=== PATIENT | female | born 1940 | race Caucasian/White ===

== ENCOUNTER 2018-09-09 12:22 | Inpatient (IN) | payer MEDICARE ==
[2018-09-09] MEDS: SODIUM CHLORIDE 0.9% 1,000 ML IV SCH (15:17)
[2018-09-09 15:39] LABS: INR 1.5 (<1.2); Partial Thromboplastin Time 30.7 sec (22.0-30.0); Prothrombin Time 14.8 sec (9.0-12.0)
[2018-09-09 15:41] LABS: Anisocytosis Moderate; Basophils % (A) 0 %; Eosinophils # (A) 0.1 k/uL (0-0.7); Eosinophils % (A) 1 %; HCT 31.7 % (34.0-46.0); HGB 9.5 gm/dL (11.4-16.0); Hypochromasia Moderate; Lymphocytes # (A) 0.4 k/uL (1.0-4.8); Lymphocytes % (A) 4 %; MCH 28.6 pg (25.0-35.0); MCHC 30.1 g/dL (31.0-37.0); MCV 94.9 fL (80.0-100.0); Macrocytosis Slight; Mean Platelet Volume 9.3; Monocytes # (A) 0.7 k/uL (0-1.0); Monocytes % (A) 6 %; Neutrophils # (A) 10.3 k/uL (1.3-7.7); Neutrophils % (A) 89 %; Platelet Count 218 k/uL (150-450); RBC 3.34 m/uL (3.80-5.40); RDW 20.3 % (11.5-15.5); WBC 11.6 k/uL (3.8-10.6)
[2018-09-09 15:43] LABS: Creatine Kinase <20 U/L (30-135)
--- NOTE | 2018-09-09 15:44 | XR ---
EXAMINATION TYPE: XR chest 2V DATE OF EXAM: 09/09/2018 COMPARISON: NONE HISTORY: Weakness. TECHNIQUE: Frontal and lateral views of the chest are obtained. FINDINGS: The cardiac silhouette size is upper limits of normal. There are small to tiny bilateral p leural effusions with blunting of posterior lateral costophrenic angles. There is associated bibasila r compressive atelectasis. The osseous structures are demineralized. IMPRESSION: Correlate for CHF exacerbation as there are small to tiny bilateral pleural effusions an d associated bibasilar atelectasis.
[2018-09-09] MEDS ORDERED: SODIUM CHLORIDE 0.9% 1,000 ML IV ONE (15:45)
--- NOTE | 2018-09-09 15:45 | XR ---
EXAMINATION TYPE: XR Hip RT and AP Pelvis DATE OF EXAM: 09/09/2018 COMPARISON: NONE HISTORY: Right hip pain. TECHNIQUE: A single AP view of the pelvis is obtained. Two views of the right hip are obtained. FINDINGS: Osseous structures are demineralized. There is no acute fracture/dislocation evident in th e pelvis. The sacroiliac joints appear symmetric and unremarkable. Mild to moderate axial joint spac e loss in both hips is present. The overlying soft tissue appears unremarkable. Two views of right hip show no acute fracture or dislocation. No focal lytic or sclerotic lesion see n in the proximal right femur. The overlying soft tissue is unremarkable. IMPRESSION: There is no acute fracture or dislocation in the pelvis or right hip.
--- NOTE | 2018-09-09 15:45 | ED ---
Weakness HPI - General Chief complaint: Weakness Stated complaint: Weakness Time Seen by Provider: 09/09/18 14:30 Source: patient, family, RN notes reviewed, old records reviewed Mode of arrival: wheelchair Limitations: no limitations - History of Present Illness Initial comments: Patient is a 78-year-old female, Patient of Dr. Harris who presents emergency department today with progressive weakness. Patient reports that she was hospitalized in [place] during [place] time due to increasing weakness and difficulty ambulating. She [place]. She followed up with her primary care physician. Patient presents emergency department today with her and 2 sons. They're trying to transfer the Patient she was very difficult for transfer. She reports that she twisted her back and complains of pain within her back. Patient states that when she was hospitalized they never found an exact reason why she had increased weakness. They report that she did have some changes on her electrolyte levels. There is no definitive diagnoses 1 she was discharged. She was just told to come back here to start to establish care for this progressive weakness. Patient presents today without a fever. She reports she's had some increased shortness of breath and swelling in her legs. She's had no previous cardiac history. - Related Data Home Medications Medication Instructions Recorded Confirmed Enalapril [Vasotec] 10 mg PO DAILY 09/09/18 09/09/18 Insulin Aspart Protam & Aspart 8 unit SQ BID 09/09/18 09/09/18 [Novolog Mix 70-30 Flexpen Syrn] Insulin Aspart [NovoLOG Flexpen] 4 units SQ AC-BRKFST 09/09/18 09/09/18 Insulin Aspart [NovoLOG Flexpen] 8 units SQ AC-BID 09/09/18 09/09/18 Metoprolol Succinate (ER) [Toprol 50 mg PO DAILY 09/09/18 09/09/18 Xl] Allergies Allergy/AdvReac Type Severity Reaction Status Date / Time aspirin Allergy Rash/Hives Verified 09/09/18 15:20 Review of Systems ROS Statement: Those systems with pertinent positive or pertinent negative responses have been documented in the HPI. ROS Other: All systems not noted in ROS Statement are negative. Past Medical History Past Medical History: Diabetes Mellitus, Hypertension History of Any Multi-Drug Resistant Organisms: None Reported Past Surgical History: Cholecystectomy, Joint Replacement Additional Past Surgical History / Comment(s): biopsy of lymph node 08/29/18, bilateral knee replacement Past Psychological History: No Psychological Hx Reported Smoking Status: Former smoker Past Alcohol Use History: None Reported Past Drug Use History: None Reported General Exam - General Exam Comments Initial Comments: 78-year-old female. Alert and oriented 3. Limitations: no limitations General appearance: alert, in no apparent distress Head exam: Present: atraumatic, normocephalic, normal inspection Eye exam: Present: normal appearance, PERRL, EOMI. Absent: scleral icterus, conjunctival injection, periorbital swelling ENT exam: Present: normal exam, mucous membranes moist. Absent: normal oropharynx (dry) Neck exam: Present: normal inspection. Absent: tenderness, meningismus, lymphadenopathy Respiratory exam: Present: normal lung sounds bilaterally. Absent: respiratory distress, wheezes, rales, rhonchi, stridor Cardiovascular Exam: Present: regular rate, normal rhythm, normal heart sounds. Absent: systolic murmur, diastolic murmur, rubs, gallop, clicks GI/Abdominal exam: Present: soft, normal bowel sounds. Absent: distended, tenderness, guarding, rebound, rigid Extremities exam: Present: normal inspection, pedal edema, other (Bilateral pedal edema) Back exam: Present: normal inspection Neurological exam: Present: alert, oriented X3, CN II-XII intact Psychiatric exam: Present: normal affect, normal mood Skin exam: Present: warm, dry, intact, normal color. Absent: rash Course Vital Signs 09/09/18 09/09/18 13:14 16:30 Temperature 97.7 F Pulse Rate 85 86 Respiratory 18 19 Rate Blood Pressure 93/59 109/63 O2 Sat by Pulse 100 100 Oximetry EKG Findings - EKG Comments: EKG Findings:: EKG performed at 1415 shows normal sinus rhythm and normal EKG. Ventricular rate of 86 bpm. Intervals 142 ms. QRS duration 70 ms. QT QTc is 376/449 ms. Medical Decision Making - Medical Decision Making 78-year-old female presents emergency department today with chief complaint of progressive weakness. She was recently admitted to hospital in [place] and discharged with no definitive diagnosis. Patient has had a rapid decline since [place] according to family. Patient reports bilateral leg swelling and shortness of breath. White blood cell count was 11.6. RBCs is 3.34. Hemoglobin is 9.5. Sodium of 131, potassium 4.4. 94. Blood sugar 132. Her lactic acidosis elevated 4.8. Troponin was normal. Albumin was low at 2.3. Patient had to be catheterized for urine sample. There is some white blood cells and red blood cells. Urine culture will be obtained. We'll start the Patient 1 g of Rocephin at this time to cover for urosepsis with the elevated lactic acid. She was given 1 L bolus, started 100 and hour. She does have some evidence of fluid overload with bilateral pitting edema. Patient will be admitted at this time under Dr. Piper. - Lab Data Result diagrams: 09/09/18 15:10 09/09/18 15:10 Lab Results 09/09/18 09/09/18 09/09/18 Range/Units 15:10 15:10 15:10 WBC 11.6 H (3.8-10.6) k/uL RBC 3.34 L (3.80-5.40) m/uL Hgb 9.5 L (11.4-16.0) gm/dL Hct 31.7 L (34.0-46.0) % MCV 94.9 (80.0-100.0) fL MCH 28.6 (25.0-35.0) pg MCHC 30.1 L (31.0-37.0) g/dL RDW 20.3 H (11.5-15.5) % Plt Count 218 (150-450) k/uL Neutrophils % 89 % Lymphocytes % 4 % Monocytes % 6 % Eosinophils % 1 % Basophils % 0 % Neutrophils # 10.3 H (1.3-7.7) k/uL Lymphocytes # 0.4 L (1.0-4.8) k/uL Monocytes # 0.7 (0-1.0) k/uL Eosinophils # 0.1 (0-0.7) k/uL Basophils # 0.0 (0-0.2) k/uL Hypochromasia Moderate Anisocytosis Moderate Macrocytosis Slight PT (9.0-12.0) sec INR (<1.2) APTT (22.0-30.0) sec Sodium 131 L (137-145) mmol/L Potassium 4.4 (3.5-5.1) mmol/L Chloride 94 L (98-107) mmol/L Carbon Dioxide 24 (22-30) mmol/L Anion Gap 13 mmol/L BUN 18 H (7-17) mg/dL Creatinine 0.84 (0.52-1.04) mg/dL Est GFR (CKD-EPI)AfAm 76 (>60 ml/min/1.73 sqM) Est GFR (CKD-EPI)NonAf 66 (>60 ml/min/1.73 sqM) Glucose 132 H (74-99) mg/dL Plasma Lactic Acid Wilbert (0.7-2.0) mmol/L Calcium 7.7 L (8.4-10.2) mg/dL Total Bilirubin 1.4 H (0.2-1.3) mg/dL AST 35 (14-36) U/L ALT 21 (9-52) U/L Alkaline Phosphatase 297 H (38-126) U/L Total Creatine Kinase <20 L (30-135) U/L CK-MB (CK-2) 0.5 (0.0-2.4) ng/mL CK-MB (CK-2) Rel Index Troponin I <0.012 (0.000-0.034) ng/mL NT-Pro-B Natriuret Pep pg/mL Total Protein 6.5 (6.3-8.2) g/dL Albumin 2.3 L (3.5-5.0) g/dL Urine Color Urine Appearance (Clear) Urine pH (5.0-8.0) Ur Specific [place] (1.001-1.035) Urine Protein (Negative) Urine Glucose (UA) (Negative) Urine Ketones (Negative) Urine Blood (Negative) Urine Nitrite (Negative) Urine Bilirubin (Negative) Urine Urobilinogen (<2.0) mg/dL Ur Leukocyte Esterase (Negative) Urine RBC (0-5) /hpf Urine WBC (0-5) /hpf Ur Squamous Epith Cells (0-4) /hpf Amorphous Sediment (None) /hpf Hyaline Casts (0-2) /lpf Urine Mucus (None) /hpf 09/09/18 09/09/18 09/09/18 Range/Units 15:10 15:10 15:10 WBC (3.8-10.6) k/uL RBC (3.80-5.40) m/uL Hgb (11.4-16.0) gm/dL Hct (34.0-46.0) % MCV (80.0-100.0) fL MCH (25.0-35.0) pg MCHC (31.0-37.0) g/dL RDW (11.5-15.5) % Plt Count (150-450) k/uL Neutrophils % % Lymphocytes % % Monocytes % % Eosinophils % % Basophils % % Neutrophils # (1.3-7.7) k/uL Lymphocytes # (1.0-4.8) k/uL Monocytes # (0-1.0) k/uL Eosinophils # (0-0.7) k/uL Basophils # (0-0.2) k/uL Hypochromasia Anisocytosis Macrocytosis PT 14.8 H (9.0-12.0) sec INR 1.5 H (<1.2) APTT 30.7 H (22.0-30.0) sec Sodium (137-145) mmol/L Potassium (3.5-5.1) mmol/L Chloride (98-107) mmol/L Carbon Dioxide (22-30) mmol/L Anion Gap mmol/L BUN (7-17) mg/dL Creatinine (0.52-1.04) mg/dL Est GFR (CKD-EPI)AfAm (>60 ml/min/1.73 sqM) Est GFR (CKD-EPI)NonAf (>60 ml/min/1.73 sqM) Glucose (74-99) mg/dL Plasma Lactic Acid Wilbert 4.8 H* (0.7-2.0) mmol/L Calcium (8.4-10.2) mg/dL Total Bilirubin (0.2-1.3) mg/dL AST (14-36) U/L ALT (9-52) U/L Alkaline Phosphatase (38-126) U/L Total Creatine Kinase (30-135) U/L CK-MB (CK-2) (0.0-2.4) ng/mL CK-MB (CK-2) Rel Index Troponin I (0.000-0.034) ng/mL NT-Pro-B Natriuret Pep 1690 pg/mL Total Protein (6.3-8.2) g/dL Albumin (3.5-5.0) g/dL Urine Color Urine Appearance (Clear) Urine pH (5.0-8.0) Ur Specific [place] (1.001-1.035) Urine Protein (Negative) Urine Glucose (UA) (Negative) Urine Ketones (Negative) Urine Blood (Negative) Urine Nitrite (Negative) Urine Bilirubin (Negative) Urine Urobilinogen (<2.0) mg/dL Ur Leukocyte Esterase (Negative) Urine RBC (0-5) /hpf Urine WBC (0-5) /hpf Ur Squamous Epith Cells (0-4) /hpf Amorphous Sediment (None) /hpf Hyaline Casts (0-2) /lpf Urine Mucus (None) /hpf 09/09/18 Range/Units 16:20 WBC (3.8-10.6) k/uL RBC (3.80-5.40) m/uL Hgb (11.4-16.0) gm/dL Hct (34.0-46.0) % MCV (80.0-100.0) fL MCH (25.0-35.0) pg MCHC (31.0-37.0) g/dL RDW (11.5-15.5) % Plt Count (150-450) k/uL Neutrophils % % Lymphocytes % % Monocytes % % Eosinophils % % Basophils % % Neutrophils # (1.3-7.7) k/uL Lymphocytes # (1.0-4.8) k/uL Monocytes # (0-1.0) k/uL Eosinophils # (0-0.7) k/uL Basophils # (0-0.2) k/uL Hypochromasia Anisocytosis Macrocytosis PT (9.0-12.0) sec INR (<1.2) APTT (22.0-30.0) sec Sodium (137-145) mmol/L Potassium (3.5-5.1) mmol/L Chloride (98-107) mmol/L Carbon Dioxide (22-30) mmol/L Anion Gap mmol/L BUN (7-17) mg/dL Creatinine (0.52-1.04) mg/dL Est GFR (CKD-EPI)AfAm (>60 ml/min/1.73 sqM) Est GFR (CKD-EPI)NonAf (>60 ml/min/1.73 sqM) Glucose (74-99) mg/dL Plasma Lactic Acid Wilbert (0.7-2.0) mmol/L Calcium (8.4-10.2) mg/dL Total Bilirubin (0.2-1.3) mg/dL AST (14-36) U/L ALT (9-52) U/L Alkaline Phosphatase (38-126) U/L Total Creatine Kinase (30-135) U/L CK-MB (CK-2) (0.0-2.4) ng/mL CK-MB (CK-2) Rel Index Troponin I (0.000-0.034) ng/mL NT-Pro-B Natriuret Pep pg/mL Total Protein (6.3-8.2) g/dL Albumin (3.5-5.0) g/dL Urine Color Dark Brown Urine Appearance Cloudy H (Clear) Urine pH 5.5 (5.0-8.0) Ur Specific [place] 1.026 (1.001-1.035) Urine Protein 1+ H (Negative) Urine Glucose (UA) Negative (Negative) Urine Ketones Trace H (Negative) Urine Blood Moderate H (Negative) Urine Nitrite Negative (Negative) Urine Bilirubin 1+ H (Negative) Urine Urobilinogen 12.0 (<2.0) mg/dL Ur Leukocyte Esterase Negative (Negative) Urine RBC 29 H (0-5) /hpf Urine WBC 10 H (0-5) /hpf Ur Squamous Epith Cells 5 H (0-4) /hpf Amorphous Sediment Occasional H (None) /hpf Hyaline Casts 275 H (0-2) /lpf Urine Mucus Occasional H (None) /hpf - Radiology Data Radiology results: report reviewed Chest x-ray shows no acute fracture dislocation of the pelvis or right hip. Chest x-ray shows correlate for CHF exacerbation as her tiny bilateral pleural effusions associated bibasilar atelectasis. Disposition Clinical Impression: Fluid overload, Sepsis secondary to UTI, Weakness Disposition: ADMITTED IP TO THIS HOSP Condition: Stable Is patient prescribed a controlled substance at d/c from ED?: No Referrals: Kye Piper MD [Primary Care Provider] - 1-2 days Time of Disposition: 17:05
[2018-09-09 15:54] LABS: Albumin 2.3 g/dL (3.5-5.0); Calcium 7.7 mg/dL (8.4-10.2); Potassium 4.4 mmol/L (3.5-5.1); Total Bilirubin 1.4 mg/dL (0.2-1.3); Total Protein 6.5 g/dL (6.3-8.2)
[2018-09-09 15:56] LABS: Creatine Kinase MB 0.5 ng/mL (0.0-2.4); Troponin I <0.012 ng/mL (0.000-0.034)
[2018-09-09 16:37] LABS: Amorphous Sediment,Urine Occasional /hpf; Appearance,Urine Cloudy (Clear); Bilirubin,Urine 1+ (Negative); Blood,Urine Moderate (Negative); Color,Urine Dark Brown; Glucose,Urine (UA) Negative (Negative); Hyaline Casts,Urine 275 /lpf (0-2); Ketones,Urine Trace (Negative); Leukocyte Esterase,Urine Negative (Negative); Mucus,Urine Occasional /hpf; Nitrite,Urine Negative (Negative); PH, Urine 5.5 (5.0-8.0); Protein,Urine 1+ (Negative); RBC,Urine 29 /hpf (0-5); Specific Gravity,Urine 1.026 (1.001-1.035); Squamous Epithelial Cell,Urine 5 /hpf (0-4); WBC,Urine 10 /hpf (0-5)
[2018-09-09] MEDS ORDERED: ONDANSETRON 4 MG/2 ML VIAL IVP PRN (17:05)
[2018-09-09] MEDS ORDERED: NALOXONE 0.4 MG/ML 1 ML VIAL IV PRN (17:05)
[2018-09-09 17:57] LABS: Glucose,Whole Blood 107 mg/dL (75-99)
[2018-09-09] MEDS: INSULIN ASPART 100 UNIT/ML 1 ML 10 ML VIAL SQ SCH (18:57)
--- NOTE | 2018-09-09 22:17 | HP ---
HISTORY AND PHYSICAL PRIMARY COMPLAINT: Weakness. HISTORY OF PRESENT ILLNESS: This 78-year-old female returned from [place] shortly after [place]. Apparently she had been doing fairly well after but developed extreme weakness down in [place] and was hospitalized at [facility] in [place], [place]. Phone number . Because of her abnormalities they did an initial chest x -ray and she was found to have some pectoral lymph nodes that were enlarged. Subsequently she had a biopsy, the report of which I just received today, that did show some inflammation on the lymph nodes but not specifically diagnostic for a lymphoma. 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 The patient returned home and has continued to do poorly, unable to ambulate about her house, needing and at requiring the assistance of two people to get up out of bed. The patient was actually seen earlier this year, this summer, and was complaining of abdominal pain, and had had some weight loss. At that time laboratory values were essentially unremarkable, though she did have mild anemia. She had a chest x- ray back in February of last year at [facility] which showed some mild hyperinflation and borderline heart size, but no acute pulmonary process at that time. Due to her abdominal symptoms, she had a CT scan of the abdomen and pelvis which at that time showed no acute process in the abdomen, no evidence of any unusual lymph nodes greater than 1 cm. Lung bases were clear. Pancreas, spleen, adrenals, kidney showed no unusual abnormalities. She was actually referred to Dr. Rodriguez from Gastroenterology and underwent an EGD which showed some mild gastritis. Otherwise, she also had a distal esophageal ring that was dilated, but no other major abnormalities were found. Then subsequently the patient remained fairly stable and went to winter in [place] as usual until the above-mentioned problems arose and she returned from [place]. Other past medical history is positive for: 1. Hypertension. 2. Type 2 diabetes with neuropathy. 3. She does have a history of hyperlipidemia. 4. Obesity. No history of myocardial infarction or stroke. HOME MEDICATIONS: Home medications include: 1. Metoprolol succinate 50 mg daily. 2. NovoLog 70/30, 8 units twice a day. 3. Vasotec 10 mg daily. 4. NovoLog FlexPen 4 units before breakfast and 8 units before the other two meals. ALLERGIES: She has a HISTORY OF ALLERGY WITH RASH AND HIVES TO ASPIRIN. REVIEW OF SYSTEMS: She denied any unusual headache. No nausea or vomiting. No unusual urinary or bowel symptoms. She has had some increasing edema, shortness of breath with exertion , but no further abdominal pain or headaches. SOCIAL HISTORY: Negative for smoking or alcohol usage. She has lived with her locally here and [place] in [place]. FAMILY HISTORY: Positive for diabetes and coronary artery disease. PHYSICAL EXAMINATION: She is alert, overall pleasant. Her initial blood pressure, though, was 93/59, temperature 97.7. Blood pressure had increased with fluids in the emergency room up to 109/56, pulse of 88, respirations 15, oxygen saturation 100%. She does generally look pale but not icteric. Neck is not stiff. There are some small but enlarged lymph nodes in the right lower neck and on the chest wall in the upper chest area. Heart tones were regular without murmurs. Lungs were clear although diminished at bases. The breasts did not reveal any definitive lesions. Axillae: She is a very large lady, but I did not detect any marked axillary nodes present at this time. ABDOMEN: Obese but generally soft and nontender without organomegaly. Extremities reveal 1 to 2+ edema bilaterally. Neurologically, she is alert and oriented. No cranial nerve deficits. There is some generalized diffuse weakness but no focal weakness noted. LABORATORY VALUES: White count 11.6, hemoglobin 9.5, platelet count of 218. There was a left shift with 10.3 neutrophils. Her INR is 1.5, which is elevated. PTT is also elevated at 10.7. Her sodium was low at 131, potassium 4.4, BUN of 18 with a creatinine 0.84. Her GFR was 66 and blood sugar 132. She did have an elevated lactic acid level of 4.8, but this decreased down to 3. Calcium was low at 7.7, albumin a little bit high at 1.4, but AST and ALT were normal. Alkaline phosphatase is elevated at 297. CK of 20. Albumin was low at 2.3. Troponin less than 0.012. ProBNP was 1690. TSH mildly elevated at 5.7. Urinalysis did show it to be cloudy, moderate amount of blood , 29 RBCs and 10 white cells along with casts were seen. The patient did have a chest x-ray, which revealed what looked like some small effusions at the bases consistent with some CHF or atelectasis. Otherwise lung li were fairly clear. Cardiac size was upper limits of normal. She did have hip and pelvic x-rays which did not show any evidence of fracture. Her EKG showed regular sinus rhythm, essentially unremarkable. As mentioned, her biopsy down in [place] was nondiagnostic. This was a pectoral lymph node on the upper anterior chest, apparently. IMPRESSION: Overall impression at this point is this 78-year-old female with worsening weakness, possibility of underlying lymphoma, presenting with likely a urinary tract infection associated with elevated lactic acid level consistent with sepsis and with the weakness along with an underlying possible malignancy and past medical history of obesity , hypertension, diabetes, hyperlipidemia. She also does have anemia with a hemoglobin of 9.5. PLAN: At this point we will admit. Some IV fluids judiciously along with antibiotics and cultures being obtained. We will ask Oncology for evaluation and further recommendations. We have sent the records from [place] over to Oncology and will hopefully get a copy for the patient's inpatient chart. Further recommendations pending clinical response and results of above, as discussed with the patient and her son at bedside. MMODL / IJN: [id number] / MTDD
[2018-09-09 23:30] LABS: Glucose,Whole Blood 135 mg/dL (75-99)
[2018-09-10] MEDS: INSULN ASP PRT/INSULIN ASPART 100 UNIT/ML 10 ML VIAL SQ SCH ×3 (00:30→20:47)
[2018-09-10] MEDS: SODIUM CHLORIDE 0.9% 1,000 ML IV SCH ×2 (01:22→22:46)
--- NOTE | 2018-09-10 08:15 | P.PN ---
Progress Note - Text The patient is a 78-year-old female who presented to the emergency room yesterday with severe weakness. The patient was initially wintering in [place] when she became very weak around [place] time. There she was admitted to [facility] and found to have some chest wall lymphadenopathy and an abnormal chest x-ray at that time. A biopsy was taken from a right pectoral lymph node which showed nonspecific inflammation. Patient has continued to be very weak. Urinalysis is possibly shows a infection and she is presently on treatment. Patient did have a CAT scan and biopsy of the chest and lymph nodes in [place]. She did have a abdominal and pelvic CAT scan earlier this year at [facility] because of abdominal pain but these were essentially negative along with a upper gastroscopy. Chest x-rays has shown some small bilateral effusions. BNP is elevated. She is feeling a little better this morning. She denies any shortness of breath or nausea and vomiting. Vital signs show temperature 97.4 with a pulse of 101 and respirations 20. Blood pressure is 114/70 and she is 97% saturated on room air. Lungs are generally clear although diminished at bases. Heart tones were regular. Abdomen is obese but nontender. Extremities do show grade 2-3 edema bilaterally. Lower extremities. She is alert and oriented. No focal neurological deficits. The patient's lactic acid level did decrease down to 3.0. Still is elevated. Blood sugar 135 this morning. Urine culture pending. Impressions and plans Likely sepsis from urinary source with acute weakness. Concerned with possible underlying lymphoma or metastatic disease with history of weakness and weight loss and findings from chest CAT scan done down in [place]. Patient also has mild anemia and congestive heart failure. At this point we will add small dose of Lasix. Repeat labs for tomorrow morning. Consult has been placed with oncology to evaluate. Records from [place] have been sent to their office. Echocardiogram has been ordered. We'll continue beta blockers and lisinopril for now. Continue antibiotics in the form of Rocephin for now pending cultures.
[2018-09-10] MEDS: INSULIN ASPART 100 UNIT/ML 1 ML 10 ML VIAL SQ SCH ×3 (08:42→18:06)
[2018-09-10 08:59] LABS: Glucose,Whole Blood 107 mg/dL (75-99)
[2018-09-10] MEDS ORDERED: PANTOPRAZOLE 40 MG/10 ML VIAL IV SCH (09:00)
[2018-09-10] MEDS ORDERED: cefTRIAXone 1,000 MG VIAL (IM USE) IM SCH (09:00)
[2018-09-10] MEDS: METOPROLOL SUCCINATE (ER) 50 MG TAB.ER.24H PO SCH (13:17)
[2018-09-10] MEDS: LISINOPRIL 10 MG TAB PO SCH (13:17)
[2018-09-10] MEDS: FUROSEMIDE 10 MG/ML 2 ML VIAL IV SCH ×2 (13:18→22:46)
[2018-09-10 13:23] LABS: Glucose,Whole Blood 84 mg/dL (75-99)
[2018-09-10] MEDS: HYDROmorphone 1 MG/ML 1 ML SYRINGE IVP PRN (14:13)
[2018-09-10 16:01] LABS: Glucose,Whole Blood 147 mg/dL (75-99)
[2018-09-10] MEDS: IOPAMIDOL-300 CONTRAST 30 ML VIAL (ORAL USE) PO PRN ×2 (18:43→20:11)
[2018-09-10 21:00] LABS: Glucose,Whole Blood 79 mg/dL (75-99)
--- NOTE | 2018-09-11 03:13 | CT ---
EXAMINATION TYPE: CT ChestAbdPelvis w con DATE OF EXAM: 09/10/2018 COMPARISON: None HISTORY: r/o lymphoma CT DLP: 1687.5 mGycm Automated exposure control for dose reduction was used. CONTRAST: CT scan of the chest, abdomen and pelvis is performed with Oral Contrast and with IV Contra st, patient injected with 100 mL of Isovue 300. FINDINGS: AIRWAYS / LUNGS: The tracheobronchial tree is patent. The lungs are grossly clear, there is no concer oly parenchymal mass or nodule identified. PLEURAL SPACES: There are relatively small bilateral pleural effusions. MEDIASTINUM: There is mild/moderate bilateral hilar adenopathy. There is mild/moderate adenopathy thr oughout the superior, anterior, and middle mediastinum. This is also seen in the subcarinal and right paraesophageal positions. There is mild cardiomegaly and prominent coronary calcifications, but no pericardial effusion. SUPRACLAVICULAR/AXILLARY: On the right there are 3 smoothly-marginated soft tissue adenopathy masses, measuring 5.4 x 2.8 cm, 2.4 x 2.0 cm, and 2.8 x 1.7 cm. On the left there are 3 lymph nodes measurin g 1 cm mean diameter. LIVER/GB: No significant abnormality is appreciated. The liver appears somewhat shrunken with caudate lobe hypertrophy and scalloped hepatic margins. PANCREAS, SPLEEN, ADRENALS, AND KIDNEYS: No significant abnormality. BOWEL: No significant abnormality is seen. REPRODUCTIVE ORGANS: No gross abnormality seen. LYMPH NODES: There are 1 to 3 cm lymph nodes throughout the abdomen and pelvis, extending from the pe ripancreatic/shira hepatus/portacaval and periaortic positions contiguously and caudally to include t he bilateral common iliac positions and left external iliac and inguinal positions. At this time ther e is no significant mass effect from these enlarged lymph nodes. OSSEOUS STRUCTURES: No significant abnormality is seen. OTHER: No acute vascular findings. IMPRESSION: CHEST: Adenopathy in the right supraclavicular/axillary and mediastinal/hilar positions. Bilateral sm all pleural effusions. ABDOMEN AND PELVIS: Adenopathy, more prominent in the abdomen.
[2018-09-11] MEDS: LEVOTHYROXINE 25 MCG TAB PO SCH (06:23)
[2018-09-11 06:28] LABS: Glucose,Whole Blood 80 mg/dL (75-99)
[2018-09-11 06:45] LABS: Albumin 1.8 g/dL (3.5-5.0); Calcium 6.8 mg/dL (8.4-10.2); Potassium 3.3 mmol/L (3.5-5.1); Total Bilirubin 1.2 mg/dL (0.2-1.3); Total Protein 5.3 g/dL (6.3-8.2)
[2018-09-11 07:02] LABS: T4, Free (Free Thyroxine) 1.36 ng/dL (0.78-2.19)
--- NOTE | 2018-09-11 07:22 | P.PN ---
Progress Note - Text The patient is a 78-year-old female who presented to 2 days previous to the emergency room here. Patient was wintering in [place] when she became very weak around [place] time. She was hospitalized at [facility] and found to have some lymphadenopathy of the right upper chest wall. Biopsy though was nonspecific for inflammation but apparently nondiagnostic. Patient presented here with congestive heart failure and urinary tract infection along with continued anemia and weakness. She states she feels some better. She has been on Lasix and diuresing. Vital signs show a temperature 90.8 with a pulse of 90 and respirations 16. Blood pressure 119/57 and she is 97% saturated. Lungs are generally clear although diminished at bases. Heart tones were regular. Abdomen is obese but nontender. Extremities were edematous and presently are wrapped in Jarrell wrap. No new neurological deficits noted. Laboratory Sodium is low at 128 along with potassium at 3.3. BUN is 16 with a creatinine of 0.85 given her GFR 69. Blood sugar was 80. Calcium is low at 6.8 with a low albumin of 1.8. Alk phos also was elevated at 272. Computed tomography scan of chest/abdomen/pelvis showed adenopathy in the right supraclavicular and axillary and mediastinal hilar positions. Small bilateral pleural effusions. There was more prominent adenopathy also noted in the abdomen. Impressions and plans Patient is receiving Lasix although with her sodium low we will decrease and add Aldactone and potassium replacement and follow electrolytes. Continue antibiotics for possible urinary tract infection. Oncology workup in progress. CT noted. Labs pending. We'll await further recommendations from oncology when tests are resulted.
[2018-09-11 07:38] LABS: Anisocytosis Moderate; Basophils % (A) 0 %; Eosinophils % (A) 0 %; HCT 25.7 % (34.0-46.0); Hypochromasia Moderate; Lymphocytes # (A) 0.5 k/uL (1.0-4.8); Lymphocytes % (A) 5 %; MCH 29.3 pg (25.0-35.0); MCHC 30.3 g/dL (31.0-37.0); MCV 96.6 fL (80.0-100.0); Macrocytosis Moderate; Mean Platelet Volume 8.9; Monocytes # (A) 1.3 k/uL (0-1.0); Monocytes % (A) 11 %; Neutrophils # (A) 9.6 k/uL (1.3-7.7); Neutrophils % (A) 83 %; Platelet Count 145 k/uL (150-450); RBC 2.67 m/uL (3.80-5.40); RDW 20.8 % (11.5-15.5); WBC 11.6 k/uL (3.8-10.6)
[2018-09-11 07:46] LABS: HGB 7.8 gm/dL (11.4-16.0)
[2018-09-11] MEDS: INSULIN ASPART 100 UNIT/ML 1 ML 10 ML VIAL SQ SCH ×3 (08:54→17:08)
[2018-09-11] MEDS: POTASSIUM CHLORIDE ER 10 MEQ TAB.ER.PRT PO SCH ×2 (09:01→20:32)
[2018-09-11] MEDS: METOPROLOL SUCCINATE (ER) 50 MG TAB.ER.24H PO SCH (09:01)
[2018-09-11] MEDS: FUROSEMIDE 10 MG/ML 2 ML VIAL IV SCH ×2 (09:01→22:33)
--- NOTE | 2018-09-11 09:02 | ECHOF ---
Referral Reason:CHF MEASUREMENTS -------- HEIGHT: 165.1 cm WEIGHT: 99.3 kg BP: 116/50 IVSd: 1.2 cm (0.6 - 1.1) LVIDd: 4.2 cm (3.9 - 5.3) LVPWd: 1.1 cm (0.6 - 1.1) IVSs: 1.7 cm LVIDs: 3.2 cm LVPWs: 1.3 cm Ao Diam: 3.1 cm (2.0 - 3.7) LA Diam: 3.7 cm (2.7 - 3.8) MV EXCURSION: 13.883 mm (> 18.000) MV EF SLOPE: 58 mm/s (70 - 150) EPSS: 0.4 cm MV E Siva: 0.58 m/s MV DecT: 287 ms MV A Siva: 1.20 m/s MV E/A Ratio: 0.49 AV maxP.27 mmHg AV meanP.93 mmHg RAP: 5.00 mmHg RVSP: 28.98 mmHg FINDINGS -------- Undetermined rhythm. This was a technically adequate study. The left ventricular size is normal. There is mild concentric left ventricular hypertrophy. Overa ll left ventricular systolic function is normal with, an EF between 55 - 60 %. The right ventricle is normal in size. The left atrial size is normal. The right atrial size is normal. The aortic valve was not well visualized. There is mild aortic valve sclerosis. There is mild aor tic stenosis present. Mild mitral annular calcification present. Mild mitral regurgitation is present. Mild tricuspid regurgitation present. There is no evidence of pulmonary hypertension. The right v entricular systolic pressure, as measured by Doppler, is 28.98mmHg. There is no pulmonic regurgitation present. The aortic root size is normal. There is no pericardial effusion. CONCLUSIONS -------- 1. The left ventricular size is normal. 2. There is mild concentric left ventricular hypertrophy. 3. Overall left ventricular systolic function is normal with, an EF between 55 - 60 %. 4. The right ventricle is normal in size. 5. The left atrial size is normal. 6. The right atrial size is normal. 7. The aortic valve was not well visualized. 8. There is mild aortic valve sclerosis. 9. There is mild aortic stenosis present. 10. Mild mitral annular calcification present. 11. Mild mitral regurgitation is present. 12. Mild tricuspid regurgitation present. 13. There is no evidence of pulmonary hypertension. 14. The right ventricular systolic pressure, as measured by Doppler, is 28.98mmHg. 15. There is no pulmonic regurgitation present. 16. The aortic root size is normal. 17. There is no pericardial effusion. TILER'S ASSISTANT: Lucía Ryan RDCS
[2018-09-11] MEDS: HYDROmorphone 1 MG/ML 1 ML SYRINGE IVP PRN (10:55)
[2018-09-11 11:56] LABS: Glucose,Whole Blood 189 mg/dL (75-99)
--- NOTE | 2018-09-11 12:17 | P.GSCN ---
History of Present Illness Consult date: 09/11/18 Reason for Consult: Lymphadenopathy History of present illness: Patient hospitalized because of weakness and pain. She just returned from [place]. CAT scan shows adenopathy involving the abdomen, chest and right axilla and supraclavicular regions. We were consulted for open biopsy of the lymphadenopathy. She apparently had a recent attempt at needle biopsy while she was in [place] but the results were inconclusive. Per the family her primary symptom recently has been poor appetite and fatigue. Patient denies night sweats. Some weight loss they believe. Review of Systems The patient denies any acute changes in vision or hearing, no dysphagia or odynophagia, no chest pain or shortness of breath, no dysuria or hematuria, no headache, no runny nose, no rectal bleeding or melena Past Medical History Past Medical History: Diabetes Mellitus, Hypertension History of Any Multi-Drug Resistant Organisms: None Reported Past Surgical History: Cholecystectomy, Joint Replacement Additional Past Surgical History / Comment(s): biopsy of lymph node 08/29/18, bilateral knee replacement Past Anesthesia/Blood Transfusion Reactions: No Reported Reaction Past Psychological History: No Psychological Hx Reported Smoking Status: Former smoker Past Alcohol Use History: None Reported Past Drug Use History: None Reported - Past Family History Mother Family Medical History: Coronary Artery Disease (CAD) Father Family Medical History: Cancer Additional Family Medical History / Comment(s): sisters x3 of cancer Medications and Allergies Home Medications Medication Instructions Recorded Confirmed Type Enalapril [Vasotec] 10 mg PO DAILY 09/09/18 09/09/18 History Insulin Aspart Protam & Aspart 8 unit SQ BID 09/09/18 09/09/18 History [Novolog Mix 70-30 Flexpen Syrn] Insulin Aspart [NovoLOG Flexpen] 4 units SQ AC-BRKFST 09/09/18 09/09/18 History Insulin Aspart [NovoLOG Flexpen] 8 units SQ AC-BID 09/09/18 09/09/18 History Metoprolol Succinate (ER) [Toprol 50 mg PO DAILY 09/09/18 09/09/18 History Xl] Allergies Allergy/AdvReac Type Severity Reaction Status Date / Time aspirin Allergy Rash/Hives Verified 09/09/18 15:20 Surgical - Exam Vital Signs Temp Pulse Resp BP Pulse Ox 97.7 F 85 18 93/59 100 09/09/18 13:14 09/09/18 13:14 09/09/18 13:14 09/09/18 13:14 09/09/18 13:14 Physical exam: General: Well-developed, well-nourished HEENT: Normocephalic, sclerae nonicteric, adenopathy involving the right supraclavicular region, some shoddy bilateral neck adenopathy Abdomen: Nontender, nondistended Extremities: Extensive edema involving both upper extremities and lower extremities, no definite superficial axillary adenopathy, suggestion of deep or adenopathy right axilla Neuro: Alert and oriented Results - Labs 09/11/18 05:44 09/11/18 05:44 Abnormal Lab Results - Last 24 Hours (Table) 09/10/18 09/11/18 09/11/18 Range/Units 15:57 05:44 05:44 WBC 11.6 H (3.8-10.6) k/uL RBC 2.67 L (3.80-5.40) m/uL Hgb 7.8 L D (11.4-16.0) gm/dL Hct 25.7 L (34.0-46.0) % MCHC 30.3 L (31.0-37.0) g/dL RDW 20.8 H (11.5-15.5) % Plt Count 145 L (150-450) k/uL Neutrophils # 9.6 H (1.3-7.7) k/uL Lymphocytes # 0.5 L (1.0-4.8) k/uL Monocytes # 1.3 H (0-1.0) k/uL Retic Count 5.0 H (0.5-2.0) % Sodium 128 L (137-145) mmol/L Potassium 3.3 L (3.5-5.1) mmol/L Chloride 96 L (98-107) mmol/L Glucose 69 L (74-99) mg/dL POC Glucose (mg/dL) 147 H (75-99) mg/dL Calcium 6.8 L (8.4-10.2) mg/dL Alkaline Phosphatase 272 H (38-126) U/L Total Protein 5.3 L (6.3-8.2) g/dL Albumin 1.8 L (3.5-5.0) g/dL Free T3 pg/mL 1.4 L (2.8-5.3) pg/ml 09/11/18 Range/Units 11:36 WBC (3.8-10.6) k/uL RBC (3.80-5.40) m/uL Hgb (11.4-16.0) gm/dL Hct (34.0-46.0) % MCHC (31.0-37.0) g/dL RDW (11.5-15.5) % Plt Count (150-450) k/uL Neutrophils # (1.3-7.7) k/uL Lymphocytes # (1.0-4.8) k/uL Monocytes # (0-1.0) k/uL Retic Count (0.5-2.0) % Sodium (137-145) mmol/L Potassium (3.5-5.1) mmol/L Chloride (98-107) mmol/L Glucose (74-99) mg/dL POC Glucose (mg/dL) 189 H (75-99) mg/dL Calcium (8.4-10.2) mg/dL Alkaline Phosphatase (38-126) U/L Total Protein (6.3-8.2) g/dL Albumin (3.5-5.0) g/dL Free T3 pg/mL (2.8-5.3) pg/ml Microbiology - Last 24 Hours (Table) 09/09/18 15:10 Blood Culture - Preliminary Blood No Growth after 24 hours Diabetes panel 09/11/18 Range/Units 05:44 Sodium 128 L (137-145) mmol/L Potassium 3.3 L (3.5-5.1) mmol/L Chloride 96 L (98-107) mmol/L Carbon Dioxide 24 (22-30) mmol/L BUN 16 (7-17) mg/dL Creatinine 0.85 (0.52-1.04) mg/dL Glucose 69 L (74-99) mg/dL Calcium 6.8 L (8.4-10.2) mg/dL AST 20 (14-36) U/L ALT 24 (9-52) U/L Alkaline Phosphatase 272 H (38-126) U/L Total Protein 5.3 L (6.3-8.2) g/dL Albumin 1.8 L (3.5-5.0) g/dL Calcium panel 09/11/18 Range/Units 05:44 Calcium 6.8 L (8.4-10.2) mg/dL Albumin 1.8 L (3.5-5.0) g/dL Pituitary panel 09/11/18 Range/Units 05:44 Sodium 128 L (137-145) mmol/L Potassium 3.3 L (3.5-5.1) mmol/L Chloride 96 L (98-107) mmol/L Carbon Dioxide 24 (22-30) mmol/L BUN 16 (7-17) mg/dL Creatinine 0.85 (0.52-1.04) mg/dL Glucose 69 L (74-99) mg/dL Calcium 6.8 L (8.4-10.2) mg/dL Adrenal panel 09/11/18 Range/Units 05:44 Sodium 128 L (137-145) mmol/L Potassium 3.3 L (3.5-5.1) mmol/L Chloride 96 L (98-107) mmol/L Carbon Dioxide 24 (22-30) mmol/L BUN 16 (7-17) mg/dL Creatinine 0.85 (0.52-1.04) mg/dL Glucose 69 L (74-99) mg/dL Calcium 6.8 L (8.4-10.2) mg/dL Total Bilirubin 1.2 (0.2-1.3) mg/dL AST 20 (14-36) U/L ALT 24 (9-52) U/L Alkaline Phosphatase 272 H (38-126) U/L Total Protein 5.3 L (6.3-8.2) g/dL Albumin 1.8 L (3.5-5.0) g/dL Assessment and Plan (1) Lymphadenopathy Narrative/Plan: Clinical scenario discussed with the patient and her family. Oncology requesting open excisional biopsy of one of the lymph nodes. The most accessible lymph node currently is in the right supraclavicular location it is actually just superficial to the head of the clavicle. We'll tentatively schedule for excisional biopsy tomorrow. Recheck coags. Risks of bleeding, infection, nerve injury, inconclusive diagnosis were reviewed. They understand and wish to proceed. Current Visit: Yes Status: Acute Code(s): R59.1 - GENERALIZED ENLARGED LYMPH NODES SNOMED Code(s): 50918218
[2018-09-11] MEDS: INSULN ASP PRT/INSULIN ASPART 100 UNIT/ML 10 ML VIAL SQ SCH ×2 (12:22→21:20)
[2018-09-11] MEDS: PANTOPRAZOLE 40 MG TABLET PO SCH (12:46)
[2018-09-11] MEDS: LISINOPRIL 10 MG TAB PO SCH (15:52)
[2018-09-11] MEDS: SPIRONOLACTONE 25 MG TAB PO SCH (15:53)
--- NOTE | 2018-09-11 16:51 | CDI ---
Documentation Clarification Form Date: 09/11/2018 4:41:36 PM From: Jeannette Fitch RN, CCDS Admit Date: 09/10/2018 2:32:00 PM Patient Name: Catherine Zamarripa Visit Number: [id number] ATTENTION: The Clinical Documentation Specialists (CDI) and [facility] Coding Staff appreciate your assistance in clarifying documentation. Please respond to the clarification below the line at the bottom and electronically sign. The CDI & [facility] Coding staff will review the response and follow-up if needed. Please note: Queries are made part of the Legal Health Record. If you have any questions, please contact the author of this message via ITS. Dr. Kye Piper CHF is documented in the H&P and progress notes and requires further specificity. History/Risk Factors: CHF, HTN, DM2, obesity Clinical Indicators: Attending Progress Notes: "Patient presented here with congestive heart failure and urinary tract infection along with continued anemia and weakness. Extremities do show grade 2-3 edema bilaterally." VS/Pulse OX: Temp 97.7, HR 85, RR 18, B/P 93/59, spo2 100% ra BNP: 1690 Echocardiogram Results: EF 55-60%, mild concentric LVH Chest x ray: "Correlate for CHF exacerbation as there are small to tiny bilateral pleural effusions and associated bibasilar atelectasis." Treatment: 1L IVF Bolus followed by 50 cc/hr Lasix 20 mg IVP Q 12 hrs Aldactone 25 mg PO QD In your professional opinion, can you please clarify the acuity and type of CHF if known? Diastolic Heart Failure: Acute Chronic Acute on Chronic Systolic & Diastolic Heart Failure: Acute Chronic Acute on Chronic Heart Failure Unable to Determine Other, please specify MTDD
--- NOTE | 2018-09-11 16:58 | CDI ---
Documentation Clarification Form Date: 09/11/2018 4:52:00 PM From: Jeannette Fitch RN, CCDS Admit Date: 09/10/2018 2:32:00 PM Patient Name: Catherine Zamarripa Visit Number: [id number] ATTENTION: The Clinical Documentation Specialists (CDI) and [facility] Coding Staff appreciate your assistance in clarifying documentation. Please respond to the clarification below the line at the bottom and electronically sign. The CDI & [facility] Coding staff will review the response and follow-up if needed. Please note: Queries are made part of the Legal Health Record. If you have any questions, please contact the author of this message via ITS. Dr. Kye Piper A diagnosis of anemia lacks specificity to accurately reflect your patients severity of condition and clarification is needed. History/Risk Factors: increasing weakness, SOB, weight loss, , inflammation of lymph nodes s/p biopsy , HTN, DM2 Clinical indicators: 09/09 H&P: "At that time laboratory values were essentially unremarkable, though she did have mild anemia." 09/11 Attending Progress Note: "Patient presented here with congestive heart failure and urinary tract infection along with continued anemia and weakness" Hemoglobin: 9.5/7.8 Hematocrit: 31.7/25.7 Treatment: Labs AM daily 1L IVF Bolus In order to capture the severity of condition, please clarify the type of anemia and etiology if known: Acute on chronic blood loss anemia Chronic blood loss anemia Iron deficiency anemia Anemia due to malignancy Nutritional anemia Anemia of chronic disease Unable to determine Other, please specify _ anemia (Last Revision: June 2017) anemia secondary to malignancy MTDD
[2018-09-11 17:11] LABS: Glucose,Whole Blood 188 mg/dL (75-99)
[2018-09-11 19:52] LABS: Iron Saturation 16.79 (12.00-45.00)
[2018-09-11] MEDS: SODIUM CHLORIDE 0.9% 1,000 ML IV SCH (20:29)
[2018-09-11 21:09] LABS: Glucose,Whole Blood 125 mg/dL (75-99)
--- NOTE | 2018-09-11 23:18 | P.CONS ---
History of Present Illness - Reason for Consult Consult date: 09/11/18 adenopathy, progressive weakness - History of Present Illness the patient is a 78-year-old white female, with overall well-controlled medical problems at baseline. In 02/18, the patient had been complaining of some abdominal pain and weight loss. CT of the abdomen and pelvis at that time as well as EGD was essentially negative other than finding of an esophageal ring that was successfully dilated. The patient subsequently went to winter in [place]. After , she started to complain of progressive generalized weakness, with night sweats and some decrease in appetite. She was hospitalized in [place], [place] with a chest x-ray apparently showing some enlarged subpectoral lymph nodes. She had a needle biopsy, and was then discharged. The biopsy report, according to Dr. Piper's note, showed atypical lymphoid proliferation, but was not conclusive otherwise. The patient was admitted with progression of her symptoms of weakness and decreased appetite. In addition she had been having increasing swelling of her lower extremities, as well as some extent of upper extremities. Labs showed normochromic normocytic anemia with hemoglobin in the 9-[address] scan of the chest abdomen and pelvis were ordered, showing extensive adenopathy involving the axillary, supraclavicular, mediastinal, and abdominal lymph nodes. Review of Systems Constitutional: Reports fatigue, Reports poor appetite, Reports sweats, Reports weakness, Reports weight loss Eyes: denies blurred vision, denies pain Ears: deny: decreased hearing, ear discharge, earache, tinnitus Ears, nose, mouth and throat: Denies headache, Denies sore throat Cardiovascular: Reports dyspnea on exertion Respiratory: Denies cough Gastrointestinal: Reports abdominal pain Genitourinary: Denies dysuria, Denies hematuria Menstruation: Reports postmenopausal Musculoskeletal: Reports gait dysfunction, Reports muscle weakness Integumentary: Denies pruritus, Denies rash Neurological: Reports gait dysfunction, Reports weakness Psychiatric: Denies anxiety, Denies depression Hematologic/Lymphatic: Reports as per HPI, Reports lymphedema Past Medical History Past Medical History: Diabetes Mellitus, Hypertension History of Any Multi-Drug Resistant Organisms: None Reported Past Surgical History: Cholecystectomy, Joint Replacement Additional Past Surgical History / Comment(s): biopsy of lymph node 08/29/18, bilateral knee replacement Past Anesthesia/Blood Transfusion Reactions: No Reported Reaction Past Psychological History: No Psychological Hx Reported Smoking Status: Former smoker Past Alcohol Use History: None Reported Past Drug Use History: None Reported - Past Family History Mother Family Medical History: Coronary Artery Disease (CAD) Father Family Medical History: Cancer Additional Family Medical History / Comment(s): sisters x3 of cancer Medications and Allergies Home Medications Medication Instructions Recorded Confirmed Type Enalapril [Vasotec] 10 mg PO DAILY 09/09/18 09/09/18 History Insulin Aspart Protam & Aspart 8 unit SQ BID 09/09/18 09/09/18 History [Novolog Mix 70-30 Flexpen Syrn] Insulin Aspart [NovoLOG Flexpen] 4 units SQ AC-BRKFST 09/09/18 09/09/18 History Insulin Aspart [NovoLOG Flexpen] 8 units SQ AC-BID 09/09/18 09/09/18 History Metoprolol Succinate (ER) [Toprol 50 mg PO DAILY 09/09/18 09/09/18 History Xl] Allergies Allergy/AdvReac Type Severity Reaction Status Date / Time aspirin Allergy Rash/Hives Verified 09/09/18 15:20 Physical Exam Vitals: Vital Signs Temp Pulse Resp BP Pulse Ox 09/11/18 20:32 97.3 F L 87 18 90/55 98 09/11/18 15:43 98.1 F 90 20 101/63 100 09/11/18 11:52 97.3 F L 98 20 82/51 97 09/11/18 08:00 97.3 F L 96 20 99/53 99 09/11/18 05:23 98.0 F 90 16 119/57 97 Intake and Output 09/11/18 09/11/18 09/12/18 14:59 22:59 06:59 Intake Total 480 Output Total 250 Balance 230 Intake: Oral 480 Output: Urine 250 Other: # Voids 1 # Bowel Movements 1 - Constitutional General appearance: no acute distress - EENT Eyes: EOMI, PERRLA ENT: hearing grossly normal, normal oropharynx - Neck Neck: no lymphadenopathy Thyroid: bilateral: normal size - Respiratory Respiratory: bilateral: diminished - Cardiovascular Rhythm: regular Heart sounds: normal: S1, S2 - Gastrointestinal General gastrointestinal: normal bowel sounds, soft - Integumentary Integumentary: normal - Neurologic Neurologic: CNII-XII intact - Musculoskeletal Musculoskeletal: generalized weakness, strength equal bilaterally - Psychiatric Psychiatric: A&O x's 3, appropriate affect Enlarged lymph nodes noted, medial rt supraclavicular area, bilateral axillae (right greater than left) due to patient's obese body habitus, size and extent are somewhat difficult to define exactly Results CBC & Chem 7: 09/11/18 05:44 09/11/18 05:44 Labs: Abnormal Lab Results - Last 24 Hours (Table) 09/11/18 09/11/18 09/11/18 Range/Units 05:44 05:44 05:44 WBC 11.6 H (3.8-10.6) k/uL RBC 2.67 L (3.80-5.40) m/uL Hgb 7.8 L D (11.4-16.0) gm/dL Hct 25.7 L (34.0-46.0) % MCHC 30.3 L (31.0-37.0) g/dL RDW 20.8 H (11.5-15.5) % Plt Count 145 L (150-450) k/uL Neutrophils # 9.6 H (1.3-7.7) k/uL Lymphocytes # 0.5 L (1.0-4.8) k/uL Monocytes # 1.3 H (0-1.0) k/uL Retic Count 5.0 H (0.5-2.0) % Sodium 128 L (137-145) mmol/L Potassium 3.3 L (3.5-5.1) mmol/L Chloride 96 L (98-107) mmol/L Glucose 69 L (74-99) mg/dL POC Glucose (mg/dL) (75-99) mg/dL Calcium 6.8 L (8.4-10.2) mg/dL Iron 23 L (50-170) ug/dL TIBC 137 L (228-460) ug/dL Ferritin 1829.4 H (10.0-291.0) ng/mL Alkaline Phosphatase 272 H (38-126) U/L Total Protein 5.3 L (6.3-8.2) g/dL Total Protein (PEP) 5.0 L (6.2-8.2) g/dL Albumin 1.8 L (3.5-5.0) g/dL Vitamin B12 1730.0 H (200.0-944.0) pg/mL Free T3 pg/mL 1.4 L (2.8-5.3) pg/ml 09/11/18 09/11/18 09/11/18 Range/Units 11:36 16:50 21:07 WBC (3.8-10.6) k/uL RBC (3.80-5.40) m/uL Hgb (11.4-16.0) gm/dL Hct (34.0-46.0) % MCHC (31.0-37.0) g/dL RDW (11.5-15.5) % Plt Count (150-450) k/uL Neutrophils # (1.3-7.7) k/uL Lymphocytes # (1.0-4.8) k/uL Monocytes # (0-1.0) k/uL Retic Count (0.5-2.0) % Sodium (137-145) mmol/L Potassium (3.5-5.1) mmol/L Chloride (98-107) mmol/L Glucose (74-99) mg/dL POC Glucose (mg/dL) 189 H 188 H 125 H (75-99) mg/dL Calcium (8.4-10.2) mg/dL Iron (50-170) ug/dL TIBC (228-460) ug/dL Ferritin (10.0-291.0) ng/mL Alkaline Phosphatase (38-126) U/L Total Protein (6.3-8.2) g/dL Total Protein (PEP) (6.2-8.2) g/dL Albumin (3.5-5.0) g/dL Vitamin B12 (200.0-944.0) pg/mL Free T3 pg/mL (2.8-5.3) pg/ml Microbiology - Last 24 Hours (Table) 09/09/18 15:10 Blood Culture - Preliminary Blood No Growth after 48 hours Comments: report of hip x-ray, and echocardiogram reviewed Chest x-ray: report reviewed CT scan - abdomen: report reviewed CT scan - chest: report reviewed CT scan - pelvis: report reviewed Assessment and Plan (1) Lymphadenopathy Narrative/Plan: The patient is presenting with a clinical picture of fairly extensive adenopathy, as well as other systemic symptoms as noted. The CT findings and indications were discussed with her in detail. She was advised that malignancy would be the primary differential, especially of lymphoid origin. A prior needle biopsy was inconclusive. Therefore the patient needs an excisional lymph node biopsy. Supraclavicular or axillary nodes would be reasonable target for the same. Surgery will be consulted. Current Visit: Yes Status: Acute Code(s): R59.1 - GENERALIZED ENLARGED LYMPH NODES SNOMED Code(s): 20930226 (2) Anemia Narrative/Plan: This is normochromic normocytic, with rapidly some progression since last summer. There is no history suggestive of bleeding. Therefore at this time anemia due to malignancy is the primary differential. Hemoglobin is in a safe range at this point. Anemia workup has been ordered. Continue to monitor hemoglobin and transfuse if less than 7 Current Visit: Yes Status: Acute Code(s): D64.9 - ANEMIA, UNSPECIFIED SNOMED Code(s): 346826997 (3) Sepsis secondary to UTI Narrative/Plan: Refer to the admitting service for continued management Current Visit: Yes Status: Acute Code(s): A41.9 - SEPSIS, UNSPECIFIED ORGANISM; N39.0 - URINARY TRACT INFECTION, SITE NOT SPECIFIED SNOMED Code(s): 201763131 (4) Fluid overload Narrative/Plan: Patient's echocardiogram was normal. Therefore at this time differential include fluid leak due to lymphedema and/or increased blood vessel permeability from malignancy. Continue current care Current Visit: Yes Status: Acute Code(s): E87.70 - FLUID OVERLOAD, UNSPECIFIED SNOMED Code(s): 52183123
[2018-09-12] MEDS: LEVOTHYROXINE 25 MCG TAB PO SCH (06:17)
[2018-09-12] MEDS: INSULIN ASPART 100 UNIT/ML 1 ML 10 ML VIAL SQ SCH ×3 (06:18→18:34)
[2018-09-12] MEDS: PANTOPRAZOLE 40 MG TABLET PO SCH (06:18)
[2018-09-12 06:20] LABS: Glucose,Whole Blood 166 mg/dL (75-99)
[2018-09-12 07:23] LABS: Anisocytosis Moderate; Basophils % (A) 0 %; Eosinophils % (A) 0 %; HCT 25.5 % (34.0-46.0); HGB 8.1 gm/dL (11.4-16.0); Hypochromasia Moderate; Lymphocytes # (A) 0.3 k/uL (1.0-4.8); Lymphocytes % (A) 3 %; MCH 31.1 pg (25.0-35.0); MCV 97.3 fL (80.0-100.0); Macrocytosis Moderate; Mean Platelet Volume 8.4; Monocytes # (A) 1.4 k/uL (0-1.0); Monocytes % (A) 11 %; Neutrophils % (A) 85 %; Platelet Count 164 k/uL (150-450); RBC 2.62 m/uL (3.80-5.40); RDW 20.7 % (11.5-15.5)
[2018-09-12 07:41] LABS: INR 1.6 (<1.2); Potassium 3.4 mmol/L (3.5-5.1); Prothrombin Time 15.9 sec (9.0-12.0)
[2018-09-12] MEDS ORDERED: PHYTONADIONE ORAL 5 MG/5 ML ORAL.SYRG PO STA (08:03)
--- NOTE | 2018-09-12 08:16 | P.PN ---
Progress Note - Text The patient is a 78-year-old female who presented 3 days previous to the emergency room. Please refer to history of present illness the patient was residing in [place] when she became very weak around [place]. she had a needle biopsy of an abnormal lymph node which was nondiagnostic. Patient presented back to [place] and became more fatigued. She is admitted with sepsis likely from a urinary tract infection. Acute on chronic diastolic congestive heart failure. And anemia likely related to underlying malignancy. Plans are for removal lymph node for diagnostic purposes. She is continued presently on antibiotics. She states she feels a little better but still is generally very weak. No chest pain. No nausea or vomiting. Vital signs reveal temperature of 97.7 with a pulse of 69 and respirations 20. Blood pressure is 103/64 and she is 97% saturated on room air. Lungs are generally diminished. Heart tones were regular. Abdomen nontender. Lower extremities reveal 2-3+ edema bilaterally. No focal neurological changes. Laboratory White count is 13 with a hemoglobin of 8.1. Somewhat of a left shift with neutrophils 11.0. INR this morning is 1.6. She is not on any anticoagulants. Sodium is 128 with potassium 3.4. Blood sugars 137. GFR is 62. A blood culture was negative. Urine culture pending. Other hematology workup is still in progress. Impressions and plans Patient to have with no biopsy today per surgery. Her INR is mildly elevated and we will give vitamin K orally today. Hemoglobin also was low likely related to her underlying malignancy. She does have acute on chronic diastolic heart failure. She is hyponatremic and hypokalemic and this is being addressed. Surgical and oncology notes were regarded. Prognosis guarded. Discussed and updated son regarding planned workup and reasons for further testing.
[2018-09-12] MEDS: POTASSIUM CHLORIDE ER 20 MEQ TAB.ER PO SCH ×2 (08:33→20:23)
[2018-09-12] MEDS: METOPROLOL SUCCINATE (ER) 50 MG TAB.ER.24H PO SCH (08:33)
[2018-09-12] MEDS: FUROSEMIDE 20 MG TAB PO SCH (08:33)
[2018-09-12] MEDS: INSULN ASP PRT/INSULIN ASPART 100 UNIT/ML 10 ML VIAL SQ SCH ×2 (08:38→23:01)
[2018-09-12] MEDS: SPIRONOLACTONE 25 MG TAB PO SCH (11:57)
[2018-09-12] MEDS: LISINOPRIL 10 MG TAB PO SCH (11:57)
[2018-09-12 12:00] LABS: Glucose,Whole Blood 145 mg/dL (75-99)
[2018-09-12 12:29] LABS: Rheumatoid Factor 5 IU/mL (0-15)
[2018-09-12] MEDS ORDERED: HYDROmorphone 0.5 MG/0.5 ML SYRINGE IVP PRN (15:10)
[2018-09-12] MEDS ORDERED: IV FLUID CONTINUATION 1,000 ML IV ONE (15:20)
[2018-09-12] MEDS ORDERED: PROPOFOL 10 MG/ML 20 ML VIAL IV ONE (16:28)
[2018-09-12] MEDS ORDERED: PHENYLEPHRINE-0.9% NACL SYG 1 MG/10 ML SYRINGE ONE (16:28)
[2018-09-12] MEDS ORDERED: fentaNYL (PF) 50 MCG/ML 2 ML AMP ONE (16:28)
[2018-09-12] MEDS ORDERED: BUPIVACAIN-EPI 0.25%-1:200,000 30 ML VIAL SQ ONE (16:48)
--- NOTE | 2018-09-12 17:04 | P.OP ---
Date of Procedure: 09/12/18 Procedure(s) Performed: PREOPERATIVE DIAGNOSIS: Right supraclavicular lymphadenopathy POSTOPERATIVE DIAGNOSIS: Same PROCEDURE: Excisional lymph node biopsy SURGEON: Maximino EBL: Minimal ANESTHESIA: Sedation COMPLICATIONS: None OPERATIVE PROCEDURE: Patient placed in the supine position. Patient's chest and neck were prepped and draped in the usual sterile fashion. The patient's palpable supraclavicular lymph node was present just over the clavicle medially. The skin was localized. A horizontal incision was made. Dissection through subcutaneous fat and superficial platysmal layer took place using electrocautery. The node was easily identified at that point. This measured 1.5-2 cm in size. This was excised using electrocautery. No bleeding was seen. Subcutaneous tissues closed using 3-0 Vicryl sutures. Skin closed using 4-0 Monocryl sutures and skin glue. DISPOSITION: Stable to recovery room
[2018-09-12 17:37] LABS: Glucose,Whole Blood 178 mg/dL (75-99)
[2018-09-12 18:33] LABS: Glucose,Whole Blood 160 mg/dL (75-99)
[2018-09-12] MEDS: SODIUM CHLORIDE 0.9% 1,000 ML IV SCH (18:36)
[2018-09-12] MEDS: LACTATED RINGERS 1,000 ML IV SCH (19:55)
[2018-09-12] MEDS: HYDROmorphone 1 MG/ML 1 ML SYRINGE IVP PRN (20:23)
[2018-09-12 21:23] LABS: Glucose,Whole Blood 186 mg/dL (75-99)
[2018-09-13 06:15] LABS: Glucose,Whole Blood 198 mg/dL (75-99)
[2018-09-13] MEDS: LEVOTHYROXINE 25 MCG TAB PO SCH (06:52)
[2018-09-13] MEDS: PANTOPRAZOLE 40 MG TABLET PO SCH (06:52)
--- NOTE | 2018-09-13 07:52 | P.PN ---
Progress Note - Text The patient is a 78-year-old female who was wintering in [place] when she became weak and ill before [place] time. There at [facility] in [facility] patient had a needle biopsy of a lymph node which was nondiagnostic. Patient has been admitted here for urinary tract symptoms with sepsis and had a repeat CAT scan and lymph node biopsy yesterday. Patient states she feels somewhat better but is still generally weak. No complaints of chest pain for shortness of breath at rest. She is short of breath with exertion. She generally looks pale. Last vital signs show a temperature 97.7 with a pulse of 86 and respirations 15. Blood pressure 115/66 and she is 100% saturated on room air. Lung and heart exam was clear and regular. Abdomen nontender. Compression stockings in place. No focal neurological deficits. Gen. weakness noted. Blood sugar was 198. No other new labs. Labs have been ordered for tomorrow. Blood cultures negative. No urine culture back. Impressions and plans Patient with diffuse lymphadenopathy. Underlying anemia likely secondary to underlying malignancy. Urinary tract infection and acute on chronic diastolic congestive heart failure under treatment. Underlying electrolyte disturbance with hyponatremia and hypokalemia. Discussed with patient at bedside. Awaiting results of biopsy for determination on further treatment. We'll await further recommendations from oncology. Patient also will likely need extended care facility post discharge. She is presently participating in physical therapy.
[2018-09-13] MEDS: FUROSEMIDE 20 MG TAB PO SCH (08:56)
[2018-09-13] MEDS: METOPROLOL SUCCINATE (ER) 50 MG TAB.ER.24H PO SCH (08:56)
[2018-09-13] MEDS: POTASSIUM CHLORIDE ER 20 MEQ TAB.ER PO SCH ×2 (08:57→21:39)
[2018-09-13] MEDS: INSULN ASP PRT/INSULIN ASPART 100 UNIT/ML 10 ML VIAL SQ SCH ×2 (08:58→21:38)
[2018-09-13] MEDS: INSULIN ASPART 100 UNIT/ML 1 ML 10 ML VIAL SQ SCH ×3 (09:00→17:44)
[2018-09-13] MEDS: LISINOPRIL 10 MG TAB PO SCH (09:00)
[2018-09-13] MEDS: SODIUM CHLORIDE 0.9% 1,000 ML IV SCH (09:00)
[2018-09-13] MEDS: SPIRONOLACTONE 25 MG TAB PO SCH (09:00)
[2018-09-13] MEDS: HYDROcodone/APAP 5-325MG 1 EACH TAB PO PRN ×2 (09:11→21:48)
[2018-09-13 10:50] LABS: Albumin 1.39 g/dL (3.80-4.90); Gamma Globulin 1.74 g/dL (0.70-1.50)
[2018-09-13 11:06] LABS: Glucose,Whole Blood 159 mg/dL (75-99)
[2018-09-13 17:00] LABS: Glucose,Whole Blood 164 mg/dL (75-99)
--- NOTE | 2018-09-13 18:28 | P.PN ---
Subjective Progress Note Date: 09/13/18 Principal diagnosis: Lymphadenopathy Patient doing well today. Denies pain. Pathology pending from the lymph node biopsy. Objective - Vital Signs Vital signs: Vital Signs Temp 97.7 F 09/13/18 12:00 Pulse 86 09/13/18 16:00 Resp 15 09/13/18 16:00 BP 106/71 09/13/18 12:00 Pulse Ox 100 09/13/18 12:00 Intake & Output 09/12/18 09/13/18 09/13/18 18:59 06:59 18:59 Intake Total 860 540 Output Total 251 Balance 609 540 Weight 114.5 kg Intake: IV 360 Intake, IV Titration 500 Amount Sodium Chloride 0.9% 1, 400 000 ml @ 50 mls/hr IV . Q20H MADELIN Rx#:[id number] cefTRIAXone 1,000 mg In 100 Sodium Chloride 0.9% 50 ml @ 100 mls/hr IVPB Q24HR MADELIN Rx#:[id number] Oral 540 Output: Urine 250 Estimated Blood Loss 1 Other: Voiding Method Bedside Commode # Voids 1 2 - Exam Neck incision clean and dry with minimal tenderness - Labs CBC & Chem 7: 09/12/18 06:39 09/12/18 06:39 Labs: Abnormal Lab Results - Last 24 Hours (Table) 09/11/18 09/11/18 09/12/18 Range/Units 05:44 05:44 18:19 POC Glucose (mg/dL) 160 H (75-99) mg/dL Albumin (PEP) 1.39 L (3.80-4.90) g/dL Uxeaw-6-Hgcandine 0.52 H (0.10-0.40) g/dL Lmpqa-7-Syidtlyjb 0.55 L (0.60-1.00) g/dL Gamma Globulins 1.74 H (0.70-1.50) g/dL RBC Folate 980 H (280 - 791) ng/mL 09/12/18 09/13/18 09/13/18 Range/Units 21:21 06:13 11:05 POC Glucose (mg/dL) 186 H 198 H 159 H (75-99) mg/dL Albumin (PEP) (3.80-4.90) g/dL Foyzm-6-Gxdjpnxfw (0.10-0.40) g/dL Tilbv-5-Ziaintwjs (0.60-1.00) g/dL Gamma Globulins (0.70-1.50) g/dL RBC Folate (280 - 791) ng/mL 09/13/18 Range/Units 16:48 POC Glucose (mg/dL) 164 H (75-99) mg/dL Albumin (PEP) (3.80-4.90) g/dL Kmzjy-8-Gtyoonyyp (0.10-0.40) g/dL Lapll-2-Ushtzuitc (0.60-1.00) g/dL Gamma Globulins (0.70-1.50) g/dL RBC Folate (280 - 791) ng/mL Microbiology - Last 24 Hours (Table) 09/09/18 15:10 Blood Culture - Preliminary Blood No Growth after 96 hours Assessment and Plan (1) Lymphadenopathy Narrative/Plan: Resume activities. Await biopsy results. Dr. Sevilla will be covering for this weekend. I will have her see this patient as needed for the next 48 hours. Please call with any surgical issues. Current Visit: Yes Status: Acute Code(s): R59.1 - GENERALIZED ENLARGED LYMPH NODES SNOMED Code(s): 97022929
[2018-09-13 20:58] LABS: Glucose,Whole Blood 194 mg/dL (75-99)
[2018-09-13] MEDS: LACTATED RINGERS 1,000 ML IV SCH (22:57)
[2018-09-14] MEDS: LEVOTHYROXINE 25 MCG TAB PO SCH (06:16)
[2018-09-14] MEDS: SODIUM CHLORIDE 0.9% 1,000 ML IV SCH (06:16)
[2018-09-14] MEDS: PANTOPRAZOLE 40 MG TABLET PO SCH (06:16)
[2018-09-14] MEDS: HYDROcodone/APAP 5-325MG 1 EACH TAB PO PRN ×3 (06:21→17:32)
[2018-09-14 06:22] LABS: Glucose,Whole Blood 78 mg/dL (75-99)
[2018-09-14] MEDS: INSULIN ASPART 100 UNIT/ML 1 ML 10 ML VIAL SQ SCH ×4 (07:18→19:46)
[2018-09-14 07:37] LABS: Anisocytosis Moderate; Basophils % (A) 0 %; Eosinophils % (A) 0 %; HCT 26.4 % (34.0-46.0); Hypochromasia Moderate; Lymphocytes # (A) 0.4 k/uL (1.0-4.8); Lymphocytes % (A) 4 %; MCH 30.2 pg (25.0-35.0); MCHC 30.4 g/dL (31.0-37.0); MCV 99.4 fL (80.0-100.0); Macrocytosis Moderate; Mean Platelet Volume 8.7; Monocytes # (A) 1.2 k/uL (0-1.0); Monocytes % (A) 10 %; Neutrophils # (A) 9.6 k/uL (1.3-7.7); Neutrophils % (A) 85 %; Platelet Count 133 k/uL (150-450); RBC 2.66 m/uL (3.80-5.40); RDW 20.9 % (11.5-15.5); WBC 11.4 k/uL (3.8-10.6)
[2018-09-14 07:57] LABS: Potassium 3.9 mmol/L (3.5-5.1)
[2018-09-14 08:06] LABS: INR 1.4 (<1.2); Prothrombin Time 14.2 sec (9.0-12.0)
[2018-09-14] MEDS: SPIRONOLACTONE 25 MG TAB PO SCH (09:58)
[2018-09-14] MEDS: FUROSEMIDE 20 MG TAB PO SCH (09:58)
[2018-09-14] MEDS: POTASSIUM CHLORIDE ER 20 MEQ TAB.ER PO SCH ×2 (09:58→20:06)
[2018-09-14] MEDS: LISINOPRIL 10 MG TAB PO SCH (09:59)
[2018-09-14] MEDS: METOPROLOL SUCCINATE (ER) 50 MG TAB.ER.24H PO SCH (09:59)
[2018-09-14] MEDS: INSULN ASP PRT/INSULIN ASPART 100 UNIT/ML 10 ML VIAL SQ SCH ×2 (09:59→21:47)
[2018-09-14 12:19] LABS: Glucose,Whole Blood 153 mg/dL (75-99)
--- NOTE | 2018-09-14 12:26 | P.PN ---
Progress Note - Text The patient is a 78-year-old female who was wintering in [place] when she became ill before [place]. Down in [place] she had a nondiagnostic needle biopsy of a pectoral lymph node. Patient returned from [place] and developed increasing weakness with chills and has been admitted with a urinary tract infection along with anemia likely related to an underlying malignancy. Patient is post lymph node biopsy earlier this week. Results are pending. Patient has been seen by oncology but we are awaiting results of the biopsy. Patient is generally weak and has been seen by physical therapy. Likely candidate for subacute rehab, fdc placement. This morning she is aroused. No complaints of chest pain or shortness of breath. No nausea or vomiting. Vital signs show temperature 97.5 with a pulse of 90 and respirations 18. Blood pressure is 100/60 and her O2 saturation is 97. Lung and heart examination is clear but diminished. Abdomen is nontender. Grade 2 edema bilaterally. She is alert and oriented without focal neurological deficits. Laboratory White count is 11.4 with a hemoglobin 8 and a platelet count of 133. INR is 1.4 after receiving vitamin K. Sodium is still low at 128 with a potassium of 3.9 and a CO2 content of 24. Blood sugar was 68. This has risen to 153 after breakfast. Calcium 7.0. Impressions and plans We will decrease her lisinopril from 10 mg down to 5 mg. Pending biopsy we are awaiting further recommendations from oncology regarding further treatment. Discussed with patient and nursing staff this morning. Likely candidate for fdc placement early next week. Prognosis guarded but still unclear pending results of above. IV also will be stopped. Heparin well.
[2018-09-14 17:27] LABS: Glucose,Whole Blood 129 mg/dL (75-99)
[2018-09-14] MEDS: CEFDINIR 300 MG CAP PO SCH (20:06)
[2018-09-14 20:34] LABS: Glucose,Whole Blood 125 mg/dL (75-99)
[2018-09-14] MEDS: LACTATED RINGERS 1,000 ML IV SCH (21:12)
[2018-09-15] MEDS: HYDROcodone/APAP 5-325MG 1 EACH TAB PO PRN ×4 (00:43→23:34)
[2018-09-15] MEDS: INSULIN ASPART 100 UNIT/ML 1 ML 10 ML VIAL SQ SCH ×3 (06:05→17:52)
[2018-09-15 06:06] LABS: Glucose,Whole Blood 53 mg/dL (75-99)
[2018-09-15] MEDS: PANTOPRAZOLE 40 MG TABLET PO SCH (06:16)
[2018-09-15] MEDS: LEVOTHYROXINE 25 MCG TAB PO SCH (06:16)
[2018-09-15 06:21] LABS: Glucose,Whole Blood 58 mg/dL (75-99)
[2018-09-15 06:43] LABS: Glucose,Whole Blood 66 mg/dL (75-99)
[2018-09-15 07:05] LABS: Glucose,Whole Blood 79 mg/dL (75-99)
--- NOTE | 2018-09-15 09:29 | P.PN ---
Progress Note - Text The patient is a 78-year-old female who presented with weakness and a urine consistent with a urinary tract infection. But also she has been weak and anemic with what appears to be an underlying malignancy. Possible lymphoma. She has undergone a lymph node biopsy and reports are pending. Patient has been on antibiotics. She feels somewhat better but still generally weak. Last recorded vital signs reveal a blood pressure 106/54. She is 99% saturated on room air. Respirations are 15 with a pulse of 81. Temperature 97.4. Lung and heart exam was clear. She does have 2+ edema bilaterally. No focal neurological deficits. She is alert and oriented. Blood sugars have drifted down into the 50s at times. Impressions and plans Continue now with physical therapy. Awaiting results of biopsy and further recommendations from oncology pending those results. Likely may need custodial placement post discharge. Patient also has some hyponatremia and we'll repeat electrolytes in the morning. Also will stop her long-acting insulin for now as her blood sugars have been dropping at certain times of the day. Continue with coverage before meals. Prognosis guarded.
[2018-09-15] MEDS: CEFDINIR 300 MG CAP PO SCH ×2 (09:34→20:23)
[2018-09-15] MEDS: FUROSEMIDE 20 MG TAB PO SCH (09:34)
[2018-09-15] MEDS: LISINOPRIL 5 MG TAB PO SCH (09:35)
[2018-09-15] MEDS: POTASSIUM CHLORIDE ER 20 MEQ TAB.ER PO SCH ×2 (09:35→20:23)
[2018-09-15] MEDS: METOPROLOL SUCCINATE (ER) 50 MG TAB.ER.24H PO SCH (09:35)
[2018-09-15] MEDS: SPIRONOLACTONE 25 MG TAB PO SCH (09:35)
[2018-09-15] MEDS: INSULN ASP PRT/INSULIN ASPART 100 UNIT/ML 10 ML VIAL SQ SCH (09:42)
--- NOTE | 2018-09-15 10:52 | P.PN ---
Subjective Progress Note Date: 09/14/18 CHIEF COMPLAINT: Lymphadenopathy HISTORY OF PRESENT ILLNESS: The patient is an 78-year-old female who presented with lymphadenopathy. She status post lymph node biopsy of the right neck, 06/2019. No reports of pain. No fevers or chills. PHYSICAL EXAM: VITAL SIGNS: Reviewed GENERAL: Well-developed in no acute distress. HEENT: No sclera icterus. Extraocular movements grossly intact. Moist buccal mucosa. Head is atraumatic, normocephalic. She is hard of hearing NECK: Incision along the right neck clean dry and intact without erythema or cellulitis. CHEST: Non-labored respirations and equal bilateral excursions. CARDIOVASCULAR: Palpable 2+ radial pulses. Irregular rate and irregular rhythm ABDOMEN: Soft. Nondistended. No peritonitis. MUSCULOSKELETAL: No clubbing, cyanosis. 2+ upper extremity edema NEUROLOGIC: No focal or lateralizing signs. Cranial nerves II through XII grossly intact. PSYCH: Appropriate affect. Alert and oriented to person SKIN: Cool extremities. Moderate edema along skin. LABS: Reviewed ASSESSMENT: 1. Diffuse lymphadenopathy of unclear etiology PLAN: 1. Clinically she stable from a surgical standpoint 2. Await biopsies 3. Your medical management regarding volume overload Objective - Vital Signs Vital signs: Vital Signs Temp 97.4 F L 09/14/18 20:00 Pulse 81 09/15/18 06:19 Resp 15 09/15/18 06:19 BP 106/54 09/15/18 06:19 Pulse Ox 99 09/15/18 06:19 Intake & Output 09/14/18 09/15/18 09/15/18 18:59 06:59 18:59 Intake Total 480 45 Output Total 1200 Balance -720 45 Weight 115.6 kg Intake: Oral 480 45 Output: Urine 1200 Other: Voiding Method Bedpan Bedpan # Voids 1 1 - Labs CBC & Chem 7: 09/14/18 06:03 09/14/18 06:03 Labs: Abnormal Lab Results - Last 24 Hours (Table) 09/14/18 09/14/18 09/14/18 Range/Units 11:42 16:55 20:32 POC Glucose (mg/dL) 153 H 129 H 125 H (75-99) mg/dL 09/15/18 09/15/18 09/15/18 Range/Units 06:04 06:20 06:41 POC Glucose (mg/dL) 53 L 58 L 66 L (75-99) mg/dL Microbiology - Last 24 Hours (Table) 09/09/18 15:10 Blood Culture - Preliminary Blood No Growth after 120 hours Assessment and Plan (1) Morbid obesity with BMI of 40.0-44.9, adult Current Visit: Yes Status: Acute Code(s): E66.01 - MORBID (SEVERE) OBESITY DUE TO EXCESS CALORIES; Z68.41 - BODY MASS INDEX (BMI) 40.0-44.9, ADULT SNOMED Code(s): 913181530 (2) Fluid overload Current Visit: Yes Status: Acute Code(s): E87.70 - FLUID OVERLOAD, UNSPECIFIED SNOMED Code(s): 09800802 (3) Lymphadenopathy Current Visit: Yes Status: Acute Code(s): R59.1 - GENERALIZED ENLARGED LYMPH NODES SNOMED Code(s): 93698304 (4) Sepsis secondary to UTI Current Visit: Yes Status: Acute Code(s): A41.9 - SEPSIS, UNSPECIFIED ORGANISM; N39.0 - URINARY TRACT INFECTION, SITE NOT SPECIFIED SNOMED Code(s): 648276063 (5) Hypertensive cardiomyopathy Current Visit: Yes Status: Acute Code(s): I11.9 - HYPERTENSIVE HEART DISEASE WITHOUT HEART FAILURE; I43 - CARDIOMYOPATHY IN DISEASES CLASSIFIED ELSEWHERE SNOMED Code(s): 891587134270369 (6) Diabetes mellitus type 2, insulin dependent Current Visit: Yes Status: Acute Code(s): E11.9 - TYPE 2 DIABETES MELLITUS WITHOUT COMPLICATIONS; Z79.4 - HOME HEALTH BILLING SPECIALIST (CURRENT) USE OF INSULIN SNOMED Code( s): 544211416
[2018-09-15 11:45] LABS: Glucose,Whole Blood 217 mg/dL (75-99)
--- NOTE | 2018-09-15 14:14 | P.PN ---
Subjective Progress Note Date: 09/15/18 CHIEF COMPLAINT: Lymphadenopathy HISTORY OF PRESENT ILLNESS: The patient is an 78-year-old female who presented with lymphadenopathy. She status post lymph node biopsy of the right neck, 06/2019. Postop day 3. Her family is at bedside. She is concerned of no dressing along the right neck. No fevers or chills. Pathology results pending. PHYSICAL EXAM: VITAL SIGNS: Reviewed GENERAL: Well-developed in no acute distress. HEENT: No sclera icterus. Extraocular movements grossly intact. Moist buccal mucosa. Head is atraumatic, normocephalic. She is hard of hearing NECK: Incision along the right neck clean dry and intact without erythema or cellulitis. CHEST: Non-labored respirations and equal bilateral excursions. CARDIOVASCULAR: Palpable 2+ radial pulses. ABDOMEN: Soft. Nondistended. No peritonitis. MUSCULOSKELETAL: No clubbing, cyanosis. Decreased edema along the left hand. 1+ edema along the right hand. NEUROLOGIC: No focal or lateralizing signs. Cranial nerves II through XII grossly intact. PSYCH: Appropriate affect. Alert and oriented to person SKIN: Well perfused. LABS: Reviewed ASSESSMENT: 1. Diffuse lymphadenopathy of unclear etiology PLAN: 1. I reassured her that dressings are necessary along the right neck as skin glue was used. 2. They were also made aware pathology takes at minimum 1 week for results. Objective - Vital Signs Vital signs: Vital Signs Temp 97.4 F L 09/15/18 08:00 Pulse 90 09/15/18 08:00 Resp 18 09/15/18 08:00 BP 102/69 09/15/18 08:00 Pulse Ox 99 09/15/18 08:00 Intake & Output 09/14/18 09/15/18 09/15/18 18:59 06:59 18:59 Intake Total 480 45 Output Total 1200 Balance -720 45 Weight 115.6 kg Intake: Oral 480 45 Output: Urine 1200 Other: Voiding Method Bedpan Bedpan Bedpan # Voids 1 1 - Labs CBC & Chem 7: 09/14/18 06:03 09/14/18 06:03 Labs: Abnormal Lab Results - Last 24 Hours (Table) 09/14/18 09/14/18 09/15/18 Range/Units 16:55 20:32 06:04 POC Glucose (mg/dL) 129 H 125 H 53 L (75-99) mg/dL 09/15/18 09/15/18 09/15/18 Range/Units 06:20 06:41 11:35 POC Glucose (mg/dL) 58 L 66 L 217 H (75-99) mg/dL Microbiology - Last 24 Hours (Table) 09/09/18 15:10 Blood Culture - Preliminary Blood No Growth after 120 hours Assessment and Plan (1) Morbid obesity with BMI of 40.0-44.9, adult Current Visit: Yes Status: Acute Code(s): E66.01 - MORBID (SEVERE) OBESITY DUE TO EXCESS CALORIES; Z68.41 - BODY MASS INDEX (BMI) 40.0-44.9, ADULT SNOMED Code(s): 806907925 (2) Fluid overload Current Visit: Yes Status: Acute Code(s): E87.70 - FLUID OVERLOAD, UNSPECIFIED SNOMED Code(s): 54739057 (3) Lymphadenopathy Current Visit: Yes Status: Acute Code(s): R59.1 - GENERALIZED ENLARGED LYMPH NODES SNOMED Code(s): 23069502 (4) Sepsis secondary to UTI Current Visit: Yes Status: Acute Code(s): A41.9 - SEPSIS, UNSPECIFIED ORGANISM; N39.0 - URINARY TRACT INFECTION, SITE NOT SPECIFIED SNOMED Code(s): 800447028 (5) Hypertensive cardiomyopathy Current Visit: Yes Status: Acute Code(s): I11.9 - HYPERTENSIVE HEART DISEASE WITHOUT HEART FAILURE; I43 - CARDIOMYOPATHY IN DISEASES CLASSIFIED ELSEWHERE SNOMED Code(s): 005892902358743 (6) Diabetes mellitus type 2, insulin dependent Current Visit: Yes Status: Acute Code(s): E11.9 - TYPE 2 DIABETES MELLITUS WITHOUT COMPLICATIONS; Z79.4 - PULMONOLOGIST INTENSIVIST (CURRENT) USE OF INSULIN SNOMED Code( s): 002096470
[2018-09-15 17:19] LABS: Glucose,Whole Blood 210 mg/dL (75-99)
[2018-09-15 21:23] LABS: Glucose,Whole Blood 138 mg/dL (75-99)
[2018-09-16 05:57] LABS: Glucose,Whole Blood 115 mg/dL (75-99)
[2018-09-16 06:07] LABS: Anisocytosis Moderate; Basophils # (A) 0.1 k/uL (0-0.2); Basophils % (A) 0 %; Eosinophils # (A) 0.1 k/uL (0-0.7); Eosinophils % (A) 1 %; HGB 8.7 gm/dL (11.4-16.0); Hypochromasia Slight; Lymphocytes # (A) 0.7 k/uL (1.0-4.8); Lymphocytes % (A) 4 %; MCHC 31.2 g/dL (31.0-37.0); MCV 99.5 fL (80.0-100.0); Macrocytosis Moderate; Mean Platelet Volume 9.4; Monocytes # (A) 1.5 k/uL (0-1.0); Monocytes % (A) 10 %; Neutrophils # (A) 12.9 k/uL (1.3-7.7); Neutrophils % (A) 84 %; Platelet Count 122 k/uL (150-450); RBC 2.82 m/uL (3.80-5.40); RDW 21.4 % (11.5-15.5); WBC 15.3 k/uL (3.8-10.6)
[2018-09-16 06:42] LABS: Calcium 7.4 mg/dL (8.4-10.2); Potassium 5.1 mmol/L (3.5-5.1)
[2018-09-16] MEDS: PANTOPRAZOLE 40 MG TABLET PO SCH (07:16)
[2018-09-16] MEDS: LEVOTHYROXINE 25 MCG TAB PO SCH (07:16)
[2018-09-16] MEDS: INSULIN ASPART 100 UNIT/ML 1 ML 10 ML VIAL SQ SCH ×3 (07:17→17:44)
[2018-09-16 08:00] LABS: Poikilocytosis (M) Present
[2018-09-16] MEDS: CEFDINIR 300 MG CAP PO SCH ×2 (08:13→21:30)
[2018-09-16] MEDS: FUROSEMIDE 20 MG TAB PO SCH (08:13)
[2018-09-16] MEDS: SPIRONOLACTONE 25 MG TAB PO SCH (08:13)
[2018-09-16] MEDS: METOPROLOL SUCCINATE (ER) 50 MG TAB.ER.24H PO SCH (08:13)
[2018-09-16] MEDS: POTASSIUM CHLORIDE ER 20 MEQ TAB.ER PO SCH (08:14)
[2018-09-16] MEDS: LISINOPRIL 5 MG TAB PO SCH (08:14)
--- NOTE | 2018-09-16 08:25 | P.PN ---
Progress Note - Text The patient is a 78-year-old female who initially presented with what appeared to be a urinary tract infection with the sepsis and weakness. She also has a diffuse change in her lymph nodes. Underlying possible lymphoma. Patient has undergone a biopsy which is pending. She continues on antibiotics. She is easily aroused this morning. Denies any chest pain or shortness of breath. Vital signs show temperature 97.8 with a pulse of 79 and respirations 16. Blood pressure is 109/68 and she is 98% saturated on room air. Lung and heart exam is clear and regular. Abdomen is nontender. Patient does have diffuse edema 2+ in arms and legs. Patient has gained 2-1/2 kg. She generally seems alert and oriented. No cranial nerves are focal deficits noted. Laboratory White count is up to 15.3 with a hemoglobin of 8.7 and a platelet count of 122. There is somewhat of a left shift. Sodium is 128 with potassium increasing to 5.1. BUN is 17 with creatinine of 0.74 giving her a GFR of 78. Morning blood sugar was 74. Impressions and plans At this time continue with physical therapy. Awaiting biopsy report and further oncology recommendations. Likely will need fdc placement post discharge. Potassium supplementation stopped at this time. Prognosis overall still guarded. Repeat urinalysis ordered.
[2018-09-16 11:41] LABS: Glucose,Whole Blood 61 mg/dL (75-99)
[2018-09-16] MEDS ORDERED: DEXTROSE 50%-WATER 50 ML SYRINGE IVP STA (12:06)
[2018-09-16 12:25] LABS: Glucose,Whole Blood 87 mg/dL (75-99)
[2018-09-16 12:25] LABS: Glucose,Whole Blood 58 mg/dL (75-99)
--- NOTE | 2018-09-16 13:43 | P.PN ---
Subjective Progress Note Date: 09/16/18 Principal diagnosis: Lymphadenopathy Patient doing well today. Denies pain at lymph node biopsy site. Final pathology remains pending. Objective - Vital Signs Vital signs: Vital Signs Temp 97.6 F 09/16/18 08:05 Pulse 90 09/16/18 12:00 Resp 18 09/16/18 12:00 BP 88/52 09/16/18 12:00 Pulse Ox 93 L 09/16/18 12:00 Intake & Output 09/15/18 09/16/18 09/16/18 18:59 06:59 18:59 Intake Total 145 120 360 Output Total 600 1 Balance 145 -480 359 Weight 118 kg Intake: Oral 145 120 360 Output: Urine 600 Stool 1 Other: Voiding Method Bedpan Bedpan # Voids 3 # Bowel Movements 2 - Exam Neck incision clean and dry - Labs CBC & Chem 7: 09/16/18 05:36 09/16/18 05:36 Labs: Abnormal Lab Results - Last 24 Hours (Table) 09/15/18 09/15/18 09/16/18 Range/Units 17:06 21:22 05:36 WBC 15.3 H (3.8-10.6) k/uL RBC 2.82 L (3.80-5.40) m/uL Hgb 8.7 L (11.4-16.0) gm/dL Hct 28.0 L (34.0-46.0) % RDW 21.4 H (11.5-15.5) % Plt Count 122 L (150-450) k/uL Neutrophils # 12.9 H (1.3-7.7) k/uL Lymphocytes # 0.7 L (1.0-4.8) k/uL Monocytes # 1.5 H (0-1.0) k/uL Sodium (137-145) mmol/L POC Glucose (mg/dL) 210 H 138 H (75-99) mg/dL Calcium (8.4-10.2) mg/dL 09/16/18 09/16/18 09/16/18 Range/Units 05:36 05:52 11:38 WBC (3.8-10.6) k/uL RBC (3.80-5.40) m/uL Hgb (11.4-16.0) gm/dL Hct (34.0-46.0) % RDW (11.5-15.5) % Plt Count (150-450) k/uL Neutrophils # (1.3-7.7) k/uL Lymphocytes # (1.0-4.8) k/uL Monocytes # (0-1.0) k/uL Sodium 128 L (137-145) mmol/L POC Glucose (mg/dL) 115 H 61 L (75-99) mg/dL Calcium 7.4 L (8.4-10.2) mg/dL 09/16/18 Range/Units 11:57 WBC (3.8-10.6) k/uL RBC (3.80-5.40) m/uL Hgb (11.4-16.0) gm/dL Hct (34.0-46.0) % RDW (11.5-15.5) % Plt Count (150-450) k/uL Neutrophils # (1.3-7.7) k/uL Lymphocytes # (1.0-4.8) k/uL Monocytes # (0-1.0) k/uL Sodium (137-145) mmol/L POC Glucose (mg/dL) 58 L (75-99) mg/dL Calcium (8.4-10.2) mg/dL Microbiology - Last 24 Hours (Table) 09/09/18 15:10 Blood Culture - Final Blood No Growth after 144 hours Assessment and Plan (1) Lymphadenopathy Narrative/Plan: Await final pathology. Current Visit: Yes Status: Acute Code(s): R59.1 - GENERALIZED ENLARGED LYMPH NODES SNOMED Code(s): 88273305
[2018-09-16 17:16] LABS: Glucose,Whole Blood 208 mg/dL (75-99)
[2018-09-16] MEDS: HYDROcodone/APAP 5-325MG 1 EACH TAB PO PRN (17:27)
--- NOTE | 2018-09-16 18:34 | P.PN ---
Subjective Progress Note Date: 09/16/18 Principal diagnosis: Lymphadenopathy Son and at bedside. Flow Cytometry on Lymph returned negative. Objective - Vital Signs Vital signs: Vital Signs Temp 97.7 F 09/16/18 16:00 Pulse 85 09/16/18 16:00 Resp 18 09/16/18 16:00 BP 86/46 09/16/18 16:00 Pulse Ox 94 L 09/16/18 16:00 Intake & Output 09/15/18 09/16/18 09/16/18 18:59 06:59 18:59 Intake Total 145 120 360 Output Total 600 1 Balance 145 -480 359 Weight 118 kg 118 kg Intake: Oral 145 120 360 Output: Urine 600 Stool 1 Other: Voiding Method Bedpan Bedpan Bedpan # Voids 3 # Bowel Movements 2 - Exam Constitutional General appearance: no acute distress - EENT Eyes: EOMI, PERRLA ENT: hearing grossly normal, normal oropharynx - Neck Neck: no lymphadenopathy Thyroid: bilateral: normal size - Respiratory Respiratory: bilateral: diminished - Cardiovascular Rhythm: regular Heart sounds: normal: S1, S2 - Gastrointestinal General gastrointestinal: normal bowel sounds, soft - Integumentary Integumentary: normal - Neurologic Neurologic: CNII-XII intact - Musculoskeletal Musculoskeletal: generalized weakness, strength equal bilaterally - Psychiatric Psychiatric: A&O x's 3, appropriate affect Enlarged lymph nodes noted, medial rt supraclavicular area, bilateral axillae (right greater than left) due to patient's obese body habitus, size and extent are somewhat difficult to define exactly - Labs CBC & Chem 7: 09/16/18 05:36 09/16/18 05:36 Labs: Abnormal Lab Results - Last 24 Hours (Table) 09/15/18 09/16/18 09/16/18 Range/Units 21:22 05:36 05:36 WBC 15.3 H (3.8-10.6) k/uL RBC 2.82 L (3.80-5.40) m/uL Hgb 8.7 L (11.4-16.0) gm/dL Hct 28.0 L (34.0-46.0) % RDW 21.4 H (11.5-15.5) % Plt Count 122 L (150-450) k/uL Neutrophils # 12.9 H (1.3-7.7) k/uL Lymphocytes # 0.7 L (1.0-4.8) k/uL Monocytes # 1.5 H (0-1.0) k/uL Sodium 128 L (137-145) mmol/L POC Glucose (mg/dL) 138 H (75-99) mg/dL Calcium 7.4 L (8.4-10.2) mg/dL 09/16/18 09/16/18 09/16/18 Range/Units 05:52 11:38 11:57 WBC (3.8-10.6) k/uL RBC (3.80-5.40) m/uL Hgb (11.4-16.0) gm/dL Hct (34.0-46.0) % RDW (11.5-15.5) % Plt Count (150-450) k/uL Neutrophils # (1.3-7.7) k/uL Lymphocytes # (1.0-4.8) k/uL Monocytes # (0-1.0) k/uL Sodium (137-145) mmol/L POC Glucose (mg/dL) 115 H 61 L 58 L (75-99) mg/dL Calcium (8.4-10.2) mg/dL 09/16/18 Range/Units 17:03 WBC (3.8-10.6) k/uL RBC (3.80-5.40) m/uL Hgb (11.4-16.0) gm/dL Hct (34.0-46.0) % RDW (11.5-15.5) % Plt Count (150-450) k/uL Neutrophils # (1.3-7.7) k/uL Lymphocytes # (1.0-4.8) k/uL Monocytes # (0-1.0) k/uL Sodium (137-145) mmol/L POC Glucose (mg/dL) 208 H (75-99) mg/dL Calcium (8.4-10.2) mg/dL Microbiology - Last 24 Hours (Table) 09/09/18 15:10 Blood Culture - Final Blood No Growth after 144 hours Assessment and Plan Plan: (1) Lymphadenopathy Narrative/Plan: - extensive adenopathy, as well as other systemic symptoms as noted. - The CT findings are concerning for a lymphoid process or malignancy, she did have a prior needle biopsy at outside [facility] which was inconclusive. - Therefore the patient required an excisional lymph node biopsy. Status post and awaiting results. - Surgery Following Current Visit: Yes Status: Acute Code(s): R59.1 - GENERALIZED ENLARGED LYMPH NODES SNOMED Code(s): 28255593 (2) Anemia Narrative/Plan: - This is normochromic normocytic, with rapidly some progression since last summer. - There is no history suggestive of bleeding. - Therefore at this time anemia due to malignancy is the primary differential. - No Intervention needed today, Continue to monitor hemoglobin and transfuse if less than 7 Current Visit: Yes Status: Acute Code(s): D64.9 - ANEMIA, UNSPECIFIED SNOMED Code(s): 885616850 (3) Sepsis secondary to UTI Narrative/Plan: - Refer to the admitting service for continued management Current Visit: Yes Status: Acute Code(s): A41.9 - SEPSIS, UNSPECIFIED ORGANISM; N39.0 - URINARY TRACT INFECTION, SITE NOT SPECIFIED SNOMED Code(s): 735032581 (4) Fluid overload Narrative/Plan: - Patient's echocardiogram was normal. - Therefore at this time differential include fluid leak due to lymphedema and/ or increased blood vessel permeability from malignancy. - Continue current care (5) Hyponatremia
[2018-09-16 20:34] LABS: Glucose,Whole Blood 186 mg/dL (75-99)
[2018-09-16 22:02] LABS: Anisocytosis Moderate; Basophils % (A) 0 %; Eosinophils # (A) 0.1 k/uL (0-0.7); Eosinophils % (A) 0 %; HCT 22.8 % (34.0-46.0); Hypochromasia Marked; Lymphocytes # (A) 0.4 k/uL (1.0-4.8); Lymphocytes % (A) 3 %; MCH 30.9 pg (25.0-35.0); MCHC 30.6 g/dL (31.0-37.0); MCV 101.2 fL (80.0-100.0); Macrocytosis Marked; Mean Platelet Volume 8.9; Monocytes # (A) 1.5 k/uL (0-1.0); Monocytes % (A) 11 %; Neutrophils # (A) 11.3 k/uL (1.3-7.7); Neutrophils % (A) 84 %; Platelet Count 101 k/uL (150-450); RBC 2.25 m/uL (3.80-5.40); RDW 21.1 % (11.5-15.5); WBC 13.3 k/uL (3.8-10.6)
[2018-09-16 22:12] LABS: Calcium 7.1 mg/dL (8.4-10.2); Potassium 4.6 mmol/L (3.5-5.1)
[2018-09-16] MEDS ORDERED: SODIUM CHLORIDE 0.9% 1,000 ML IV SCH (22:15)
[2018-09-16] MEDS ORDERED: VANCOMYCIN IV PER PHARMACY 1 EACH MISC MISCELLANE PRN (22:36)
[2018-09-16] MEDS ORDERED: VANCOMYCIN 1,750 MG in SODIUM CHLORIDE 0.9% 500 ML 500 ML IVPB SCH (23:00)
[2018-09-16] MEDS: SODIUM CHLORIDE 0.9% 1,000 ML IV SCH (23:36)
[2018-09-16 23:37] LABS: Glucose,Whole Blood 188 mg/dL (75-99)
[2018-09-17 00:17] LABS: Albumin 1.4 g/dL (3.5-5.0); Calcium 7.1 mg/dL (8.4-10.2); Potassium 4.6 mmol/L (3.5-5.1); Total Protein 4.7 g/dL (6.3-8.2)
--- NOTE | 2018-09-17 00:25 | XR ---
EXAMINATION TYPE: XR chest 1V DATE OF EXAM: 09/17/2018 COMPARISON: 09/09/2018 HISTORY: Fluid overload TECHNIQUE: Single frontal view of the chest is obtained. FINDINGS: There is some blunting of the costophrenic angles. There is mild pulmonary congestion. Tho racic aorta is atheromatous. Heart size is fairly normal. IMPRESSION: Small pleural effusions and mild pulmonary congestion. This could be fluid overload. Pul monary congestion is increased compared to last exam.
[2018-09-17 01:52] LABS: Amorphous Sediment,Urine Occasional /hpf; Appearance,Urine Clear (Clear); Bilirubin,Urine Negative (Negative); Blood,Urine Moderate (Negative); Color,Urine Yellow; Glucose,Urine (UA) Negative (Negative); Hyaline Casts,Urine 22 /lpf (0-2); Ketones,Urine Negative (Negative); Leukocyte Esterase,Urine Negative (Negative); Mucus,Urine Rare /hpf; Nitrite,Urine Negative (Negative); PH, Urine 5.5 (5.0-8.0); Protein,Urine Trace (Negative); RBC,Urine 10 /hpf (0-5); Specific Gravity,Urine 1.011 (1.001-1.035); Squamous Epithelial Cell,Urine 2 /hpf (0-4); Urobilinogen,Urine <2.0 mg/dL (<2.0)
[2018-09-17] MEDS: HEPARIN SODIUM,PORCINE 5,000 UNIT/ML 1 ML VIAL SQ SCH ×4 (01:53→23:40)
[2018-09-17] MEDS: ALBUMIN HUMAN 25% 50 ML in EMPTY BAG 1 BAG IVPB SCH ×2 (03:26→04:02)
[2018-09-17 05:47] LABS: Anisocytosis Moderate; Basophils % (A) 0 %; Eosinophils # (A) 0.1 k/uL (0-0.7); Eosinophils % (A) 1 %; HCT 24.2 % (34.0-46.0); HGB 7.3 gm/dL (11.4-16.0); Hypochromasia Marked; Lymphocytes # (A) 0.3 k/uL (1.0-4.8); Lymphocytes % (A) 2 %; MCH 31.1 pg (25.0-35.0); MCHC 30.4 g/dL (31.0-37.0); MCV 102.6 fL (80.0-100.0); Macrocytosis Marked; Mean Platelet Volume 8.4; Monocytes # (A) 1.1 k/uL (0-1.0); Monocytes % (A) 8 %; Neutrophils # (A) 11.3 k/uL (1.3-7.7); Neutrophils % (A) 87 %; RBC 2.36 m/uL (3.80-5.40); RDW 21.3 % (11.5-15.5)
[2018-09-17 05:53] LABS: Albumin 1.8 g/dL (3.5-5.0); Calcium 7.2 mg/dL (8.4-10.2); Magnesium 1.3 mg/dL (1.6-2.3); Phosphorus 3.6 mg/dL (2.5-4.5); Potassium 4.7 mmol/L (3.5-5.1); Total Bilirubin 1.4 mg/dL (0.2-1.3); Total Protein 5.2 g/dL (6.3-8.2)
[2018-09-17] MEDS ORDERED: NOREPINEPHRINE 4 MG in SODIUM CHLORIDE 0.9% 250 ML IV SCH (06:00)
[2018-09-17] MEDS ORDERED: Magnesium Replacement Protocol 1 EACH MISC MISCELLANE PRN ×3 (06:01→18:16)
--- NOTE | 2018-09-17 06:18 | XR ---
EXAMINATION TYPE: XR chest 1V DATE OF EXAM: 09/17/2018 CLINICAL HISTORY: Difficulty breathing and fluid overload progress study. TECHNIQUE: Single AP portable upright view of the chest is obtained. COMPARISON: Chest x-ray from earlier today. CT chest one week ago. FINDINGS: Cardiac silhouette size is stable and within normal limits. There is persistent bibasilar opacity consistent with small bilateral pleural effusions and associated bibasilar atelectasis and/or infiltrate. Upper lungs remain clear without pneumothorax. Background chronic emphysematous change i s present. Osseous structures are intact. IMPRESSION: Chronic parenchymal changes with mild central vascular congestion and small bilateral ple ural effusions with associated bibasilar atelectasis and/or infiltrate all are redemonstrated. No sig nificant change from x-ray earlier today.
[2018-09-17] MEDS: MAGNESIUM SULFATE-D5W PMX 1 GM in DEXTROSE/WATER 1 100ML.BAG IVPB SCH ×5 (06:31→21:02)
[2018-09-17] MEDS: LEVOTHYROXINE 25 MCG TAB PO SCH (06:32)
[2018-09-17 06:52] LABS: Glucose,Whole Blood 154 mg/dL (75-99)
[2018-09-17] MEDS: INSULIN ASPART 100 UNIT/ML 1 ML 10 ML VIAL SQ SCH ×6 (07:05→21:03)
[2018-09-17 07:09] LABS: Target Cells Present
[2018-09-17 07:10] LABS: Polychromasia Present
[2018-09-17 07:11] LABS: Platelet Count 97 k/uL (150-450)
[2018-09-17] MEDS: PANTOPRAZOLE 40 MG/10 ML VIAL IV SCH (08:19)
[2018-09-17] MEDS: FUROSEMIDE 20 MG TAB PO SCH (08:22)
[2018-09-17] MEDS: SPIRONOLACTONE 25 MG TAB PO SCH (08:22)
[2018-09-17] MEDS: LISINOPRIL 5 MG TAB PO SCH (08:22)
[2018-09-17] MEDS: METOPROLOL SUCCINATE (ER) 50 MG TAB.ER.24H PO SCH (08:23)
--- NOTE | 2018-09-17 08:32 | P.PN ---
Progress Note - Text The patient is a 78-year-old female who was admitted with weakness and appeared to be developing sepsis from a urinary tract source. Patient had recently returned from [place] where she was hospitalized there with weakness and found to have some diffuse lymphadenopathy. Needle biopsy there that was nondiagnostic. Patient here. To be responding to IV antibiotics initially. She has had a repeat lymph node biopsy with results pending. She has been seen by oncology and please refer to their notes. Basically though they were awaiting biopsy reports. Patient had been switched to oral antibiotics in the form of Omnicef. Yesterday evening I was called by her nurse that her blood pressure was dropping and despite giving this some more fluids should be came more obtunded apparently. The patient was covered with antibiotics in the form of Rocephin and vancomycin. Her lactic acid level was elevated up to 5. And the patient was subsequently moved to the intensive care unit care. This morning she is sitting up in bed. She seems to be overall alert and oriented. She denies any pain or unusual shortness of breath. No nausea or vomiting. Vital signs show a blood pressure check on up to 111/79 but is down to 88/40 and apparently she is on Levophed. Temperature is 98.6 with a pulse of 90 and respirations 18. She is 97% saturated. Lungs are generally clear but diminished. Heart tones are regular. No definite murmur auscultated. Abdomen is obese but nontender. Patient does have grade 2 edema in both upper and lower extremities. There is some erythema at the IV site. Right arm. Once again she is alert and oriented. Generally weak but no focal cranial nerve or peripheral nerve deficits noted. Of this morning's laboratory values revealed a white count of 13 with a hemoglobin of 7.3 and a platelet count of 97. Patient is on subcu heparin. Sodium is 126, yesterday evening was down to 124. Potassium 4.7. CO2 content is 19. BUN of 18 with a creatinine of 0.86 given her GFR 65. Blood sugar was 152. Lactic acid level is still elevated but did decrease down to 3.7 this morning. Magnesium is slightly low at 1.3. Alk phos and bilirubin are mildly elevated at 1.4 and 220. Albumin is low at 1.8. Urinalysis only showed 2 white cells. Leukocyte esterase was negative. Chest x-ray shows some chronic parenchymal changes and mild central vascular congestion and small bilateral effusions. There are some bibasilar changes of atelectasis and/or infiltrate. No significant change from yesterday evening's. Of note patient did have echocardiogram on September 10 which showed good ejection fraction 55-60%. Impressions and plans 1. 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 Biopsy pending. Oncology on the case. 2. Symptoms and lab consistent with sepsis. Unknown source at this time. Covered with antibiotics. On levofed for blood pressure. Continue ICU and coding clerk care. Blood cultures have been ordered. 3. Anemia likely related to underlying malignancy. 4. Patient does have underlying history of obesity, hypertension and diabetes.
[2018-09-17] MEDS: ACETAMINOPHEN TAB 325 MG TAB PO PRN ×2 (08:36→16:48)
--- NOTE | 2018-09-17 09:15 | P.CNPUL ---
History of Present Illness Consult date: 09/17/18 Chief complaint: Hypotension History of present illness: 78-year-old obese female patient with known history of hypertension diabetes mellitus who presented to the hospital because of ongoing progressive weakness, vague abdominal discomfort and pain, weight loss and constitutions symptoms. The patient was found to be anemic. The patient was found to have some lymphadenopathy and the patient undergone a lymph node biopsy in [place] that was sampled from the neck area and the results were nondiagnostic and the patient was discharged home. The patient came back to [place] and a CAT scan of the chest and abdomen and pelvis was done during this current admission and the CAT scan showed a mild to moderate bilateral hilar lymphadenopathy, adenopathy in the superior anterior and middle mediastinum and he was also subcarinal and right paraesophageal lymphadenopathy. The largest lymph node was a 5 x 2.8 cm lymph node in the right supraclavicular area. There was also lymphadenopathy in the left clavicular area, there was also several lymph nodes in the abdomen and pelvis extending in the peripancreatic and shira hepatis and portacaval and periaortic positions. All the things raises the suspicion for lymphoma and the patient had a right subclavicular lymph node biopsy that was done by general surgery and the results are still pending for now. The patient however was progressively getting weak and hypoproteinemic and hypovolemic and she has developed increased edema in the upper and lower extremity and anasarca. Yesterday she became hypotensive and she got transferred to the intensive care unit. Overnight she required IV fluids which was in the form of normal state rate of 100 mL an hour. She received 2 doses of 25 g of albumin. She was briefly placed on pressors and norepinephrine infusion was was discontinued this morning. No significant cough or sputum production. No fever or chills. She has had a klebsiella urine checked infection back in April 2018 and the repeat UA was negative. Currently she is on oral Lasix. She is also on Aldactone pH was given empiric antibiotic coverage with a combination of Rocephin and vancomycin. Metoprolol was placed on hold. Lisinopril was laced also on hold. She has loose liquidy bowel movements. No significant diarrhea. No altered mentation. No cough or sputum production. No open wounds or sores or skin rash. She is quite weak in all 4 extremities mainly in lower extremity is bilaterally. Review of Systems Constitutional: Reports fatigue, Reports lethargy, Reports poor appetite, Reports weakness, Reports weight gain Ears: deny: decreased hearing, ear discharge, earache, tinnitus Ears, nose, mouth and throat: Denies headache, Denies sore throat Breasts: absent: as per HPI, change in shape, gynecomastia, masses, nipple discharge, pain, skin changes, swelling Cardiovascular: Reports decreased exercise tolerance, Reports leg edema Respiratory: Denies cough Gastrointestinal: Reports abdominal pain Genitourinary: Denies dysuria, Denies hematuria Menstruation: Reports as per HPI Musculoskeletal: Reports as per HPI Musculoskeletal: bilateral: ankle swelling, elbow swelling, hand swelling, knee swelling, wrist swelling, absent: ankle pain, ankle stiffness Integumentary: Denies pruritus, Denies rash Neurological: Reports as per HPI, Reports weakness Psychiatric: Reports change in appetite, Reports confusion Endocrine: Reports fatigue Hematologic/Lymphatic: Reports as per HPI Allergic/Immunologic: Reports as per HPI Past Medical History Past Medical History: Diabetes Mellitus, Hypertension History of Any Multi-Drug Resistant Organisms: None Reported Past Surgical History: Cholecystectomy, Joint Replacement Additional Past Surgical History / Comment(s): biopsy of lymph node 08/29/18, bilateral knee replacement Past Anesthesia/Blood Transfusion Reactions: No Reported Reaction Past Psychological History: No Psychological Hx Reported Smoking Status: Former smoker Past Alcohol Use History: None Reported Past Drug Use History: None Reported - Past Family History Mother Family Medical History: Coronary Artery Disease (CAD) Father Family Medical History: Cancer Additional Family Medical History / Comment(s): sisters x3 of cancer Medications and Allergies Home Medications Medication Instructions Recorded Confirmed Type Enalapril [Vasotec] 10 mg PO DAILY 09/09/18 09/09/18 History Insulin Aspart Protam & Aspart 8 unit SQ BID 09/09/18 09/09/18 History [Novolog Mix 70-30 Flexpen Syrn] Insulin Aspart [NovoLOG Flexpen] 4 units SQ AC-BRKFST 09/09/18 09/09/18 History Insulin Aspart [NovoLOG Flexpen] 8 units SQ AC-BID 09/09/18 09/09/18 History Metoprolol Succinate (ER) [Toprol 50 mg PO DAILY 09/09/18 09/09/18 History Xl] Allergies Allergy/AdvReac Type Severity Reaction Status Date / Time aspirin Allergy Rash/Hives Verified 09/09/18 15:20 Physical Exam Vitals: Vital Signs Temp Pulse Pulse Resp BP BP Pulse Ox 09/17/18 08:00 97.9 F 92 27 H 104/47 97 09/17/18 07:00 90 18 88/40 97 09/17/18 06:00 91 19 111/79 97 09/17/18 05:00 87 18 101/48 97 09/17/18 04:00 98.6 F 86 18 89/46 97 09/17/18 03:00 87 19 89/41 98 09/17/18 02:00 91 18 101/47 98 09/17/18 01:00 93 19 102/47 97 09/17/18 00:00 93 18 114/55 97 09/16/18 23:38 98.4 F 90 16 94/68 96 09/16/18 20:00 97.8 F 85 18 98 09/16/18 16:00 97.7 F 85 18 86/46 94 L 09/16/18 12:00 90 18 88/52 93 L Intake and Output 09/16/18 09/17/18 09/17/18 22:59 06:59 14:59 Intake Total 320 1400 211.875 Output Total 51 480 105 Balance 269 920 106.875 Intake: IV 1350 200 Albumin Human 25% 50 ml 100 In Empty Bag 1 bag @ 100 mls/hr IVPB Q1H MADELIN Rx#: [id number] Sodium Chloride 0.9% 1, 700 200 000 ml @ 100 mls/hr IV . Q10H MADELIN Rx#:[id number] Vancomycin 1,750 mg In 500 Sodium Chloride 0.9% 500 ml 500 ml @ 167 mls/hr IVPB Q24H MADELIN Rx#: [id number] cefTRIAXone 1,000 mg In 50 Sodium Chloride 0.9% 50 ml @ 100 mls/hr IVPB Q24H MADELIN Rx#:[id number] Intake, IV Titration 11.875 Amount Norepinephrine 4 mg In 11.875 Sodium Chloride 0.9% 250 ml @ Titrate IV .Q0M MADELIN Rx#:[id number] Oral 320 50 Output: Urine 50 480 105 Stool 1 Other: Voiding Method Bedpan Indwelling Catheter # Voids 1 # Bowel Movements 1 Weight 118 kg 113.9 kg - Constitutional General appearance: no acute distress - EENT Eyes: EOMI, PERRLA ENT: hearing grossly normal, normal oropharynx - Neck Neck: no lymphadenopathy Thyroid: bilateral: normal size - Respiratory Respiratory: bilateral: diminishedLungs were clear to auscultation and percussion, and with normal diaphragmatic excursion. No wheezes or rales were noted. - Cardiovascular Rhythm: regular Heart sounds: normal: S1, S2, the patient has developed increased edema in all 4 extremities mainly lower extremities bilaterally. No cyanosis or clubbing.Cardiac exam revealed the PMI to be normally situated and sized. The rhythm was regular and no extrasystoles were noted during several minutes of auscultation. The first and second heart sounds were normal and physiologic splitting of the second heart sound was noted. There were no murmurs, rubs, clicks, or gallops. - Gastrointestinal General gastrointestinal: normal bowel sounds, softAbdominal exam revealed normal bowel sounds. The abdomen was soft, non-tender, and without masses, organomegaly, or appreciable enlargement of the abdominal aorta. - Integumentary Integumentary: normal - Neurologic Neurologic: CNII-XII intact - Musculoskeletal Musculoskeletal: generalized weakness, strength equal bilaterally - Psychiatric Psychiatric: A&O x's 3, appropriate affect Enlarged lymph nodes noted, medial rt supraclavicular area, bilateral axillae (right greater than left) due to patient's obese body habitus, size and extent are somewhat difficult to define exactly the surgical site over the right supraclavicular area dry clean and intact. Results - Laboratory Findings CBC and BMP: 09/17/18 05:15 09/17/18 05:15 PT/INR, D-dimer PT 14.2 sec (9.0-12.0) H 09/14/18 06:03 INR 1.4 (<1.2) H 09/14/18 06:03 Abnormal lab findings: Abnormal Labs 09/09/18 09/09/18 09/09/18 15:10 15:10 15:10 WBC 11.6 H RBC 3.34 L Hgb 9.5 L Hct 31.7 L MCV MCHC 30.1 L RDW 20.3 H Plt Count Neutrophils # 10.3 H Lymphocytes # 0.4 L Monocytes # Retic Count PT INR APTT Sodium 131 L Potassium Chloride 94 L Carbon Dioxide BUN 18 H Glucose 132 H POC Glucose (mg/dL) Plasma Lactic Acid Wilbert Calcium 7.7 L Magnesium Iron TIBC Ferritin Total Bilirubin 1.4 H Alkaline Phosphatase 297 H Total Creatine Kinase <20 L Total Protein Total Protein (PEP) Albumin 2.3 L Albumin (PEP) Qviyr-0-Assgvcvec Tnins-3-Mafdyxoft Gamma Globulins Vitamin B12 RBC Folate TSH Free T3 pg/mL Urine Appearance Urine Protein Urine Ketones Urine Blood Urine Bilirubin Urine RBC Urine WBC Ur Squamous Epith Cells Amorphous Sediment Hyaline Casts Urine Mucus Free [place] LC, Quant Free Lambda LC, Quant 09/09/18 09/09/18 09/09/18 15:10 15:10 15:10 WBC RBC Hgb Hct MCV MCHC RDW Plt Count Neutrophils # Lymphocytes # Monocytes # Retic Count PT 14.8 H INR 1.5 H APTT 30.7 H Sodium Potassium Chloride Carbon Dioxide BUN Glucose POC Glucose (mg/dL) Plasma Lactic Acid Wilbert 4.8 H* Calcium Magnesium Iron TIBC Ferritin Total Bilirubin Alkaline Phosphatase Total Creatine Kinase Total Protein Total Protein (PEP) Albumin Albumin (PEP) Cfvgt-9-Pmerwibjz Nlslp-7-Lkmezipfy Gamma Globulins Vitamin B12 RBC Folate TSH 5.770 H Free T3 pg/mL Urine Appearance Urine Protein Urine Ketones Urine Blood Urine Bilirubin Urine RBC Urine WBC Ur Squamous Epith Cells Amorphous Sediment Hyaline Casts Urine Mucus Free [place] LC, Quant Free Lambda LC, Quant 09/09/18 09/09/18 09/09/18 16:20 17:54 18:52 WBC RBC Hgb Hct MCV MCHC RDW Plt Count Neutrophils # Lymphocytes # Monocytes # Retic Count PT INR APTT Sodium Potassium Chloride Carbon Dioxide BUN Glucose POC Glucose (mg/dL) 107 H Plasma Lactic Acid Wilbert 3.0 H* Calcium Magnesium Iron TIBC Ferritin Total Bilirubin Alkaline Phosphatase Total Creatine Kinase Total Protein Total Protein (PEP) Albumin Albumin (PEP) Osvry-9-Sykmymiim Ieyqs-0-Nudlhlqxh Gamma Globulins Vitamin B12 RBC Folate TSH Free T3 pg/mL Urine Appearance Cloudy H Urine Protein 1+ H Urine Ketones Trace H Urine Blood Moderate H Urine Bilirubin 1+ H Urine RBC 29 H Urine WBC 10 H Ur Squamous Epith Cells 5 H Amorphous Sediment Occasional H Hyaline Casts 275 H Urine Mucus Occasional H Free [place] LC, Quant Free Lambda LC, Quant 09/09/18 09/10/18 09/10/18 23:20 08:39 15:57 WBC RBC Hgb Hct MCV MCHC RDW Plt Count Neutrophils # Lymphocytes # Monocytes # Retic Count PT INR APTT Sodium Potassium Chloride Carbon Dioxide BUN Glucose POC Glucose (mg/dL) 135 H 107 H 147 H Plasma Lactic Acid Wilbert Calcium Magnesium Iron TIBC Ferritin Total Bilirubin Alkaline Phosphatase Total Creatine Kinase Total Protein Total Protein (PEP) Albumin Albumin (PEP) Cwtxn-8-Kztezpgqp Yhfzm-9-Fyjqbrdzz Gamma Globulins Vitamin B12 RBC Folate TSH Free T3 pg/mL Urine Appearance Urine Protein Urine Ketones Urine Blood Urine Bilirubin Urine RBC Urine WBC Ur Squamous Epith Cells Amorphous Sediment Hyaline Casts Urine Mucus Free [place] LC, Quant Free Lambda LC, Quant 09/11/18 09/11/18 09/11/18 05:44 05:44 05:44 WBC 11.6 H RBC 2.67 L Hgb 7.8 L D Hct 25.7 L MCV MCHC 30.3 L RDW 20.8 H Plt Count 145 L Neutrophils # 9.6 H Lymphocytes # 0.5 L Monocytes # 1.3 H Retic Count 5.0 H PT INR APTT Sodium 128 L Potassium 3.3 L Chloride 96 L Carbon Dioxide BUN Glucose 69 L POC Glucose (mg/dL) Plasma Lactic Acid Wilbert Calcium 6.8 L Magnesium Iron 23 L TIBC 137 L Ferritin 1829.4 H Total Bilirubin Alkaline Phosphatase 272 H Total Creatine Kinase Total Protein 5.3 L Total Protein (PEP) 5.0 L Albumin 1.8 L Albumin (PEP) 1.39 L Rwtci-8-Hzvgdsmqz 0.52 H Zrxap-0-Jpvlhrdyc 0.55 L Gamma Globulins 1.74 H Vitamin B12 1730.0 H RBC Folate TSH Free T3 pg/mL 1.4 L Urine Appearance Urine Protein Urine Ketones Urine Blood Urine Bilirubin Urine RBC Urine WBC Ur Squamous Epith Cells Amorphous Sediment Hyaline Casts Urine Mucus Free [place] LC, Quant 21.40 H Free Lambda LC, Quant 15.40 H 09/11/18 09/11/18 09/11/18 05:44 11:36 16:50 WBC RBC Hgb Hct MCV MCHC RDW Plt Count Neutrophils # Lymphocytes # Monocytes # Retic Count PT INR APTT Sodium Potassium Chloride Carbon Dioxide BUN Glucose POC Glucose (mg/dL) 189 H 188 H Plasma Lactic Acid Wilbert Calcium Magnesium Iron TIBC Ferritin Total Bilirubin Alkaline Phosphatase Total Creatine Kinase Total Protein Total Protein (PEP) Albumin Albumin (PEP) Xzqhc-7-Fboitfvsg Qjmir-3-Hwoxwdimb Gamma Globulins Vitamin B12 RBC Folate 980 H TSH Free T3 pg/mL Urine Appearance Urine Protein Urine Ketones Urine Blood Urine Bilirubin Urine RBC Urine WBC Ur Squamous Epith Cells Amorphous Sediment Hyaline Casts Urine Mucus Free [place] LC, Quant Free Lambda LC, Quant 09/11/18 09/12/18 09/12/18 21:07 06:10 06:39 WBC RBC Hgb Hct MCV MCHC RDW Plt Count Neutrophils # Lymphocytes # Monocytes # Retic Count PT INR APTT Sodium 128 L Potassium 3.4 L Chloride 95 L Carbon Dioxide BUN Glucose 137 H POC Glucose (mg/dL) 125 H 166 H Plasma Lactic Acid Wilbert Calcium 7.0 L Magnesium Iron TIBC Ferritin Total Bilirubin Alkaline Phosphatase Total Creatine Kinase Total Protein Total Protein (PEP) Albumin Albumin (PEP) Zhuhc-7-Sjakhmzvl Hnhmd-5-Mampkdtpy Gamma Globulins Vitamin B12 RBC Folate TSH Free T3 pg/mL Urine Appearance Urine Protein Urine Ketones Urine Blood Urine Bilirubin Urine RBC Urine WBC Ur Squamous Epith Cells Amorphous Sediment Hyaline Casts Urine Mucus Free [place] LC, Quant Free Lambda LC, Quant 09/12/18 09/12/18 09/12/18 06:39 06:39 11:52 WBC 13.0 H RBC 2.62 L Hgb 8.1 L Hct 25.5 L MCV MCHC RDW 20.7 H Plt Count Neutrophils # 11.0 H Lymphocytes # 0.3 L Monocytes # 1.4 H Retic Count PT 15.9 H INR 1.6 H APTT 37.0 H Sodium Potassium Chloride Carbon Dioxide BUN Glucose POC Glucose (mg/dL) 145 H Plasma Lactic Acid Wilbert Calcium Magnesium Iron TIBC Ferritin Total Bilirubin Alkaline Phosphatase Total Creatine Kinase Total Protein Total Protein (PEP) Albumin Albumin (PEP) Csrek-6-Wlldsfnoi Lhzcp-5-Bsqyaysyd Gamma Globulins Vitamin B12 RBC Folate TSH Free T3 pg/mL Urine Appearance Urine Protein Urine Ketones Urine Blood Urine Bilirubin Urine RBC Urine WBC Ur Squamous Epith Cells Amorphous Sediment Hyaline Casts Urine Mucus Free [place] LC, Quant Free Lambda LC, Quant 09/12/18 09/12/18 09/12/18 17:34 18:19 21:21 WBC RBC Hgb Hct MCV MCHC RDW Plt Count Neutrophils # Lymphocytes # Monocytes # Retic Count PT INR APTT Sodium Potassium Chloride Carbon Dioxide BUN Glucose POC Glucose (mg/dL) 178 H 160 H 186 H Plasma Lactic Acid Wilbert Calcium Magnesium Iron TIBC Ferritin Total Bilirubin Alkaline Phosphatase Total Creatine Kinase Total Protein Total Protein (PEP) Albumin Albumin (PEP) Kfktj-9-Lqqhhakvw Rhtxb-3-Vxxuxrxty Gamma Globulins Vitamin B12 RBC Folate TSH Free T3 pg/mL Urine Appearance Urine Protein Urine Ketones Urine Blood Urine Bilirubin Urine RBC Urine WBC Ur Squamous Epith Cells Amorphous Sediment Hyaline Casts Urine Mucus Free [place] LC, Quant Free Lambda LC, Quant 09/13/18 09/13/18 09/13/18 06:13 11:05 16:48 WBC RBC Hgb Hct MCV MCHC RDW Plt Count Neutrophils # Lymphocytes # Monocytes # Retic Count PT INR APTT Sodium Potassium Chloride Carbon Dioxide BUN Glucose POC Glucose (mg/dL) 198 H 159 H 164 H Plasma Lactic Acid Wilbert Calcium Magnesium Iron TIBC Ferritin Total Bilirubin Alkaline Phosphatase Total Creatine Kinase Total Protein Total Protein (PEP) Albumin Albumin (PEP) Felah-7-Wawagobrt Ixwsm-9-Zyqtfqkao Gamma Globulins Vitamin B12 RBC Folate TSH Free T3 pg/mL Urine Appearance Urine Protein Urine Ketones Urine Blood Urine Bilirubin Urine RBC Urine WBC Ur Squamous Epith Cells Amorphous Sediment Hyaline Casts Urine Mucus Free [place] LC, Quant Free Lambda LC, Quant 09/13/18 09/14/18 09/14/18 20:56 06:03 06:03 WBC 11.4 H RBC 2.66 L Hgb 8.0 L Hct 26.4 L MCV MCHC 30.4 L RDW 20.9 H Plt Count 133 L Neutrophils # 9.6 H Lymphocytes # 0.4 L Monocytes # 1.2 H Retic Count PT 14.2 H INR 1.4 H APTT Sodium Potassium Chloride Carbon Dioxide BUN Glucose POC Glucose (mg/dL) 194 H Plasma Lactic Acid Wilbert Calcium Magnesium Iron TIBC Ferritin Total Bilirubin Alkaline Phosphatase Total Creatine Kinase Total Protein Total Protein (PEP) Albumin Albumin (PEP) Ssmib-2-Woymvxaou Mqnuq-4-Rpldmevsc Gamma Globulins Vitamin B12 RBC Folate TSH Free T3 pg/mL Urine Appearance Urine Protein Urine Ketones Urine Blood Urine Bilirubin Urine RBC Urine WBC Ur Squamous Epith Cells Amorphous Sediment Hyaline Casts Urine Mucus Free [place] LC, Quant Free Lambda LC, Quant 09/14/18 09/14/18 09/14/18 06:03 11:42 16:55 WBC RBC Hgb Hct MCV MCHC RDW Plt Count Neutrophils # Lymphocytes # Monocytes # Retic Count PT INR APTT Sodium 128 L Potassium Chloride 96 L Carbon Dioxide BUN 19 H Glucose 68 L POC Glucose (mg/dL) 153 H 129 H Plasma Lactic Acid Wilbert Calcium 7.0 L Magnesium Iron TIBC Ferritin Total Bilirubin Alkaline Phosphatase Total Creatine Kinase Total Protein Total Protein (PEP) Albumin Albumin (PEP) Audbd-4-Mrlrdlllu Mlotw-2-Vgxxqbbjv Gamma Globulins Vitamin B12 RBC Folate TSH Free T3 pg/mL Urine Appearance Urine Protein Urine Ketones Urine Blood Urine Bilirubin Urine RBC Urine WBC Ur Squamous Epith Cells Amorphous Sediment Hyaline Casts Urine Mucus Free [place] LC, Quant Free Lambda LC, Quant 09/14/18 09/15/18 09/15/18 20:32 06:04 06:20 WBC RBC Hgb Hct MCV MCHC RDW Plt Count Neutrophils # Lymphocytes # Monocytes # Retic Count PT INR APTT Sodium Potassium Chloride Carbon Dioxide BUN Glucose POC Glucose (mg/dL) 125 H 53 L 58 L Plasma Lactic Acid Wilbert Calcium Magnesium Iron TIBC Ferritin Total Bilirubin Alkaline Phosphatase Total Creatine Kinase Total Protein Total Protein (PEP) Albumin Albumin (PEP) Hohxd-6-Ruesyhktb Awgch-1-Htuysnejb Gamma Globulins Vitamin B12 RBC Folate TSH Free T3 pg/mL Urine Appearance Urine Protein Urine Ketones Urine Blood Urine Bilirubin Urine RBC Urine WBC Ur Squamous Epith Cells Amorphous Sediment Hyaline Casts Urine Mucus Free [place] LC, Quant Free Lambda LC, Quant 09/15/18 09/15/18 09/15/18 06:41 11:35 17:06 WBC RBC Hgb Hct MCV MCHC RDW Plt Count Neutrophils # Lymphocytes # Monocytes # Retic Count PT INR APTT Sodium Potassium Chloride Carbon Dioxide BUN Glucose POC Glucose (mg/dL) 66 L 217 H 210 H Plasma Lactic Acid Wilbert Calcium Magnesium Iron TIBC Ferritin Total Bilirubin Alkaline Phosphatase Total Creatine Kinase Total Protein Total Protein (PEP) Albumin Albumin (PEP) Ciqkc-3-Pmdrtndan Hsjbw-7-Kvmylwaec Gamma Globulins Vitamin B12 RBC Folate TSH Free T3 pg/mL Urine Appearance Urine Protein Urine Ketones Urine Blood Urine Bilirubin Urine RBC Urine WBC Ur Squamous Epith Cells Amorphous Sediment Hyaline Casts Urine Mucus Free [place] LC, Quant Free Lambda LC, Quant 09/15/18 09/16/18 09/16/18 21:22 05:36 05:36 WBC 15.3 H RBC 2.82 L Hgb 8.7 L Hct 28.0 L MCV MCHC RDW 21.4 H Plt Count 122 L Neutrophils # 12.9 H Lymphocytes # 0.7 L Monocytes # 1.5 H Retic Count PT INR APTT Sodium 128 L Potassium Chloride Carbon Dioxide BUN Glucose POC Glucose (mg/dL) 138 H Plasma Lactic Acid Wilbert Calcium 7.4 L Magnesium Iron TIBC Ferritin Total Bilirubin Alkaline Phosphatase Total Creatine Kinase Total Protein Total Protein (PEP) Albumin Albumin (PEP) Snrbr-1-Zinljcvjt Cdklk-8-Clpapougl Gamma Globulins Vitamin B12 RBC Folate TSH Free T3 pg/mL Urine Appearance Urine Protein Urine Ketones Urine Blood Urine Bilirubin Urine RBC Urine WBC Ur Squamous Epith Cells Amorphous Sediment Hyaline Casts Urine Mucus Free [place] LC, Quant Free Lambda LC, Quant 09/16/18 09/16/18 09/16/18 05:52 11:38 11:57 WBC RBC Hgb Hct MCV MCHC RDW Plt Count Neutrophils # Lymphocytes # Monocytes # Retic Count PT INR APTT Sodium Potassium Chloride Carbon Dioxide BUN Glucose POC Glucose (mg/dL) 115 H 61 L 58 L Plasma Lactic Acid Wilbert Calcium Magnesium Iron TIBC Ferritin Total Bilirubin Alkaline Phosphatase Total Creatine Kinase Total Protein Total Protein (PEP) Albumin Albumin (PEP) Dgppd-5-Xtyfmfedj Wnovx-2-Tnzhxwybi Gamma Globulins Vitamin B12 RBC Folate TSH Free T3 pg/mL Urine Appearance Urine Protein Urine Ketones Urine Blood Urine Bilirubin Urine RBC Urine WBC Ur Squamous Epith Cells Amorphous Sediment Hyaline Casts Urine Mucus Free [place] LC, Quant Free Lambda LC, Quant 09/16/18 09/16/18 09/16/18 17:03 20:33 21:43 WBC 13.3 H RBC 2.25 L Hgb 7.0 L D Hct 22.8 L MCV 101.2 H MCHC 30.6 L RDW 21.1 H Plt Count 101 L Neutrophils # 11.3 H Lymphocytes # 0.4 L Monocytes # 1.5 H Retic Count PT INR APTT Sodium Potassium Chloride Carbon Dioxide BUN Glucose POC Glucose (mg/dL) 208 H 186 H Plasma Lactic Acid Wilbert Calcium Magnesium Iron TIBC Ferritin Total Bilirubin Alkaline Phosphatase Total Creatine Kinase Total Protein Total Protein (PEP) Albumin Albumin (PEP) Ewldr-6-Lznweswei Erbtt-5-Gmglapifv Gamma Globulins Vitamin B12 RBC Folate TSH Free T3 pg/mL Urine Appearance Urine Protein Urine Ketones Urine Blood Urine Bilirubin Urine RBC Urine WBC Ur Squamous Epith Cells Amorphous Sediment Hyaline Casts Urine Mucus Free [place] LC, Quant Free Lambda LC, Quant 09/16/18 09/16/18 09/16/18 21:43 21:43 21:43 WBC RBC Hgb Hct MCV MCHC RDW Plt Count Neutrophils # Lymphocytes # Monocytes # Retic Count PT INR APTT Sodium 124 L 124 L Potassium Chloride 96 L 95 L Carbon Dioxide 20 L 20 L BUN 18 H 19 H Glucose 158 H 161 H POC Glucose (mg/dL) Plasma Lactic Acid Wilbert 5.0 H* Calcium 7.1 L 7.1 L Magnesium Iron TIBC Ferritin Total Bilirubin Alkaline Phosphatase 226 H Total Creatine Kinase Total Protein 4.7 L Total Protein (PEP) Albumin 1.4 L Albumin (PEP) Awydd-6-Dnzywfaih Qpbyt-2-Dqjnzjzqp Gamma Globulins Vitamin B12 RBC Folate TSH Free T3 pg/mL Urine Appearance Urine Protein Urine Ketones Urine Blood Urine Bilirubin Urine RBC Urine WBC Ur Squamous Epith Cells Amorphous Sediment Hyaline Casts Urine Mucus Free [place] LC, Quant Free Lambda LC, Quant 09/16/18 09/17/18 09/17/18 23:35 01:02 05:15 WBC RBC Hgb Hct MCV MCHC RDW Plt Count Neutrophils # Lymphocytes # Monocytes # Retic Count PT INR APTT Sodium 126 L Potassium Chloride 97 L Carbon Dioxide 19 L BUN 18 H Glucose 152 H POC Glucose (mg/dL) 188 H Plasma Lactic Acid Wilbert Calcium 7.2 L Magnesium 1.3 L Iron TIBC Ferritin Total Bilirubin 1.4 H Alkaline Phosphatase 220 H Total Creatine Kinase Total Protein 5.2 L Total Protein (PEP) Albumin 1.8 L Albumin (PEP) Wmakw-2-Yztmjckve Pbciu-7-Yhkphzosv Gamma Globulins Vitamin B12 RBC Folate TSH Free T3 pg/mL Urine Appearance Urine Protein Trace H Urine Ketones Urine Blood Moderate H Urine Bilirubin Urine RBC 10 H Urine WBC Ur Squamous Epith Cells Amorphous Sediment Occasional H Hyaline Casts 22 H Urine Mucus Rare H Free [place] LC, Quant Free Lambda LC, Quant 09/17/18 09/17/18 09/17/18 05:15 05:15 06:51 WBC 13.0 H RBC 2.36 L Hgb 7.3 L Hct 24.2 L MCV 102.6 H MCHC 30.4 L RDW 21.3 H Plt Count 97 L Neutrophils # 11.3 H Lymphocytes # 0.3 L Monocytes # 1.1 H Retic Count PT INR APTT Sodium Potassium Chloride Carbon Dioxide BUN Glucose POC Glucose (mg/dL) 154 H Plasma Lactic Acid Wilbert 3.7 H* Calcium Magnesium Iron TIBC Ferritin Total Bilirubin Alkaline Phosphatase Total Creatine Kinase Total Protein Total Protein (PEP) Albumin Albumin (PEP) Xdzoi-9-Nvjlaljux Xhilt-9-Efcckozzc Gamma Globulins Vitamin B12 RBC Folate TSH Free T3 pg/mL Urine Appearance Urine Protein Urine Ketones Urine Blood Urine Bilirubin Urine RBC Urine WBC Ur Squamous Epith Cells Amorphous Sediment Hyaline Casts Urine Mucus Free [place] LC, Quant Free Lambda LC, Quant - Diagnostic Findings Chest x-ray: image reviewed CT scan - chest: image reviewed Assessment and Plan Plan: Assessment 1 diffuse lymphadenopathy involving the supraclavicular area bilaterally more so on the right, thorax/mediastinum and abdomen. The patient underwent an excisional lymph node biopsy and pathology finding are still in progress. High suspicion for an underlying malignancy/lymphoma. Hematology oncology is on the case 2 profound hypoproteinemia and third spacing/anasarca. Rule out nutritional hypoproteinemia. Doubt any liver disease. No 70 cardiomyopathy and the patient 's left a ejection fraction is well-preserved and is within normal limits 3 transient hypotension, recovered and the patient is currently off pressors. Exact cause for his underlying hypotension is not clear. The patient may have developed underlying septic/infectious process contributing to her hypotension. She is currently covered with broad-spectrum antibiotics with accommodation Rocephin and vancomycin pending further cultures 4 chronic anemia 5 hyponatremia 6 previous history of urine checked infection 7 obesity with a BMI of 41 8 diabetes mellitus 9 hypertension 10 profound weakness and debility seconds above-mentioned comorbidities Plan Diagnostic Fluids to KVO. Restart Lasix and Aldactone. Nutritional Advice. Advance Diet As Tolerated. Protein Nutritional Shakes. Stop Pressors for Now. Continue Empiric Antibiotic Coverage Still to Make Sure That There Is No Underlying Infections. Consider a Bone Marrow Biopsy and this will depend on the findings in the right supraclavicular excisional lymph node biopsy. Will need physical therapy and rehabilitation. We'll continue to follow.
[2018-09-17] MEDS ORDERED: VANCOMYCIN 1,750 MG in SODIUM CHLORIDE 0.9% 500 ML 500 ML IVPB SCH (12:00)
[2018-09-17 12:11] LABS: Glucose,Whole Blood 203 mg/dL (75-99)
[2018-09-17] MEDS: SODIUM CHLORIDE 0.9% 1,000 ML IV SCH ×2 (12:15→21:02)
[2018-09-17 16:07] LABS: Hemoglobin A1C 4.7 % (4.0-6.0)
[2018-09-17 17:14] LABS: Glucose,Whole Blood 169 mg/dL (75-99)
[2018-09-17 20:26] LABS: Glucose,Whole Blood 164 mg/dL (75-99)
[2018-09-18 04:46] LABS: Anisocytosis Moderate; Basophils % (A) 0 %; Eosinophils # (A) 0.1 k/uL (0-0.7); Eosinophils % (A) 0 %; HCT 26.6 % (34.0-46.0); Hypochromasia Marked; Lymphocytes # (A) 0.4 k/uL (1.0-4.8); Lymphocytes % (A) 3 %; MCH 30.9 pg (25.0-35.0); MCHC 30.1 g/dL (31.0-37.0); MCV 102.6 fL (80.0-100.0); Monocytes # (A) 0.9 k/uL (0-1.0); Monocytes % (A) 7 %; Neutrophils # (A) 11.5 k/uL (1.3-7.7); Neutrophils % (A) 89 %; RBC 2.59 m/uL (3.80-5.40); RDW 20.9 % (11.5-15.5)
[2018-09-18 04:47] LABS: Macrocytosis Marked; Platelet Count 92 k/uL (150-450)
[2018-09-18 05:04] LABS: ALT 20 U/L (9-52); AST 27 U/L (14-36); Albumin 1.7 g/dL (3.5-5.0); Alkaline Phosphatase 315 U/L (38-126); Anion Gap 9 mmol/L; Blood Urea Nitrogen 14 mg/dL (7-17); Calcium 7.2 mg/dL (8.4-10.2); Carbon Dioxide 20 mmol/L (22-30); Chloride 97 mmol/L (98-107); Glucose 106 mg/dL (74-99); Magnesium 1.8 mg/dL (1.6-2.3); Phosphorus 3.3 mg/dL (2.5-4.5); Potassium 4.1 mmol/L (3.5-5.1); Sodium 126 mmol/L (137-145); Total Bilirubin 1.5 mg/dL (0.2-1.3); Total Protein 5.2 g/dL (6.3-8.2)
[2018-09-18] MEDS: MAGNESIUM SULFATE-D5W PMX 1 GM in DEXTROSE/WATER 1 100ML.BAG IVPB SCH ×2 (05:17→06:29)
[2018-09-18 06:52] LABS: Glucose,Whole Blood 146 mg/dL (75-99)
[2018-09-18] MEDS: LEVOTHYROXINE 25 MCG TAB PO SCH (06:53)
[2018-09-18] MEDS: INSULIN ASPART 100 UNIT/ML 1 ML 10 ML VIAL SQ SCH ×8 (06:54→22:11)
--- NOTE | 2018-09-18 08:00 | XR ---
EXAMINATION TYPE: XR chest 1V DATE OF EXAM: 09/18/2018 COMPARISON: 09/17/2018 INDICATION: Fluid overload TECHNIQUE: Single frontal view of the chest is obtained. FINDINGS: The heart size is normal. The pulmonary vasculature is normal. The lungs are clear. Minimal pleural effusion at the left base is not excluded. This appears stable from previous exam. Mi ld blunting of the right costophrenic may be present. IMPRESSION: 1. Suggestion of very minimal bibasilar pleural fluid collections. Exam is stable from comparison.
--- NOTE | 2018-09-18 08:48 | P.PN ---
Progress Note - Text The patient is a 78-year-old female who is being worked up for diffuse lymphadenopathy with possible underlying lymphoma. Admitted initially with sepsis and then patient developed hypotension that required admission to the intensive care unit and initiation of further IV antibiotics in the form of Rocephin and vancomycin. This morning she is sitting up in bed. States she ate breakfast. Denies any chest pain or shortness of breath. She denies any unusual discomfort or pain. Last temperature 98.3. Pulse is 101. Respirations were 21. Blood pressure 106 /48 and she is 96% saturated. Lungs somewhat diminished at bases but otherwise clear. Heart tones were regular. Abdomen obese but nontender. She does have diffuse grade 2 edema of both upper and lower extremities. She is alert and oriented without cranial nerves are focal neurological peripheral weakness. Laboratory White count is 14 with hemoglobin 8.0 and a platelet count of 92 Sodium is 126 with potassium 4.1. Blood sugar 106. Alk phos is elevated at 3:15. Bilirubin 1.5. Albumin is low at 1.7. Calcium also low at 7.2. Magnesium was normal at 1.8. Chest x-ray still shows some minimal basilar pleural fluid collections but stable from yesterday. Blood cultures from the are negative so far. Urine culture pretty much has shown normal skin adore. Impressions and plans We are awaiting results of the lymph node biopsy to determine possible diffuse lymphoma in this 78-year-old female. Patient was admitted to the intensive care unit with hypotension and elevated lactic acid consistent with sepsis. Although at this time no definite source can be pinpointed. She does have multiple medical comorbidities include her diabetes, hypertension. Prognosis still guarded.
[2018-09-18] MEDS: METOPROLOL SUCCINATE (ER) 50 MG TAB.ER.24H PO SCH ×2 (08:53→10:34)
[2018-09-18] MEDS: LISINOPRIL 5 MG TAB PO SCH (08:53)
[2018-09-18] MEDS: HEPARIN SODIUM,PORCINE 5,000 UNIT/ML 1 ML VIAL SQ SCH ×2 (09:01→16:46)
[2018-09-18] MEDS: SPIRONOLACTONE 25 MG TAB PO SCH (09:02)
[2018-09-18] MEDS: FUROSEMIDE 20 MG TAB PO SCH (09:02)
[2018-09-18] MEDS: PANTOPRAZOLE 40 MG/10 ML VIAL IV SCH (09:02)
[2018-09-18] MEDS ORDERED: FUROSEMIDE 10 MG/ML 2 ML VIAL IV SCH (10:15)
[2018-09-18] MEDS: FUROSEMIDE 250 MG in SODIUM CHLORIDE 0.9% 225 ML IVP SCH (10:55)
[2018-09-18 11:53] LABS: Glucose,Whole Blood 170 mg/dL (75-99)
[2018-09-18 15:20] LABS: Uric Acid 2.9 mg/dL (3.7-7.4)
--- NOTE | 2018-09-18 15:31 | P.PN ---
Subjective Progress Note Date: 09/18/18 Principal diagnosis: Lymphadenopathy Patient feels overall better today, we are still awaiting results of pathology from lymph node biopsy. Flow Cytometry on Lymph returned negative. Her hemoglobin and platelts are stable. Objective - Vital Signs Vital signs: Vital Signs Temp 98.1 F 09/18/18 12:00 Pulse 100 09/18/18 15:00 Resp 29 H 09/18/18 15:00 BP 93/46 09/18/18 15:00 Pulse Ox 97 09/18/18 15:00 Intake & Output 09/17/18 09/18/18 09/18/18 18:59 06:59 18:59 Intake Total 52029.875 620 640 Output Total 976 921 461 Balance 92919.875 301 179 Weight 113.5 [place]: [place] [address] 620 160 Magnesium Sulfate-D5w Pmx 200 300 1 gm In Dextrose/Water 1 100ml.bag @ 100 mls/hr IVPB Q1H [facility] Rx#: [id number] Sodium Chloride 0.9% 1, 77017 220 160 000 ml @ 20 mls/hr IV . Q24H [facility] Rx#:[id number] cefTRIAXone 1,000 mg In 100 Sodium Chloride 0.9% 50 ml @ 100 mls/hr IVPB Q24H [facility] Rx#:[id number] Intake, IV Titration 11.875 Amount Norepinephrine 4 mg In 11.875 Sodium Chloride 0.9% 250 ml @ Titrate IV .Q0M [facility] Rx#:[id number] Oral 200 480 Output: Urine 975 920 460 Stool 1 1 1 Other: Voiding Method Indwelling Catheter Indwelling Catheter Indwelling Catheter # Bowel Movements 1 1 1 - Exam Constitutional General appearance: no acute distress - EENT Eyes: EOMI, PERRLA ENT: hearing grossly normal, normal oropharynx - Neck Neck: no lymphadenopathy Thyroid: bilateral: normal size - Respiratory Respiratory: bilateral: diminished - Cardiovascular Rhythm: regular Heart sounds: normal: S1, S2 - Gastrointestinal General gastrointestinal: normal bowel sounds, soft - Integumentary Integumentary: normal - Neurologic Neurologic: CNII-XII intact - Musculoskeletal Musculoskeletal: generalized weakness, strength equal bilaterally - Psychiatric Psychiatric: A&O x's 3, appropriate affect Enlarged lymph nodes noted, medial rt supraclavicular area, bilateral axillae (right greater than left) due to patient's obese body habitus, size and extent are somewhat difficult to define exactly - Labs CBC & Chem 7: 09/18/18 04:29 09/18/18 04:29 Labs: Abnormal Lab Results - Last 24 Hours (Table) 09/17/18 09/17/18 09/18/18 Range/Units 17:12 20:24 04:29 WBC 13.0 H (3.8-10.6) k/uL RBC 2.59 L (3.80-5.40) m/uL Hgb 8.0 L (11.4-16.0) gm/dL Hct 26.6 L (34.0-46.0) % MCV 102.6 H (80.0-100.0) fL MCHC 30.1 L (31.0-37.0) g/dL RDW 20.9 H (11.5-15.5) % Plt Count 92 L (150-450) k/uL Neutrophils # 11.5 H (1.3-7.7) k/uL Lymphocytes # 0.4 L (1.0-4.8) k/uL Sodium (137-145) mmol/L Chloride (98-107) mmol/L Carbon Dioxide (22-30) mmol/L Glucose (74-99) mg/dL POC Glucose (mg/dL) 169 H 164 H (75-99) mg/dL Uric Acid (3.7-7.4) mg/dL Calcium (8.4-10.2) mg/dL Total Bilirubin (0.2-1.3) mg/dL Alkaline Phosphatase (38-126) U/L Total Protein (6.3-8.2) g/dL Albumin (3.5-5.0) g/dL 09/18/18 09/18/18 09/18/18 Range/Units 04:29 04:29 06:50 WBC (3.8-10.6) k/uL RBC (3.80-5.40) m/uL Hgb (11.4-16.0) gm/dL Hct (34.0-46.0) % MCV (80.0-100.0) fL MCHC (31.0-37.0) g/dL RDW (11.5-15.5) % Plt Count (150-450) k/uL Neutrophils # (1.3-7.7) k/uL Lymphocytes # (1.0-4.8) k/uL Sodium 126 L (137-145) mmol/L Chloride 97 L (98-107) mmol/L Carbon Dioxide 20 L (22-30) mmol/L Glucose 106 H (74-99) mg/dL POC Glucose (mg/dL) 146 H (75-99) mg/dL Uric Acid 2.9 L (3.7-7.4) mg/dL Calcium 7.2 L (8.4-10.2) mg/dL Total Bilirubin 1.5 H (0.2-1.3) mg/dL Alkaline Phosphatase 315 H (38-126) U/L Total Protein 5.2 L (6.3-8.2) g/dL Albumin 1.7 L (3.5-5.0) g/dL 09/18/18 Range/Units 11:51 WBC (3.8-10.6) k/uL RBC (3.80-5.40) m/uL Hgb (11.4-16.0) gm/dL Hct (34.0-46.0) % MCV (80.0-100.0) fL MCHC (31.0-37.0) g/dL RDW (11.5-15.5) % Plt Count (150-450) k/uL Neutrophils # (1.3-7.7) k/uL Lymphocytes # (1.0-4.8) k/uL Sodium (137-145) mmol/L Chloride (98-107) mmol/L Carbon Dioxide (22-30) mmol/L Glucose (74-99) mg/dL POC Glucose (mg/dL) 170 H (75-99) mg/dL Uric Acid (3.7-7.4) mg/dL Calcium (8.4-10.2) mg/dL Total Bilirubin (0.2-1.3) mg/dL Alkaline Phosphatase (38-126) U/L Total Protein (6.3-8.2) g/dL Albumin (3.5-5.0) g/dL Microbiology - Last 24 Hours (Table) 09/16/18 18:15 Urine Culture - Final Urine,Voided 09/16/18 22:45 Blood Culture - Preliminary Blood No Growth after 24 hours 09/16/18 21:57 Blood Culture - Preliminary Blood No Growth after 24 hours Assessment and Plan Plan: (1) Lymphadenopathy Narrative/Plan: - extensive adenopathy, as well as other systemic symptoms as noted. - The CT findings are concerning for a lymphoid process or malignancy, she did have a prior needle biopsy at outside [facility] which was inconclusive. - Therefore the patient required an excisional lymph node biopsy. Status post and awaiting results. - Surgery Following Current Visit: Yes Status: Acute Code(s): R59.1 - GENERALIZED ENLARGED LYMPH NODES SNOMED Code(s): 80727399 (2) Anemia Narrative/Plan: - No intervention today, hemoglobin is 8 - This is normochromic normocytic, with rapidly some progression since last summer. - There is no history suggestive of bleeding. - Therefore at this time anemia due to malignancy is the primary differential. - No Intervention needed today, Continue to monitor hemoglobin and transfuse if less than 7 Current Visit: Yes Status: Acute Code(s): D64.9 - ANEMIA, UNSPECIFIED SNOMED Code(s): 251894804 (3) Sepsis secondary to UTI Narrative/Plan: - Refer to the admitting service for continued management Current Visit: Yes Status: Acute Code(s): A41.9 - SEPSIS, UNSPECIFIED ORGANISM; N39.0 - URINARY TRACT INFECTION, SITE NOT SPECIFIED SNOMED Code(s): 900983934 (4) Fluid overload Narrative/Plan: - Patient's echocardiogram was normal. - Therefore at this time differential include fluid leak due to lymphedema and/ or increased blood vessel permeability from malignancy. - Continue current care (5) Hyponatremia (6) Increased Bili I will check Uric acid and LDH
--- NOTE | 2018-09-18 16:11 | P.PN ---
Subjective Progress Note Date: 09/18/18 On today's evaluation of 09/18/2018 I'm seeing this patient for a follow-up. Clinically unchanged. Still having extensive edema in the upper and lower extremity. The final path reports from the left known biopsies available and is showing Hodgkin's lymphoma with nodular sclerosis. We're still awaiting further recommendations from hematology oncology regarding treatment. Meanwhile , the patient is hemodynamically stable. No pressors. She was placed on empiric antibiotic coverage and the patient is still on a combination of Rocephin and vancomycin. Cultures of been negative. The patient has been afebrile. Based on the vancomycin will be discontinued. Serum albumin is low. The patient's hypoproteinemic. The patient has extensive third spacing. Was started on Lasix drip at least optimize her volume status over the next 24 hours. No altered mentation. She is profoundly weak. The sodium level remains low at 126. LFTs are within normal limits. Uric acid level is at 2.9. Platelet counts of 92. Abdomen is stable at 8.0. Objective - Vital Signs Vital signs: Vital Signs Temp 98.1 F 09/18/18 12:00 Pulse 100 09/18/18 15:00 Resp 29 H 09/18/18 15:00 BP 93/46 09/18/18 15:00 Pulse Ox 97 09/18/18 15:00 Intake & Output 09/17/18 09/18/18 09/18/18 18:59 06:59 18:59 Intake Total 48951.875 620 640 Output Total 976 921 461 Balance 81559.875 -301 179 Weight 113.5 [place]: [place] [address] 620 160 Magnesium Sulfate-D5w Pmx 200 300 1 gm In Dextrose/Water 1 100ml.bag @ 100 mls/hr IVPB Q1H [facility] Rx#: [id number] Sodium Chloride 0.9% 161 220 160 000 ml @ 20 mls/hr IV . Q24H [facility] Rx#:[id number] cefTRIAXone 1,000 mg In 100 Sodium Chloride 0.9% 50 ml @ 100 mls/hr IVPB Q24H [facility] Rx#:[id number] Intake, IV Titration 11.875 Amount Norepinephrine 4 mg In 11.875 Sodium Chloride 0.9% 250 ml @ Titrate IV .Q0M [facility] Rx#:[id number] Oral 200 480 Output: Urine 975 920 460 Stool 1 1 1 Other: Voiding Method Indwelling Catheter Indwelling Catheter Indwelling Catheter # Bowel Movements 1 1 1 - Exam - Constitutional General appearance: no acute distress - EENT Eyes: EOMI, PERRLA ENT: hearing grossly normal, normal oropharynx - Neck Neck: no lymphadenopathy Thyroid: bilateral: normal size - Respiratory Respiratory: bilateral: diminishedLungs were clear to auscultation and percussion, and with normal diaphragmatic excursion. No wheezes or rales were noted. - Cardiovascular Rhythm: regular Heart sounds: normal: S1, S2, the patient has developed increased edema in all 4 extremities mainly lower extremities bilaterally. No cyanosis or clubbing.Cardiac exam revealed the PMI to be normally situated and sized. The rhythm was regular and no extrasystoles were noted during several minutes of auscultation. The first and second heart sounds were normal and physiologic splitting of the second heart sound was noted. There were no murmurs, rubs, clicks, or gallops. - Gastrointestinal General gastrointestinal: normal bowel sounds, softAbdominal exam revealed normal bowel sounds. The abdomen was soft, non-tender, and without masses, organomegaly, or appreciable enlargement of the abdominal aorta. - Integumentary Integumentary: normal - Neurologic Neurologic: CNII-XII intact - Musculoskeletal Musculoskeletal: generalized weakness, strength equal bilaterally - Psychiatric Psychiatric: A&O x's 3, appropriate affect Enlarged lymph nodes noted, medial rt supraclavicular area, bilateral axillae (right greater than left) due to patient's obese body habitus, size and extent are somewhat difficult to define exactly the surgical site over the right supraclavicular area dry clean and intact. - Labs CBC & Chem 7: 09/18/18 04:29 09/18/18 04:29 Labs: Abnormal Lab Results - Last 24 Hours (Table) 09/17/18 09/17/18 09/18/18 Range/Units 17:12 20:24 04:29 WBC 13.0 H (3.8-10.6) k/uL RBC 2.59 L (3.80-5.40) m/uL Hgb 8.0 L (11.4-16.0) gm/dL Hct 26.6 L (34.0-46.0) % MCV 102.6 H (80.0-100.0) fL MCHC 30.1 L (31.0-37.0) g/dL RDW 20.9 H (11.5-15.5) % Plt Count 92 L (150-450) k/uL Neutrophils # 11.5 H (1.3-7.7) k/uL Lymphocytes # 0.4 L (1.0-4.8) k/uL Sodium (137-145) mmol/L Chloride (98-107) mmol/L Carbon Dioxide (22-30) mmol/L Glucose (74-99) mg/dL POC Glucose (mg/dL) 169 H 164 H (75-99) mg/dL Uric Acid (3.7-7.4) mg/dL Calcium (8.4-10.2) mg/dL Total Bilirubin (0.2-1.3) mg/dL Alkaline Phosphatase (38-126) U/L Total Protein (6.3-8.2) g/dL Albumin (3.5-5.0) g/dL 09/18/18 09/18/18 09/18/18 Range/Units 04:29 04:29 06:50 WBC (3.8-10.6) k/uL RBC (3.80-5.40) m/uL Hgb (11.4-16.0) gm/dL Hct (34.0-46.0) % MCV (80.0-100.0) fL MCHC (31.0-37.0) g/dL RDW (11.5-15.5) % Plt Count (150-450) k/uL Neutrophils # (1.3-7.7) k/uL Lymphocytes # (1.0-4.8) k/uL Sodium 126 L (137-145) mmol/L Chloride 97 L (98-107) mmol/L Carbon Dioxide 20 L (22-30) mmol/L Glucose 106 H (74-99) mg/dL POC Glucose (mg/dL) 146 H (75-99) mg/dL Uric Acid 2.9 L (3.7-7.4) mg/dL Calcium 7.2 L (8.4-10.2) mg/dL Total Bilirubin 1.5 H (0.2-1.3) mg/dL Alkaline Phosphatase 315 H (38-126) U/L Total Protein 5.2 L (6.3-8.2) g/dL Albumin 1.7 L (3.5-5.0) g/dL 09/18/18 Range/Units 11:51 WBC (3.8-10.6) k/uL RBC (3.80-5.40) m/uL Hgb (11.4-16.0) gm/dL Hct (34.0-46.0) % MCV (80.0-100.0) fL MCHC (31.0-37.0) g/dL RDW (11.5-15.5) % Plt Count (150-450) k/uL Neutrophils # (1.3-7.7) k/uL Lymphocytes # (1.0-4.8) k/uL Sodium (137-145) mmol/L Chloride (98-107) mmol/L Carbon Dioxide (22-30) mmol/L Glucose (74-99) mg/dL POC Glucose (mg/dL) 170 H (75-99) mg/dL Uric Acid (3.7-7.4) mg/dL Calcium (8.4-10.2) mg/dL Total Bilirubin (0.2-1.3) mg/dL Alkaline Phosphatase (38-126) U/L Total Protein (6.3-8.2) g/dL Albumin (3.5-5.0) g/dL Microbiology - Last 24 Hours (Table) 09/16/18 18:15 Urine Culture - Final Urine,Voided 09/16/18 22:45 Blood Culture - Preliminary Blood No Growth after 24 hours 09/16/18 21:57 Blood Culture - Preliminary Blood No Growth after 24 hours Assessment and Plan Plan: Assessment 1 Hodgkin's lymphoma with diffuse lymphadenopathy involving the supraclavicular area bilaterally more so on the right, thorax/mediastinum and abdomen. 2 profound hypoproteinemia and third spacing/anasarca. Rule out nutritional hypoproteinemia. Doubt any liver disease. No cardiomyopathy and the patient' s left a ejection fraction is well-preserved and is within normal limits 3 transient hypotension, recovered and the patient is currently off pressors. 4 chronic anemia and thrombocytopenia 5 hyponatremia 6 previous history of urine infection 7 obesity with a BMI of 41 8 diabetes mellitus 9 hypertension 10 profound weakness and debility seconds above-mentioned comorbidities Plan Lasix drip at 5 mg an hour. Give a dose of Zaroxolyn. Continue Aldactone. His continue the vancomycin. Monitor hemodynamics. Awaiting further recommendation from hematology oncology regarding treatment of Hodgkin's lymphoma. Overall performance and functional status is poor, probably not candidate for any treatment at this point in time
[2018-09-18] MEDS ORDERED: METOLAZONE 5 MG TAB PO ONE (16:30)
[2018-09-18 16:48] LABS: Glucose,Whole Blood 106 mg/dL (75-99)
--- NOTE | 2018-09-18 19:19 | CT ---
EXAMINATION TYPE: CT brain wo con DATE OF EXAM: 09/18/2018 COMPARISON: None HISTORY: ams, recent dx of lymphoma CT DLP: 2190.4 mGycm Automated exposure control for dose reduction was used. FINDINGS: Ventricles have normal size. There is no mass effect nor midline shift. There is no sign of intracran ial hemorrhage. The calvarium is intact. There is cerebral cortical atrophy. IMPRESSION: CEREBRAL ATROPHY. NO ACUTE INTRACRANIAL ABNORMALITY.
[2018-09-18 22:05] LABS: Glucose,Whole Blood 62 mg/dL (75-99)
[2018-09-18] MEDS: SODIUM CHLORIDE 0.9% 1,000 ML IV SCH (22:10)
[2018-09-18 22:37] LABS: Glucose,Whole Blood 88 mg/dL (75-99)
[2018-09-19] MEDS: HEPARIN SODIUM,PORCINE 5,000 UNIT/ML 1 ML VIAL SQ SCH ×3 (00:43→16:36)
[2018-09-19 05:32] LABS: Albumin 1.8 g/dL (3.5-5.0); Calcium 7.3 mg/dL (8.4-10.2); Magnesium 1.7 mg/dL (1.6-2.3); Phosphorus 4.2 mg/dL (2.5-4.5); Potassium 3.8 mmol/L (3.5-5.1); Total Bilirubin 1.4 mg/dL (0.2-1.3); Total Protein 5.6 g/dL (6.3-8.2)
[2018-09-19 05:35] LABS: Anisocytosis Moderate; Basophils % (A) 0 %; Eosinophils # (A) 0.1 k/uL (0-0.7); Eosinophils % (A) 1 %; HCT 27.6 % (34.0-46.0); HGB 8.5 gm/dL (11.4-16.0); Hypochromasia Slight; Lymphocytes # (A) 0.6 k/uL (1.0-4.8); Lymphocytes % (A) 4 %; MCH 31.1 pg (25.0-35.0); MCHC 30.8 g/dL (31.0-37.0); MCV 101.1 fL (80.0-100.0); Macrocytosis Marked; Monocytes # (A) 1.3 k/uL (0-1.0); Monocytes % (A) 10 %; Neutrophils # (A) 10.9 k/uL (1.3-7.7); Neutrophils % (A) 84 %; Platelet Count 124 k/uL (150-450); RBC 2.74 m/uL (3.80-5.40); RDW 21.3 % (11.5-15.5)
[2018-09-19] MEDS: LEVOTHYROXINE 25 MCG TAB PO SCH (05:46)
[2018-09-19 05:58] LABS: Target Cells Present
[2018-09-19] MEDS ORDERED: Magnesium Replacement Protocol 1 EACH MISC MISCELLANE PRN (06:00)
[2018-09-19 07:04] LABS: Glucose,Whole Blood 129 mg/dL (75-99)
--- NOTE | 2018-09-19 07:14 | XR ---
EXAMINATION TYPE: XR chest 1V DATE OF EXAM: 09/19/2018 COMPARISON: 09/18/2018 HISTORY: Fluid overload. Recent altered mental status. TECHNIQUE: Single frontal view of the chest is obtained. FINDINGS: There are trace bilateral pleural effusions blunting the costophrenic angles with hazy air space disease overlying the hemidiaphragms. Right midlung pulmonary nodule is more conspicuous than o n the prior again relates to benign calcified granuloma on the recent CT of 09/10/2018. Cardia mediasti nal silhouette is within normal limits. Osseous structures are grossly intact with mild degenerative changes of the thoracic spine. IMPRESSION: Trace bilateral pleural effusions are similar to the prior with bibasilar atelectasis.
[2018-09-19] MEDS: INSULIN ASPART 100 UNIT/ML 1 ML 10 ML VIAL SQ SCH ×7 (07:49→22:00)
[2018-09-19] MEDS: MAGNESIUM SULFATE-D5W PMX 1 GM in DEXTROSE/WATER 1 100ML.BAG IVPB SCH ×2 (07:49→09:27)
[2018-09-19] MEDS ORDERED: Potassium Replacement Protocol 1 EACH MISC MISCELLANE PRN (07:57)
[2018-09-19] MEDS ORDERED: POTASSIUM BICARBONATE/CIT AC 20 MEQ TABLET.EFF NG-TUBE SCH (08:00)
[2018-09-19] MEDS: PANTOPRAZOLE 40 MG/10 ML VIAL IV SCH (08:08)
--- NOTE | 2018-09-19 08:30 | P.PN ---
Progress Note - Text The patient is a 78-year-old female who remains in the [facility] intensive care unit. Patient has been worked up for diffuse lymphadenopathy and biopsies have revealed a positive lymph node for Hodgkin's lymphoma, nodular sclerosis classical type. The patient has presented and had recurrence of septic type features with hypotension and elevated lactic acid levels. Although blood and urine cultures have not been very specific for etiologic organisms. The patient is presently on ceftriaxone. She is alert and oriented in the intensive care unit. She denies any unusual shortness of breath or chest pain. She does have diffuse edema of both upper and lower extremities. She is presently on IV Lasix and has been running some lower blood pressures. Last vital signs show a temperature 98.2 with a pulse of 102. Respirations were 25 and blood pressure 110/59 but had been in the 90s over 50 prior to that. O2 saturation 96. Patient has overall gained approximately 6 kg. Her urine output still appear to be ranging from 400 to over a liter. She does appear to be pale. She does not appear this time to be any distress. She does have diffuse edema. No focal neurological changes. Laboratory White count is 13 with a hemoglobin 8.5 and a platelet count 124. Sodium is 126 with a potassium 3.8. BUN is 17 with a creatinine 0.86 given her a GFR of 65. Blood sugar 129 this morning. Lactic acid level is still elevated but decreased down to 3.3. Albumin very low at 1.8. Alk phos elevated at 300. Bilirubin 1.4. Other liver enzymes were normal. Chest x-ray still shows some small bilateral effusions. CAT scan of the brain was generally unremarkable. Impressions and plans Overall this 78-year-old who has appeared on a couple occasions to be septic overall appears to be stable presently on ceftriaxone. Actual source of underlying sepsis is not definitively known. She has been found to have Hodgkin's lymphoma on right supraclavicular lymph node biopsy. At this time we'll continue to support. We'll wait for further recommendations from pulmonary medicine and oncology. I did discuss today with the patient that she does have an underlying lymphoma. In that this is a cancer of the lymph nodes. Specifically Hodgkin's disease. And we will await for further options. At this point main emphasis is to try to improve patient's baseline status.
[2018-09-19] MEDS: SPIRONOLACTONE 25 MG TAB PO SCH (10:24)
[2018-09-19] MEDS: LISINOPRIL 5 MG TAB PO SCH (10:25)
[2018-09-19 11:53] LABS: Glucose,Whole Blood 172 mg/dL (75-99)
--- NOTE | 2018-09-19 14:01 | P.PN ---
Subjective On 09/19/2018, the patient is awake and alert. She is following commands. Overnight the patient became slightly confused and based on that a CAT scan of the brain was done that showed no acute abnormalities. Diagnosis of Hodgkin's lymphoma has been confirmed and I discussed this diagnosis with the oncology team. The finger the constitutional symptoms of the weakness and the patient is experiencing is probably related to her underlying lymphoma and they are contemplating to initiate systemic chemotherapy if the patient and her family are willing. The patient continues to be on IV Lasix. The patient is receiving 5 mg of Lasix drip and the patient is a negative fluid balance. She continues to have extensive edema in upper and lower extremities bilaterally. Serum albumin is low at 1.8. The rest of the liver function tests are within normal limits. The alkaline phosphate is slightly elevated. The lactic acid level is elevated today at 5.0. She is producing adequate amount of urine output. She is in a negative fluid balance of 1.8 L over the past 24 hours. She remains profoundly weak. Unable to raise her arms and legs against gravity. That hemoglobin is at 8.5. The white cell count is at 13 and platelet counts are low at 124. Sodium level is still low at 126. Normal renal function. No significant proteinuria or evidence of a nephrotic syndrome. She is on empiric antibiotic coverage with Rocephin. Sputum cultures of been negative. Objective - Vital Signs Vital signs: Vital Signs Temp 99.0 F 09/19/18 12:00 Pulse 107 H 09/19/18 12:00 Resp 23 09/19/18 12:00 BP 96/45 09/19/18 12:00 Pulse Ox 99 09/19/18 12:00 Intake & Output 09/18/18 09/19/18 09/19/18 18:59 06:59 18:59 Intake Total 700 290 20 Output Total 622 2215 576 Balance 78 1925 - Weight 119.8 kg Intake: IV 220 290 20 Sodium Chloride 0.9% 1, 220 240 20 000 ml @ 20 mls/hr IV . Q24H MADELIN Rx#:[id number] cefTRIAXone 1,000 mg In 50 Sodium Chloride 0.9% 50 ml @ 100 mls/hr IVPB Q24H [facility]IN Rx#:[id number] Oral 480 Output: Urine 620 2215 575 Stool 2 1 Other: Voiding Method Indwelling Catheter Indwelling Catheter Indwelling Catheter # Voids 1 # Bowel Movements 1 1 - Exam - Constitutional General appearance: no acute distress - EENT Eyes: EOMI, PERRLA ENT: hearing grossly normal, normal oropharynx - Neck Neck: no lymphadenopathy Thyroid: bilateral: normal size - Respiratory Respiratory: bilateral: diminishedLungs were clear to auscultation and percussion, and with normal diaphragmatic excursion. No wheezes or rales were noted. - Cardiovascular Rhythm: regular Heart sounds: normal: S1, S2, the patient has developed increased edema in all 4 extremities mainly lower extremities bilaterally. No cyanosis or clubbing.Cardiac exam revealed the PMI to be normally situated and sized. The rhythm was regular and no extrasystoles were noted during several minutes of auscultation. The first and second heart sounds were normal and physiologic splitting of the second heart sound was noted. There were no murmurs, rubs, clicks, or gallops. - Gastrointestinal General gastrointestinal: normal bowel sounds, softAbdominal exam revealed normal bowel sounds. The abdomen was soft, non-tender, and without masses, organomegaly, or appreciable enlargement of the abdominal aorta. - Integumentary Integumentary: normal - Neurologic Neurologic: CNII-XII intact - Musculoskeletal Musculoskeletal: generalized weakness, strength equal bilaterally - Psychiatric Psychiatric: A&O x's 3, appropriate affect Enlarged lymph nodes noted, medial rt supraclavicular area, bilateral axillae (right greater than left) due to patient's obese body habitus, size and extent are somewhat difficult to define exactly the surgical site over the right supraclavicular area dry clean and intact. - Labs CBC & Chem 7: 09/19/18 04:41 09/19/18 04:41 Labs: Abnormal Lab Results - Last 24 Hours (Table) 09/18/18 09/18/18 09/18/18 Range/Units 04:29 16:45 22:03 WBC (3.8-10.6) k/uL RBC (3.80-5.40) m/uL Hgb (11.4-16.0) gm/dL Hct (34.0-46.0) % MCV (80.0-100.0) fL MCHC (31.0-37.0) g/dL RDW (11.5-15.5) % Plt Count (150-450) k/uL Neutrophils # (1.3-7.7) k/uL Lymphocytes # (1.0-4.8) k/uL Monocytes # (0-1.0) k/uL Sodium (137-145) mmol/L Chloride (98-107) mmol/L Glucose (74-99) mg/dL POC Glucose (mg/dL) 106 H 62 L (75-99) mg/dL Plasma Lactic Acid Wilbert (0.7-2.0) mmol/L Uric Acid 2.9 L (3.7-7.4) mg/dL Calcium (8.4-10.2) mg/dL Total Bilirubin (0.2-1.3) mg/dL Alkaline Phosphatase (38-126) U/L Total Protein (6.3-8.2) g/dL Albumin (3.5-5.0) g/dL 09/19/18 09/19/18 09/19/18 Range/Units 04:41 04:41 04:41 WBC 13.0 H (3.8-10.6) k/uL RBC 2.74 L (3.80-5.40) m/uL Hgb 8.5 L (11.4-16.0) gm/dL Hct 27.6 L (34.0-46.0) % MCV 101.1 H (80.0-100.0) fL MCHC 30.8 L (31.0-37.0) g/dL RDW 21.3 H (11.5-15.5) % Plt Count 124 L (150-450) k/uL Neutrophils # 10.9 H (1.3-7.7) k/uL Lymphocytes # 0.6 L (1.0-4.8) k/uL Monocytes # 1.3 H (0-1.0) k/uL Sodium 126 L (137-145) mmol/L Chloride 94 L (98-107) mmol/L Glucose 64 L (74-99) mg/dL POC Glucose (mg/dL) (75-99) mg/dL Plasma Lactic Acid Wilbert 3.3 H* (0.7-2.0) mmol/L Uric Acid (3.7-7.4) mg/dL Calcium 7.3 L (8.4-10.2) mg/dL Total Bilirubin 1.4 H (0.2-1.3) mg/dL Alkaline Phosphatase 300 H (38-126) U/L Total Protein 5.6 L (6.3-8.2) g/dL Albumin 1.8 L (3.5-5.0) g/dL 09/19/18 09/19/18 09/19/18 Range/Units 07:02 09:11 11:50 WBC (3.8-10.6) k/uL RBC (3.80-5.40) m/uL Hgb (11.4-16.0) gm/dL Hct (34.0-46.0) % MCV (80.0-100.0) fL MCHC (31.0-37.0) g/dL RDW (11.5-15.5) % Plt Count (150-450) k/uL Neutrophils # (1.3-7.7) k/uL Lymphocytes # (1.0-4.8) k/uL Monocytes # (0-1.0) k/uL Sodium (137-145) mmol/L Chloride (98-107) mmol/L Glucose (74-99) mg/dL POC Glucose (mg/dL) 129 H 172 H (75-99) mg/dL Plasma Lactic Acid Wilbert 5.0 H* (0.7-2.0) mmol/L Uric Acid (3.7-7.4) mg/dL Calcium (8.4-10.2) mg/dL Total Bilirubin (0.2-1.3) mg/dL Alkaline Phosphatase (38-126) U/L Total Protein (6.3-8.2) g/dL Albumin (3.5-5.0) g/dL Microbiology - Last 24 Hours (Table) 09/16/18 22:45 Blood Culture - Preliminary Blood No Growth after 48 hours 09/16/18 21:57 Blood Culture - Preliminary Blood No Growth after 48 hours Assessment and Plan Plan: Assessment 1 Hodgkin's lymphoma with diffuse lymphadenopathy involving the supraclavicular area bilaterally more so on the right, thorax/mediastinum and abdomen. 2 extensive anasarca mainly secondary to profound hypoproteinemia . The patient is currently on Lasix drip to optimize the volume status and the patient is a negative fluid balance. 3 transient hypotension, recovered and the patient is currently off pressors. 4 chronic anemia and thrombocytopenia 5 hyponatremia, stable with his sodium level of 126 6 previous history of urine infection 7 obesity with a BMI of 41 8 diabetes mellitus 9 hypertension 10 profound weakness and debility seconds above-mentioned comorbidities Plan Lasix drip at 5 mg an hour. Monitor the electrolytes. Monitor sodium level. Monitor renal function. Keep the patient negative fluid balance. Oncology will discuss the possibility of systemic chemotherapy with the patient and her family and if they're willing we'll proceed with the treatment. She would need a PICC line insertion for that reason. I would say the patient's overall performance and functional status is extremely poor. She may not be able to handle systemic chemotherapy and have coarse may be complicated by complications of systemic chemotherapy and will continue to follow. We'll keep in ICU for the above-mentioned reasons for now.
[2018-09-19] MEDS ORDERED: LIDOCAINE 1% INJ 10MG/ML (20 ML MDV) ONE (14:03)
[2018-09-19] MEDS ORDERED: LIDOCAINE 1% INJ 10MG/ML (20 ML MDV) SQ ONE (14:45)
--- NOTE | 2018-09-19 15:14 | XR ---
EXAMINATION TYPE: XR chest 1V confirm line [facility] DATE OF EXAM: 09/19/2018 COMPARISON: Prior chest x-ray same dated earlier time HISTORY: Status post PICC line placement TECHNIQUE: Single frontal view of the chest is obtained. FINDINGS: Left-sided PICC line is in place, distal tip coursing cephalad. No pneumothorax. IMPRESSION: PICC line as described.
--- NOTE | 2018-09-19 15:16 | XR ---
EXAMINATION TYPE: XR chest 1V confirm line [facility] DATE OF EXAM: 09/19/2018 COMPARISON: Prior chest x-ray same date earlier time HISTORY: PICC line reposition TECHNIQUE: Single frontal view of the chest is obtained. FINDINGS: There is been interval repositioning of the PICC line. Distal tip is in the right atrium. IMPRESSION: PICC line reposition, no evident complication status post PICC line placement
--- NOTE | 2018-09-19 15:55 | US ---
EXAMINATION TYPE: US venous doppler duplex LE DATE OF EXAM: 09/19/2018 3:43 PM COMPARISON: NONE CLINICAL HISTORY: lower extremity swelling. Leg swelling. No hx of blood clots per patient. No redn ess. No pain SIDE PERFORMED: Bilateral TECHNIQUE: The lower extremity deep venous system is examined utilizing real time linear array sonog shashi with graded compression, doppler sonography and color-flow sonography. VESSELS IMAGED: External Iliac Vein (EIV) Common Femoral Vein Deep Femoral Vein Greater Saphenous Vein * Femoral Vein Popliteal Vein Small Saphenous Vein * Proximal Calf Veins (* superficial vessels) Limited exam due to patient body habitus Right Leg: Negative for acute DVT Left Leg: Negative for acute DVT Grayscale, color doppler, spectral doppler imaging performed of the deep veins of the lower extremiti es. There is normal flow, compressibility, vascular waveforms. IMPRESSION: No sonographic evidence of deep venous thrombosis within either lower extremity.
[2018-09-19] MEDS ORDERED: DEXAMETHASONE SOD PHOSPHATE 10 MG/ML 1 ML VIAL IV ONE (16:00)
[2018-09-19] MEDS ORDERED: ONDANSETRON 16 MG in SODIUM CHLORIDE 0.9% 50 ML IVPB ONE (16:00)
[2018-09-19] MEDS ORDERED: FAMOTIDINE 20 MG/2 ML VIAL IVP ONE (16:00)
--- NOTE | 2018-09-19 16:11 | IR ---
"EXAMINATION TYPE: IR cvc insert >=5 years DATE OF EXAM: 09/19/2018 COMPARISON: NONE HISTORY: Lymphoma FINDINGS: Maximal barrier technique was utilized. Evaluation of the right upper extremity demonstrate d lack of compressibility, low-level internal echoes within the right brachial vein. The skin overlyi ng the left brachial vein was localized with ultrasound and noted to be compressible and patent by serina chris. An ultrasound image was obtained and submitted on patient's chart. Sterile technique utili zed with the ultrasound machine. The skin overlying was prepped and draped and Lidocaine used for loc al anesthesia. A skin geraldo was made with a scalpel. Access was gained to the vein under direct ultr asound guidance with a 21-gauge needle and a 0.018 inch wire was advanced. Access site was dilated w ith a peel-away sheath and the catheter tailored to length. Catheter advanced centrally and a post p rocedure chest x-ray verified placement with the tip in the right atrium following manipulation, init ial placement coursing into the jugular vein. Catheter was fixed to the skin and a sterile dressing placed. Hemostasis achieved and the catheter was aspirated and flushed with sterile saline. The pat ient remained in stable condition. IMPRESSION: STATUS POST ULTRASOUND GUIDED PICC LINE PLACEMENT, READY FOR USE. THIS PROCEDURE WAS PER FORMED BY THE UNDERSIGNED. Deep venous thrombosis right brachial vein. Report relayed to Dr. Rice personally at the time of the exam. A Document Only message has been documented for Levon Thomas in the [employer] | Critical Result system on 09/19/2018 4:08 PM, Message ID [id number]. A Document Only message has been documented for Eugenia Rice in the [employer] | Critical Res ult system on 09/19/2018 4:08 PM, Message ID [id number]."
--- NOTE | 2018-09-19 16:47 | P.PN ---
Subjective Progress Note Date: 09/19/18 Principal diagnosis: Lymphadenopathy Patients pathology has resulted as Hodgkins Lymphoma. This was discussed in detail with her, her son Clarence, Nurse and Dr. Rice. THe treatment plan consists of ABVD, although will not give B due to concern for underlying respiratory issues. She is not moving around very much. During speaking to son he was concerned with patient having chills and sweats overnight, and looking over her labs today and vitals lactic acid mild increase, although many reasons in differential with the start of chemotherapy planned for tonight it is resonable to ensure no underlyinh infectious process. Objective - Vital Signs Vital signs: Vital Signs Temp 99.0 F 09/19/18 12:00 Pulse 107 H 09/19/18 12:00 Resp 23 09/19/18 12:00 BP 96/45 09/19/18 12:00 Pulse Ox 99 09/19/18 12:00 Intake & Output 09/18/18 09/19/18 09/19/18 18:59 06:59 18:59 Intake Total 700 290 20 Output Total 622 2215 576 Balance 78 -1925 -556 Weight 119.8 kg 119.8 kg Intake: IV 220 290 20 Sodium Chloride 0.9% 1, 220 240 20 000 ml @ 20 mls/hr IV . Q24H [facility] Rx#:[id number] cefTRIAXone 1,000 mg In 50 Sodium Chloride 0.9% 50 ml @ 100 mls/hr IVPB Q24H [facility]ADELIN Rx#:[id number] Oral 480 Output: Urine 620 2215 575 Stool 2 1 Other: Voiding Method Indwelling Catheter Indwelling Catheter Indwelling Catheter # Voids 1 # Bowel Movements 1 1 - Exam Constitutional General appearance: no acute distress - EENT Eyes: EOMI, PERRLA ENT: hearing grossly normal, normal oropharynx - Neck Neck: no lymphadenopathy Thyroid: bilateral: normal size - Respiratory Respiratory: bilateral: diminished - Cardiovascular Rhythm: regular Heart sounds: normal: S1, S2 - Gastrointestinal General gastrointestinal: normal bowel sounds, soft - Integumentary Integumentary: normal - Neurologic Neurologic: CNII-XII intact - Musculoskeletal Musculoskeletal: generalized weakness, strength equal bilaterally - Psychiatric Psychiatric: A&O x's 3, appropriate affect Enlarged lymph nodes noted, medial rt supraclavicular area, bilateral axillae (right greater than left) due to patient's obese body habitus, size and extent are somewhat difficult to define exactly - Labs CBC & Chem 7: 09/19/18 04:41 09/19/18 04:41 Labs: Abnormal Lab Results - Last 24 Hours (Table) 09/18/18 09/18/18 09/19/18 Range/Units 16:45 22:03 04:41 WBC 13.0 H (3.8-10.6) k/uL RBC 2.74 L (3.80-5.40) m/uL Hgb 8.5 L (11.4-16.0) gm/dL Hct 27.6 L (34.0-46.0) % MCV 101.1 H (80.0-100.0) fL MCHC 30.8 L (31.0-37.0) g/dL RDW 21.3 H (11.5-15.5) % Plt Count 124 L (150-450) k/uL Neutrophils # 10.9 H (1.3-7.7) k/uL Lymphocytes # 0.6 L (1.0-4.8) k/uL Monocytes # 1.3 H (0-1.0) k/uL Sodium (137-145) mmol/L Chloride (98-107) mmol/L Glucose (74-99) mg/dL POC Glucose (mg/dL) 106 H 62 L (75-99) mg/dL Plasma Lactic Acid Wilbert (0.7-2.0) mmol/L Calcium (8.4-10.2) mg/dL Total Bilirubin (0.2-1.3) mg/dL Alkaline Phosphatase (38-126) U/L Total Protein (6.3-8.2) g/dL Albumin (3.5-5.0) g/dL 09/19/18 09/19/18 09/19/18 Range/Units 04:41 04:41 07:02 WBC (3.8-10.6) k/uL RBC (3.80-5.40) m/uL Hgb (11.4-16.0) gm/dL Hct (34.0-46.0) % MCV (80.0-100.0) fL MCHC (31.0-37.0) g/dL RDW (11.5-15.5) % Plt Count (150-450) k/uL Neutrophils # (1.3-7.7) k/uL Lymphocytes # (1.0-4.8) k/uL Monocytes # (0-1.0) k/uL Sodium 126 L (137-145) mmol/L Chloride 94 L (98-107) mmol/L Glucose 64 L (74-99) mg/dL POC Glucose (mg/dL) 129 H (75-99) mg/dL Plasma Lactic Acid Wilbert 3.3 H* (0.7-2.0) mmol/L Calcium 7.3 L (8.4-10.2) mg/dL Total Bilirubin 1.4 H (0.2-1.3) mg/dL Alkaline Phosphatase 300 H (38-126) U/L Total Protein 5.6 L (6.3-8.2) g/dL Albumin 1.8 L (3.5-5.0) g/dL 09/19/18 09/19/18 Range/Units 09:11 11:50 WBC (3.8-10.6) k/uL RBC (3.80-5.40) m/uL Hgb (11.4-16.0) gm/dL Hct (34.0-46.0) % MCV (80.0-100.0) fL MCHC (31.0-37.0) g/dL RDW (11.5-15.5) % Plt Count (150-450) k/uL Neutrophils # (1.3-7.7) k/uL Lymphocytes # (1.0-4.8) k/uL Monocytes # (0-1.0) k/uL Sodium (137-145) mmol/L Chloride (98-107) mmol/L Glucose (74-99) mg/dL POC Glucose (mg/dL) 172 H (75-99) mg/dL Plasma Lactic Acid Wilbert 5.0 H* (0.7-2.0) mmol/L Calcium (8.4-10.2) mg/dL Total Bilirubin (0.2-1.3) mg/dL Alkaline Phosphatase (38-126) U/L Total Protein (6.3-8.2) g/dL Albumin (3.5-5.0) g/dL Microbiology - Last 24 Hours (Table) 09/16/18 22:45 Blood Culture - Preliminary Blood No Growth after 48 hours 09/16/18 21:57 Blood Culture - Preliminary Blood No Growth after 48 hours Assessment and Plan Plan: (1) Lymphadenopathy Narrative/Plan: - extensive adenopathy, as well as other systemic symptoms as noted. - The CT findings are concerning for a lymphoid process or malignancy, she did have a prior needle biopsy at outside [facility] which was inconclusive. - Therefore the patient required an excisional lymph node biopsy. - Lymph node dissection has resulted with diagnosis of Hodgkins Lymphoma. - Surgery Following Current Visit: Yes Status: Acute Code(s): R59.1 - GENERALIZED ENLARGED LYMPH NODES SNOMED Code(s): 92925367 (2) Anemia Narrative/Plan: - No intervention today, hemoglobin is 8 - This is normochromic normocytic, with rapidly some progression since last summer. - There is no history suggestive of bleeding. - Therefore at this time anemia due to malignancy is the primary differential. - No Intervention needed today, Continue to monitor hemoglobin and transfuse if less than 7 Current Visit: Yes Status: Acute Code(s): D64.9 - ANEMIA, UNSPECIFIED SNOMED Code(s): 231869369 (3) Sepsis secondary to UTI Narrative/Plan: - Refer to the admitting service for continued management Current Visit: Yes Status: Acute Code(s): A41.9 - SEPSIS, UNSPECIFIED ORGANISM; N39.0 - URINARY TRACT INFECTION, SITE NOT SPECIFIED SNOMED Code(s): 122367653 (4) Fluid overload Narrative/Plan: - Patient's echocardiogram was normal. - Therefore at this time differential include fluid leak due to lymphedema and/ or increased blood vessel permeability from malignancy. - Continue current care (5) Hyponatremia (6) Increased Bili Plan: - Will start treatment with AVD *(No Bleomycin due to increased respiratory event) - Discussion with patient regarding risks and benefits as well as how in her weakened state the chemotherapy maybe difficult to tolerate resulting in side effects and possibly . Patient states an understanding and would like to move forward with trying treatment. - PT/OT consultation highly recommended and encourage increased protein and activity - Long sdiscussion with son clarence on phone Physician Attestation: I have completed the full history and physical of this patient and agree with above dictations by Rebekah Perla NP Dictated as a scribe.
[2018-09-19] MEDS ORDERED: DOXORUBICIN HCL IV ONE ×2 (17:00)
[2018-09-19] MEDS ORDERED: DACARBAZINE IV ONE (17:00)
[2018-09-19] MEDS ORDERED: SODIUM CHLORIDE 0.9% IV ONE ×2 (17:00)
[2018-09-19] MEDS ORDERED: VINBLASTINE IV ONE (17:00)
[2018-09-19] MEDS ORDERED: NOREPINEPHRINE 16 MG in SODIUM CHLORIDE 0.9% 250 ML IV SCH (17:30)
[2018-09-19 18:20] LABS: Glucose,Whole Blood 228 mg/dL (75-99)
[2018-09-19] MEDS: ALLOPURINOL 300 MG TAB PO SCH (18:25)
[2018-09-19 21:52] LABS: Glucose,Whole Blood 160 mg/dL (75-99)
[2018-09-19] MEDS: SODIUM CHLORIDE 0.9% 1,000 ML IV SCH (22:02)
[2018-09-20] MEDS: HEPARIN SODIUM,PORCINE 5,000 UNIT/ML 1 ML VIAL SQ SCH ×4 (00:12→23:09)
[2018-09-20 01:00] LABS: Appearance,Urine Clear (Clear); Bacteria,Urine Rare /hpf; Bilirubin,Urine Negative (Negative); Blood,Urine Moderate (Negative); Color,Urine Yellow; Glucose,Urine (UA) Negative (Negative); Ketones,Urine Negative (Negative); Leukocyte Esterase,Urine Negative (Negative); Mucus,Urine Rare /hpf; Nitrite,Urine Negative (Negative); Protein,Urine Negative (Negative); RBC,Urine 30 /hpf (0-5); Specific Gravity,Urine 1.006 (1.001-1.035); Squamous Epithelial Cell,Urine 1 /hpf (0-4); Urobilinogen,Urine <2.0 mg/dL (<2.0)
[2018-09-20] MEDS ORDERED: FAMOTIDINE 20 MG/2 ML VIAL IVP ONE (04:30)
[2018-09-20] MEDS ORDERED: DEXAMETHASONE SOD PHOSPHATE 10 MG/ML 1 ML VIAL IV ONE (04:30)
[2018-09-20] MEDS ORDERED: ONDANSETRON 16 MG in SODIUM CHLORIDE 0.9% 50 ML IVPB ONE (04:30)
[2018-09-20] MEDS ORDERED: SODIUM CHLORIDE 0.9% IV ONE ×2 (05:00)
[2018-09-20] MEDS ORDERED: DACARBAZINE IV ONE (05:00)
[2018-09-20] MEDS ORDERED: VINBLASTINE IV ONE (05:00)
[2018-09-20] MEDS ORDERED: DOXORUBICIN HCL IV ONE ×2 (05:00)
[2018-09-20 05:16] LABS: Anisocytosis Moderate; Basophils % (A) 0 %; Eosinophils # (A) 0.1 k/uL (0-0.7); Eosinophils % (A) 1 %; HCT 29.6 % (34.0-46.0); Lymphocytes # (A) 0.3 k/uL (1.0-4.8); Lymphocytes % (A) 3 %; MCH 30.3 pg (25.0-35.0); MCHC 30.3 g/dL (31.0-37.0); MCV 99.9 fL (80.0-100.0); Macrocytosis Moderate; Mean Platelet Volume 8.3; Monocytes # (A) 0.9 k/uL (0-1.0); Monocytes % (A) 7 %; Neutrophils # (A) 11.2 k/uL (1.3-7.7); Neutrophils % (A) 88 %; Platelet Count 118 k/uL (150-450); RBC 2.96 m/uL (3.80-5.40); RDW 21.2 % (11.5-15.5); WBC 12.7 k/uL (3.8-10.6)
[2018-09-20 05:27] LABS: Albumin 1.8 g/dL (3.5-5.0); Calcium 7.1 mg/dL (8.4-10.2); Magnesium 1.6 mg/dL (1.6-2.3); Phosphorus 3.8 mg/dL (2.5-4.5); Potassium 3.6 mmol/L (3.5-5.1); Total Bilirubin 1.4 mg/dL (0.2-1.3); Total Protein 5.6 g/dL (6.3-8.2)
[2018-09-20] MEDS ORDERED: Potassium Replacement Protocol 1 EACH MISC MISCELLANE PRN (07:21)
[2018-09-20] MEDS ORDERED: Magnesium Replacement Protocol 1 EACH MISC MISCELLANE PRN ×2 (07:22→16:29)
[2018-09-20] MEDS ORDERED: POTASSIUM CHLORIDE 20 MEQ in WATER FOR INJECTION 1 100ML.BAG IVPB ONE (07:30)
[2018-09-20] MEDS: MAGNESIUM SULFATE-D5W PMX 1 GM in DEXTROSE/WATER 1 100ML.BAG IVPB SCH ×4 (07:40→17:34)
[2018-09-20] MEDS: LEVOTHYROXINE 25 MCG TAB PO SCH (07:42)
[2018-09-20] MEDS: METOPROLOL SUCCINATE (ER) 50 MG TAB.ER.24H PO SCH (07:42)
[2018-09-20] MEDS: ALLOPURINOL 300 MG TAB PO SCH (07:43)
[2018-09-20] MEDS: INSULIN ASPART 100 UNIT/ML 1 ML 10 ML VIAL SQ SCH ×7 (07:44→21:28)
[2018-09-20] MEDS: PANTOPRAZOLE 40 MG/10 ML VIAL IV SCH (07:44)
--- NOTE | 2018-09-20 07:55 | XR ---
EXAMINATION TYPE: XR chest 1V DATE OF EXAM: 09/20/2018 COMPARISON: 09/19/2018 INDICATION: Fluid overload TECHNIQUE: Single frontal view of the chest is obtained. FINDINGS: The heart size is normal. The pulmonary vasculature is normal. Minimal infiltrate along the diaphragm may be present. Some blunting left costophrenic angle may be p resent. Findings have improved from the comparison study. There is a tiny density within the mid reinier pheral right lung could be a small granuloma. Follow-up is recommended. This measures 0.3 cm. IMPRESSION: 1. Improving bibasilar infiltrates. Small left pleural effusion is not excluded. 2. Tiny density within the periphery of the right midlung. Follow-up exams are recommended.
--- NOTE | 2018-09-20 08:23 | P.PN ---
Progress Note - Text The patient is a 78-year-old female who remains in the intensive care unit here at [facility]. Patient presented initially with sepsis and has had a couple episodes of hypotension that required her to be admitted to the intensive care unit. A lymph node biopsy in the supraclavicular region has shown Hodgkin's lymphoma, nodular sclerosis classical type. CT scans have showed diffuse adenopathy. Patient still is fairly weak. Patient denies shortness of breath or chest pain. She has been mildly hypotensive for which she is on vasopressor support. Present vital signs show a temperature of 98.3 with a pulse of 126. Respirations are 29 and blood pressure 98/54. She is 95% saturated on room air. Lungs are generally clear anteriorly but diminished. Heart tones were tachycardic but regular. Abdomen nontender. Diffuse 2-3+ edema of all extremities. She is alert and oriented without focal deficits. Laboratory White count 12.7 with a hemoglobin of 9 and a platelet count of 118. The left shift 11.2 neutrophils. Sodium low at 125 with a potassium 3.6. BUN of 19 with creatinine 1.02 giving her a GFR 53. Blood sugar was 94 this morning. Albumin 1.8 Recent urinalysis was negative for leukocyte esterase and only 4 white cells. Chest x-ray is reported as stable. No major changes. Impressions and plans Patient was begun on therapy for her hot schemes in the form of dacarbazine and Adriamycin. urine output appears to be fair and weight has a decrease from 119.8 kg down to 116.3. Continue present treatment while awaiting further recommendations from pulmonary medicine and oncology. Their notes have been regarded. Prognosis still guarded. She remains on ceftriaxone. Accu-Cheks and coverage for her diabetes.
[2018-09-20] MEDS: HYDROcodone/APAP 5-325MG 1 EACH TAB PO PRN (08:25)
[2018-09-20] MEDS: LISINOPRIL 5 MG TAB PO SCH (08:27)
[2018-09-20] MEDS: SPIRONOLACTONE 25 MG TAB PO SCH (09:51)
[2018-09-20 11:51] LABS: Glucose,Whole Blood 236 mg/dL (75-99)
--- NOTE | 2018-09-20 13:34 | P.PN ---
Subjective Progress Note Date: 09/20/18 On 09/20/2018, the patient is awake and alert and communicating. He feels better compared to yesterday. The patient was diuresed with IV Lasix and after being in a negative fluid balance and discontinue the Lasix in preparation for systemic chemotherapy for Hodgkin's lymphoma. I did not want aggressive diuresis as the patient was receiving systemic chemotherapy. The patient has a PICC line inserted in left upper extremity. This was done by interventional radiology. A incidental right brachial clot was identified in the right upper extremity. The patient is reporting some improvement in the swelling in the upper and lower extremities. No chest pain. No shortness of breath. No cough or sputum production. No altered mentation. In terms of blood work, the patient's hemoglobin is at 9.0. The patient has a sodium level of 125 which is stable. The lactic acid level is been elevated probably related to underlying malignancy and lactic acid level is at 6.0. LDH is at 368. The rest of the LFTs are all within normal limits with a bilirubin of 1.4. Albumin is at 1.8. The systemic chemotherapy with was given included Dacarbazine and doxorubicin Objective - Vital Signs Vital signs: Vital Signs Temp 97.8 F 09/20/18 12:00 Pulse 99 09/20/18 13:00 Resp 22 09/20/18 13:00 BP 98/59 09/20/18 13:00 Pulse Ox 96 09/20/18 13:00 Intake & Output 09/19/18 09/20/18 09/20/18 18:59 06:59 18:59 Intake Total 20 320 420 Output Total 977 2548 450 [facility] -957 -2228 -30 Weight 119.8 kg 116.3 kg Intake: IV 20 320 420 Magnesium Sulfate-D5w Pmx 200 1 gm In Dextrose/Water 1 100ml.bag @ 100 mls/hr IVPB Q1H [facility] Rx#: [id number] Ondansetron 16 mg In 50 Sodium Chloride 0.9% 50 ml @ 100 mls/hr IVPB ONCE ONE Rx#:[id number] Potassium Chloride 20 meq 100 In Water For Injection 1 100ml.bag @ 50 mls/hr IVPB ONCE ONE Rx#: [id number] Sodium Chloride 0.9% 1, 20 220 120 000 ml @ 20 mls/hr IV . Q24H [facility] Rx#:[id number] cefTRIAXone 1,000 mg In 50 Sodium Chloride 0.9% 50 ml @ 100 mls/hr IVPB Q24H [facility] Rx#:[id number] Output: Urine 975 2548 450 Stool 2 Other: Voiding Method Indwelling Catheter Indwelling Catheter Indwelling Catheter # Bowel Movements 1 1 - Exam - Constitutional General appearance: no acute distress - EENT Eyes: EOMI, PERRLA ENT: hearing grossly normal, normal oropharynx - Neck Neck: no lymphadenopathy Thyroid: bilateral: normal size - Respiratory Respiratory: bilateral: diminishedLungs were clear to auscultation and percussion, and with normal diaphragmatic excursion. No wheezes or rales were noted. - Cardiovascular Rhythm: regular Heart sounds: normal: S1, S2, the patient has developed increased edema in all 4 extremities mainly lower extremities bilaterally. No cyanosis or clubbing.Cardiac exam revealed the PMI to be normally situated and sized. The rhythm was regular and no extrasystoles were noted during several minutes of auscultation. The first and second heart sounds were normal and physiologic splitting of the second heart sound was noted. There were no murmurs, rubs, clicks, or gallops. - Gastrointestinal General gastrointestinal: normal bowel sounds, softAbdominal exam revealed normal bowel sounds. The abdomen was soft, non-tender, and without masses, organomegaly, or appreciable enlargement of the abdominal aorta. - Integumentary Integumentary: normal - Neurologic Neurologic: CNII-XII intact - Musculoskeletal Musculoskeletal: generalized weakness, strength equal bilaterally - Psychiatric Psychiatric: A&O x's 3, appropriate affect Enlarged lymph nodes noted, medial rt supraclavicular area, bilateral axillae (right greater than left) due to patient's obese body habitus, size and extent are somewhat difficult to define exactly the surgical site over the right supraclavicular area dry clean and intact. - Labs CBC & Chem 7: 09/20/18 04:55 09/20/18 04:55 Labs: Abnormal Lab Results - Last 24 Hours (Table) 09/19/18 09/19/18 09/19/18 Range/Units 16:30 18:19 21:50 WBC (3.8-10.6) k/uL RBC (3.80-5.40) m/uL Hgb (11.4-16.0) gm/dL Hct (34.0-46.0) % MCHC (31.0-37.0) g/dL RDW (11.5-15.5) % Plt Count (150-450) k/uL Neutrophils # (1.3-7.7) k/uL Lymphocytes # (1.0-4.8) k/uL Sodium (137-145) mmol/L Chloride (98-107) mmol/L BUN (7-17) mg/dL POC Glucose (mg/dL) 228 H 160 H (75-99) mg/dL Plasma Lactic Acid Wilbert 5.8 H* (0.7-2.0) mmol/L Calcium (8.4-10.2) mg/dL Total Bilirubin (0.2-1.3) mg/dL Alkaline Phosphatase (38-126) U/L Total Protein (6.3-8.2) g/dL Albumin (3.5-5.0) g/dL Urine Blood (Negative) Urine RBC (0-5) /hpf Urine Bacteria (None) /hpf Urine Mucus (None) /hpf 09/20/18 09/20/18 09/20/18 Range/Units 00:45 04:55 04:55 WBC 12.7 H (3.8-10.6) k/uL RBC 2.96 L (3.80-5.40) m/uL Hgb 9.0 L (11.4-16.0) gm/dL Hct 29.6 L (34.0-46.0) % MCHC 30.3 L (31.0-37.0) g/dL RDW 21.2 H (11.5-15.5) % Plt Count 118 L (150-450) k/uL Neutrophils # 11.2 H (1.3-7.7) k/uL Lymphocytes # 0.3 L (1.0-4.8) k/uL Sodium 125 L (137-145) mmol/L Chloride 90 L (98-107) mmol/L BUN 19 H (7-17) mg/dL POC Glucose (mg/dL) (75-99) mg/dL Plasma Lactic Acid Wilbert (0.7-2.0) mmol/L Calcium 7.1 L (8.4-10.2) mg/dL Total Bilirubin 1.4 H (0.2-1.3) mg/dL Alkaline Phosphatase 307 H (38-126) U/L Total Protein 5.6 L (6.3-8.2) g/dL Albumin 1.8 L (3.5-5.0) g/dL Urine Blood Moderate H (Negative) Urine RBC 30 H (0-5) /hpf Urine Bacteria Rare H (None) /hpf Urine Mucus Rare H (None) /hpf 09/20/18 09/20/18 Range/Units 10:00 11:28 WBC (3.8-10.6) k/uL RBC (3.80-5.40) m/uL Hgb (11.4-16.0) gm/dL Hct (34.0-46.0) % MCHC (31.0-37.0) g/dL RDW (11.5-15.5) % Plt Count (150-450) k/uL Neutrophils # (1.3-7.7) k/uL Lymphocytes # (1.0-4.8) k/uL Sodium (137-145) mmol/L Chloride (98-107) mmol/L BUN (7-17) mg/dL POC Glucose (mg/dL) 236 H (75-99) mg/dL Plasma Lactic Acid Wilbert 6.0 H* (0.7-2.0) mmol/L Calcium (8.4-10.2) mg/dL Total Bilirubin (0.2-1.3) mg/dL Alkaline Phosphatase (38-126) U/L Total Protein (6.3-8.2) g/dL Albumin (3.5-5.0) g/dL Urine Blood (Negative) Urine RBC (0-5) /hpf Urine Bacteria (None) /hpf Urine Mucus (None) /hpf Microbiology - Last 24 Hours (Table) 09/20/18 00:45 Urine Culture - Preliminary Urine,Voided 09/16/18 22:45 Blood Culture - Preliminary Blood No Growth after 72 hours 09/16/18 21:57 Blood Culture - Preliminary Blood No Growth after 72 hours Assessment and Plan Plan: Assessment 1 Hodgkin's lymphoma with diffuse lymphadenopathy involving the supraclavicular area bilaterally more so on the right, thorax/mediastinum and abdomen. The patient is currently on systemic chemotherapy and she is receiving AVD without the bleomycin. The patient received her first session of systemic chemotherapy today. The patient has a PICC line in left upper extremity. 2 extensive anasarca mainly secondary to profound hypoproteinemia . The patient is currently off the Lasix drip and there has been some improvement in the volume status in general. 3 mild lactic acidosis probably rates underlying malignancy. 4 chronic anemia and thrombocytopenia 5 hyponatremia, stable with his sodium level of 126 6 previous history of urine infection 7 obesity with a BMI of 41 8 diabetes mellitus 9 hypertension 10 profound weakness and debility seconds above-mentioned comorbidities Plan We'll continue to systemic chemotherapy per protocol. Watch for any signs of tumor lysis syndrome. Watch for any signs of toxicity from the systemic chemotherapy. The patient's hemodynamic and hematologic profile is being monitored very closely. Keep the patient off diuretics for now. Nutritional support. Oncology on the case. Case was discussed the family. We'll keep in ICU for another 24 hours as the patient is completing his systemic chemotherapy.
--- NOTE | 2018-09-20 13:35 | P.PN ---
Subjective Progress Note Date: 09/20/18 Principal diagnosis: Lymphadenopathy Catherine received her first day of chemotherapy, so far she is tolerating well. Denies nausea or vomiting or diarrhea. She is still weak and fatigued and since monitored and on Levo drip has not been increased in activity yet, although nursing in assisting in moving her while in bed Objective - Vital Signs Vital signs: Vital Signs Temp 97.8 F 09/20/18 12:00 Pulse 99 09/20/18 13:00 Resp 22 09/20/18 13:00 BP 98/59 09/20/18 13:00 Pulse Ox 96 09/20/18 13:00 Intake & Output 09/19/18 09/20/18 09/20/18 18:59 06:59 18:59 Intake Total 20 320 420 Output Total 977 2548 450 Balance -957 -2228 -30 Weight 119.8 kg 116.3 kg Intake: IV 20 320 420 Magnesium Sulfate-D5w Pmx 200 1 gm In Dextrose/Water 1 100ml.bag @ 100 mls/hr IVPB Q1H [facility] Rx#: [id number] Ondansetron 16 mg In 50 Sodium Chloride 0.9% 50 ml @ 100 mls/hr IVPB ONCE ONE Rx#:[id number] Potassium Chloride 20 meq 100 In Water For Injection 1 100ml.bag @ 50 mls/hr IVPB ONCE ONE Rx#: [id number] Sodium Chloride 0.9% 1, 20 220 120 000 ml @ 20 mls/hr IV . Q24H [facility] Rx#:[id number] cefTRIAXone 1,000 mg In 50 Sodium Chloride 0.9% 50 ml @ 100 mls/hr IVPB Q24H [facility] Rx#:[id number] Output: Urine 975 2548 450 Stool 2 Other: Voiding Method Indwelling Catheter Indwelling Catheter Indwelling Catheter # Bowel Movements 1 1 - Exam Constitutional General appearance: no acute distress - EENT Eyes: EOMI, PERRLA ENT: hearing grossly normal, normal oropharynx - Neck Neck: no lymphadenopathy Thyroid: bilateral: normal size - Respiratory Respiratory: bilateral: diminished - Cardiovascular Rhythm: regular Heart sounds: normal: S1, S2 - Gastrointestinal General gastrointestinal: normal bowel sounds, soft - Integumentary Integumentary: normal - Neurologic Neurologic: CNII-XII intact - Musculoskeletal Musculoskeletal: generalized weakness, strength equal bilaterally - Psychiatric Psychiatric: A&O x's 3, appropriate affect 2-3+ edema in all 4 extremities Enlarged lymph nodes noted, medial rt supraclavicular area, bilateral axillae (right greater than left) due to patient's obese body habitus, size and extent are somewhat difficult to define exactly - Labs CBC & Chem 7: 09/20/18 04:55 09/20/18 04:55 Labs: Abnormal Lab Results - Last 24 Hours (Table) 09/19/18 09/19/18 09/19/18 Range/Units 16:30 18:19 21:50 WBC (3.8-10.6) k/uL RBC (3.80-5.40) m/uL Hgb (11.4-16.0) gm/dL Hct (34.0-46.0) % MCHC (31.0-37.0) g/dL RDW (11.5-15.5) % Plt Count (150-450) k/uL Neutrophils # (1.3-7.7) k/uL Lymphocytes # (1.0-4.8) k/uL Sodium (137-145) mmol/L Chloride (98-107) mmol/L BUN (7-17) mg/dL POC Glucose (mg/dL) 228 H 160 H (75-99) mg/dL Plasma Lactic Acid Wilbert 5.8 H* (0.7-2.0) mmol/L Calcium (8.4-10.2) mg/dL Total Bilirubin (0.2-1.3) mg/dL Alkaline Phosphatase (38-126) U/L Total Protein (6.3-8.2) g/dL Albumin (3.5-5.0) g/dL Urine Blood (Negative) Urine RBC (0-5) /hpf Urine Bacteria (None) /hpf Urine Mucus (None) /hpf 09/20/18 09/20/18 09/20/18 Range/Units 00:45 04:55 04:55 WBC 12.7 H (3.8-10.6) k/uL RBC 2.96 L (3.80-5.40) m/uL Hgb 9.0 L (11.4-16.0) gm/dL Hct 29.6 L (34.0-46.0) % MCHC 30.3 L (31.0-37.0) g/dL RDW 21.2 H (11.5-15.5) % Plt Count 118 L (150-450) k/uL Neutrophils # 11.2 H (1.3-7.7) k/uL Lymphocytes # 0.3 L (1.0-4.8) k/uL Sodium 125 L (137-145) mmol/L Chloride 90 L (98-107) mmol/L BUN 19 H (7-17) mg/dL POC Glucose (mg/dL) (75-99) mg/dL Plasma Lactic Acid Wilbert (0.7-2.0) mmol/L Calcium 7.1 L (8.4-10.2) mg/dL Total Bilirubin 1.4 H (0.2-1.3) mg/dL Alkaline Phosphatase 307 H (38-126) U/L Total Protein 5.6 L (6.3-8.2) g/dL Albumin 1.8 L (3.5-5.0) g/dL Urine Blood Moderate H (Negative) Urine RBC 30 H (0-5) /hpf Urine Bacteria Rare H (None) /hpf Urine Mucus Rare H (None) /hpf 09/20/18 09/20/18 Range/Units 10:00 11:28 WBC (3.8-10.6) k/uL RBC (3.80-5.40) m/uL Hgb (11.4-16.0) gm/dL Hct (34.0-46.0) % MCHC (31.0-37.0) g/dL RDW (11.5-15.5) % Plt Count (150-450) k/uL Neutrophils # (1.3-7.7) k/uL Lymphocytes # (1.0-4.8) k/uL Sodium (137-145) mmol/L Chloride (98-107) mmol/L BUN (7-17) mg/dL POC Glucose (mg/dL) 236 H (75-99) mg/dL Plasma Lactic Acid Wilbert 6.0 H* (0.7-2.0) mmol/L Calcium (8.4-10.2) mg/dL Total Bilirubin (0.2-1.3) mg/dL Alkaline Phosphatase (38-126) U/L Total Protein (6.3-8.2) g/dL Albumin (3.5-5.0) g/dL Urine Blood (Negative) Urine RBC (0-5) /hpf Urine Bacteria (None) /hpf Urine Mucus (None) /hpf Microbiology - Last 24 Hours (Table) 09/20/18 00:45 Urine Culture - Preliminary Urine,Voided 09/16/18 22:45 Blood Culture - Preliminary Blood No Growth after 72 hours 09/16/18 21:57 Blood Culture - Preliminary Blood No Growth after 72 hours Assessment and Plan Plan: (1) Lymphadenopathy Narrative/Plan: - extensive adenopathy, as well as other systemic symptoms as noted. - The CT findings are concerning for a lymphoid process or malignancy, she did have a prior needle biopsy at outside [facility] which was inconclusive. - Therefore the patient required an excisional lymph node biopsy. - Lymph node dissection has resulted with diagnosis of Hodgkins Lymphoma. - Surgery Following Current Visit: Yes Status: Acute Code(s): R59.1 - GENERALIZED ENLARGED LYMPH NODES SNOMED Code(s): 21282898 (2) Anemia Narrative/Plan: - No intervention today, hemoglobin is 8 - This is normochromic normocytic, with rapidly some progression since last summer. - There is no history suggestive of bleeding. - Therefore at this time anemia due to malignancy is the primary differential. - No Intervention needed today, Continue to monitor hemoglobin and transfuse if less than 7 Current Visit: Yes Status: Acute Code(s): D64.9 - ANEMIA, UNSPECIFIED SNOMED Code(s): 181700924 (3) Sepsis secondary to UTI Narrative/Plan: - Refer to the admitting service for continued management Current Visit: Yes Status: Acute Code(s): A41.9 - SEPSIS, UNSPECIFIED ORGANISM; N39.0 - URINARY TRACT INFECTION, SITE NOT SPECIFIED SNOMED Code(s): 694155917 (4) Fluid overload Narrative/Plan: - Patient's echocardiogram was normal. - Therefore at this time differential include fluid leak due to lymphedema and/ or increased blood vessel permeability from malignancy. - Continue current care (5) Hyponatremia (6) Increased Bili Plan: - Continue with first day of Chemotherapy, with her already fragile state and increased risk for infection will begin GCSF daily while in hospital.
[2018-09-20 16:16] LABS: Magnesium 1.9 mg/dL (1.6-2.3); Potassium 4.2 mmol/L (3.5-5.1)
[2018-09-20 17:12] LABS: Glucose,Whole Blood 322 mg/dL (75-99)
[2018-09-20 20:32] LABS: Glucose,Whole Blood 314 mg/dL (75-99)
[2018-09-20] MEDS: SODIUM CHLORIDE 0.9% 1,000 ML IV SCH (21:37)
[2018-09-21 05:41] LABS: Albumin 1.6 g/dL (3.5-5.0); Calcium 7.2 mg/dL (8.4-10.2); Magnesium 2.1 mg/dL (1.6-2.3); Phosphorus 3.9 mg/dL (2.5-4.5); Potassium 4.1 mmol/L (3.5-5.1); Total Bilirubin 1.1 mg/dL (0.2-1.3); Total Protein 4.9 g/dL (6.3-8.2)
--- NOTE | 2018-09-21 06:10 | XR ---
EXAMINATION TYPE: XR chest 1V DATE OF EXAM: 09/21/2018 HISTORY: fluid overload. REFERENCE: Previous study dated 09/20/2018. FINDINGS: There is a left basilic PICC line in place. Its tip is in the right atrium. There are small, bilateral effusions. There is bibasilar airspace disease. There is a stable right-si ded pulmonary nodule. Heart size upper limits of normal. IMPRESSION: 1. BIBASILAR ATELECTASIS. 2. SMALL, BILATERAL EFFUSIONS. 3. SMALL RIGHT-SIDED PULMONARY NODULE.
[2018-09-21 06:13] LABS: Anisocytosis Moderate; Basophils % (A) 0 %; Eosinophils % (A) 0 %; HCT 25.2 % (34.0-46.0); HGB 7.8 gm/dL (11.4-16.0); Hypochromasia Slight; Lymphocytes # (A) 0.2 k/uL (1.0-4.8); Lymphocytes % (A) 1 %; MCH 31.6 pg (25.0-35.0); MCV 101.9 fL (80.0-100.0); Mean Platelet Volume 9.9; Monocytes # (A) 0.3 k/uL (0-1.0); Monocytes % (A) 2 %; Neutrophils # (A) 18.1 k/uL (1.3-7.7); Neutrophils % (A) 97 %; RBC 2.47 m/uL (3.80-5.40); RDW 20.8 % (11.5-15.5); WBC 18.7 k/uL (3.8-10.6)
[2018-09-21] MEDS: LEVOTHYROXINE 25 MCG TAB PO SCH (06:24)
[2018-09-21 06:40] LABS: Platelet Count 60 k/uL (150-450)
[2018-09-21 06:41] LABS: Macrocytosis Marked; Target Cells Present
[2018-09-21 06:55] LABS: Glucose,Whole Blood 242 mg/dL (75-99)
[2018-09-21] MEDS: INSULIN ASPART 100 UNIT/ML 1 ML 10 ML VIAL SQ SCH ×7 (07:01→21:07)
[2018-09-21] MEDS: LISINOPRIL 5 MG TAB PO SCH (07:37)
[2018-09-21] MEDS: METOPROLOL SUCCINATE (ER) 50 MG TAB.ER.24H PO SCH (07:38)
[2018-09-21] MEDS: ALLOPURINOL 300 MG TAB PO SCH (09:18)
[2018-09-21] MEDS: HEPARIN SODIUM,PORCINE 5,000 UNIT/ML 1 ML VIAL SQ SCH ×2 (09:18→18:40)
[2018-09-21] MEDS: PANTOPRAZOLE 40 MG/10 ML VIAL IV SCH (09:19)
[2018-09-21] MEDS: SPIRONOLACTONE 25 MG TAB PO SCH (09:19)
--- NOTE | 2018-09-21 10:26 | P.PN ---
Progress Note - Text The patient is a 78 and a female who is in the intensive care unit here at [facility]. The patient has diffuse Hodgkin's lymphoma nodular sclerosis type. She has received chemotherapy. She is still overall weak but is overall alert. Denies any chest pain. No nausea or vomiting. She is overall grossly edematous. Temperature is 97.7 with a pulse of 89 and respirations 24. Blood pressure is 92/48 and she is 98% saturated on room air. Lungs are clear anteriorly although diminished at bases. Abdomen is obese but nontender. There is still overall edematous state of both upper and lower extremities grade 2-3. She is overall alert and oriented. No focal neurological changes noted. Laboratory White count is 18 with a hemoglobin of 7.8 and a platelet count decreasing down to 60. 18% neutrophils noted. Sodium is 124 with a potassium 4.1. BUN of 21 with a creatinine of 0.96 giving her a GFR of 57. Blood sugar this morning was 243. Albumin is low at 1.6. A chest x-ray appears unchanged. Basilar changes and effusions are small. Weight has increased 2 kg from 116-118. Impression and plans Overall this 78-year-old female with the newly diagnosed Hodgkin's lymphoma status post chemotherapy with doxorubicin and vinblastine. Anemia secondary to malignant state and chemotherapy along with thrombocytopenia. Overall edematous state with diffuse third spacing in all extremities. Related to low albumin and underlying malignancy. Pulmonary/development analyst note guarded. Also waiting for any further recommendations from oncology. Prognosis guarded. She is presently continued on norepinephrine vascular support and antibiotics. Cultures of urine and blood have remained unremarkable. We'll resume Levemir in light of her more recently elevated blood sugars. Dr. Merrill production operations inspector if any concerns over the weekend.
[2018-09-21 11:49] LABS: Glucose,Whole Blood 216 mg/dL (75-99)
--- NOTE | 2018-09-21 12:58 | P.PN ---
Subjective Progress Note Date: 09/21/18 On 09/20/2018, the patient is awake and alert and communicating. He feels better compared to yesterday. The patient was diuresed with IV Lasix and after being in a negative fluid balance and discontinue the Lasix in preparation for systemic chemotherapy for Hodgkin's lymphoma. I did not want aggressive diuresis as the patient was receiving systemic chemotherapy. The patient has a PICC line inserted in left upper extremity. This was done by interventional radiology. A incidental right brachial clot was identified in the right upper extremity. The patient is reporting some improvement in the swelling in the upper and lower extremities. No chest pain. No shortness of breath. No cough or sputum production. No altered mentation. In terms of blood work, the patient's hemoglobin is at 9.0. The patient has a sodium level of 125 which is stable. The lactic acid level is been elevated probably related to underlying malignancy and lactic acid level is at 6.0. LDH is at 368. The rest of the LFTs are all within normal limits with a bilirubin of 1.4. Albumin is at 1.8. The systemic chemotherapy with was given On 09/21/2018 seeing this patient for a follow-up. The patient received AVD- included Dacarbazine and doxorubicin , systemic chemotherapy regarding her Hodgkin's lymphoma and currently she is still being monitored in the intensive care unit. She is awake and alert. She is weak. She continues to have extensive amount of third spacing. I had put her on Lasix drip at 1.9 going to restart the diuretics with a combination of Lasix and Zaroxolyn. She continues to be in a positive fluid balance and she has extensive edema in all 4 extremities. PICC line is in the left upper extremity. No fever. No chills. No sweats. The sodium level is at 124. Renal function is stable. White cell count is at 18.7 and the hemoglobin is at 7.4. Albumin remains low at 1.9. The chest x-ray remains to show a limited bibasilar atelectatic change. There are also small better pleural effusions. No other significant events overnight. She denies having any chest pain or shortness of breath. No hypotension and she is hemodynamically stable. IV Rocephin was given empirically and this will be discontinued. Objective - Vital Signs Vital signs: Vital Signs Temp 97.7 F 09/21/18 08:00 Pulse 90 09/21/18 11:00 Resp 22 09/21/18 11:00 BP 97/51 09/21/18 11:00 Pulse Ox 98 09/21/18 11:00 Intake & Output 09/20/18 09/21/18 09/21/18 18:59 06:59 18:59 Intake Total 500 602.267 206.517 Output Total 705 585 185 Balance -205 17.267 21.517 Weight 118.3 kg Intake: IV 480 270 100 Magnesium Sulfate-D5w Pmx 200 1 gm In Dextrose/Water 1 100ml.bag @ 100 mls/hr IVPB Q1H [facility] Rx#: [id number] Potassium Chloride 20 meq 100 In Water For Injection 1 100ml.bag @ 50 mls/hr IVPB ONCE ONE Rx#: [id number] Sodium Chloride 0.9% 1, 180 220 100 000 ml @ 20 mls/hr IV . Q24H [facility] Rx#:[id number] cefTRIAXone 1,000 mg In 50 Sodium Chloride 0.9% 50 ml @ 100 mls/hr IVPB Q24H [facility] Rx#:[id number] Intake, IV Titration 20 92.267 6.517 Amount Norepinephrine 16 mg In 92.267 6.517 Sodium Chloride 0.9% 250 ml @ Titrate IV .Q0M [facility] Rx#:[id number] Sodium Chloride 0.9% 1, 20 000 ml @ 20 mls/hr IV . Q24H [facility] Rx#:[id number] Oral 240 100 Output: Urine 705 585 185 Other: Voiding Method Indwelling Catheter Indwelling Catheter Indwelling Catheter # Bowel Movements 1 1 - Exam - Constitutional General appearance: no acute distress - EENT Eyes: EOMI, PERRLA ENT: hearing grossly normal, normal oropharynx - Neck Neck: no lymphadenopathy Thyroid: bilateral: normal size - Respiratory Respiratory: bilateral: diminishedLungs were clear to auscultation and percussion, and with normal diaphragmatic excursion. No wheezes or rales were noted. - Cardiovascular Rhythm: regular Heart sounds: normal: S1, S2, the patient has developed increased edema in all 4 extremities mainly lower extremities bilaterally. No cyanosis or clubbing.Cardiac exam revealed the PMI to be normally situated and sized. The rhythm was regular and no extrasystoles were noted during several minutes of auscultation. The first and second heart sounds were normal and physiologic splitting of the second heart sound was noted. There were no murmurs, rubs, clicks, or gallops. - Gastrointestinal General gastrointestinal: normal bowel sounds, softAbdominal exam revealed normal bowel sounds. The abdomen was soft, non-tender, and without masses, organomegaly, or appreciable enlargement of the abdominal aorta. - Integumentary Integumentary: normal - Neurologic Neurologic: CNII-XII intact - Musculoskeletal Musculoskeletal: generalized weakness, strength equal bilaterally - Psychiatric Psychiatric: A&O x's 3, appropriate affect Enlarged lymph nodes noted, medial rt supraclavicular area, bilateral axillae (right greater than left) due to patient's obese body habitus, size and extent are somewhat difficult to define exactly the surgical site over the right supraclavicular area dry clean and intact. - Labs CBC & Chem 7: 09/21/18 05:00 09/21/18 05:00 Labs: Abnormal Lab Results - Last 24 Hours (Table) 09/20/18 09/20/18 09/21/18 Range/Units 17:10 20:31 05:00 WBC 18.7 H (3.8-10.6) k/uL RBC 2.47 L (3.80-5.40) m/uL Hgb 7.8 L (11.4-16.0) gm/dL Hct 25.2 L (34.0-46.0) % MCV 101.9 H (80.0-100.0) fL RDW 20.8 H (11.5-15.5) % Plt Count 60 L (150-450) k/uL Neutrophils # 18.1 H (1.3-7.7) k/uL Lymphocytes # 0.2 L (1.0-4.8) k/uL Sodium (137-145) mmol/L Chloride (98-107) mmol/L BUN (7-17) mg/dL Glucose (74-99) mg/dL POC Glucose (mg/dL) 322 H 314 H (75-99) mg/dL Calcium (8.4-10.2) mg/dL Alkaline Phosphatase (38-126) U/L Total Protein (6.3-8.2) g/dL Albumin (3.5-5.0) g/dL 09/21/18 09/21/18 09/21/18 Range/Units 05:00 06:54 11:47 WBC (3.8-10.6) k/uL RBC (3.80-5.40) m/uL Hgb (11.4-16.0) gm/dL Hct (34.0-46.0) % MCV (80.0-100.0) fL RDW (11.5-15.5) % Plt Count (150-450) k/uL Neutrophils # (1.3-7.7) k/uL Lymphocytes # (1.0-4.8) k/uL Sodium 124 L (137-145) mmol/L Chloride 89 L (98-107) mmol/L BUN 21 H (7-17) mg/dL Glucose 243 H (74-99) mg/dL POC Glucose (mg/dL) 242 H 216 H (75-99) mg/dL Calcium 7.2 L (8.4-10.2) mg/dL Alkaline Phosphatase 236 H (38-126) U/L Total Protein 4.9 L (6.3-8.2) g/dL Albumin 1.6 L (3.5-5.0) g/dL Microbiology - Last 24 Hours (Table) 09/16/18 22:45 Blood Culture - Preliminary Blood No Growth after 96 hours 09/16/18 21:57 Blood Culture - Preliminary Blood No Growth after 96 hours 09/19/18 18:00 Blood Culture - Preliminary Blood No Growth after 24 hours 09/19/18 18:00 Blood Culture - Preliminary Blood No Growth after 24 hours 09/20/18 00:45 Urine Culture - Preliminary Urine,Voided Assessment and Plan Plan: Assessment 1 Hodgkin's lymphoma with diffuse lymphadenopathy involving the supraclavicular area bilaterally more so on the right, thorax/mediastinum and abdomen. The patient is currently on systemic chemotherapy and she is receiving AVD without the bleomycin. The patient received her first session of systemic chemotherapy. The patient has a PICC line in left upper extremity. 2 extensive anasarca mainly secondary to profound hypoproteinemia . 3 mild lactic acidosis probably rates underlying malignancy. 4 chronic anemia and thrombocytopenia 5 hyponatremia, stable with his sodium level of 124 6 previous history of urine infection 7 obesity with a BMI of 41 8 diabetes mellitus 9 hypertension 10 profound weakness and debility seconds above-mentioned comorbidities Plan Continue monitoring this patient here in the ICU. Start on Lasix 40 mg IV every 12 hours. Zaroxolyn 5 mg by mouth twice a day. We'll monitor urine output and fluid balance. The blood sugar slightly elevated probably to the echo done that was given at time of her systemic chemo. The patient is essentially stable. Nutritional status is poor and the patient is taking probably 25% of her meals on daily basis. Her serum abdomen is at 1.6. Continue with Glucerna oral supplementation. Dietary consultation. Long-term prognosis poor. For now we'll continuing the treatment and we'll assess the patient's progression along with oncology. Family understands the prognosis
[2018-09-21] MEDS: FUROSEMIDE 10 MG/ML 4 ML VIAL IV SCH ×2 (13:23→21:06)
[2018-09-21] MEDS: METOLAZONE 5 MG TAB PO SCH ×2 (13:24→21:07)
--- NOTE | 2018-09-21 13:24 | P.PN ---
Subjective Progress Note Date: 09/21/18 Principal diagnosis: Lymphadenopathy She is status post first chemotherapy. I had long discussion with patient on increasing her nutritional and physical strength to achieve improvement Objective - Vital Signs Vital signs: Vital Signs Temp 98.1 F 09/21/18 12:00 Pulse 92 09/21/18 13:00 Resp 28 H 09/21/18 13:00 BP 97/53 09/21/18 13:00 Pulse Ox 99 09/21/18 13:00 Intake & Output 09/20/18 09/21/18 09/21/18 18:59 06:59 18:59 Intake Total 500 602.267 206.517 Output Total 705 585 185 Balance -205 17.267 21.517 Weight 118.3 kg Intake: IV 480 270 100 Magnesium Sulfate-D5w Pmx 200 1 gm In Dextrose/Water 1 100ml.bag @ 100 mls/hr IVPB Q1H [facility] Rx#: [id number] Potassium Chloride 20 meq 100 In Water For Injection 1 100ml.bag @ 50 mls/hr IVPB ONCE ONE Rx#: [id number] Sodium Chloride 0.9% 1, 180 220 100 000 ml @ 20 mls/hr IV . Q24H [facility] Rx#:[id number] cefTRIAXone 1,000 mg In 50 Sodium Chloride 0.9% 50 ml @ 100 mls/hr IVPB Q24H [facility] Rx#:[id number] Intake, IV Titration 20 92.267 6.517 Amount Norepinephrine 16 mg In 92.267 6.517 Sodium Chloride 0.9% 250 ml @ Titrate IV .Q0M [facility] Rx#:[id number] Sodium Chloride 0.9% 1, 20 000 ml @ 20 mls/hr IV . Q24H [facility] Rx#:[id number] Oral 240 100 Output: Urine 705 585 185 Other: Voiding Method Indwelling Catheter Indwelling Catheter Indwelling Catheter # Bowel Movements 1 1 - Exam Constitutional General appearance: no acute distress - EENT Eyes: EOMI, PERRLA ENT: hearing grossly normal, normal oropharynx - Neck Neck: no lymphadenopathy Thyroid: bilateral: normal size - Respiratory Respiratory: bilateral: diminished - Cardiovascular Rhythm: regular Heart sounds: normal: S1, S2 - Gastrointestinal General gastrointestinal: normal bowel sounds, soft - Integumentary Integumentary: normal - Neurologic Neurologic: CNII-XII intact - Musculoskeletal Musculoskeletal: generalized weakness, strength equal bilaterally - Psychiatric Psychiatric: A&O x's 3, appropriate affect 2-3+ edema in all 4 extremities Enlarged lymph nodes noted, medial rt supraclavicular area, bilateral axillae (right greater than left) due to patient's obese body habitus, size and extent are somewhat difficult to define exactly - Labs CBC & Chem 7: 09/21/18 05:00 09/21/18 05:00 Labs: Abnormal Lab Results - Last 24 Hours (Table) 09/20/18 09/20/18 09/21/18 Range/Units 17:10 20:31 05:00 WBC 18.7 H (3.8-10.6) k/uL RBC 2.47 L (3.80-5.40) m/uL Hgb 7.8 L (11.4-16.0) gm/dL Hct 25.2 L (34.0-46.0) % MCV 101.9 H (80.0-100.0) fL RDW 20.8 H (11.5-15.5) % Plt Count 60 L (150-450) k/uL Neutrophils # 18.1 H (1.3-7.7) k/uL Lymphocytes # 0.2 L (1.0-4.8) k/uL Sodium (137-145) mmol/L Chloride (98-107) mmol/L BUN (7-17) mg/dL Glucose (74-99) mg/dL POC Glucose (mg/dL) 322 H 314 H (75-99) mg/dL Calcium (8.4-10.2) mg/dL Alkaline Phosphatase (38-126) U/L Total Protein (6.3-8.2) g/dL Albumin (3.5-5.0) g/dL 09/21/18 09/21/18 09/21/18 Range/Units 05:00 06:54 11:47 WBC (3.8-10.6) k/uL RBC (3.80-5.40) m/uL Hgb (11.4-16.0) gm/dL Hct (34.0-46.0) % MCV (80.0-100.0) fL RDW (11.5-15.5) % Plt Count (150-450) k/uL Neutrophils # (1.3-7.7) k/uL Lymphocytes # (1.0-4.8) k/uL Sodium 124 L (137-145) mmol/L Chloride 89 L (98-107) mmol/L BUN 21 H (7-17) mg/dL Glucose 243 H (74-99) mg/dL POC Glucose (mg/dL) 242 H 216 H (75-99) mg/dL Calcium 7.2 L (8.4-10.2) mg/dL Alkaline Phosphatase 236 H (38-126) U/L Total Protein 4.9 L (6.3-8.2) g/dL Albumin 1.6 L (3.5-5.0) g/dL Microbiology - Last 24 Hours (Table) 09/16/18 22:45 Blood Culture - Preliminary Blood No Growth after 96 hours 09/16/18 21:57 Blood Culture - Preliminary Blood No Growth after 96 hours 09/19/18 18:00 Blood Culture - Preliminary Blood No Growth after 24 hours 09/19/18 18:00 Blood Culture - Preliminary Blood No Growth after 24 hours 09/20/18 00:45 Urine Culture - Preliminary Urine,Voided Assessment and Plan Plan: (1) Lymphadenopathy Narrative/Plan: - extensive adenopathy, as well as other systemic symptoms as noted. - The CT findings are concerning for a lymphoid process or malignancy, she did have a prior needle biopsy at outside [facility] which was inconclusive. - Therefore the patient required an excisional lymph node biopsy. - Lymph node dissection has resulted with diagnosis of Hodgkins Lymphoma. - Surgery Following Current Visit: Yes Status: Acute Code(s): R59.1 - GENERALIZED ENLARGED LYMPH NODES SNOMED Code(s): 81103376 (2) Anemia Narrative/Plan: - No intervention today, hemoglobin is 8 - This is normochromic normocytic, with rapidly some progression since last summer. - There is no history suggestive of bleeding. - Therefore at this time anemia due to malignancy is the primary differential. - No Intervention needed today, Continue to monitor hemoglobin and transfuse if less than 7 Current Visit: Yes Status: Acute Code(s): D64.9 - ANEMIA, UNSPECIFIED SNOMED Code(s): 837792731 (3) Sepsis secondary to UTI Narrative/Plan: - Refer to the admitting service for continued management Current Visit: Yes Status: Acute Code(s): A41.9 - SEPSIS, UNSPECIFIED ORGANISM; N39.0 - URINARY TRACT INFECTION, SITE NOT SPECIFIED SNOMED Code(s): 753043935 (4) Fluid overload Narrative/Plan: - Patient's echocardiogram was normal. - Therefore at this time differential include fluid leak due to lymphedema and/ or increased blood vessel permeability from malignancy. - Continue current care (5) Hyponatremia (6) Increased Bili (7) Protein Calorie Malnutrition: Severe - Consider addition of appetite stimulator (?megace) (8) Anemia and Thrombocytopenia: - Secondary to malignancy and recent chemotherapy - Check COags - Monitor CBC daily - Hold Anticoagulation when platlets less than 50K and transfuse for platelets less than 15 or hemoglobin less than 7. Plan: - Continue with first day of Chemotherapy, with her already fragile state and increased risk for infection will begin GCSF daily while in hospital once neuts start to decrease.
[2018-09-21 17:08] LABS: Glucose,Whole Blood 189 mg/dL (75-99)
[2018-09-21 20:56] LABS: Glucose,Whole Blood 185 mg/dL (75-99)
[2018-09-21] MEDS: SODIUM CHLORIDE 0.9% 1,000 ML IV SCH (21:06)
[2018-09-21] MEDS: INSULIN DETEMIR 100 UNIT/ML 10 ML VIAL SQ SCH (21:07)
[2018-09-22] MEDS: HEPARIN SODIUM,PORCINE 5,000 UNIT/ML 1 ML VIAL SQ SCH ×2 (00:12→08:45)
[2018-09-22 05:28] LABS: Anisocytosis Moderate; HCT 27.3 % (34.0-46.0); HGB 8.4 gm/dL (11.4-16.0); Hypochromasia Slight; MCHC 30.8 g/dL (31.0-37.0); MCV 100.3 fL (80.0-100.0); Macrocytosis Moderate; Platelet Count 34 k/uL (150-450); RBC 2.72 m/uL (3.80-5.40); RDW 20.2 % (11.5-15.5); WBC 11.8 k/uL (3.8-10.6)
[2018-09-22 05:31] LABS: Albumin 1.7 g/dL (3.5-5.0); Calcium 7.4 mg/dL (8.4-10.2); Total Bilirubin 2.1 mg/dL (0.2-1.3); Total Protein 5.3 g/dL (6.3-8.2); Uric Acid 3.3 mg/dL (3.7-7.4)
[2018-09-22 05:53] LABS: Eosinophils # (M) 0.12 k/uL (0-0.7); Large Platelets Present; Lymphocytes # (M) 0.35 k/uL (1.0-4.8); Neutrophils # (M) 11.33 k/uL (1.3-7.7); Neutrophils % (M) 96 %; Nucleated Red Blood Cells 0 /100 WBC (0-0); Total Cells Counted 100
[2018-09-22] MEDS: LEVOTHYROXINE 25 MCG TAB PO SCH (06:36)
[2018-09-22 06:55] LABS: Glucose,Whole Blood 88 mg/dL (75-99)
[2018-09-22] MEDS: INSULIN ASPART 100 UNIT/ML 1 ML 10 ML VIAL SQ SCH ×7 (06:57→21:11)
--- NOTE | 2018-09-22 07:01 | XR ---
EXAMINATION TYPE: XR chest 1V portable DATE OF EXAM: 09/22/2018 HISTORY: assess pleural effusions. REFERENCE: Previous study dated 09/21/2018. FINDINGS: There continue to be small, bilateral effusions. There is bibasilar airspace disease likely represents a cyst. Heart size is within normal limits. IMPRESSION: CONTINUING, SMALL, BILATERAL EFFUSIONS WITH CONCOMITANT ATELECTASIS.
[2018-09-22] MEDS: ALLOPURINOL 300 MG TAB PO SCH (08:45)
[2018-09-22] MEDS: METOLAZONE 5 MG TAB PO SCH (08:45)
[2018-09-22] MEDS: LISINOPRIL 5 MG TAB PO SCH (08:45)
[2018-09-22] MEDS: FUROSEMIDE 10 MG/ML 4 ML VIAL IV SCH (08:45)
[2018-09-22] MEDS: METOPROLOL SUCCINATE (ER) 50 MG TAB.ER.24H PO SCH (08:45)
[2018-09-22] MEDS: PANTOPRAZOLE 40 MG/10 ML VIAL IV SCH (08:46)
[2018-09-22] MEDS: SPIRONOLACTONE 25 MG TAB PO SCH (08:46)
--- NOTE | 2018-09-22 10:36 | P.PN ---
Progress Note - Text The patient is 78-year-old female who remains in the intensive care unit. She has underlying diffuse Hodgkin's lymphoma and has undergone chemotherapy. She is still very weak and overall third spacing fluid and is grossly edematous. She somewhat fatigued this morning but overall alert. Denies any chest pain or unusual shortness of breath. Vital signs reveal a pulse of 103 with respirations from 22-29 and blood pressure 97/70 with a 96% saturation on room air. Afebrile Lungs are clear but diminished. Heart tones were slightly tacky but regular. Abdomen nontender. Grade 2-3 edema diffusely in both upper and lower extremities. No focal neurological changes at this time. Laboratory White count 7.8 with a hemoglobin 8.4 and a platelet count is decreased down to 34. Sodium also was low at 123 with a BUN of 30 and a creatinine of 1.08 given her GFR 49. Blood sugar was 88. Lactic acid levels 2.7 despite negative cultures. Albumin also very low at 1.7. Alk phos elevated at 308 with a bilirubin of 2.1. Chest x-ray generally stable. Impressions and plans Overall this is a 78-year-old female who has newly diagnosed Hodgkin's lymphoma with extreme weakness, malnutrition with low albumin along with anemia secondary to malignancy and thrombocytopenia secondary to chemotherapy. Continue treatment as per oncology for underlying Hodgkin's disease. Prognosis is guarded in light of her underlying poor baseline status. Along with other comorbidities as stated above.
--- NOTE | 2018-09-22 10:48 | P.PN ---
Subjective Progress Note Date: 09/22/18 On 09/22/2018 the patient is essentially the same. She is post systemic chemotherapy with a combination of dacarbazine and doxorubicin. The patient is being treated for Hodgkin's lymphoma. Very much debilitated. Very much weak. Oral intake remains minimal. Protein is low. She has third spacing and the patient is not responding to diuretics. Sodium level is on the decline is currently down to 123. She is in a negative fluid balance of 600 mL despite being on diuretics. As such she has not responded to diuretics effectively. No hypotension. Mental status is fluctuating. This morning she was making more sense and she was able to communicate. Yet at times she has been found to be confused. No cough. No sputum production. No headaches. She is moving all 4 extremities that she is suffering from profound weakness in all 4 extremities. She is on a combination of Zaroxolyn and Lasix and Aldactone and despite that she has been able to diabetes effectively. No other significant events overnight. Antibiotics have been discontinued. She is afebrile. She has a PICC line in left upper extremity. Objective - Vital Signs Vital signs: Vital Signs Temp 97.9 F 09/22/18 04:00 Pulse 103 H 09/22/18 10:00 Resp 29 H 09/22/18 10:00 BP 97/70 09/22/18 10:00 Pulse Ox 96 09/22/18 10:00 Intake & Output 09/21/18 09/22/18 09/22/18 18:59 06:59 18:59 Intake Total 715.421 2211 60 Output Total 665 1695 125 Balance -318.018 -325 -65 Weight 116.3 kg Intake: IV 240 240 60 Sodium Chloride 0.9% 1, 240 240 60 000 ml @ 20 mls/hr IV . Q24H MADELIN Rx#:[id number] Intake, IV Titration 6.982 Amount Norepinephrine 16 mg In 6.982 Sodium Chloride 0.9% 250 ml @ Titrate IV .Q0M MADELIN Rx#:[id number] Oral 100 1130 Output: Urine 665 1695 125 Other: Voiding Method Indwelling Catheter Indwelling Catheter # Bowel Movements 1 1 - Exam - Constitutional General appearance: no acute distress - EENT Eyes: EOMI, PERRLA ENT: hearing grossly normal, normal oropharynx - Neck Neck: no lymphadenopathy Thyroid: bilateral: normal size - Respiratory Respiratory: bilateral: diminishedLungs were clear to auscultation and percussion, and with normal diaphragmatic excursion. No wheezes or rales were noted. - Cardiovascular Rhythm: regular Heart sounds: normal: S1, S2, the patient has developed increased edema in all 4 extremities mainly lower extremities bilaterally. No cyanosis or clubbing.Cardiac exam revealed the PMI to be normally situated and sized. The rhythm was regular and no extrasystoles were noted during several minutes of auscultation. The first and second heart sounds were normal and physiologic splitting of the second heart sound was noted. There were no murmurs, rubs, clicks, or gallops. - Gastrointestinal General gastrointestinal: normal bowel sounds, softAbdominal exam revealed normal bowel sounds. The abdomen was soft, non-tender, and without masses, organomegaly, or appreciable enlargement of the abdominal aorta. - Integumentary Integumentary: normal - Neurologic Neurologic: CNII-XII intact - Musculoskeletal Musculoskeletal: generalized weakness, strength equal bilaterally - Psychiatric Psychiatric: A&O x's 3, appropriate affect Enlarged lymph nodes noted, medial rt supraclavicular area, bilateral axillae (right greater than left) due to patient's obese body habitus, size and extent are somewhat difficult to define exactly the surgical site over the right supraclavicular area dry clean and intact. - Labs CBC & Chem 7: 09/22/18 05:00 09/22/18 05:00 Labs: Abnormal Lab Results - Last 24 Hours (Table) 09/21/18 09/21/18 09/21/18 Range/Units 05:00 11:47 17:07 WBC (3.8-10.6) k/uL RBC (3.80-5.40) m/uL Hgb (11.4-16.0) gm/dL Hct (34.0-46.0) % MCV (80.0-100.0) fL MCHC (31.0-37.0) g/dL RDW (11.5-15.5) % Plt Count (150-450) k/uL Neutrophils # (Manual) (1.3-7.7) k/uL Lymphocytes # (Manual) (1.0-4.8) k/uL Sodium (137-145) mmol/L Chloride (98-107) mmol/L BUN (7-17) mg/dL Creatinine (0.52-1.04) mg/dL POC Glucose (mg/dL) 216 H 189 H (75-99) mg/dL Plasma Lactic Acid Wilbert 5.3 H* (0.7-2.0) mmol/L Uric Acid (3.7-7.4) mg/dL Calcium (8.4-10.2) mg/dL Total Bilirubin (0.2-1.3) mg/dL AST (14-36) U/L Alkaline Phosphatase (38-126) U/L Total Protein (6.3-8.2) g/dL Albumin (3.5-5.0) g/dL 09/21/18 09/22/18 09/22/18 Range/Units 20:55 05:00 05:00 WBC 11.8 H (3.8-10.6) k/uL RBC 2.72 L (3.80-5.40) m/uL Hgb 8.4 L (11.4-16.0) gm/dL Hct 27.3 L (34.0-46.0) % MCV 100.3 H (80.0-100.0) fL MCHC 30.8 L (31.0-37.0) g/dL RDW 20.2 H (11.5-15.5) % Plt Count 34 L (150-450) k/uL Neutrophils # (Manual) 11.33 H (1.3-7.7) k/uL Lymphocytes # (Manual) 0.35 L (1.0-4.8) k/uL Sodium 123 L (137-145) mmol/L Chloride 88 L (98-107) mmol/L BUN 30 H (7-17) mg/dL Creatinine 1.08 H (0.52-1.04) mg/dL POC Glucose (mg/dL) 185 H (75-99) mg/dL Plasma Lactic Acid Wilbert (0.7-2.0) mmol/L Uric Acid 3.3 L (3.7-7.4) mg/dL Calcium 7.4 L (8.4-10.2) mg/dL Total Bilirubin 2.1 H (0.2-1.3) mg/dL AST 39 H (14-36) U/L Alkaline Phosphatase 308 H (38-126) U/L Total Protein 5.3 L (6.3-8.2) g/dL Albumin 1.7 L (3.5-5.0) g/dL 09/22/18 Range/Units 05:00 WBC (3.8-10.6) k/uL RBC (3.80-5.40) m/uL Hgb (11.4-16.0) gm/dL Hct (34.0-46.0) % MCV (80.0-100.0) fL MCHC (31.0-37.0) g/dL RDW (11.5-15.5) % Plt Count (150-450) k/uL Neutrophils # (Manual) (1.3-7.7) k/uL Lymphocytes # (Manual) (1.0-4.8) k/uL Sodium (137-145) mmol/L Chloride (98-107) mmol/L BUN (7-17) mg/dL Creatinine (0.52-1.04) mg/dL POC Glucose (mg/dL) (75-99) mg/dL Plasma Lactic Acid Wilbert 2.7 H* (0.7-2.0) mmol/L Uric Acid (3.7-7.4) mg/dL Calcium (8.4-10.2) mg/dL Total Bilirubin (0.2-1.3) mg/dL AST (14-36) U/L Alkaline Phosphatase (38-126) U/L Total Protein (6.3-8.2) g/dL Albumin (3.5-5.0) g/dL Microbiology - Last 24 Hours (Table) 09/16/18 22:45 Blood Culture - Preliminary Blood No Growth after 120 hours 09/16/18 21:57 Blood Culture - Preliminary Blood No Growth after 120 hours 09/19/18 18:00 Blood Culture - Preliminary Blood No Growth after 48 hours 09/19/18 18:00 Blood Culture - Preliminary Blood No Growth after 48 hours 09/20/18 00:45 Urine Culture - Final Urine,Voided Assessment and Plan Plan: Assessment 1 Hodgkin's lymphoma with diffuse lymphadenopathy involving the supraclavicular area bilaterally more so on the right, thorax/mediastinum and abdomen. The patient is currently on systemic chemotherapy and she is receiving AVD without the bleomycin. The patient received her first session of systemic chemotherapy. The patient has a PICC line in left upper extremity. We are monitoring the hematologic profile. Unresponsive 11.8. Hemoglobin 8.4 and the platelet count is at 96. 2 extensive anasarca mainly secondary to profound hypoproteinemia . This patient has not responded to diuretic therapy and she has ongoing difficulties with third spacing and edema. She has significant nutritional hypoproteinemia and hypovolemia. Performance and functional status is extremely poor. 3 mild lactic acidosis probably rates underlying malignancy. 4 chronic anemia and thrombocytopenia 5 hyponatremia, stable with his sodium level of 123 6 previous history of urine infection 7 obesity with a BMI of 41 8 diabetes mellitus 9 hypertension 10 profound weakness and debility seconds above-mentioned comorbidities, with a very poor performance and functional status. Plan The patient has not responded to diuretics. I'm going through stop the Zaroxolyn and put the patient oral Lasix 40 mg addition to Aldactone. She may go to oncology unit. Unsure if the patient is going to improve at least on the Hodgkin's standpoint. Her performance and functional status is quite poor and she is extremely weak and nutritional status remains poor and this obviously offer that a very poor long-term prognosis. She can go to oncology and from my standpoint.
[2018-09-22 11:52] LABS: Glucose,Whole Blood 151 mg/dL (75-99)
--- NOTE | 2018-09-22 14:56 | P.PN ---
Subjective Progress Note Date: 09/22/18 Principal diagnosis: Lymphadenopathy no changes since the weekend, still very weak. No signs of bleeding. Platlets 22K Objective - Vital Signs Vital signs: Vital Signs Temp 97.5 F L 09/22/18 12:00 Pulse 105 H 09/22/18 14:00 Resp 30 H 09/22/18 14:00 BP 88/50 09/22/18 14:00 Pulse Ox 98 09/22/18 14:00 Intake & Output 09/21/18 09/22/18 09/22/18 18:59 06:59 18:59 Intake Total 569.225 4469 400 Output Total 665 1695 340 Balance -318.018 -325 60 Weight 116.3 kg Intake: IV 240 240 160 Sodium Chloride 0.9% 1, 240 240 160 000 ml @ 20 mls/hr IV . Q24H [facility]ELIN Rx#:[id number] Intake, IV Titration 6.982 Amount Norepinephrine 16 mg In 6.982 Sodium Chloride 0.9% 250 ml @ Titrate IV .Q0M MADELIN Rx#:[id number] Oral 100 1130 240 Output: Urine 665 1695 340 Other: Voiding Method Indwelling Catheter Indwelling Catheter Indwelling Catheter # Bowel Movements 1 1 - Exam Constitutional General appearance: no acute distress - EENT Eyes: EOMI, PERRLA ENT: hearing grossly normal, normal oropharynx - Neck Neck: no lymphadenopathy Thyroid: bilateral: normal size - Respiratory Respiratory: bilateral: diminished - Cardiovascular Rhythm: regular Heart sounds: normal: S1, S2 - Gastrointestinal General gastrointestinal: normal bowel sounds, soft - Integumentary Integumentary: normal - Neurologic Neurologic: CNII-XII intact - Musculoskeletal Musculoskeletal: generalized weakness, strength equal bilaterally - Psychiatric Psychiatric: A&O x's 3, appropriate affect 2-3+ edema in all 4 extremities Enlarged lymph nodes noted, medial rt supraclavicular area, bilateral axillae (right greater than left) due to patient's obese body habitus, size and extent are somewhat difficult to define exactly - Labs CBC & Chem 7: 09/23/18 05:04 09/23/18 05:04 Labs: Abnormal Lab Results - Last 24 Hours (Table) 09/21/18 09/21/18 09/21/18 Range/Units 05:00 17:07 20:55 WBC (3.8-10.6) k/uL RBC (3.80-5.40) m/uL Hgb (11.4-16.0) gm/dL Hct (34.0-46.0) % MCV (80.0-100.0) fL MCHC (31.0-37.0) g/dL RDW (11.5-15.5) % Plt Count (150-450) k/uL Neutrophils # (Manual) (1.3-7.7) k/uL Lymphocytes # (Manual) (1.0-4.8) k/uL Sodium (137-145) mmol/L Chloride (98-107) mmol/L BUN (7-17) mg/dL Creatinine (0.52-1.04) mg/dL POC Glucose (mg/dL) 189 H 185 H (75-99) mg/dL Plasma Lactic Acid Wilbert 5.3 H* (0.7-2.0) mmol/L Uric Acid (3.7-7.4) mg/dL Calcium (8.4-10.2) mg/dL Total Bilirubin (0.2-1.3) mg/dL AST (14-36) U/L Alkaline Phosphatase (38-126) U/L Total Protein (6.3-8.2) g/dL Albumin (3.5-5.0) g/dL 09/22/18 09/22/18 09/22/18 Range/Units 05:00 05:00 05:00 WBC 11.8 H (3.8-10.6) k/uL RBC 2.72 L (3.80-5.40) m/uL Hgb 8.4 L (11.4-16.0) gm/dL Hct 27.3 L (34.0-46.0) % MCV 100.3 H (80.0-100.0) fL MCHC 30.8 L (31.0-37.0) g/dL RDW 20.2 H (11.5-15.5) % Plt Count 34 L (150-450) k/uL Neutrophils # (Manual) 11.33 H (1.3-7.7) k/uL Lymphocytes # (Manual) 0.35 L (1.0-4.8) k/uL Sodium 123 L (137-145) mmol/L Chloride 88 L (98-107) mmol/L BUN 30 H (7-17) mg/dL Creatinine 1.08 H (0.52-1.04) mg/dL POC Glucose (mg/dL) (75-99) mg/dL Plasma Lactic Acid Wilbert 2.7 H* (0.7-2.0) mmol/L Uric Acid 3.3 L (3.7-7.4) mg/dL Calcium 7.4 L (8.4-10.2) mg/dL Total Bilirubin 2.1 H (0.2-1.3) mg/dL AST 39 H (14-36) U/L Alkaline Phosphatase 308 H (38-126) U/L Total Protein 5.3 L (6.3-8.2) g/dL Albumin 1.7 L (3.5-5.0) g/dL 09/22/18 Range/Units 11:50 WBC (3.8-10.6) k/uL RBC (3.80-5.40) m/uL Hgb (11.4-16.0) gm/dL Hct (34.0-46.0) % MCV (80.0-100.0) fL MCHC (31.0-37.0) g/dL RDW (11.5-15.5) % Plt Count (150-450) k/uL Neutrophils # (Manual) (1.3-7.7) k/uL Lymphocytes # (Manual) (1.0-4.8) k/uL Sodium (137-145) mmol/L Chloride (98-107) mmol/L BUN (7-17) mg/dL Creatinine (0.52-1.04) mg/dL POC Glucose (mg/dL) 151 H (75-99) mg/dL Plasma Lactic Acid Wilbert (0.7-2.0) mmol/L Uric Acid (3.7-7.4) mg/dL Calcium (8.4-10.2) mg/dL Total Bilirubin (0.2-1.3) mg/dL AST (14-36) U/L Alkaline Phosphatase (38-126) U/L Total Protein (6.3-8.2) g/dL Albumin (3.5-5.0) g/dL Microbiology - Last 24 Hours (Table) 09/16/18 22:45 Blood Culture - Preliminary Blood No Growth after 120 hours 09/16/18 21:57 Blood Culture - Preliminary Blood No Growth after 120 hours 09/19/18 18:00 Blood Culture - Preliminary Blood No Growth after 48 hours 09/19/18 18:00 Blood Culture - Preliminary Blood No Growth after 48 hours 09/20/18 00:45 Urine Culture - Final Urine,Voided Assessment and Plan Plan: (1) Lymphadenopathy Narrative/Plan: - extensive adenopathy, as well as other systemic symptoms as noted. - The CT findings are concerning for a lymphoid process or malignancy, she did have a prior needle biopsy at outside [facility] which was inconclusive. - Therefore the patient required an excisional lymph node biopsy. - Lymph node dissection has resulted with diagnosis of Hodgkins Lymphoma. - Surgery Following Current Visit: Yes Status: Acute Code(s): R59.1 - GENERALIZED ENLARGED LYMPH NODES SNOMED Code(s): 20001984 (2) Anemia Narrative/Plan: - No intervention today, hemoglobin is 8 - This is normochromic normocytic, with rapidly some progression since last summer. - There is no history suggestive of bleeding. - Therefore at this time anemia due to malignancy is the primary differential. - No Intervention needed today, Continue to monitor hemoglobin and transfuse if less than 7 Current Visit: Yes Status: Acute Code(s): D64.9 - ANEMIA, UNSPECIFIED SNOMED Code(s): 570890963 (3) Sepsis secondary to UTI Narrative/Plan: - Refer to the admitting service for continued management Current Visit: Yes Status: Acute Code(s): A41.9 - SEPSIS, UNSPECIFIED ORGANISM; N39.0 - URINARY TRACT INFECTION, SITE NOT SPECIFIED SNOMED Code(s): 103602157 (4) Fluid overload Narrative/Plan: - Patient's echocardiogram was normal. - Therefore at this time differential include fluid leak due to lymphedema and/ or increased blood vessel permeability from malignancy. - Continue current care (5) Hyponatremia (6) Increased Bili (7) Protein Calorie Malnutrition: Severe - Consider addition of appetite stimulator (?megace) (8) Anemia and Thrombocytopenia: - Secondary to malignancy and recent chemotherapy - Monitor CBC daily - Hold Anticoagulation when platelets less than 50K and transfuse for platelets less than 15 or hemoglobin less than 7. - Discontinue Sub Cut Prophy heparin Plan: -Concerned about overall performance status. Encourage her to get up and move around, may need rehab (ECF versus IPR) eventually per primary team - Continue daily CBC and CMP, phos, mag and uric acid - Monitor closely for bleeding, infection, and tumor lysis
[2018-09-22 17:12] LABS: Glucose,Whole Blood 256 mg/dL (75-99)
[2018-09-22 20:59] LABS: Glucose,Whole Blood 284 mg/dL (75-99)
[2018-09-22] MEDS: INSULIN DETEMIR 100 UNIT/ML 10 ML VIAL SQ SCH (21:11)
[2018-09-22] MEDS: SODIUM CHLORIDE 0.9% 1,000 ML IV SCH (21:11)
[2018-09-22] MEDS: HYDROcodone/APAP 5-325MG 1 EACH TAB PO PRN (22:40)
[2018-09-23 05:45] LABS: Albumin 1.6 g/dL (3.5-5.0); Calcium 7.4 mg/dL (8.4-10.2); Magnesium 1.7 mg/dL (1.6-2.3); Potassium 3.9 mmol/L (3.5-5.1); Total Protein 4.8 g/dL (6.3-8.2)
[2018-09-23 06:07] LABS: Anisocytosis Slight; Basophils % (A) 0 %; Eosinophils % (A) 0 %; HCT 23.8 % (34.0-46.0); HGB 7.2 gm/dL (11.4-16.0); Lymphocytes # (A) 0.3 k/uL (1.0-4.8); Lymphocytes % (A) 4 %; MCH 30.3 pg (25.0-35.0); MCHC 30.4 g/dL (31.0-37.0); MCV 99.7 fL (80.0-100.0); Macrocytosis Moderate; Mean Platelet Volume 12.4; Monocytes # (A) 0.3 k/uL (0-1.0); Monocytes % (A) 4 %; Neutrophils # (A) 6.7 k/uL (1.3-7.7); Neutrophils % (A) 92 %; RBC 2.39 m/uL (3.80-5.40); WBC 7.3 k/uL (3.8-10.6)
[2018-09-23 06:10] LABS: Platelet Count 22 k/uL (150-450)
[2018-09-23] MEDS: LEVOTHYROXINE 25 MCG TAB PO SCH (06:50)
[2018-09-23 07:16] LABS: Glucose,Whole Blood 190 mg/dL (75-99)
[2018-09-23] MEDS: INSULIN ASPART 100 UNIT/ML 1 ML 10 ML VIAL SQ SCH ×7 (07:20→20:39)
--- NOTE | 2018-09-23 07:44 | P.PN ---
Progress Note - Text The patient is a 78-year-old female who is presently in the intensive care unit. She is newly diagnosed with underlying Hodgkin's lymphoma for which she has received chemotherapy. She remains generally weak. She also has diffuse edema/anasarca of the extremities. Presently she is sitting up in bed. She is trying to eat some breakfast this morning. Denies any unusual shortness of breath or chest pain. Vital signs reveal temperature 97.5 with a pulse of 97 respirations 20. Blood pressure 112/89 and she is 97% saturated on room air. Lungs are generally diminished. Heart tones were regular. Abdomen nontender. Diffuse edema persists No new neurological deficits noted. Laboratory White count is 7.3 with a hemoglobin down to 7.2 and a platelet count of 22. Sodium is 124 with potassium 3.9. BUN of 37 with a creatinine of 0.97 giving her GFR 56. Blood sugar was 190 this morning. Albumin remains very low at 1.6. Cultures of urine and blood still remained negative. Impressions and plans Underlying Hodgkin's lymphoma post chemotherapy. Anemia secondary to malignancy Thrombocytopenia secondary to chemotherapy. Diffuse edema related to hypo-albuminemia Diabetes and hypertension comorbidities. Pulmonary and oncology notes were regarded. Likely patient can be transferred to oncology floor. Prognosis guarded.
[2018-09-23] MEDS: METOPROLOL SUCCINATE (ER) 50 MG TAB.ER.24H PO SCH (09:37)
[2018-09-23] MEDS: LISINOPRIL 5 MG TAB PO SCH (09:37)
[2018-09-23] MEDS: SPIRONOLACTONE 25 MG TAB PO SCH (09:56)
[2018-09-23] MEDS: FUROSEMIDE 40 MG TAB PO SCH (09:56)
[2018-09-23] MEDS: PANTOPRAZOLE 40 MG TABLET PO SCH (09:56)
[2018-09-23] MEDS: HYDROcodone/APAP 5-325MG 1 EACH TAB PO PRN ×2 (10:00→20:38)
[2018-09-23] MEDS: ALLOPURINOL 300 MG TAB PO SCH (11:05)
[2018-09-23 11:19] LABS: Glucose,Whole Blood 196 mg/dL (75-99)
[2018-09-23 12:16] LABS: INR 1.3 (<1.2); Prothrombin Time 13.6 sec (9.0-12.0)
[2018-09-23] MEDS: HYDROmorphone 1 MG/ML 1 ML SYRINGE IVP PRN (12:48)
[2018-09-23] MEDS: FUROSEMIDE 250 MG in SODIUM CHLORIDE 0.9% 225 ML IVP SCH (13:04)
--- NOTE | 2018-09-23 13:07 | P.PN ---
Subjective Progress Note Date: 09/23/18 Principal diagnosis: Hodgkin's lymphoma, anasarca and hypoproteinemia as well as hypervolemic hyponatremia 78-year-old obese female patient with known history of hypertension diabetes mellitus who presented to the hospital because of ongoing progressive weakness, vague abdominal discomfort and pain, weight loss and constitutions symptoms. The patient was found to be anemic. The patient was found to have some lymphadenopathy and the patient undergone a lymph node biopsy in [place] that was sampled from the neck area and the results were nondiagnostic and the patient was discharged home. The patient came back to [place] and a CAT scan of the chest and abdomen and pelvis was done during this current admission and the CAT scan showed a mild to moderate bilateral hilar lymphadenopathy, adenopathy in the superior anterior and middle mediastinum and he was also subcarinal and right paraesophageal lymphadenopathy. The largest lymph node was a 5 x 2.8 cm lymph node in the right supraclavicular area. There was also lymphadenopathy in the left clavicular area, there was also several lymph nodes in the abdomen and pelvis extending in the peripancreatic and shira hepatis and portacaval and periaortic positions. All the things raises the suspicion for lymphoma and the patient had a right subclavicular lymph node biopsy that was done by general surgery and the results are still pending for now. The patient however was progressively getting weak and hypoproteinemic and hypovolemic and she has developed increased edema in the upper and lower extremity and anasarca. Yesterday she became hypotensive and she got transferred to the intensive care unit. Overnight she required IV fluids which was in the form of normal state rate of 100 mL an hour. She received 2 doses of 25 g of albumin. She was briefly placed on pressors and norepinephrine infusion was was discontinued this morning. No significant cough or sputum production. No fever or chills. She has had a klebsiella urine checked infection back in April 2018 and the repeat UA was negative. Currently she is on oral Lasix. She is also on Aldactone pH was given empiric antibiotic coverage with a combination of Rocephin and vancomycin. Metoprolol was placed on hold. Lisinopril was laced also on hold. She has loose liquidy bowel movements. No significant diarrhea. No altered mentation. No cough or sputum production. No open wounds or sores or skin rash. She is quite weak in all 4 extremities mainly in lower extremity is bilaterally. On 09/22/2018 the patient is essentially the same. She is post systemic chemotherapy with a combination of dacarbazine and doxorubicin. The patient is being treated for Hodgkin's lymphoma. Very much debilitated. Very much weak. Oral intake remains minimal. Protein is low. She has third spacing and the patient is not responding to diuretics. Sodium level is on the decline is currently down to 123. She is in a negative fluid balance of 600 mL despite being on diuretics. As such she has not responded to diuretics effectively. No hypotension. Mental status is fluctuating. This morning she was making more sense and she was able to communicate. Yet at times she has been found to be confused. No cough. No sputum production. No headaches. She is moving all 4 extremities that she is suffering from profound weakness in all 4 extremities. She is on a combination of Zaroxolyn and Lasix and Aldactone and despite that she has been able to diabetes effectively. No other significant events overnight. Antibiotics have been discontinued. She is afebrile. She has a PICC line in left upper extremity. On 09/23/2018, patient remains in the ICU, continues to have significant fluid retention, anasarca, profound edema in lower extremities, but the patient is not in any form of respiratory distress. Patient continues to third space in spite of diuretics, she has excellent urine output, patient is hemodynamically stable, mental status is fluctuating. She is being followed by many consultants regarding her multiple medical problems including her newly diagnosed Hodgkin's lymphoma. After evaluating the patient today, and after reviewing all clinical history, reviewing all the labs, chest x-ray, I felt the patient could be transferred out to a medical oncology floor. Objective - Vital Signs Vital signs: Vital Signs Temp 97.6 F 09/23/18 04:00 Pulse 98 09/23/18 09:00 Resp 19 09/23/18 09:00 BP 97/56 09/23/18 09:00 Pulse Ox 99 09/23/18 09:00 Intake & Output 09/22/18 09/23/18 09/23/18 18:59 06:59 18:59 Intake Total 480 680 180 Output Total 511 1235 301 Balance -31 -555 -121 Weight 117 kg Intake: IV 240 200 80 Sodium Chloride 0.9% 1, 240 200 80 000 ml @ 20 mls/hr IV . Q24H [facility] Rx#:[id number] Oral 240 480 100 Output: Urine 510 1235 300 Stool 1 1 Other: Voiding Method Indwelling Catheter Indwelling Catheter Indwelling Catheter - Exam Physical Exam: Revealed a 78-year-old female, obese, in no distress. Head: Atraumatic, normocephalic. HEENT:[Neck is supple.] [No neck masses.] [No thyromegaly.] [No JVD.] Right supraclavicular surgical incision is healing well. Chest: [Diminished breath sound bilaterally, no crackles or rhonchi or wheezes.] Cardiac Exam: [Normal S1 and S2, no S3 gallop, no murmur.] Abdomen: [Obese Soft, nontender, no megaly, no rebound, no guarding, normal bowel sounds. Suspect ascites.] Extremities: 3+ bipedal edema, no clubbing, no cyanosis. Neurological Exam: [No focal neurologic deficit. Musculoskeletal: Generalized weakness, strength equal bilaterally lymphatics: No enlarged lymph nodes in the right supraclavicular area and bilateral axillary areas. Right supraclavicular surgical site is clean and dry. - Labs CBC & Chem 7: 09/23/18 05:04 09/23/18 05:04 Labs: Abnormal Lab Results - Last 24 Hours (Table) 09/22/18 09/22/18 09/23/18 Range/Units 17:09 20:58 05:04 RBC 2.39 L (3.80-5.40) m/uL Hgb 7.2 L (11.4-16.0) gm/dL Hct 23.8 L (34.0-46.0) % MCHC 30.4 L (31.0-37.0) g/dL RDW 20.0 H (11.5-15.5) % Plt Count 22 L (150-450) k/uL Lymphocytes # 0.3 L (1.0-4.8) k/uL PT (9.0-12.0) sec INR (<1.2) APTT (22.0-30.0) sec Sodium (137-145) mmol/L Chloride (98-107) mmol/L BUN (7-17) mg/dL Glucose (74-99) mg/dL POC Glucose (mg/dL) 256 H 284 H (75-99) mg/dL Plasma Lactic Acid Wilbert (0.7-2.0) mmol/L Calcium (8.4-10.2) mg/dL Total Bilirubin (0.2-1.3) mg/dL AST (14-36) U/L Alkaline Phosphatase (38-126) U/L Total Protein (6.3-8.2) g/dL Albumin (3.5-5.0) g/dL 09/23/18 09/23/18 09/23/18 Range/Units 05:04 07:00 07:14 RBC (3.80-5.40) m/uL Hgb (11.4-16.0) gm/dL Hct (34.0-46.0) % MCHC (31.0-37.0) g/dL RDW (11.5-15.5) % Plt Count (150-450) k/uL Lymphocytes # (1.0-4.8) k/uL PT (9.0-12.0) sec INR (<1.2) APTT (22.0-30.0) sec Sodium 124 L (137-145) mmol/L Chloride 89 L (98-107) mmol/L BUN 37 H (7-17) mg/dL Glucose 168 H (74-99) mg/dL POC Glucose (mg/dL) 190 H (75-99) mg/dL Plasma Lactic Acid Wilbert 2.3 H* (0.7-2.0) mmol/L Calcium 7.4 L (8.4-10.2) mg/dL Total Bilirubin 2.0 H (0.2-1.3) mg/dL AST 44 H (14-36) U/L Alkaline Phosphatase 315 H (38-126) U/L Total Protein 4.8 L (6.3-8.2) g/dL Albumin 1.6 L (3.5-5.0) g/dL 09/23/18 09/23/18 Range/Units 11:14 11:41 RBC (3.80-5.40) m/uL Hgb (11.4-16.0) gm/dL Hct (34.0-46.0) % MCHC (31.0-37.0) g/dL RDW (11.5-15.5) % Plt Count (150-450) k/uL Lymphocytes # (1.0-4.8) k/uL PT 13.6 H (9.0-12.0) sec INR 1.3 H (<1.2) APTT 35.0 H (22.0-30.0) sec Sodium (137-145) mmol/L Chloride (98-107) mmol/L BUN (7-17) mg/dL Glucose (74-99) mg/dL POC Glucose (mg/dL) 196 H (75-99) mg/dL Plasma Lactic Acid Wilbert (0.7-2.0) mmol/L Calcium (8.4-10.2) mg/dL Total Bilirubin (0.2-1.3) mg/dL AST (14-36) U/L Alkaline Phosphatase (38-126) U/L Total Protein (6.3-8.2) g/dL Albumin (3.5-5.0) g/dL Microbiology - Last 24 Hours (Table) 09/16/18 22:45 Blood Culture - Final Blood No Growth after 144 hours 09/16/18 21:57 Blood Culture - Final Blood No Growth after 144 hours 09/19/18 18:00 Blood Culture - Preliminary Blood No Growth after 72 hours 09/19/18 18:00 Blood Culture - Preliminary Blood No Growth after 72 hours Assessment and Plan Assessment: Impression: 1 Hodgkin's lymphoma with diffuse lymphadenopathy as noted on the diagnostic workup including CT of the chest mediastinum and abdomen. 2 extensive anasarca and hypoproteinemia some of the swelling in the lower extremities could be lymphedema. 3 electrolytes imbalance mostly hyponatremia felt to hypervolemic hyponatremia. 4 morbid obesity, BMI of 41. 5 type 2 diabetes 6 poor performance status and medical debility secondary to above. Recommendation: Continue present supportive care measures, continue systemic chemotherapy for the lymphoma, continue to correct and monitor electrolytes, patient could be transferred out of the ICU to oncology, will continue to follow. Patient remains relatively ill, and she has multiple complex medical issues as noted above. We'll follow while on oncology. Time with Patient: Less than 30
[2018-09-23 18:01] LABS: Glucose,Whole Blood 290 mg/dL (75-99)
[2018-09-23] MEDS: SODIUM CHLORIDE 0.9% 1,000 ML IV SCH (19:25)
[2018-09-23 20:37] LABS: Glucose,Whole Blood 439 mg/dL (75-99)
[2018-09-23 20:39] LABS: Glucose,Whole Blood 220 mg/dL (75-99)
[2018-09-23] MEDS: INSULIN DETEMIR 100 UNIT/ML 10 ML VIAL SQ SCH (20:39)
--- NOTE | 2018-09-23 21:02 | P.PN ---
Subjective Progress Note Date: 09/23/18 (late entry) Principal diagnosis: Lymphadenopathy no changes since the weekend, still very weak. No signs of bleeding. Platlets 22K, Objective - Vital Signs Vital signs: Vital Signs Temp 97.6 F 09/23/18 18:25 Pulse 105 H 09/23/18 18:25 Resp 16 09/23/18 18:25 BP 99/66 09/23/18 18:25 Pulse Ox 96 09/23/18 18:25 Intake & Output 09/23/18 09/23/18 09/24/18 06:59 18:59 06:59 Intake Total 680 280 Output Total 1235 603 Balance -555 -323 Weight 117 kg 117 kg Intake: IV 200 180 Sodium Chloride 0.9% 1, 200 180 000 ml @ 20 mls/hr IV . Q24H [facility] Rx#:[id number] Oral 480 100 Output: Urine 1235 600 Stool 3 Other: Voiding Method Indwelling Catheter Indwelling Catheter # Voids 1 - Exam Constitutional General appearance: no acute distress - EENT Eyes: EOMI, PERRLA ENT: hearing grossly normal, normal oropharynx - Neck Neck: no lymphadenopathy Thyroid: bilateral: normal size - Respiratory Respiratory: bilateral: diminished - Cardiovascular Rhythm: regular Heart sounds: normal: S1, S2 - Gastrointestinal General gastrointestinal: normal bowel sounds, soft - Integumentary Integumentary: normal - Neurologic Neurologic: CNII-XII intact - Musculoskeletal Musculoskeletal: generalized weakness, strength equal bilaterally - Psychiatric Psychiatric: A&O x's 3, appropriate affect 2-3+ edema in all 4 extremities Enlarged lymph nodes noted, medial rt supraclavicular area, bilateral axillae (right greater than left) due to patient's obese body habitus, size and extent are somewhat difficult to define exactly - Labs CBC & Chem 7: 09/23/18 05:04 09/23/18 05:04 Labs: Abnormal Lab Results - Last 24 Hours (Table) 09/23/18 09/23/18 09/23/18 Range/Units 05:04 05:04 07:00 RBC 2.39 L (3.80-5.40) m/uL Hgb 7.2 L (11.4-16.0) gm/dL Hct 23.8 L (34.0-46.0) % MCHC 30.4 L (31.0-37.0) g/dL RDW 20.0 H (11.5-15.5) % Plt Count 22 L (150-450) k/uL Lymphocytes # 0.3 L (1.0-4.8) k/uL PT (9.0-12.0) sec INR (<1.2) APTT (22.0-30.0) sec Sodium 124 L (137-145) mmol/L Chloride 89 L (98-107) mmol/L BUN 37 H (7-17) mg/dL Glucose 168 H (74-99) mg/dL POC Glucose (mg/dL) (75-99) mg/dL Plasma Lactic Acid Wilbert 2.3 H* (0.7-2.0) mmol/L Calcium 7.4 L (8.4-10.2) mg/dL Total Bilirubin 2.0 H (0.2-1.3) mg/dL AST 44 H (14-36) U/L Alkaline Phosphatase 315 H (38-126) U/L Total Protein 4.8 L (6.3-8.2) g/dL Albumin 1.6 L (3.5-5.0) g/dL 09/23/18 09/23/18 09/23/18 Range/Units 07:14 11:14 11:41 RBC (3.80-5.40) m/uL Hgb (11.4-16.0) gm/dL Hct (34.0-46.0) % MCHC (31.0-37.0) g/dL RDW (11.5-15.5) % Plt Count (150-450) k/uL Lymphocytes # (1.0-4.8) k/uL PT 13.6 H (9.0-12.0) sec INR 1.3 H (<1.2) APTT 35.0 H (22.0-30.0) sec Sodium (137-145) mmol/L Chloride (98-107) mmol/L BUN (7-17) mg/dL Glucose (74-99) mg/dL POC Glucose (mg/dL) 190 H 196 H (75-99) mg/dL Plasma Lactic Acid Wilbert (0.7-2.0) mmol/L Calcium (8.4-10.2) mg/dL Total Bilirubin (0.2-1.3) mg/dL AST (14-36) U/L Alkaline Phosphatase (38-126) U/L Total Protein (6.3-8.2) g/dL Albumin (3.5-5.0) g/dL 09/23/18 09/23/18 09/23/18 Range/Units 17:59 20:33 20:37 RBC (3.80-5.40) m/uL Hgb (11.4-16.0) gm/dL Hct (34.0-46.0) % MCHC (31.0-37.0) g/dL RDW (11.5-15.5) % Plt Count (150-450) k/uL Lymphocytes # (1.0-4.8) k/uL PT (9.0-12.0) sec INR (<1.2) APTT (22.0-30.0) sec Sodium (137-145) mmol/L Chloride (98-107) mmol/L BUN (7-17) mg/dL Glucose (74-99) mg/dL POC Glucose (mg/dL) 290 H 439 H 220 H (75-99) mg/dL Plasma Lactic Acid Wilbert (0.7-2.0) mmol/L Calcium (8.4-10.2) mg/dL Total Bilirubin (0.2-1.3) mg/dL AST (14-36) U/L Alkaline Phosphatase (38-126) U/L Total Protein (6.3-8.2) g/dL Albumin (3.5-5.0) g/dL Microbiology - Last 24 Hours (Table) 09/19/18 18:00 Blood Culture - Preliminary Blood No Growth after 96 hours 09/19/18 18:00 Blood Culture - Preliminary Blood No Growth after 96 hours 09/16/18 22:45 Blood Culture - Final Blood No Growth after 144 hours 09/16/18 21:57 Blood Culture - Final Blood No Growth after 144 hours Assessment and Plan Plan: (1) Lymphadenopathy Narrative/Plan: - extensive adenopathy, as well as other systemic symptoms as noted. - The CT findings are concerning for a lymphoid process or malignancy, she did have a prior needle biopsy at outside [facility] which was inconclusive. - Therefore the patient required an excisional lymph node biopsy. - Lymph node dissection has resulted with diagnosis of Hodgkins Lymphoma. - Surgery Following Current Visit: Yes Status: Acute Code(s): R59.1 - GENERALIZED ENLARGED LYMPH NODES SNOMED Code(s): 07578667 (2) Anemia Narrative/Plan: - No intervention today, hemoglobin is 8 - This is normochromic normocytic, with rapidly some progression since last summer. - There is no history suggestive of bleeding. - Therefore at this time anemia due to malignancy is the primary differential. - No Intervention needed today, Continue to monitor hemoglobin and transfuse if less than 7 Current Visit: Yes Status: Acute Code(s): D64.9 - ANEMIA, UNSPECIFIED SNOMED Code(s): 542424935 (3) Sepsis secondary to UTI Narrative/Plan: - Refer to the admitting service for continued management Current Visit: Yes Status: Acute Code(s): A41.9 - SEPSIS, UNSPECIFIED ORGANISM; N39.0 - URINARY TRACT INFECTION, SITE NOT SPECIFIED SNOMED Code(s): 385053449 (4) Fluid overload Narrative/Plan: - Patient's echocardiogram was normal. - Therefore at this time differential include fluid leak due to lymphedema and/ or increased blood vessel permeability from malignancy. - Continue current care (5) Hyponatremia (6) Increased Bili (7) Protein Calorie Malnutrition: Severe - Consider addition of appetite stimulator (?megace) (8) Anemia and Thrombocytopenia: - Secondary to malignancy and recent chemotherapy - Monitor CBC daily - Hold Anticoagulation when platelets less than 50K and transfuse for platelets less than 15 or hemoglobin less than 7. - Discontinue Sub Cut Prophy heparin Plan: -Concerned about overall performance status. Encourage her to get up and move around, may need rehab (ECF versus IPR) eventually per primary team - Continue daily CBC and CMP, phos, mag and uric acid - Monitor closely for bleeding, infection, and tumor lysis
[2018-09-24] MEDS: LEVOTHYROXINE 25 MCG TAB PO SCH (06:14)
[2018-09-24 07:06] LABS: Anisocytosis Slight; Basophils % (A) 0 %; Eosinophils % (A) 1 %; HCT 26.9 % (34.0-46.0); HGB 8.5 gm/dL (11.4-16.0); Hypochromasia Slight; Lymphocytes # (A) 0.4 k/uL (1.0-4.8); Lymphocytes % (A) 10 %; MCH 31.8 pg (25.0-35.0); MCHC 31.6 g/dL (31.0-37.0); MCV 100.8 fL (80.0-100.0); Macrocytosis Moderate; Monocytes # (A) 0.1 k/uL (0-1.0); Monocytes % (A) 2 %; Neutrophils # (A) 3.3 k/uL (1.3-7.7); Neutrophils % (A) 86 %; RBC 2.67 m/uL (3.80-5.40); RDW 19.6 % (11.5-15.5); WBC 3.8 k/uL (3.8-10.6)
[2018-09-24 07:07] LABS: Glucose,Whole Blood 194 mg/dL (75-99)
[2018-09-24 07:10] LABS: Platelet Count 28 k/uL (150-450)
[2018-09-24 07:24] LABS: Calcium 7.9 mg/dL (8.4-10.2); Magnesium 1.5 mg/dL (1.6-2.3); Potassium 4.4 mmol/L (3.5-5.1); Total Bilirubin 1.7 mg/dL (0.2-1.3); Total Protein 5.7 g/dL (6.3-8.2); Uric Acid 2.9 mg/dL (3.7-7.4)
[2018-09-24] MEDS: INSULIN ASPART 100 UNIT/ML 1 ML 10 ML VIAL SQ SCH ×7 (08:09→20:44)
[2018-09-24] MEDS: LISINOPRIL 5 MG TAB PO SCH (08:10)
[2018-09-24] MEDS: PANTOPRAZOLE 40 MG TABLET PO SCH (08:10)
[2018-09-24] MEDS: SPIRONOLACTONE 25 MG TAB PO SCH (08:10)
[2018-09-24] MEDS: METOPROLOL SUCCINATE (ER) 50 MG TAB.ER.24H PO SCH (08:10)
[2018-09-24] MEDS: ALLOPURINOL 300 MG TAB PO SCH (08:10)
[2018-09-24] MEDS: FUROSEMIDE 40 MG TAB PO SCH (08:10)
--- NOTE | 2018-09-24 08:14 | P.PN ---
Progress Note - Text The patient is a 78-year-old female who was recently moved from the intensive care unit down here to oncology. The patient is a recently diagnosed the patient with diffuse Hodgkin's lymphoma. She has undergone some chemotherapy while she was in the intensive care unit. She continues to be somewhat grossly edematous. Weak. No complaints of chest pain or nausea and vomiting. Vital signs show a temperature 97.4 with a pulse of 120 and respirations 20. Blood pressure 135/84. Lungs are generally clear anteriorly and diminished at bases. Abdomen is obese but nontender. Patient still has grade 2-3 diffuse edema both upper and lower extremities. She appears somewhat fatigued but without focal deficits neurologically. Laboratory White count is 3.8 with a hemoglobin 8.5 and a platelet count of 28. Sodium is still low but improved at 127. Blood sugar was 188 this morning. Albumin is still very low at 2.0. All urine and blood cultures are still negative. Impressions and plans The patient with newly diagnosed Hodgkin's lymphoma. Generally she is obese with diabetes and hypertension and osteoarthritis. Overall medical debility with weakness. Continue with physical therapy. Discussed with patient and nursing staff regarding discharge planning to be involved regarding subacute rehab. Await any further recommendations from oncology. Prognosis guarded.
[2018-09-24 10:57] LABS: Glucose,Whole Blood 234 mg/dL (75-99)
[2018-09-24] MEDS ORDERED: Magnesium Replacement Protocol 1 EACH MISC MISCELLANE PRN (11:01)
--- NOTE | 2018-09-24 11:39 | P.PN ---
Subjective Progress Note Date: 09/24/18 Principal diagnosis: Hodgkin's lymphoma, anasarca and hypoproteinemia as well as hypervolemic hyponatremia 78-year-old obese female patient with known history of hypertension diabetes mellitus who presented to the hospital because of ongoing progressive weakness, vague abdominal discomfort and pain, weight loss and constitutions symptoms. The patient was found to be anemic. The patient was found to have some lymphadenopathy and the patient undergone a lymph node biopsy in [place] that was sampled from the neck area and the results were nondiagnostic and the patient was discharged home. The patient came back to [place] and a CAT scan of the chest and abdomen and pelvis was done during this current admission and the CAT scan showed a mild to moderate bilateral hilar lymphadenopathy, adenopathy in the superior anterior and middle mediastinum and he was also subcarinal and right paraesophageal lymphadenopathy. The largest lymph node was a 5 x 2.8 cm lymph node in the right supraclavicular area. There was also lymphadenopathy in the left clavicular area, there was also several lymph nodes in the abdomen and pelvis extending in the peripancreatic and shira hepatis and portacaval and periaortic positions. All the things raises the suspicion for lymphoma and the patient had a right subclavicular lymph node biopsy that was done by general surgery and the results are still pending for now. The patient however was progressively getting weak and hypoproteinemic and hypovolemic and she has developed increased edema in the upper and lower extremity and anasarca. Yesterday she became hypotensive and she got transferred to the intensive care unit. Overnight she required IV fluids which was in the form of normal state rate of 100 mL an hour. She received 2 doses of 25 g of albumin. She was briefly placed on pressors and norepinephrine infusion was was discontinued this morning. No significant cough or sputum production. No fever or chills. She has had a klebsiella urine checked infection back in April 2018 and the repeat UA was negative. Currently she is on oral Lasix. She is also on Aldactone pH was given empiric antibiotic coverage with a combination of Rocephin and vancomycin. Metoprolol was placed on hold. Lisinopril was laced also on hold. She has loose liquidy bowel movements. No significant diarrhea. No altered mentation. No cough or sputum production. No open wounds or sores or skin rash. She is quite weak in all 4 extremities mainly in lower extremity is bilaterally. On 09/22/2018 the patient is essentially the same. She is post systemic chemotherapy with a combination of dacarbazine and doxorubicin. The patient is being treated for Hodgkin's lymphoma. Very much debilitated. Very much weak. Oral intake remains minimal. Protein is low. She has third spacing and the patient is not responding to diuretics. Sodium level is on the decline is currently down to 123. She is in a negative fluid balance of 600 mL despite being on diuretics. As such she has not responded to diuretics effectively. No hypotension. Mental status is fluctuating. This morning she was making more sense and she was able to communicate. Yet at times she has been found to be confused. No cough. No sputum production. No headaches. She is moving all 4 extremities that she is suffering from profound weakness in all 4 extremities. She is on a combination of Zaroxolyn and Lasix and Aldactone and despite that she has been able to diabetes effectively. No other significant events overnight. Antibiotics have been discontinued. She is afebrile. She has a PICC line in left upper extremity. On 09/23/2018, patient remains in the ICU, continues to have significant fluid retention, anasarca, profound edema in lower extremities, but the patient is not in any form of respiratory distress. Patient continues to third space in spite of diuretics, she has excellent urine output, patient is hemodynamically stable, mental status is fluctuating. She is being followed by many consultants regarding her multiple medical problems including her newly diagnosed Hodgkin's lymphoma. After evaluating the patient today, and after reviewing all clinical history, reviewing all the labs, chest x-ray, I felt the patient could be transferred out to a medical oncology floor. The patient is seen again today 09/24/2018 in follow-up on the oncology unit. She is currently awake and alert. Resting comfortably in bed. Denies any worsening shortness of breath, cough or congestion. Maintaining O2 saturations in the 90s on room air. She's been afebrile. Hemodynamically stable. Blood and urine cultures reveal no growth. White count 3.8. Hemoglobin 8.5. Platelet count 28,000. Sodium 127. Creatinine 0.74. Objective - Vital Signs Vital signs: Vital Signs Temp 97.4 F L 09/24/18 11:11 Pulse 96 09/24/18 11:11 Resp 18 09/24/18 11:11 BP 95/65 09/24/18 11:11 Pulse Ox 97 09/24/18 11:11 Intake & Output 09/23/18 09/24/18 09/24/18 18:59 06:59 18:59 Intake Total 280 220 Output Total 603 525 Balance -323 220 -525 Weight 117 kg Intake: IV 180 Sodium Chloride 0.9% 1, 180 000 ml @ 20 mls/hr IV . Q24H [facility] Rx#:[id number] Oral 100 220 Output: Urine 600 525 Stool 3 Other: Voiding Method Indwelling Catheter Indwelling Catheter # Voids 1 1,500 # Bowel Movements 1 - Exam GENERAL EXAM: Morbidly obese. Alert, active, comfortable in no apparent distress. On room air. HEAD: Normocephalic. EYES: Normal reaction of pupils, equal size. NOSE: Clear with pink turbinates. THROAT: No erythema or exudates. NECK: No masses, no JVD. CHEST: No chest wall deformity. LUNGS: Equal air entry with no crackles, wheeze, rhonchi or dullness. Diminished. CVS: S1 and S2 normal with no audible murmur, regular rhythm. ABDOMEN: No hepatosplenomegaly, normal bowel sounds, no guarding or rigidity. SPINE: No scoliosis or deformity SKIN: No rashes CENTRAL NERVOUS SYSTEM: Generalized weakness, No focal deficits, tone is normal in all 4 extremities. EXTREMITIES: There is 1-2+ peripheral edema. No clubbing, no cyanosis. Peripheral pulses are intact. - Labs CBC & Chem 7: 09/24/18 06:48 09/24/18 06:48 Labs: Abnormal Lab Results - Last 24 Hours (Table) 09/23/18 09/23/18 09/23/18 Range/Units 11:41 17:59 20:33 RBC (3.80-5.40) m/uL Hgb (11.4-16.0) gm/dL Hct (34.0-46.0) % MCV (80.0-100.0) fL RDW (11.5-15.5) % Plt Count (150-450) k/uL Lymphocytes # (1.0-4.8) k/uL PT 13.6 H (9.0-12.0) sec INR 1.3 H (<1.2) APTT 35.0 H (22.0-30.0) sec Sodium (137-145) mmol/L Chloride (98-107) mmol/L BUN (7-17) mg/dL Glucose (74-99) mg/dL POC Glucose (mg/dL) 290 H 439 H (75-99) mg/dL Uric Acid (3.7-7.4) mg/dL Calcium (8.4-10.2) mg/dL Phosphorus (2.5-4.5) mg/dL Magnesium (1.6-2.3) mg/dL Total Bilirubin (0.2-1.3) mg/dL AST (14-36) U/L Alkaline Phosphatase (38-126) U/L Total Protein (6.3-8.2) g/dL Albumin (3.5-5.0) g/dL 09/23/18 09/24/18 09/24/18 Range/Units 20:37 06:48 06:48 RBC 2.67 L (3.80-5.40) m/uL Hgb 8.5 L (11.4-16.0) gm/dL Hct 26.9 L (34.0-46.0) % MCV 100.8 H (80.0-100.0) fL RDW 19.6 H (11.5-15.5) % Plt Count 28 L (150-450) k/uL Lymphocytes # 0.4 L (1.0-4.8) k/uL PT (9.0-12.0) sec INR (<1.2) APTT (22.0-30.0) sec Sodium 127 L (137-145) mmol/L Chloride 89 L (98-107) mmol/L BUN 41 H (7-17) mg/dL Glucose 188 H (74-99) mg/dL POC Glucose (mg/dL) 220 H (75-99) mg/dL Uric Acid 2.9 L (3.7-7.4) mg/dL Calcium 7.9 L (8.4-10.2) mg/dL Phosphorus 5.0 H (2.5-4.5) mg/dL Magnesium 1.5 L (1.6-2.3) mg/dL Total Bilirubin 1.7 H (0.2-1.3) mg/dL AST 43 H (14-36) U/L Alkaline Phosphatase 396 H (38-126) U/L Total Protein 5.7 L (6.3-8.2) g/dL Albumin 2.0 L (3.5-5.0) g/dL 09/24/18 09/24/18 Range/Units 07:06 10:56 RBC (3.80-5.40) m/uL Hgb (11.4-16.0) gm/dL Hct (34.0-46.0) % MCV (80.0-100.0) fL RDW (11.5-15.5) % Plt Count (150-450) k/uL Lymphocytes # (1.0-4.8) k/uL PT (9.0-12.0) sec INR (<1.2) APTT (22.0-30.0) sec Sodium (137-145) mmol/L Chloride (98-107) mmol/L BUN (7-17) mg/dL Glucose (74-99) mg/dL POC Glucose (mg/dL) 194 H 234 H (75-99) mg/dL Uric Acid (3.7-7.4) mg/dL Calcium (8.4-10.2) mg/dL Phosphorus (2.5-4.5) mg/dL Magnesium (1.6-2.3) mg/dL Total Bilirubin (0.2-1.3) mg/dL AST (14-36) U/L Alkaline Phosphatase (38-126) U/L Total Protein (6.3-8.2) g/dL Albumin (3.5-5.0) g/dL Microbiology - Last 24 Hours (Table) 09/19/18 18:00 Blood Culture - Preliminary Blood No Growth after 96 hours 09/19/18 18:00 Blood Culture - Preliminary Blood No Growth after 96 hours Assessment and Plan Assessment: Impression: 1 Hodgkin's lymphoma with diffuse lymphadenopathy as noted on the diagnostic workup including CT of the chest mediastinum and abdomen. 2 extensive anasarca and hypoproteinemia some of the swelling in the lower extremities could be lymphedema. 3 electrolytes imbalance mostly hyponatremia felt to hypervolemic hyponatremia. 4 morbid obesity, BMI of 42. 5 type 2 diabetes 6 poor overall functional performance based on the above-mentioned multiple comorbidities. Recommendation: The patient was seen and evaluated by Dr. Wang. She is currently stable from the pulmonary and critical care standpoint. Oncology is on the case. Continue her current treatment plan. We'll continue to follow and make further recommendations based on her clinical status. I, the cosigning physician, performed a history & physical examination of the patient. Lungs sounds are clear. Maintaining good O2 saturations in the 90s on room air. I discussed the assessment and plan of care with my nurse practitioner, Frances Lr. I attest to the above note as dictated by her.
[2018-09-24] MEDS: MAGNESIUM SULFATE-D5W PMX 1 GM in DEXTROSE/WATER 1 100ML.BAG IVPB SCH ×2 (12:13→13:30)
--- NOTE | 2018-09-24 12:17 | P.PN ---
Subjective Progress Note Date: 09/24/18 Principal diagnosis: Lymphadenopathy Blood counts show mild improvement today. Objective - Vital Signs Vital signs: Vital Signs Temp 97.4 F L 09/24/18 11:11 Pulse 96 09/24/18 11:11 Resp 18 09/24/18 11:11 BP 95/65 09/24/18 11:11 Pulse Ox 97 09/24/18 11:11 Intake & Output 09/23/18 09/24/18 09/24/18 18:59 06:59 18:59 Intake Total 280 220 Output Total 603 526 Balance -323 220 -526 Weight 117 kg Intake: IV 180 Sodium Chloride 0.9% 1, 180 000 ml @ 20 mls/hr IV . Q24H [facility] Rx#:[id number] Oral 100 220 Output: Urine 600 525 Stool 3 1 Other: Voiding Method Indwelling Catheter Indwelling Catheter Indwelling Catheter # Voids 1 1,500 # Bowel Movements 1 - Exam Constitutional General appearance: no acute distress - EENT Eyes: EOMI, PERRLA ENT: hearing grossly normal, normal oropharynx - Neck Neck: no lymphadenopathy Thyroid: bilateral: normal size - Respiratory Respiratory: bilateral: diminished - Cardiovascular Rhythm: regular Heart sounds: normal: S1, S2 - Gastrointestinal General gastrointestinal: normal bowel sounds, soft - Integumentary Integumentary: normal - Neurologic Neurologic: CNII-XII intact - Musculoskeletal Musculoskeletal: generalized weakness, strength equal bilaterally - Psychiatric Psychiatric: A&O x's 3, appropriate affect 2-3+ edema in all 4 extremities Enlarged lymph nodes noted, medial rt supraclavicular area, bilateral axillae (right greater than left) due to patient's obese body habitus, size and extent are somewhat difficult to define exactly - Labs CBC & Chem 7: 09/24/18 06:48 09/24/18 06:48 Labs: Abnormal Lab Results - Last 24 Hours (Table) 09/23/18 09/23/18 09/23/18 Range/Units 11:41 17:59 20:33 RBC (3.80-5.40) m/uL Hgb (11.4-16.0) gm/dL Hct (34.0-46.0) % MCV (80.0-100.0) fL RDW (11.5-15.5) % Plt Count (150-450) k/uL Lymphocytes # (1.0-4.8) k/uL PT 13.6 H (9.0-12.0) sec INR 1.3 H (<1.2) APTT 35.0 H (22.0-30.0) sec Sodium (137-145) mmol/L Chloride (98-107) mmol/L BUN (7-17) mg/dL Glucose (74-99) mg/dL POC Glucose (mg/dL) 290 H 439 H (75-99) mg/dL Uric Acid (3.7-7.4) mg/dL Calcium (8.4-10.2) mg/dL Phosphorus (2.5-4.5) mg/dL Magnesium (1.6-2.3) mg/dL Total Bilirubin (0.2-1.3) mg/dL AST (14-36) U/L Alkaline Phosphatase (38-126) U/L Total Protein (6.3-8.2) g/dL Albumin (3.5-5.0) g/dL 09/23/18 09/24/18 09/24/18 Range/Units 20:37 06:48 06:48 RBC 2.67 L (3.80-5.40) m/uL Hgb 8.5 L (11.4-16.0) gm/dL Hct 26.9 L (34.0-46.0) % MCV 100.8 H (80.0-100.0) fL RDW 19.6 H (11.5-15.5) % Plt Count 28 L (150-450) k/uL Lymphocytes # 0.4 L (1.0-4.8) k/uL PT (9.0-12.0) sec INR (<1.2) APTT (22.0-30.0) sec Sodium 127 L (137-145) mmol/L Chloride 89 L (98-107) mmol/L BUN 41 H (7-17) mg/dL Glucose 188 H (74-99) mg/dL POC Glucose (mg/dL) 220 H (75-99) mg/dL Uric Acid 2.9 L (3.7-7.4) mg/dL Calcium 7.9 L (8.4-10.2) mg/dL Phosphorus 5.0 H (2.5-4.5) mg/dL Magnesium 1.5 L (1.6-2.3) mg/dL Total Bilirubin 1.7 H (0.2-1.3) mg/dL AST 43 H (14-36) U/L Alkaline Phosphatase 396 H (38-126) U/L Total Protein 5.7 L (6.3-8.2) g/dL Albumin 2.0 L (3.5-5.0) g/dL 09/24/18 09/24/18 Range/Units 07:06 10:56 RBC (3.80-5.40) m/uL Hgb (11.4-16.0) gm/dL Hct (34.0-46.0) % MCV (80.0-100.0) fL RDW (11.5-15.5) % Plt Count (150-450) k/uL Lymphocytes # (1.0-4.8) k/uL PT (9.0-12.0) sec INR (<1.2) APTT (22.0-30.0) sec Sodium (137-145) mmol/L Chloride (98-107) mmol/L BUN (7-17) mg/dL Glucose (74-99) mg/dL POC Glucose (mg/dL) 194 H 234 H (75-99) mg/dL Uric Acid (3.7-7.4) mg/dL Calcium (8.4-10.2) mg/dL Phosphorus (2.5-4.5) mg/dL Magnesium (1.6-2.3) mg/dL Total Bilirubin (0.2-1.3) mg/dL AST (14-36) U/L Alkaline Phosphatase (38-126) U/L Total Protein (6.3-8.2) g/dL Albumin (3.5-5.0) g/dL Microbiology - Last 24 Hours (Table) 09/19/18 18:00 Blood Culture - Preliminary Blood No Growth after 96 hours 09/19/18 18:00 Blood Culture - Preliminary Blood No Growth after 96 hours Assessment and Plan Plan: (1) Lymphadenopathy Narrative/Plan: - extensive adenopathy, as well as other systemic symptoms as noted. - The CT findings are concerning for a lymphoid process or malignancy, she did have a prior needle biopsy at outside [facility] which was inconclusive. - Therefore the patient required an excisional lymph node biopsy. - Lymph node dissection has resulted with diagnosis of Hodgkins Lymphoma. - Surgery Following Current Visit: Yes Status: Acute Code(s): R59.1 - GENERALIZED ENLARGED LYMPH NODES SNOMED Code(s): 06840248 (2) Anemia Narrative/Plan: - No intervention today, hemoglobin is 8 - This is normochromic normocytic, with rapidly some progression since last summer. - There is no history suggestive of bleeding. - Therefore at this time anemia due to malignancy is the primary differential. - No Intervention needed today, Continue to monitor hemoglobin and transfuse if less than 7 Current Visit: Yes Status: Acute Code(s): D64.9 - ANEMIA, UNSPECIFIED SNOMED Code(s): 391160576 (3) Sepsis secondary to UTI Narrative/Plan: - Refer to the admitting service for continued management Current Visit: Yes Status: Acute Code(s): A41.9 - SEPSIS, UNSPECIFIED ORGANISM; N39.0 - URINARY TRACT INFECTION, SITE NOT SPECIFIED SNOMED Code(s): 897173191 (4) Fluid overload Narrative/Plan: - Patient's echocardiogram was normal. - Therefore at this time differential include fluid leak due to lymphedema and/ or increased blood vessel permeability from malignancy. - Continue current care (5) Hyponatremia (6) Increased Bili (7) Protein Calorie Malnutrition: Severe - Consider addition of appetite stimulator (?megace) (8) Anemia and Thrombocytopenia: - Secondary to malignancy and recent chemotherapy - Monitor CBC daily - Hold Anticoagulation when platelets less than 50K and transfuse for platelets less than 15 or hemoglobin less than 7. - Discontinue Sub Cut Prophy heparin Plan: -Concerned about overall performance status. Encourage her to get up and move around, may need rehab (ECF versus IPR) eventually per primary team - Continue daily CBC and CMP, phos, mag and uric acid - Monitor closely for bleeding, infection, and tumor lysis - Monitor CBC daily, when WBC less than 1.5 or ANC 0.6 will initiate prophylaxis Anti-viral, antibacterial, anti-fungal and GCSF
[2018-09-24 17:07] LABS: Glucose,Whole Blood 211 mg/dL (75-99)
[2018-09-24] MEDS: SODIUM CHLORIDE 0.9% 1,000 ML IV SCH (19:58)
[2018-09-24 20:06] LABS: Glucose,Whole Blood 243 mg/dL (75-99)
[2018-09-24] MEDS: INSULIN DETEMIR 100 UNIT/ML 10 ML VIAL SQ SCH (20:44)
[2018-09-25] MEDS: LEVOTHYROXINE 25 MCG TAB PO SCH (06:24)
[2018-09-25 06:55] LABS: Glucose,Whole Blood 120 mg/dL (75-99)
[2018-09-25 08:06] LABS: Anisocytosis Slight; Basophils % (A) 0 %; Eosinophils % (A) 1 %; HCT 23.9 % (34.0-46.0); HGB 7.8 gm/dL (11.4-16.0); Lymphocytes # (A) 0.5 k/uL (1.0-4.8); Lymphocytes % (A) 27 %; MCHC 32.6 g/dL (31.0-37.0); MCV 98.5 fL (80.0-100.0); Macrocytosis Moderate; Mean Platelet Volume 11.1; Monocytes % (A) 1 %; Neutrophils # (A) 1.2 k/uL (1.3-7.7); Neutrophils % (A) 69 %; RBC 2.42 m/uL (3.80-5.40); RDW 19.9 % (11.5-15.5); WBC 1.8 k/uL (3.8-10.6)
[2018-09-25 08:14] LABS: ALT 40 U/L (9-52); AST 42 U/L (14-36); Albumin 1.9 g/dL (3.5-5.0); Alkaline Phosphatase 374 U/L (38-126); Anion Gap 6 mmol/L; Blood Urea Nitrogen 39 mg/dL (7-17); Calcium 7.9 mg/dL (8.4-10.2); Carbon Dioxide 33 mmol/L (22-30); Chloride 90 mmol/L (98-107); Glucose 118 mg/dL (74-99); Magnesium 1.6 mg/dL (1.6-2.3); Potassium 3.6 mmol/L (3.5-5.1); Sodium 129 mmol/L (137-145); Total Bilirubin 1.2 mg/dL (0.2-1.3); Total Protein 5.5 g/dL (6.3-8.2)
[2018-09-25] MEDS: LISINOPRIL 5 MG TAB PO SCH (08:15)
[2018-09-25] MEDS: FUROSEMIDE 40 MG TAB PO SCH (08:15)
[2018-09-25] MEDS: SPIRONOLACTONE 25 MG TAB PO SCH (08:15)
[2018-09-25] MEDS: PANTOPRAZOLE 40 MG TABLET PO SCH (08:15)
[2018-09-25] MEDS: INSULIN ASPART 100 UNIT/ML 1 ML 10 ML VIAL SQ SCH ×7 (08:15→20:49)
[2018-09-25] MEDS: ALLOPURINOL 300 MG TAB PO SCH (08:15)
[2018-09-25 08:26] LABS: Platelet Count 23 k/uL (150-450)
--- NOTE | 2018-09-25 08:34 | P.PN ---
Progress Note - Text The patient is a 78-year-old female who is presently on the oncology floor here at [facility]. The patient was newly diagnosed with Hodgkin' s lymphoma and has received chemotherapy. She also has had a lot of problems with edema and third spacing of fluid. This morning she sitting up eating breakfast. She states her appetite is better. She denies any chest pain or shortness of breath. Vital signs show a temperature 94.7 with a pulse of 91 and respirations 20. Blood pressure is 143/78 and she is 95% saturated. Lungs are clear anteriorly. Heart tones are regular. Abdomen is nontender. She still has grade 3 edema of the lower extremity although there does appear some improvement on the upper extremity edema. No focal neurological deficits. Laboratory White count has decreased down to 1.8 with a hemoglobin 7.8 and a platelet count of 23. Post chemotherapy. Albumin is still low but a little better at 1.9. Blood sugar 120. Sodium has improved to 129 with a potassium 3.6. Oncology and pulmonary notes were regarded. Continue with physical and occupational therapies. Discharge planning. Overall prognosis still guarded.
[2018-09-25] MEDS: METOPROLOL SUCCINATE (ER) 50 MG TAB.ER.24H PO SCH (08:36)
[2018-09-25 09:13] LABS: Large Platelets Present
[2018-09-25] MEDS: HYDROcodone/APAP 5-325MG 1 EACH TAB PO PRN (10:15)
[2018-09-25 11:30] LABS: Glucose,Whole Blood 281 mg/dL (75-99)
--- NOTE | 2018-09-25 12:10 | P.PN ---
Subjective Progress Note Date: 09/25/18 Principal diagnosis: Lymphadenopathy Sat up a little today, WBC have started to decrease, Platelets and hemoglobin remaining stable, Sodium is slowly improving also Objective - Vital Signs Vital signs: Vital Signs Temp 94.7 F L 09/25/18 05:00 Pulse 91 09/25/18 05:00 Resp 20 09/25/18 05:00 BP 143/78 09/25/18 05:00 Pulse Ox 95 09/25/18 05:00 Intake & Output 09/24/18 09/25/18 09/25/18 18:59 06:59 18:59 Intake Total 240 Output Total 2278 1400 Balance -2278 -1160 Weight 117 kg Intake: IV 240 Sodium Chloride 0.9% 1, 240 000 ml @ 20 mls/hr IV . Q24H [facility] Rx#:[id number] Output: Urine 2275 1400 Stool 3 Other: Voiding Method Indwelling Catheter Indwelling Catheter Indwelling Catheter # Voids 1,500 - Exam Constitutional General appearance: no acute distress - EENT Eyes: EOMI, PERRLA ENT: hearing grossly normal, normal oropharynx - Neck Neck: no lymphadenopathy Thyroid: bilateral: normal size - Respiratory Respiratory: bilateral: diminished - Cardiovascular Rhythm: regular Heart sounds: normal: S1, S2 - Gastrointestinal General gastrointestinal: normal bowel sounds, soft - Integumentary Integumentary: normal - Neurologic Neurologic: CNII-XII intact - Musculoskeletal Musculoskeletal: generalized weakness, strength equal bilaterally - Psychiatric Psychiatric: A&O x's 3, appropriate affect 2-3+ edema in all 4 extremities Enlarged lymph nodes noted, medial rt supraclavicular area, bilateral axillae (right greater than left) due to patient's obese body habitus, size and extent are somewhat difficult to define exactly - Labs CBC & Chem 7: 09/25/18 07:27 09/25/18 07:27 Labs: Abnormal Lab Results - Last 24 Hours (Table) 09/24/18 09/24/18 09/25/18 Range/Units 17:06 20:05 06:54 WBC (3.8-10.6) k/uL RBC (3.80-5.40) m/uL Hgb (11.4-16.0) gm/dL Hct (34.0-46.0) % RDW (11.5-15.5) % Plt Count (150-450) k/uL Neutrophils # (1.3-7.7) k/uL Lymphocytes # (1.0-4.8) k/uL Sodium (137-145) mmol/L Chloride (98-107) mmol/L Carbon Dioxide (22-30) mmol/L BUN (7-17) mg/dL Glucose (74-99) mg/dL POC Glucose (mg/dL) 211 H 243 H 120 H (75-99) mg/dL Calcium (8.4-10.2) mg/dL AST (14-36) U/L Alkaline Phosphatase (38-126) U/L Total Protein (6.3-8.2) g/dL Albumin (3.5-5.0) g/dL 09/25/18 09/25/18 09/25/18 Range/Units 07:27 07:27 11:29 WBC 1.8 L (3.8-10.6) k/uL RBC 2.42 L (3.80-5.40) m/uL Hgb 7.8 L (11.4-16.0) gm/dL Hct 23.9 L (34.0-46.0) % RDW 19.9 H (11.5-15.5) % Plt Count 23 L (150-450) k/uL Neutrophils # 1.2 L (1.3-7.7) k/uL Lymphocytes # 0.5 L (1.0-4.8) k/uL Sodium 129 L (137-145) mmol/L Chloride 90 L (98-107) mmol/L Carbon Dioxide 33 H (22-30) mmol/L BUN 39 H (7-17) mg/dL Glucose 118 H (74-99) mg/dL POC Glucose (mg/dL) 281 H (75-99) mg/dL Calcium 7.9 L (8.4-10.2) mg/dL AST 42 H (14-36) U/L Alkaline Phosphatase 374 H (38-126) U/L Total Protein 5.5 L (6.3-8.2) g/dL Albumin 1.9 L (3.5-5.0) g/dL Microbiology - Last 24 Hours (Table) 09/19/18 18:00 Blood Culture - Preliminary Blood No Growth after 120 hours 09/19/18 18:00 Blood Culture - Preliminary Blood No Growth after 120 hours Assessment and Plan Plan: (1) Lymphadenopathy Narrative/Plan: - extensive adenopathy, as well as other systemic symptoms as noted. - The CT findings are concerning for a lymphoid process or malignancy, she did have a prior needle biopsy at outside [facility] which was inconclusive. - Therefore the patient required an excisional lymph node biopsy. - Lymph node dissection has resulted with diagnosis of Hodgkins Lymphoma. - Surgery Following Current Visit: Yes Status: Acute Code(s): R59.1 - GENERALIZED ENLARGED LYMPH NODES SNOMED Code(s): 59375062 (2) Anemia Narrative/Plan: - No intervention today, hemoglobin is 8 - This is normochromic normocytic, with rapidly some progression since last summer. - There is no history suggestive of bleeding. - Therefore at this time anemia due to malignancy is the primary differential. - No Intervention needed today, Continue to monitor hemoglobin and transfuse if less than 7 Current Visit: Yes Status: Acute Code(s): D64.9 - ANEMIA, UNSPECIFIED SNOMED Code(s): 618785178 (3) Sepsis secondary to UTI Narrative/Plan: - Refer to the admitting service for continued management Current Visit: Yes Status: Acute Code(s): A41.9 - SEPSIS, UNSPECIFIED ORGANISM; N39.0 - URINARY TRACT INFECTION, SITE NOT SPECIFIED SNOMED Code(s): 163668470 (4) Fluid overload Narrative/Plan: - Patient's echocardiogram was normal. - Therefore at this time differential include fluid leak due to lymphedema and/ or increased blood vessel permeability from malignancy. - Continue current care (5) Hyponatremia (6) Increased Bili (7) Protein Calorie Malnutrition: Severe - Consider addition of appetite stimulator (?megace) (8) Anemia and Thrombocytopenia: - Secondary to malignancy and recent chemotherapy - Monitor CBC daily - Hold Anticoagulation when platelets less than 50K and transfuse for platelets less than 15 or hemoglobin less than 7. - Discontinue Sub Cut Prophy heparin Plan: -Concerned about overall performance status. Encourage her to get up and move around, may need rehab (ECF versus IPR) eventually per primary team - Continue daily CBC and CMP, phos, mag and uric acid - Monitor closely for bleeding, infection, and tumor lysis - Start Zarxio today, In general with Hodgkins Lymphoma patients on treatment do not usually receive GCSF, although population is usually younger and less co morbidites than Catherine, therefore with the risk of infection increased and her overall risks and benefits we feel initiation of GCSF would be in her best interest while inpatient.
[2018-09-25] MEDS: HYDROmorphone 1 MG/ML 1 ML SYRINGE IVP PRN (13:14)
[2018-09-25] MEDS: FILGRASTIM-SNDZ 480 MCG/0.8 ML SYRINGE SQ SCH (16:17)
[2018-09-25 16:53] LABS: Glucose,Whole Blood 341 mg/dL (75-99)
[2018-09-25 20:10] LABS: Glucose,Whole Blood 342 mg/dL (75-99)
[2018-09-25] MEDS: ACYCLOVIR 200 MG CAP PO SCH (20:47)
[2018-09-25] MEDS: SODIUM CHLORIDE 0.9% 1,000 ML IV SCH (20:49)
[2018-09-25] MEDS: INSULIN DETEMIR 100 UNIT/ML 10 ML VIAL SQ SCH (20:49)
[2018-09-26] MEDS: LEVOTHYROXINE 25 MCG TAB PO SCH (06:39)
[2018-09-26 06:50] LABS: Glucose,Whole Blood 60 mg/dL (75-99)
[2018-09-26 07:12] LABS: Glucose,Whole Blood 62 mg/dL (75-99)
[2018-09-26 07:39] LABS: Glucose,Whole Blood 69 mg/dL (75-99)
[2018-09-26] MEDS: INSULIN ASPART 100 UNIT/ML 1 ML 10 ML VIAL SQ SCH ×7 (07:46→21:28)
[2018-09-26] MEDS: LISINOPRIL 2.5 MG TAB PO SCH (07:53)
[2018-09-26 08:11] LABS: Glucose,Whole Blood 85 mg/dL (75-99)
[2018-09-26] MEDS: FUROSEMIDE 40 MG TAB PO SCH (08:40)
[2018-09-26] MEDS: ALLOPURINOL 300 MG TAB PO SCH (08:40)
[2018-09-26] MEDS: ACYCLOVIR 200 MG CAP PO SCH ×2 (08:40→21:29)
[2018-09-26] MEDS: PANTOPRAZOLE 40 MG TABLET PO SCH (08:41)
[2018-09-26] MEDS: METOPROLOL SUCCINATE (ER) 50 MG TAB.ER.24H PO SCH (08:41)
[2018-09-26] MEDS: SPIRONOLACTONE 25 MG TAB PO SCH (08:41)
[2018-09-26 09:33] LABS: INR 1.3 (<1.2); Prothrombin Time 13.3 sec (9.0-12.0)
[2018-09-26 09:37] LABS: ALT 52 U/L (9-52); AST 71 U/L (14-36); Alkaline Phosphatase 435 U/L (38-126); Anion Gap 5 mmol/L; Blood Urea Nitrogen 38 mg/dL (7-17); Carbon Dioxide 33 mmol/L (22-30); Chloride 92 mmol/L (98-107); Glucose 82 mg/dL (74-99); Phosphorus 4.4 mg/dL (2.5-4.5); Potassium 3.8 mmol/L (3.5-5.1); Sodium 130 mmol/L (137-145); Total Bilirubin 1.1 mg/dL (0.2-1.3); Total Protein 5.5 g/dL (6.3-8.2); Uric Acid 2.8 mg/dL (3.7-7.4)
[2018-09-26 09:46] LABS: Anisocytosis Moderate; Basophils % (A) 0 %; Eosinophils # (A) 0.1 k/uL (0-0.7); Eosinophils % (A) 1 %; HCT 23.6 % (34.0-46.0); HGB 7.4 gm/dL (11.4-16.0); Lymphocytes # (A) 0.6 k/uL (1.0-4.8); Lymphocytes % (A) 13 %; MCH 31.6 pg (25.0-35.0); MCHC 31.3 g/dL (31.0-37.0); MCV 100.8 fL (80.0-100.0); Macrocytosis Moderate; Mean Platelet Volume 12.7; Monocytes # (A) 0.1 k/uL (0-1.0); Monocytes % (A) 2 %; Neutrophils # (A) 3.6 k/uL (1.3-7.7); Neutrophils % (A) 83 %; RBC 2.34 m/uL (3.80-5.40); WBC 4.4 k/uL (3.8-10.6)
[2018-09-26 09:53] LABS: Platelet Count 13 k/uL (150-450)
--- NOTE | 2018-09-26 10:34 | P.PN ---
Subjective Progress Note Date: 09/26/18 Principal diagnosis: Lymphadenopathy Awaiting labs today, still needs persistent reinforcement to eat and drink and increase activity. Her temperatures have been rather low. She has a flat affect. Objective - Vital Signs Vital signs: Vital Signs Temp 94.0 F L 09/26/18 05:00 Pulse 69 09/26/18 05:00 Resp 16 09/26/18 05:00 BP 91/48 09/26/18 05:00 Pulse Ox 95 09/26/18 05:00 Intake & Output 09/25/18 09/26/18 09/26/18 18:59 06:59 18:59 Intake Total 1150 830 Output Total 750 400 Balance 400 430 Intake: IV 240 240 Sodium Chloride 0.9% 1, 240 240 000 ml @ 20 mls/hr IV . Q24H [facility] Rx#:[id number] Oral 910 590 Output: Urine 750 400 Other: Voiding Method Indwelling Catheter Indwelling Catheter Indwelling Catheter # Voids 1 # Bowel Movements 1 - Exam Constitutional General appearance: no acute distress - EENT Eyes: EOMI, PERRLA ENT: hearing grossly normal, normal oropharynx - Neck Neck: no lymphadenopathy Thyroid: bilateral: normal size - Respiratory Respiratory: bilateral: diminished - Cardiovascular Rhythm: regular Heart sounds: normal: S1, S2 - Gastrointestinal General gastrointestinal: normal bowel sounds, soft - Integumentary Integumentary: normal - Neurologic Neurologic: CNII-XII intact - Musculoskeletal Musculoskeletal: generalized weakness, strength equal bilaterally - Psychiatric Psychiatric: A&O x's 3, appropriate affect 2-3+ edema in all 4 extremities Enlarged lymph nodes noted, medial rt supraclavicular area, bilateral axillae (right greater than left) due to patient's obese body habitus, size and extent are somewhat difficult to define exactly - Labs CBC & Chem 7: 09/26/18 08:07 09/26/18 08:07 Labs: Abnormal Lab Results - Last 24 Hours (Table) 09/25/18 09/25/18 09/25/18 Range/Units 11:29 16:52 20:06 POC Glucose (mg/dL) 281 H 341 H 342 H (75-99) mg/dL 09/26/18 09/26/18 09/26/18 Range/Units 06:49 07:11 07:38 POC Glucose (mg/dL) 60 L 62 L 69 L (75-99) mg/dL Microbiology - Last 24 Hours (Table) 09/19/18 18:00 Blood Culture - Final Blood No Growth after 144 hours 09/19/18 18:00 Blood Culture - Final Blood No Growth after 144 hours Assessment and Plan Plan: (1) Hodgkins Lymphoma Confirmed - Lymphadenopathy Narrative/Plan: - Status Post First Cycle of AVD (No Bleomycin) - Typically an every 2 week treatment cycle although would prefer improvement in overall performamce status Current Visit: Yes Status: Acute Code(s): R59.1 - GENERALIZED ENLARGED LYMPH NODES SNOMED Code(s): 91381931 (2) Anemia Narrative/Plan: - Hemoglobin 7.4 today - This is normochromic normocytic, with rapidly some progression since last summer. - No Intervention needed today, Continue to monitor hemoglobin and transfuse if less than 7 Current Visit: Yes Status: Acute Code(s): D64.9 - ANEMIA, UNSPECIFIED SNOMED Code(s): 940794118 (3) Sepsis secondary to UTI Narrative/Plan: - Improved after antibiotics, although the past 48 hours temperature has been hypothermic 94-95F. Will recheck blood cultures and cloud culture. Current Visit: Yes Status: Acute Code(s): A41.9 - SEPSIS, UNSPECIFIED ORGANISM; N39.0 - URINARY TRACT INFECTION, SITE NOT SPECIFIED SNOMED Code(s): 244041076 (4) Fluid overload Narrative/Plan: - Patient's echocardiogram was normal. - This is improving, nephrology following, - Swelling is still significant in LE and Pedal edema upper extremities appears improved (5) Hyponatremia: - Improving, Sodium is 130 today. (6) Increased Bili - Monitor (7) Protein Calorie Malnutrition: Severe - Albumin is 2, has not improved much with increased meals and protein supps will add appetite stimulator - Component of depression versus failure to thrive (8) Thrombocytopenia: - Secondary to malignancy and recent chemotherapy - Monitor closely and transfuse whrn platlets less then 10, or if s/s bleeding. - Plt count 13 today (9) Failure to Thrive/Component Depression: - Chronic Illness myopathy - Performance status is still not optimal for treatment number two, her improvement has been very slow. - Psychiatry consultation to assist in choice of medication for depression and/ or stimulant. Low dose ritalin 2.5mg po daily increasing to 5mg (although need to be given after eating and monitor eating) is resonable, as well as the addition of an SNRI and/or Psychtrophic category such as Zyprexa can help. - Referral to psych in assistance for medication choices is appropriate. (10) Hypothermia: Mild 94.7F: - Repeat Blood Cultures and monitor coags. - Medications versus inaccurate reading versus underlying infection Plan: - Plan will be ECF for rehab and increased performance status prior to administration of next chemotherapy. Await stabilization of labs and increased sodium level. - She will need to be able to tolerate standing or sitting on side of bed with PT/OT prior to discharge, when attempted yesterday her BP dropped. - Will plan to hold chemotherapy until after performance status improved - Concern for slow improvement and persistent intravascular dehydration. Physician Attestation: I have completed the full history and physical of this patient
[2018-09-26 11:22] LABS: Target Cells Present
[2018-09-26 12:11] LABS: Glucose,Whole Blood 142 mg/dL (75-99)
[2018-09-26] MEDS: FILGRASTIM-SNDZ 480 MCG/0.8 ML SYRINGE SQ SCH (13:10)
[2018-09-26] MEDS: MEGESTROL 400 MG/10 ML CUP PO SCH (13:10)
[2018-09-26] MEDS: HYDROcodone/APAP 5-325MG 1 EACH TAB PO PRN (15:54)
[2018-09-26 17:07] LABS: Glucose,Whole Blood 284 mg/dL (75-99)
[2018-09-26 20:27] LABS: Glucose,Whole Blood 245 mg/dL (75-99)
[2018-09-26] MEDS: SODIUM CHLORIDE 0.9% 1,000 ML IV SCH (21:29)
[2018-09-26] MEDS: INSULIN DETEMIR 100 UNIT/ML 10 ML VIAL SQ SCH (21:29)
[2018-09-27] MEDS: ACETAMINOPHEN TAB 325 MG TAB PO PRN ×3 (01:54→18:56)
[2018-09-27 02:44] LABS: Glucose,Whole Blood 102 mg/dL (75-99)
[2018-09-27] MEDS: LEVOTHYROXINE 75 MCG TAB PO SCH (05:24)
[2018-09-27 07:00] LABS: Glucose,Whole Blood 106 mg/dL (75-99)
--- NOTE | 2018-09-27 07:32 | MR ---
EXAMINATION TYPE: MR brain wo/w con DATE OF EXAM: 09/26/2018 COMPARISON: CT brain September 18, 2018 HISTORY: MSC, altered mental status. Newly diagnosed lymphoma TECHNIQUE: Multiplanar, multisequence images of the brain and brainstem is performed without and with IV contras t, utilizing 12 mL intravenous Gadavist . FINDINGS: Diffusion weighted images demonstrate no evidence of a recent infarct or other diffusion ab normality. There is no worrisome extra-axial fluid collection or significant white matter changes. T here is ventricular and sulcal prominence consistent with diffuse cerebral atrophy. Midline structures demonstrate normal morphology. The craniocervical junction appears within normal limits. Post contrast images demonstrate no abnormal enhancement. The dural venous sinuses appear pa tent. The visualized sinuses are clear and the globes are intact. IMPRESSION: There is mild to borderline moderate diffuse age-related cerebral atrophy. No evidence of a recent infarct. No suspicious enhancement is noted.
[2018-09-27] MEDS: INSULIN ASPART 100 UNIT/ML 1 ML 10 ML VIAL SQ SCH ×8 (07:51→20:29)
--- NOTE | 2018-09-27 07:52 | P.PN ---
Progress Note - Text The patient is a 78-year-old female who is on the oncology floor here at [facility]. Patient has been diagnosed recently with Hodgkin's disease and has received chemotherapy. There was some anticipation for possible discharge to extended care facility today. Apparently yesterday she had some problems with hypotension when she was getting up with assistance. There apparently also some confusion and hypothermia noted. She has had an MRI which did not show any acute changes. She is somewhat hard of hearing. This morning she seems to be responsive. She does know where she is at and who she is. She complains of some diffuse pain. Her last vital signs from 4:30 this morning show a temperature of 93.4 with a pulse of 76 and respirations 17. Blood pressure 90/53 and she is 98% saturated. She is still grossly edematous but appears overall to be improved somewhat. Lungs are clear anteriorly. Heart tones were regular. Abdomen nontender. No definite focal neurological deficits or cranial nerve deficits noted. MRI of the brain does not report any major changes or abnormalities. Blood tests from today are pending. Impressions and plan As stated above there were some plans for possible transfer to extended care facility. We'll await further recommendations from oncology and also see what her lab tests show this morning. Have discussed with patient also with nursing staff this morning.
[2018-09-27] MEDS: ACYCLOVIR 200 MG CAP PO SCH (08:05)
[2018-09-27] MEDS: ALLOPURINOL 300 MG TAB PO SCH (08:05)
[2018-09-27] MEDS: PANTOPRAZOLE 40 MG TABLET PO SCH (08:06)
[2018-09-27] MEDS: SPIRONOLACTONE 25 MG TAB PO SCH (08:06)
[2018-09-27] MEDS: METOPROLOL SUCCINATE (ER) 50 MG TAB.ER.24H PO SCH (08:06)
[2018-09-27] MEDS: LISINOPRIL 2.5 MG TAB PO SCH (08:06)
[2018-09-27] MEDS: MEGESTROL 400 MG/10 ML CUP PO SCH (08:06)
[2018-09-27] MEDS: FUROSEMIDE 40 MG TAB PO SCH (08:06)
[2018-09-27 09:26] LABS: Anisocytosis Moderate; Basophils % (A) 1 %; Eosinophils % (A) 2 %; HCT 21.9 % (34.0-46.0); HGB 7.1 gm/dL (11.4-16.0); Lymphocytes # (A) 0.7 k/uL (1.0-4.8); Lymphocytes % (A) 47 %; MCH 32.7 pg (25.0-35.0); MCHC 32.5 g/dL (31.0-37.0); MCV 100.6 fL (80.0-100.0); Macrocytosis Moderate; Mean Platelet Volume 13.8; Monocytes % (A) 2 %; Neutrophils # (A) 0.7 k/uL (1.3-7.7); Neutrophils % (A) 47 %; RBC 2.18 m/uL (3.80-5.40); WBC 1.5 k/uL (3.8-10.6)
[2018-09-27 09:32] LABS: Platelet Count 14 k/uL (150-450)
[2018-09-27 09:52] LABS: Albumin 1.9 g/dL (3.5-5.0); Potassium 3.8 mmol/L (3.5-5.1); Total Bilirubin 0.9 mg/dL (0.2-1.3); Total Protein 5.4 g/dL (6.3-8.2)
[2018-09-27] MEDS ORDERED: VANCOMYCIN IV PER PHARMACY 1 EACH MISC MISCELLANE PRN ×2 (10:54→12:37)
[2018-09-27] MEDS: FILGRASTIM-SNDZ 480 MCG/0.8 ML SYRINGE SQ SCH (11:12)
[2018-09-27 11:20] LABS: Target Cells Present
[2018-09-27 11:21] LABS: Large Platelets Present
[2018-09-27 11:35] LABS: Glucose,Whole Blood 132 mg/dL (75-99)
--- NOTE | 2018-09-27 12:47 | P.PN ---
Subjective Progress Note Date: 09/27/18 Principal diagnosis: Lymphadenopathy WBC on the Henry (peek low) 1.5, Hemoglobin 7.1, Platlets 14. She needs to continue to work with therapy. Likely will benefit from stay through weekend to continue Zarxio, prophylaxis antibiotics and Likely require blood/Platlet transfusion prior to transfer to [facility]. Gram Positive Blood cultures 09/26/18 drawn for hypothermic temp, the temps have improved. Vanco initiated. Continue to await final report Objective - Vital Signs Vital signs: Vital Signs Temp 93.4 F L 09/27/18 04:28 Pulse 76 09/27/18 08:00 Resp 17 09/27/18 08:00 BP 90/53 09/27/18 04:28 Pulse Ox 98 09/27/18 04:28 Intake & Output 09/26/18 09/27/18 09/27/18 18:59 06:59 18:59 Intake Total 160 380 Output Total 451 1 Balance 160 -71 -1 Intake: IV 160 80 Sodium Chloride 0.9% 1, 160 80 000 ml @ 20 mls/hr IV . Q24H [facility] Rx#:[id number] Oral 300 Output: Urine 450 Stool 1 1 Other: Voiding Method Indwelling Catheter Indwelling Catheter Indwelling Catheter # Bowel Movements 1 2 - Exam Constitutional General appearance: no acute distress - EENT Eyes: EOMI, PERRLA ENT: hearing grossly normal, normal oropharynx - Neck Neck: no lymphadenopathy Thyroid: bilateral: normal size - Respiratory Respiratory: bilateral: diminished - Cardiovascular Rhythm: regular Heart sounds: normal: S1, S2 - Gastrointestinal General gastrointestinal: normal bowel sounds, soft - Integumentary Integumentary: normal - Neurologic Neurologic: CNII-XII intact - Musculoskeletal Musculoskeletal: generalized weakness, strength equal bilaterally - Psychiatric Psychiatric: A&O x's 3, appropriate affect 2-3+ edema in all 4 extremities Enlarged lymph nodes noted, medial rt supraclavicular area, bilateral axillae (right greater than left) due to patient's obese body habitus, size and extent are somewhat difficult to define exactly - Labs CBC & Chem 7: 09/27/18 08:42 09/27/18 08:42 Labs: Abnormal Lab Results - Last 24 Hours (Table) 09/26/18 09/26/18 09/27/18 Range/Units 17:06 20:07 02:18 WBC (3.8-10.6) k/uL RBC (3.80-5.40) m/uL Hgb (11.4-16.0) gm/dL Hct (34.0-46.0) % MCV (80.0-100.0) fL RDW (11.5-15.5) % Plt Count (150-450) k/uL Neutrophils # (1.3-7.7) k/uL Lymphocytes # (1.0-4.8) k/uL Sodium (137-145) mmol/L Chloride (98-107) mmol/L Carbon Dioxide (22-30) mmol/L BUN (7-17) mg/dL Glucose (74-99) mg/dL POC Glucose (mg/dL) 284 H 245 H 102 H (75-99) mg/dL Calcium (8.4-10.2) mg/dL AST (14-36) U/L ALT (9-52) U/L Alkaline Phosphatase (38-126) U/L Total Protein (6.3-8.2) g/dL Albumin (3.5-5.0) g/dL 09/27/18 09/27/18 09/27/18 Range/Units 06:59 08:42 08:42 WBC 1.5 L (3.8-10.6) k/uL RBC 2.18 L (3.80-5.40) m/uL Hgb 7.1 L (11.4-16.0) gm/dL Hct 21.9 L (34.0-46.0) % MCV 100.6 H (80.0-100.0) fL RDW 20.0 H (11.5-15.5) % Plt Count 14 L* (150-450) k/uL Neutrophils # 0.7 L (1.3-7.7) k/uL Lymphocytes # 0.7 L (1.0-4.8) k/uL Sodium 130 L (137-145) mmol/L Chloride 91 L (98-107) mmol/L Carbon Dioxide 35 H (22-30) mmol/L BUN 45 H (7-17) mg/dL Glucose 108 H (74-99) mg/dL POC Glucose (mg/dL) 106 H (75-99) mg/dL Calcium 8.0 L (8.4-10.2) mg/dL AST 66 H (14-36) U/L ALT 64 H (9-52) U/L Alkaline Phosphatase 443 H (38-126) U/L Total Protein 5.4 L (6.3-8.2) g/dL Albumin 1.9 L (3.5-5.0) g/dL 09/27/18 Range/Units 11:33 WBC (3.8-10.6) k/uL RBC (3.80-5.40) m/uL Hgb (11.4-16.0) gm/dL Hct (34.0-46.0) % MCV (80.0-100.0) fL RDW (11.5-15.5) % Plt Count (150-450) k/uL Neutrophils # (1.3-7.7) k/uL Lymphocytes # (1.0-4.8) k/uL Sodium (137-145) mmol/L Chloride (98-107) mmol/L Carbon Dioxide (22-30) mmol/L BUN (7-17) mg/dL Glucose (74-99) mg/dL POC Glucose (mg/dL) 132 H (75-99) mg/dL Calcium (8.4-10.2) mg/dL AST (14-36) U/L ALT (9-52) U/L Alkaline Phosphatase (38-126) U/L Total Protein (6.3-8.2) g/dL Albumin (3.5-5.0) g/dL Microbiology - Last 24 Hours (Table) 09/26/18 16:08 Blood Culture Gram Stain - Preliminary Blood 09/26/18 16:08 Blood Culture - Final Blood Assessment and Plan Plan: (1) Hodgkins Lymphoma Confirmed - Lymphadenopathy Narrative/Plan: - Status Post First Cycle of AVD (No Bleomycin) - Typically an every 2 week treatment cycle although would prefer improvement in overall performamce status Current Visit: Yes Status: Acute Code(s): R59.1 - GENERALIZED ENLARGED LYMPH NODES SNOMED Code(s): 57367027 (2) Anemia Narrative/Plan: - Hemoglobin 7.4 today - This is normochromic normocytic, with rapidly some progression since last summer. - No Intervention needed today, Continue to monitor hemoglobin and transfuse if less than 7 Current Visit: Yes Status: Acute Code(s): D64.9 - ANEMIA, UNSPECIFIED SNOMED Code(s): 173109624 (3) Sepsis secondary to UTI Narrative/Plan: - Improved after antibiotics, although the past 48 hours temperature has been hypothermic 94-95F. Will recheck blood cultures and cloud culture. Current Visit: Yes Status: Acute Code(s): A41.9 - SEPSIS, UNSPECIFIED ORGANISM; N39.0 - URINARY TRACT INFECTION, SITE NOT SPECIFIED SNOMED Code(s): 202541786 (4) Fluid overload Narrative/Plan: - Patient's echocardiogram was normal. - This is improving, nephrology following, - Swelling is still significant in LE and Pedal edema upper extremities appears improved (5) Hyponatremia: - Improving, Sodium is 130 today. (6) Increased Bili - Monitor (7) Protein Calorie Malnutrition: Severe - Albumin is 2, has not improved much with increased meals and protein supps will add appetite stimulator - Component of depression versus failure to thrive (8) Thrombocytopenia: - Secondary to malignancy and recent chemotherapy - Monitor closely and transfuse whrn platlets less then 10, or if s/s bleeding. - Plt count 13 today (9) Failure to Thrive/Component Depression: - Chronic Illness myopathy - Performance status is still not optimal for treatment number two, her improvement has been very slow. - Psychiatry consultation to assist in choice of medication for depression and/ or stimulant. Low dose ritalin 2.5mg po daily increasing to 5mg (although need to be given after eating and monitor eating) is resonable, as well as the addition of an SNRI and/or Psychtrophic category such as Zyprexa can help. - Referral to psych in assistance for medication choices is appropriate. (10) Low Mild 94.7F: - Repeat Blood Cultures and monitor coags. - Medications versus inaccurate reading versus underlying infection - Prelim Gram Positive BC, Vanco and Temp has improved. Plan: - Plan ECF likely sunday once counts start to recover a little more as she likely will require transfusions this weekend and will benefit from Zarxio - Out of bed with PT/OT with meals - Continue encourage PO intake - Monitor for infections and Bleeding. - Await final Blood cultures and continue vanco
[2018-09-27] MEDS: VANCOMYCIN 1,750 MG in SODIUM CHLORIDE 0.9% 500 ML 500 ML IVPB SCH (13:06)
[2018-09-27 17:06] LABS: Glucose,Whole Blood 162 mg/dL (75-99)
[2018-09-27 20:28] LABS: Glucose,Whole Blood 173 mg/dL (75-99)
[2018-09-27 22:25] LABS: Appearance,Urine Clear (Clear); Bilirubin,Urine Negative (Negative); Blood,Urine Negative (Negative); Color,Urine Yellow; Glucose,Urine (UA) Negative (Negative); Ketones,Urine Negative (Negative); Leukocyte Esterase,Urine Negative (Negative); Nitrite,Urine Negative (Negative); Protein,Urine Trace (Negative); Specific Gravity,Urine 1.017 (1.001-1.035)
[2018-09-27] MEDS: PIPERACILLIN-TAZOBACTAM 3.375 GM in SODIUM CHLORIDE 0.9% 100 ML IVPB SCH (23:01)
[2018-09-27] MEDS: SODIUM CHLORIDE 0.9% 1,000 ML IV SCH (23:01)
[2018-09-27 23:21] LABS: Glucose,Whole Blood 135 mg/dL (75-99)
[2018-09-27 23:54] LABS: Glucose,Whole Blood 131 mg/dL (75-99)
[2018-09-28] MEDS: INSULIN DETEMIR 100 UNIT/ML 10 ML VIAL SQ SCH ×2 (00:50→22:03)
[2018-09-28] MEDS: INSULIN ASPART 100 UNIT/ML 1 ML 10 ML VIAL SQ SCH ×6 (00:50→22:03)
[2018-09-28] MEDS ORDERED: SODIUM CHLORIDE 0.9% 1,000 ML IV ONE (01:12)
[2018-09-28] MEDS ORDERED: HYDROCORTISONE SUCCINATE 100 MG/2 ML VIAL IV STA (01:48)
[2018-09-28] MEDS: ACYCLOVIR 200 MG CAP PO SCH ×3 (02:24→23:06)
[2018-09-28] MEDS: NOREPINEPHRINE 16 MG in SODIUM CHLORIDE 0.9% 250 ML IV SCH (02:36)
[2018-09-28] MEDS: VANCOMYCIN 1,750 MG in SODIUM CHLORIDE 0.9% 500 ML 500 ML IVPB SCH ×2 (03:43→21:59)
[2018-09-28 05:05] LABS: Albumin 1.8 g/dL (3.5-5.0); Calcium 7.3 mg/dL (8.4-10.2); Magnesium 1.4 mg/dL (1.6-2.3); Total Protein 5.1 g/dL (6.3-8.2)
[2018-09-28 05:06] LABS: Anisocytosis Moderate; MCH 31.2 pg (25.0-35.0); MCHC 31.1 g/dL (31.0-37.0); MCV 100.3 fL (80.0-100.0); Macrocytosis Moderate; Mean Platelet Volume 13.5; RBC 1.97 m/uL (3.80-5.40); RDW 20.2 % (11.5-15.5)
[2018-09-28 05:11] LABS: Platelet Count 14 k/uL (150-450)
[2018-09-28 05:14] LABS: HCT 19.8 % (34.0-46.0); HGB 6.2 gm/dL (11.4-16.0); WBC 0.5 k/uL (3.8-10.6)
[2018-09-28] MEDS: LEVOTHYROXINE 75 MCG TAB PO SCH (05:33)
[2018-09-28] MEDS: PIPERACILLIN-TAZOBACTAM 3.375 GM in SODIUM CHLORIDE 0.9% 100 ML IVPB SCH ×3 (05:33→22:02)
--- NOTE | 2018-09-28 05:57 | XR ---
EXAMINATION TYPE: XR chest 1V portable DATE OF EXAM: 09/28/2018 HISTORY: fluid overload. REFERENCE: Previous study dated 09/22/2018. FINDINGS: There is minimal bibasilar atelectasis. There are small, bilateral effusions. Heart size is upper limits of normal. IMPRESSION: NO SIGNIFICANT INTERVAL CHANGE IN THE APPEARANCE OF THE CHEST.
--- NOTE | 2018-09-28 07:14 | P.CRDCN ---
History of Present Illness Consult date: 09/28/18 Chief complaint: Generalized weakness History of present illness: This is a pleasant 78-year-old female patient with a past medical history significant for diabetes as well as hypertension who presented to the hospital a few weeks ago with progressive weakness as well as a vague abdominal discomfort as well as progressive weight loss. The patient was found to be cloud cytopenic. She also was found to lymphadenopathy and she underwent lymph node biopsy which revealed Hodgkin lymphoma. The patient was admitted to the hospital and she was started on chemotherapy. She did have a long hospital stay were initially she was admitted to the intensive care unit and she was transferred out of the intensive care unit and she was brought to the ICU yesterday because of hypotension and tachycardia. We requested to see the patient because of the low blood pressure. The patient initially received IV fluid but she did not respond well to IV fluid and because of that she was brought to the intensive care unit and she was started on vasopressors with norepinephrine. Currently she has been maintaining systolic blood pressure in the 80s and 90s. The patient continues to be pancytopenic with a hemoglobin of around 6 and currently she is in process of receiving 2 units of packed RBC. Beside that she underwent panculture and the culture came back positive and she is possibly also septic which could be contributing to her low blood pressure as well. On physical examination she is quite hypertensive area the patient herself does not recall any history of coronary artery disease but she does have hypertension and dyslipidemia. No coronary artery disease, congestive heart failure, or any cardiac arrhythmia in the past. When she first presented to the hospital she underwent an echocardiogram and that revealed normal LV function with mild MR and mild TR. I requested to repeat the echocardiogram to see if there is any drop in the ejection fraction and assess also for any pericardial effusion which could be contributing to her low blood pressure. The patient herself denies any symptoms of chest pain or chest discomfort but she is a bit short of breath this morning. She is not dizzy or lightheaded. The chest x-ray from the morning showed no changes compared to before. Currently she is not on any medication which can lower her blood pressure and she continues to be on the vasopressors. Past Medical History Past Medical History: Diabetes Mellitus, Hypertension History of Any Multi-Drug Resistant Organisms: None Reported Past Surgical History: Cholecystectomy, Joint Replacement Additional Past Surgical History / Comment(s): biopsy of lymph node 08/29/18, bilateral knee replacement Past Anesthesia/Blood Transfusion Reactions: No Reported Reaction Past Psychological History: No Psychological Hx Reported Smoking Status: Former smoker Past Alcohol Use History: None Reported Past Drug Use History: None Reported - Past Family History Mother Family Medical History: Coronary Artery Disease (CAD) Father Family Medical History: Cancer Additional Family Medical History / Comment(s): sisters x3 of cancer Medications and Allergies Home Medications Medication Instructions Recorded Confirmed Type Enalapril [Vasotec] 10 mg PO DAILY 09/09/18 09/09/18 History Insulin Aspart Protam & Aspart 8 unit SQ BID 09/09/18 09/09/18 History [Novolog Mix 70-30 Flexpen Syrn] Insulin Aspart [NovoLOG Flexpen] 4 units SQ AC-BRKFST 09/09/18 09/09/18 History Insulin Aspart [NovoLOG Flexpen] 8 units SQ AC-BID 09/09/18 09/09/18 History Metoprolol Succinate (ER) [Toprol 50 mg PO DAILY 09/09/18 09/09/18 History Xl] Allergies Allergy/AdvReac Type Severity Reaction Status Date / Time aspirin Allergy Rash/Hives Verified 09/09/18 15:20 Physical Exam Vitals: Vital Signs Temp Pulse Pulse Resp BP BP Pulse Ox 09/28/18 07:00 111 H 22 77/43 96 09/28/18 06:45 112 H 17 94/73 96 09/28/18 06:30 111 H 22 95/51 96 09/28/18 06:15 113 H 18 89/52 96 09/28/18 06:00 112 H 15 101/51 96 09/28/18 05:45 112 H 23 91/52 97 09/28/18 05:30 112 H 28 H 98/48 95 09/28/18 05:15 112 H 26 H 86/46 95 09/28/18 05:00 111 H 24 84/42 94 L 09/28/18 04:30 112 H 10 L 77/59 93 L 09/28/18 04:00 97.8 F 112 H 19 71/52 94 L 09/28/18 03:30 109 H 25 H 80/34 94 L 09/28/18 03:00 107 H 21 75/48 93 L 09/28/18 02:30 106 H 25 H 73/44 92 L 09/28/18 02:00 102 H 17 75/36 94 L 09/28/18 01:30 109 H 19 79/38 94 L 09/28/18 01:00 97.7 F 100 20 74/45 94 L 09/28/18 00:30 101 H 12 83/36 93 L 09/28/18 00:00 96.4 F L 102 H 12 84/53 96 09/27/18 23:26 105 H 18 85/53 96 09/27/18 23:10 97.7 F 09/27/18 23:04 100 18 79/49 97 09/27/18 23:00 93 18 74/37 98 09/27/18 22:28 94.1 F L 95 18 81/44 98 09/27/18 21:49 79/46 09/27/18 21:37 95 73/43 09/27/18 21:29 97.1 F L 09/27/18 21:27 81/46 09/27/18 21:16 92 70/40 09/27/18 20:57 95.6 F L 09/27/18 20:40 94 81/48 09/27/18 20:30 92 66/39 09/27/18 19:42 95.4 F L 102 H 16 91/56 98 09/27/18 16:00 80 15 09/27/18 13:13 93.0 F L 80 15 77/50 98 09/27/18 12:40 97.3 F L 101 H 16 153/83 93 L 09/27/18 08:00 76 17 Intake and Output 09/27/18 09/28/18 09/28/18 22:59 06:59 14:59 Intake Total 260 1818.741 40.25 Output Total 751 220 50 Balance -491 1598.741 -9.75 Intake: IV 60 1810 20 Piperacillin-Tazobactam 3 200 .375 gm In Sodium Chloride 0.9% 100 ml @ 25 mls/hr IVPB Q8H [facility] Rx#: [id number] Sodium Chloride 0.9% 1, 60 1110 20 000 ml @ 20 mls/hr IV . Q24H [facility] Rx#:[id number] Vancomycin 1,750 mg In 500 Sodium Chloride 0.9% 500 ml 500 ml @ 167 mls/hr IVPB Q16H [facility] Rx#: [id number] Intake, IV Titration 8.741 20.25 Amount Norepinephrine 16 mg In 8.741 20.25 Sodium Chloride 0.9% 250 ml @ Titrate IV .Q0M [facility] Rx#:[id number] Oral 200 Output: Urine 750 220 50 Uretheral (Bueno) 400 Stool 1 Other: Voiding Method Indwelling Catheter Indwelling Catheter # Bowel Movements 1 Weight 108.3 kg - Constitutional General appearance: no acute distress - Respiratory Respiratory: bilateral: diminished - Cardiovascular Rhythm: regular Heart sounds: normal: S1, S2 Abnormal Heart Sounds: systolic murmur Results 09/28/18 04:25 09/28/18 04:25 Cardiac Enzymes 09/27/18 09/28/18 Range/Units 08:42 04:25 AST 66 H 48 H (14-36) U/L CBC 09/27/18 09/28/18 Range/Units 08:42 04:25 WBC 1.5 L 0.5 L* (3.8-10.6) k/uL RBC 2.18 L 1.97 L (3.80-5.40) m/uL Hgb 7.1 L 6.2 L* (11.4-16.0) gm/dL Hct 21.9 L 19.8 L* (34.0-46.0) % Plt Count 14 L* 14 L* (150-450) k/uL Comprehensive Metabolic Panel 09/27/18 09/28/18 Range/Units 08:42 04:25 Sodium 130 L 130 L (137-145) mmol/L Potassium 3.8 4.0 (3.5-5.1) mmol/L Chloride 91 L 94 L (98-107) mmol/L Carbon Dioxide 35 H 30 (22-30) mmol/L BUN 45 H 43 H (7-17) mg/dL Creatinine 0.78 0.81 (0.52-1.04) mg/dL Glucose 108 H 169 H (74-99) mg/dL Calcium 8.0 L 7.3 L (8.4-10.2) mg/dL AST 66 H 48 H (14-36) U/L ALT 64 H 61 H (9-52) U/L Alkaline Phosphatase 443 H 420 H (38-126) U/L Total Protein 5.4 L 5.1 L (6.3-8.2) g/dL Albumin 1.9 L 1.8 L (3.5-5.0) g/dL Current Medications Generic Name Dose Route Start Last Admin Trade Name Freq PRN Reason Stop Dose Admin Acetaminophen 650 mg 09/09/18 17:05 09/27/18 18:56 Tylenol Tab PO 650 mg Q6HR PRN Administration Mild Pain or Fever > 100.5 Hydrocodone Bitart/Acetaminophen 1 each 09/12/18 17:05 09/26/18 15:54 [place] 5-325 PO 1 each Q4HR PRN Administration Pain Acyclovir 400 mg 09/25/18 21:00 09/28/18 02:24 Zovirax PO Not Given BID [facility] Allopurinol 300 mg 09/19/18 16:30 09/27/18 08:05 Zyloprim PO 300 mg DAILY [facility] Administration Filgrastim 480 mcg 09/25/18 12:00 09/27/18 11:12 Zarxio SQ 480 mcg DAILY [facility] Administration Furosemide 40 mg 09/23/18 09:00 09/27/18 08:06 Lasix PO 40 mg DAILY [facility] Administration Sodium Chloride 1,000 mls @ 20 mls/hr 09/16/18 22:45 09/27/18 23:01 Saline 0.9% IV 20 mls/hr .Q24H [facility] Administration Vancomycin HCl 1,750 mg/ 500 mls @ 167 mls/hr 09/27/18 12:00 09/28/18 03:43 Sodium Chloride IVPB 167 mls/hr Q16H [facility] Administration Piperacillin Sod/Tazobactam 100 mls @ 25 mls/hr 09/27/18 21:00 09/28/18 05:33 Sod 3.375 gm/ Sodium Chloride IVPB 25 mls/hr Q8H [facility] Administration Norepinephrine Bitartrate 16 250 mls @ 0 mls/hr 09/27/18 23:00 09/28/18 07:03 mg/ Sodium Chloride IV 16 mcg/min .Q0M [facility] 15 mls/hr Titration Protocol Titrate Insulin Aspart 8 unit 09/10/18 12:30 09/27/18 19:00 Novolog SQ 8 unit AC-LUNCH [facility] Administration Insulin Aspart 4 unit 09/10/18 07:30 09/27/18 08:06 Novolog SQ 4 unit AC-BRKFST [facility] Administration Insulin Aspart 8 unit 09/09/18 17:30 09/27/18 20:29 Novolog SQ Not Given AC-SUPPER [facility] Insulin Aspart 0 unit 09/17/18 12:30 09/28/18 00:50 Novolog SQ Not Given ACHS [facility] Protocol Insulin Detemir 10 unit 09/26/18 21:00 09/28/18 00:50 Levemir SQ Not Given HS [facility] Levothyroxine Sodium 37.5 mcg 09/27/18 06:30 09/28/18 05:33 Synthroid PO 37.5 mcg DAILY@0630 [facility] Administration Lisinopril 2.5 mg 09/26/18 09:00 09/27/18 08:06 Zestril PO 2.5 mg DAILY [facility] Administration Megestrol Acetate 800 mg 09/26/18 10:30 09/27/18 08:06 Megace PO 800 mg DAILY [facility] Administration Metoprolol Succinate 50 mg 09/10/18 09:00 09/27/18 08:06 Toprol Xl PO 50 mg DAILY [facility] Administration Miscellaneous Information 1 each 09/20/18 07:21 Potassium Per Protocol MISCELLANE DAILY PRN Per Protocol Protocol Miscellaneous Information 1 each 09/20/18 16:29 Magnesium Per Protocol MISCELLANE DAILY PRN Per Protocol Protocol Miscellaneous Information 1 each 09/24/18 11:01 Magnesium Per Protocol MISCELLANE DAILY PRN Per Protocol Protocol Naloxone HCl 0.2 mg 09/09/18 17:05 Narcan IV Q2M PRN Opioid Reversal Ondansetron HCl 4 mg 09/09/18 17:05 Zofran IVP Q8HR PRN Nausea And Vomiting Pantoprazole Sodium 40 mg 09/23/18 07:30 09/27/18 08:06 Protonix PO 40 mg AC-BRKFST [facility] Administration Sodium Chloride 20 ml 09/19/18 15:09 Saline Flush IV Q4HR PRN PICC Line Sodium Chloride 10 ml 09/26/18 09:00 09/26/18 08:41 Saline Flush IV 10 ml WEEKLY [facility] Administration Sodium Chloride 10 ml 09/19/18 15:09 Saline Flush IV Q4HR PRN PICC Line Spironolactone 25 mg 09/11/18 09:00 09/27/18 08:06 Aldactone PO 25 mg DAILY [facility] Administration Intake and Output 09/27/18 09/28/18 09/28/18 22:59 06:59 14:59 Intake Total 260 1818.741 40.25 Output Total 751 220 50 Balance -491 1598.741 -9.75 Intake: IV 60 1810 20 Piperacillin-Tazobactam 3 200 .375 gm In Sodium Chloride 0.9% 100 ml @ 25 mls/hr IVPB Q8H [facility] Rx#: [id number] Sodium Chloride 0.9% 1, 60 1110 20 000 ml @ 20 mls/hr IV . Q24H [facility] Rx#:[id number] Vancomycin 1,750 mg In 500 Sodium Chloride 0.9% 500 ml 500 ml @ 167 mls/hr IVPB Q16H [facility] Rx#: [id number] Intake, IV Titration 8.741 20.25 Amount Norepinephrine 16 mg In 8.741 20.25 Sodium Chloride 0.9% 250 ml @ Titrate IV .Q0M [facility] Rx#:[id number] Oral 200 Output: Urine 750 220 50 Uretheral (Bueno) 400 Stool 1 Other: Voiding Method Indwelling Catheter Indwelling Catheter # Bowel Movements 1 Weight 108.3 kg 09/28/18 04:25 09/28/18 04:25 Assessment and Plan Assessment: Assessment #1 Hodgkin lymphoma and status post chemotherapy #2 hypertension and tachycardia. #3 pancytopenia #4 multiple comorbid conditions Plan #1 sepsis to be rule out #2 the anemia is also contributing to low blood pressure #3 the patient is in process of receiving 2 units of packed RBC #4 I will repeat the echocardiogram to assess for the ejection fraction and for any pericardial effusion #5 continue supporting the blood pressure with vasopressors at this point #6 follow-up with the patient. Thank you for allowing us participate in her care and we'll continue following up with the patient
[2018-09-28 07:20] LABS: Glucose,Whole Blood 224 mg/dL (75-99)
[2018-09-28] MEDS: MAGNESIUM SULFATE-D5W PMX 1 GM in DEXTROSE/WATER 1 100ML.BAG IVPB SCH ×3 (07:29→10:55)
[2018-09-28] MEDS: PANTOPRAZOLE 40 MG TABLET PO SCH ×2 (07:32→09:16)
--- NOTE | 2018-09-28 07:53 | CONS ---
CONSULTATION DATE OF SERVICE: 09/27/2018. REASON FOR CONSULTATION: Positive blood culture. HISTORY OF PRESENT ILLNESS: The patient is a 78-year-old female who has presented to the ER at [facility] 3 weeks ago on 09/09/2018 with chief complaints of progressive weakness, abdominal discomfort, weight loss. The patient apparently did have evaluation in [place] for similar symptoms and did have a left biopsy that was nondiagnostic. The patient did have a CT of the chest, abdomen, and pelvis this admission, which did show evidence of bilateral lymphadenopathy and adenopathy in the as well as cervical area. The patient is status post lymph node biopsy of the supraclavicular area completed during this admission, which shows evidence of a Hodgkin's lymphoma. The patient has been evaluated by Oncology service and the patient did received chemotherapy during this admission. The patient apparently in the beginning, did have some problem with UTI and was treated with vancomycin and Rocephin. Dose has been subsequently discontinued. The patient did have a PICC line that was placed in her left arm and she did have a midline in the same arm. It is not very clear when exactly the midline was placed. However, per the RN, that line was not functioning. The patient seems to have a problem with hyperthermia that has been noticed on September 25 in the morning of 09/25/2018 which she has a temperature of 94.7 and subsequently has been running a fever as low as 93.5. The patient also has been hypertensive and her white count has been low at 1.5. The patient did have blood cultures drawn on September 26, which were coming back positive with gram-positive cocci that prompted this infectious disease consultation. The patient was seen with the RN this afternoon and was recommended discontinuation of the non functioning midline and sending it for the culture and she was started on vancomycin. Subsequently got a call from the patient's nurse in the evening that the patient has been hypertensive persistently, hypothermic. UA was ordered and Zosyn has been added. The patient at the time of my evaluation has been lethargic and weak. However, she denies having any headache to me. No chest pain. Some shortness of breath. No cough. No abdominal pain or any diarrhea. The history was limited so most of the information has been obtained from thorough review of the chart. This patient has been here for almost 18 to 19 days. REVIEW OF SYSTEMS: Positive points have been mentioned in HPI. The rest of the systems negative. PAST MEDICAL HISTORY: Hypertension, type 2 diabetes mellitus, hyperlipidemia, obesity. PAST SURGICAL HISTORY: Lymph node biopsy, cholecystectomy, bilateral knee replacement. SOCIAL HISTORY: Remote history of smoking. . Lives with . No drinking or drug use. FAMILY HISTORY: No pertinent findings noticed. ALLERGIES: TO ASPIRIN. MEDICATIONS: Medications include the patient is currently on: Aldactone, Protonix, Zofran, Narcan. Toprol-XL, Zestril, Synthroid, Levemir, NovoLog, Lasix, filgrastim, Zyloprim, Zovirax, Rocky and Tylenol. PHYSICAL EXAMINATION: Blood pressure is 81/44, pulse of 95, temperature 94.1. She is 98% on 2 L nasal cannula. General description is an elderly female lying in bed in no distress with no tachypnea or accessory muscles of respiration use. HEENT: Shows slight pallor. No scleral icterus. Oral mucosal membranes are dry. No pharyngeal erythema or thrush. Neck trachea central. No thyromegaly. Lungs unlabored breathing, decreased breath sounds in the bases. No wheezes or crackles. Heart S1, S2. Regular rate and rhythm. ABDOMEN: Soft, no tenderness. No guarding or rigidity. Extremities: She did have 3+ edema of the feet, currently with no open wound per the RN, as her legs are wrapped up in the Jarrell wrap. Neurologically, the patient is lethargic though arousable and oriented times two. Mood and affect normal. LABS: Hemoglobin is 10.1, white count 1.5, BUN of 45, creatinine 0.78. Electrolytes has been normal. Liver enzymes mildly elevated. Bilirubin 0.9. Blood culture with gram- positive cocci. DIAGNOSTIC IMPRESSION AND PLAN: Patient with sepsis in this patient who does have significant hypothermia, hypertension. This patient also has leukopenia from recent chemotherapy for Hodgkin's lymphoma, now with evidence of gram-positive bacteremia, source is more likely the midline, will be concerned mostly for the midline which has been there for longer and nonfunctional as the patient currently with no other clinical focus of infection. PLAN: 1. Mid line has already been discontinued, will be sent for the culture. 2. Blood cultures will be repeated from the PICC line as well as peripherally. 3. Vancomycin pharmacy to dose target of 15 and will add Zosyn 3.375 q.8 hours. 4. We will also check the UA and culture. 5. We will follow up on clinical condition and culture to further adjust medication if needed. Thank you for this consultation. We will follow this patient along with you. MMODL / IJN: [id number] /
[2018-09-28] MEDS: METOPROLOL SUCCINATE (ER) 50 MG TAB.ER.24H PO SCH (09:10)
[2018-09-28] MEDS: SPIRONOLACTONE 25 MG TAB PO SCH (09:10)
[2018-09-28] MEDS: LISINOPRIL 2.5 MG TAB PO SCH (09:11)
[2018-09-28] MEDS: FUROSEMIDE 40 MG TAB PO SCH (09:11)
[2018-09-28] MEDS: FILGRASTIM-SNDZ 480 MCG/0.8 ML SYRINGE SQ SCH (09:23)
[2018-09-28 09:52] LABS: Large Platelets Present; Target Cells Present
[2018-09-28] MEDS: ALLOPURINOL 300 MG TAB PO SCH (10:55)
[2018-09-28] MEDS: MEGESTROL 400 MG/10 ML CUP PO SCH (10:55)
[2018-09-28 11:45] LABS: Glucose,Whole Blood 298 mg/dL (75-99)
--- NOTE | 2018-09-28 11:54 | P.PN ---
Subjective Progress Note Date: 09/28/18 Principal diagnosis: Hodgkin's lymphoma, pancytopenia, septic shock 78-year-old obese female patient with known history of hypertension diabetes mellitus who presented to the hospital because of ongoing progressive weakness, vague abdominal discomfort and pain, weight loss and constitutions symptoms. The patient was found to be anemic. The patient was found to have some lymphadenopathy and the patient undergone a lymph node biopsy in [place] that was sampled from the neck area and the results were nondiagnostic and the patient was discharged home. The patient came back to [place] and a CAT scan of the chest and abdomen and pelvis was done during this current admission and the CAT scan showed a mild to moderate bilateral hilar lymphadenopathy, adenopathy in the superior anterior and middle mediastinum and he was also subcarinal and right paraesophageal lymphadenopathy. The largest lymph node was a 5 x 2.8 cm lymph node in the right supraclavicular area. There was also lymphadenopathy in the left clavicular area, there was also several lymph nodes in the abdomen and pelvis extending in the peripancreatic and shira hepatis and portacaval and periaortic positions. All the things raises the suspicion for lymphoma and the patient had a right subclavicular lymph node biopsy that was done by general surgery and the results are still pending for now. The patient however was progressively getting weak and hypoproteinemic and hypovolemic and she has developed increased edema in the upper and lower extremity and anasarca. Yesterday she became hypotensive and she got transferred to the intensive care unit. Overnight she required IV fluids which was in the form of normal state rate of 100 mL an hour. She received 2 doses of 25 g of albumin. She was briefly placed on pressors and norepinephrine infusion was was discontinued this morning. No significant cough or sputum production. No fever or chills. She has had a klebsiella urine checked infection back in April 2018 and the repeat UA was negative. Currently she is on oral Lasix. She is also on Aldactone pH was given empiric antibiotic coverage with a combination of Rocephin and vancomycin. Metoprolol was placed on hold. Lisinopril was laced also on hold. She has loose liquidy bowel movements. No significant diarrhea. No altered mentation. No cough or sputum production. No open wounds or sores or skin rash. She is quite weak in all 4 extremities mainly in lower extremity is bilaterally. On 09/22/2018 the patient is essentially the same. She is post systemic chemotherapy with a combination of dacarbazine and doxorubicin. The patient is being treated for Hodgkin's lymphoma. Very much debilitated. Very much weak. Oral intake remains minimal. Protein is low. She has third spacing and the patient is not responding to diuretics. Sodium level is on the decline is currently down to 123. She is in a negative fluid balance of 600 mL despite being on diuretics. As such she has not responded to diuretics effectively. No hypotension. Mental status is fluctuating. This morning she was making more sense and she was able to communicate. Yet at times she has been found to be confused. No cough. No sputum production. No headaches. She is moving all 4 extremities that she is suffering from profound weakness in all 4 extremities. She is on a combination of Zaroxolyn and Lasix and Aldactone and despite that she has been able to diabetes effectively. No other significant events overnight. Antibiotics have been discontinued. She is afebrile. She has a PICC line in left upper extremity. On 09/23/2018, patient remains in the ICU, continues to have significant fluid retention, anasarca, profound edema in lower extremities, but the patient is not in any form of respiratory distress. Patient continues to third space in spite of diuretics, she has excellent urine output, patient is hemodynamically stable, mental status is fluctuating. She is being followed by many consultants regarding her multiple medical problems including her newly diagnosed Hodgkin's lymphoma. After evaluating the patient today, and after reviewing all clinical history, reviewing all the labs, chest x-ray, I felt the patient could be transferred out to a medical oncology floor. Patient was reevaluated today on 09/28/2018, she was transferred back to the intensive care unit last night, and the patient apparently developed an episode of hypotension, hypothermia, patient is pancytopenic, she has been receiving chemotherapy for Hodgkin's lymphoma. Fluids were given initially, and she received about 2 L of fluid boluses, blood pressure did not improve much, hence she was started on norepinephrine. Presently at 15 mcg/m. Patient was also given antibiotics empirically, for sepsis and septic shock. She is on multiple antibiotics as listed below. Patient continues to have marginal blood pressure , but the norepinephrine is being titrated accordingly. The patient herself is not complaining, she denies any cough wheezing or shortness of breath, denies any chest pain, she is actually on room air, and her O2 saturation is in the high 90s. Objective - Vital Signs Vital signs: Vital Signs Temp 97.7 F 09/28/18 07:00 Pulse 111 H 09/28/18 07:00 Resp 22 09/28/18 07:00 BP 77/43 09/28/18 07:00 Pulse Ox 96 09/28/18 07:00 Intake & Output 09/27/18 09/28/18 09/28/18 18:59 06:59 18:59 Intake Total 200 1878.741 182.25 Output Total 352 620 250 Balance -152 1258.741 -67.75 Weight 108.3 kg Intake: IV 1870 155 Piperacillin-Tazobactam 3 200 75 .375 gm In Sodium Chloride 0.9% 100 ml @ 25 mls/hr IVPB Q8H [facility] Rx#: [id number] Sodium Chloride 0.9% 1, 1170 80 000 ml @ 20 mls/hr IV . Q24H [facility] Rx#:[id number] Vancomycin 1,750 mg In 500 Sodium Chloride 0.9% 500 ml 500 ml @ 167 mls/hr IVPB Q16H [facility] Rx#: [id number] Intake, IV Titration 8.741 27.25 Amount Norepinephrine 16 mg In 8.741 27.25 Sodium Chloride 0.9% 250 ml @ Titrate IV .Q0M [facility] Rx#:[id number] Oral 200 Output: Urine 350 620 250 Uretheral (Bueno) 400 Stool 2 Other: Voiding Method Indwelling Catheter Indwelling Catheter # Bowel Movements 2 1 - Exam Physical Exam: Revealed a 78-year-old female, obese, in no distress. On room air. Head: Atraumatic, normocephalic. HEENT:[Neck is supple.] [No neck masses.] [No thyromegaly.] [No JVD.] Right supraclavicular surgical incision completely healed. Chest: [Diminished breath sound bilaterally, no crackles or rhonchi or wheezes.] Cardiac Exam: [Normal S1 and S2, no S3 gallop, no murmur.] Abdomen: [Obese Soft, nontender, no megaly, no rebound, no guarding, normal bowel sounds. Suspect ascites.] Extremities: 2+ bipedal edema, no clubbing, no cyanosis. Neurological Exam: [No focal neurologic deficit. Musculoskeletal: Generalized weakness, strength equal bilaterally lymphatics: No enlarged lymph nodes in the right supraclavicular area and bilateral axillary areas. Right supraclavicular surgical site is clean and dry. Skin: No rashes. - Labs CBC & Chem 7: 09/28/18 04:25 09/28/18 04:25 Labs: Abnormal Lab Results - Last 24 Hours (Table) 09/27/18 09/27/18 09/27/18 Range/Units 08:42 11:33 17:05 WBC 1.5 L (3.8-10.6) k/uL RBC 2.18 L (3.80-5.40) m/uL Hgb 7.1 L (11.4-16.0) gm/dL Hct 21.9 L (34.0-46.0) % MCV 100.6 H (80.0-100.0) fL RDW 20.0 H (11.5-15.5) % Plt Count 14 L* (150-450) k/uL Neutrophils # 0.7 L (1.3-7.7) k/uL Lymphocytes # 0.7 L (1.0-4.8) k/uL Sodium (137-145) mmol/L Chloride (98-107) mmol/L BUN (7-17) mg/dL Glucose (74-99) mg/dL POC Glucose (mg/dL) 132 H 162 H (75-99) mg/dL Calcium (8.4-10.2) mg/dL Magnesium (1.6-2.3) mg/dL AST (14-36) U/L ALT (9-52) U/L Alkaline Phosphatase (38-126) U/L Total Protein (6.3-8.2) g/dL Albumin (3.5-5.0) g/dL Urine Protein (Negative) 09/27/18 09/27/18 09/27/18 Range/Units 20:26 21:08 23:19 WBC (3.8-10.6) k/uL RBC (3.80-5.40) m/uL Hgb (11.4-16.0) gm/dL Hct (34.0-46.0) % MCV (80.0-100.0) fL RDW (11.5-15.5) % Plt Count (150-450) k/uL Neutrophils # (1.3-7.7) k/uL Lymphocytes # (1.0-4.8) k/uL Sodium (137-145) mmol/L Chloride (98-107) mmol/L BUN (7-17) mg/dL Glucose (74-99) mg/dL POC Glucose (mg/dL) 173 H 135 H (75-99) mg/dL Calcium (8.4-10.2) mg/dL Magnesium (1.6-2.3) mg/dL AST (14-36) U/L ALT (9-52) U/L Alkaline Phosphatase (38-126) U/L Total Protein (6.3-8.2) g/dL Albumin (3.5-5.0) g/dL Urine Protein Trace H (Negative) 09/27/18 09/28/18 09/28/18 Range/Units 23:43 04:25 04:25 WBC 0.5 L* (3.8-10.6) k/uL RBC 1.97 L (3.80-5.40) m/uL Hgb 6.2 L* (11.4-16.0) gm/dL Hct 19.8 L* (34.0-46.0) % MCV 100.3 H (80.0-100.0) fL RDW 20.2 H (11.5-15.5) % Plt Count 14 L* (150-450) k/uL Neutrophils # (1.3-7.7) k/uL Lymphocytes # (1.0-4.8) k/uL Sodium 130 L (137-145) mmol/L Chloride 94 L (98-107) mmol/L BUN 43 H (7-17) mg/dL Glucose 169 H (74-99) mg/dL POC Glucose (mg/dL) 131 H (75-99) mg/dL Calcium 7.3 L (8.4-10.2) mg/dL Magnesium 1.4 L (1.6-2.3) mg/dL AST 48 H (14-36) U/L ALT 61 H (9-52) U/L Alkaline Phosphatase 420 H (38-126) U/L Total Protein 5.1 L (6.3-8.2) g/dL Albumin 1.8 L (3.5-5.0) g/dL Urine Protein (Negative) 09/28/18 Range/Units 07:08 WBC (3.8-10.6) k/uL RBC (3.80-5.40) m/uL Hgb (11.4-16.0) gm/dL Hct (34.0-46.0) % MCV (80.0-100.0) fL RDW (11.5-15.5) % Plt Count (150-450) k/uL Neutrophils # (1.3-7.7) k/uL Lymphocytes # (1.0-4.8) k/uL Sodium (137-145) mmol/L Chloride (98-107) mmol/L BUN (7-17) mg/dL Glucose (74-99) mg/dL POC Glucose (mg/dL) 224 H (75-99) mg/dL Calcium (8.4-10.2) mg/dL Magnesium (1.6-2.3) mg/dL AST (14-36) U/L ALT (9-52) U/L Alkaline Phosphatase (38-126) U/L Total Protein (6.3-8.2) g/dL Albumin (3.5-5.0) g/dL Urine Protein (Negative) Microbiology - Last 24 Hours (Table) 09/27/18 12:52 Blood Culture Gram Stain - Preliminary Blood 09/27/18 12:52 Blood Culture - Final Blood 09/27/18 12:40 Catheter Tip Culture - Preliminary Catheter Tip 09/26/18 16:08 Blood Culture Gram Stain - Preliminary Blood Blood Culture - Preliminary Coagulase Negative Staph 09/26/18 11:53 Blood Culture - Preliminary Blood No Growth after 24 hours 09/26/18 11:41 Blood Culture - Preliminary Blood No Growth after 24 hours 09/26/18 16:08 Blood Culture - Final Blood Assessment and Plan Assessment: Impression: 1 Hodgkin's lymphoma with diffuse lymphadenopathy as noted on the diagnostic workup including CT of the chest mediastinum and abdomen. 2 extensive anasarca and hypoproteinemia some of the swelling in the lower extremities could be lymphedema. 3 electrolytes imbalance mostly hyponatremia felt to hypervolemic hyponatremia. 4 morbid obesity, BMI of 41. 5 type 2 diabetes 6 poor performance status and medical debility secondary to above. 7 acute septic shock is strongly suspected, patient is empirically on antibiotics, she was given fluid boluses and her IV fluid is increased to 100 mL /h maintenance. Patient is also on norepinephrine, being titrated accordingly. Her baseline serum cortisol level is down. 8 pancytopenia secondary to myeloma suppression from chemotherapy. Patient has been receiving platelet transfusions, and packed RBCs as ordered by oncology on the case. WBC count is 0.5 hemoglobin is 6.2 platelets are 14,000 today. Recommendation: Patient will be kept in the ICU today, all issues will be addressed accordingly as noted above, otherwise see the patient is quite ill and septic, blood cultures are nondiagnostic, she had mostly coagulase-negative staph, this is probably a skin contaminant. Discussed her condition with her family at bedside, patient will be monitored closely, and norepinephrine will be titrated accordingly to maintain a mean arterial pressure of 65. She did receive significant amount of fluid boluses, we'll continue to follow. Time with Patient: Less than 30
[2018-09-28] MEDS ORDERED: INSULIN ASPART 100 UNIT/ML 1 ML 10 ML VIAL SQ ONE ×4 (12:00)
[2018-09-28 18:46] LABS: Glucose,Whole Blood 252 mg/dL (75-99)
--- NOTE | 2018-09-28 18:46 | ECHOF ---
Referral Reason:low blood pressure/chemo MEASUREMENTS -------- HEIGHT: 165.1 cm WEIGHT: 108.0 kg BP: 77/43 RVIDd: 3.3 cm (< 3.3) IVSd: 1.1 cm (0.6 - 1.1) LVIDd: 2.7 cm (3.9 - 5.3) LVPWd: 1.0 cm (0.6 - 1.1) IVSs: 1.2 cm LVIDs: 1.5 cm LVPWs: 1.3 cm LA Diam: 3.2 cm (2.7 - 3.8) Ao Diam: 3.0 cm (2.0 - 3.7) AV Cusp: 0.9 cm (1.5 - 2.6) LA Diam: 3.5 cm (2.7 - 3.8) MV E Siva: 0.91 m/s MV DecT: 334 ms MV A Siva: 1.52 m/s MV E/A Ratio: 0.60 AV maxP.93 mmHg AV meanP.78 mmHg RAP: 5.00 mmHg RVSP: 20.52 mmHg FINDINGS -------- Resting tachycardia (HR>100bpm). This was a technically adequate study. The left ventricular size is normal. There is borderline concentric left ventricular hypertrophy. Left ventricular systolic function is hyperdynamic with an estimated EF of >70%. The right ventricle is mildly enlarged. The left atrial size is normal. The right atrium is normal in size. There is mild aortic valve sclerosis. There is no evidence of aortic regurgitation. There is mild aortic stenosis present. Peak/mean gradient across the Aortic Valve is 18.93mmHg / 12.78mmHg. The mitral valve leaflets are mildly thickened. Mild mitral annular calcification present. There is trace to mild mitral regurgitation. Trace tricuspid regurgitation present. Right ventricular systolic pressure is normal at < 35 mmHg. There is no evidence of pulmonary hypertension. The pulmonic valve was not well visualized. The aortic root size is normal. Normal inferior vena cava with normal inspiratory collapse consistent with estimated right atrial pre ssure of 5 mmHg. There is a small, generalized pericardial effusion present. CONCLUSIONS -------- 1. Resting tachycardia (HR>100bpm). 2. This was a technically adequate study. 3. The left ventricular size is normal. 4. There is borderline concentric left ventricular hypertrophy. 5. Left ventricular systolic function is hyperdynamic with an estimated EF of >70%. 6. The right ventricle is mildly enlarged. 7. The left atrial size is normal. 8. There is mild aortic valve sclerosis. 9. There is mild aortic stenosis present. 10. Peak/mean gradient across the Aortic Valve is 18.93mmHg / 12.78mmHg. 11. The mitral valve leaflets are mildly thickened. 12. Mild mitral annular calcification present. 13. There is trace to mild mitral regurgitation. 14. Trace tricuspid regurgitation present. 15. Right ventricular systolic pressure is normal at < 35 mmHg. 16. There is no evidence of pulmonary hypertension. 17. The pulmonic valve was not well visualized. 18. The aortic root size is normal. 19. There is a small, generalized pericardial effusion present. CONTINUING EDUCATION SPECIALIST: Grady Reina RDCS
--- NOTE | 2018-09-28 19:04 | PN ---
PROGRESS NOTE Mrs. Zamarripa is a 78-year-old female. The patient is a newly diagnosed Hodgkin lymphoma. She has received chemotherapy. She has had decreasing white counts and platelet counts and hemoglobin. The patient became hypotensive and was moved in the intensive care unit yesterday evening and was begun on vasopressor. She was also found to have gram-positive cocci in blood cultures and has been started on antibiotics. The patient is responding generally appropriate appropriately, but slow. Her vital signs reveal a pulse of 107 with a respiration rate of anywhere from 11-23 and blood pressure 97/47. Her saturation is 95. She does not appear to be in acute distress. Lung and heart examination is clear, although diminished at bases. Abdomen is nontender. She has some edema present grade 2 in both upper and lower extremities as she has had in the past. At this time, the plans are to continue antibiotics. She is being seen by Pulmonary Medicine, Infectious Disease and Cardiology and their notes have been regarded. Prognosis is guarded. I did discuss with the patient and her spouse and daughter at the bedside this morning. MMODL / IJN: [id number] /
[2018-09-28 21:16] LABS: Glucose,Whole Blood 272 mg/dL (75-99)
[2018-09-28] MEDS: SODIUM CHLORIDE 0.9% 1,000 ML IV SCH (21:42)
--- NOTE | 2018-09-28 23:29 | P.PN ---
Subjective Progress Note Date: 09/28/18 (Patient seen and Evaluated at 10am, EMR was down, late Entry) Principal diagnosis: Lottie Alexander was transferred to the ICU overnight for Hypotension. She is now on Pressors, her CBC has also decreased since yesterday, continues on zarxio. Objective - Vital Signs Vital signs: Vital Signs Temp 97.7 F 09/28/18 20:00 Pulse 92 09/28/18 23:00 Resp 13 09/28/18 23:00 BP 109/61 09/28/18 23:00 Pulse Ox 97 09/28/18 23:00 Intake & Output 09/28/18 09/28/18 09/29/18 06:59 18:59 06:59 Intake Total 1921.000 4060.25 951.208 Output Total 620 797 380 Balance 1258.741 960.25 571.208 Weight 108.3 kg Intake: IV 1870 1030 759 Piperacillin-Tazobactam 3 200 150 125 .375 gm In Sodium Chloride 0.9% 100 ml @ 25 mls/hr IVPB Q8H [facility] Rx#: [id number] Sodium Chloride 0.9% 1, 1170 880 300 000 ml @ 20 mls/hr IV . Q24H [facility] Rx#:[id number] Vancomycin 1,750 mg In 500 334 Sodium Chloride 0.9% 500 ml 500 ml @ 167 mls/hr IVPB Q16H [facility] Rx#: [id number] Intake, IV Titration 8.741 27.25 192.208 Amount Norepinephrine 16 mg In 8.741 27.25 192.208 Sodium Chloride 0.9% 250 ml @ Titrate IV .Q0M [facility] Rx#:[id number] Oral 700 Output: Urine 620 795 380 Uretheral (Bueno) 400 Stool 2 Other: Voiding Method Indwelling Catheter Indwelling Catheter Indwelling Catheter # Bowel Movements 1 - Exam Constitutional General appearance: no acute distress - EENT Eyes: EOMI, PERRLA ENT: hearing grossly normal, normal oropharynx - Neck Neck: no lymphadenopathy Thyroid: bilateral: normal size - Respiratory Respiratory: bilateral: diminished - Cardiovascular Rhythm: regular Heart sounds: normal: S1, S2 - Gastrointestinal General gastrointestinal: normal bowel sounds, soft - Integumentary Integumentary: normal - Neurologic Neurologic: CNII-XII intact - Musculoskeletal Musculoskeletal: generalized weakness, strength equal bilaterally - Psychiatric Psychiatric: A&O x's 3, appropriate affect 2-3+ edema in all 4 extremities Enlarged lymph nodes noted, medial rt supraclavicular area, bilateral axillae (right greater than left) due to patient's obese body habitus, size and extent are somewhat difficult to define exactly - Labs CBC & Chem 7: 09/29/18 05:00 09/29/18 05:00 Labs: Abnormal Lab Results - Last 24 Hours (Table) 09/27/18 09/28/18 09/28/18 Range/Units 23:43 04:25 04:25 WBC 0.5 L* (3.8-10.6) k/uL RBC 1.97 L (3.80-5.40) m/uL Hgb 6.2 L* (11.4-16.0) gm/dL Hct 19.8 L* (34.0-46.0) % MCV 100.3 H (80.0-100.0) fL RDW 20.2 H (11.5-15.5) % Plt Count 14 L* (150-450) k/uL Sodium 130 L (137-145) mmol/L Chloride 94 L (98-107) mmol/L BUN 43 H (7-17) mg/dL Glucose 169 H (74-99) mg/dL POC Glucose (mg/dL) 131 H (75-99) mg/dL Calcium 7.3 L (8.4-10.2) mg/dL Magnesium 1.4 L (1.6-2.3) mg/dL AST 48 H (14-36) U/L ALT 61 H (9-52) U/L Alkaline Phosphatase 420 H (38-126) U/L Total Protein 5.1 L (6.3-8.2) g/dL Albumin 1.8 L (3.5-5.0) g/dL 09/28/18 09/28/18 09/28/18 Range/Units 07:08 11:33 16:27 WBC (3.8-10.6) k/uL RBC (3.80-5.40) m/uL Hgb (11.4-16.0) gm/dL Hct (34.0-46.0) % MCV (80.0-100.0) fL RDW (11.5-15.5) % Plt Count (150-450) k/uL Sodium (137-145) mmol/L Chloride (98-107) mmol/L BUN (7-17) mg/dL Glucose (74-99) mg/dL POC Glucose (mg/dL) 224 H 298 H 252 H (75-99) mg/dL Calcium (8.4-10.2) mg/dL Magnesium (1.6-2.3) mg/dL AST (14-36) U/L ALT (9-52) U/L Alkaline Phosphatase (38-126) U/L Total Protein (6.3-8.2) g/dL Albumin (3.5-5.0) g/dL 09/28/18 Range/Units 21:05 WBC (3.8-10.6) k/uL RBC (3.80-5.40) m/uL Hgb (11.4-16.0) gm/dL Hct (34.0-46.0) % MCV (80.0-100.0) fL RDW (11.5-15.5) % Plt Count (150-450) k/uL Sodium (137-145) mmol/L Chloride (98-107) mmol/L BUN (7-17) mg/dL Glucose (74-99) mg/dL POC Glucose (mg/dL) 272 H (75-99) mg/dL Calcium (8.4-10.2) mg/dL Magnesium (1.6-2.3) mg/dL AST (14-36) U/L ALT (9-52) U/L Alkaline Phosphatase (38-126) U/L Total Protein (6.3-8.2) g/dL Albumin (3.5-5.0) g/dL Microbiology - Last 24 Hours (Table) 09/27/18 13:08 Blood Culture - Preliminary Blood No Growth after 24 hours 09/26/18 11:53 Blood Culture - Preliminary Blood No Growth after 48 hours 09/26/18 11:41 Blood Culture - Preliminary Blood No Growth after 48 hours 09/27/18 12:52 Blood Culture Gram Stain - Preliminary Blood Blood Culture - Preliminary Coagulase Negative Staph 09/27/18 12:52 Blood Culture - Final Blood 01/25/19 12:40 Catheter Tip Culture - Preliminary Catheter Tip Assessment and Plan Plan: (1) Hodgkins Lymphoma Confirmed - Lymphadenopathy Narrative/Plan: - Status Post First Cycle of AVD (No Bleomycin) - Typically an every 2 week treatment cycle although would prefer improvement in overall performamce status - On hold until performance status improves Current Visit: Yes Status: Acute Code(s): R59.1 - GENERALIZED ENLARGED LYMPH NODES SNOMED Code(s): 53932547 (2) Anemia Narrative/Plan: - This is normochromic normocytic, with rapidly some progression since last summer. - No Intervention needed today, Continue to monitor hemoglobin and transfuse if less than 7 Current Visit: Yes Status: Acute Code(s): D64.9 - ANEMIA, UNSPECIFIED SNOMED Code(s): 152994702 (3) Sepsis secondary to UTI Narrative/Plan: - Improved after antibiotics, although the past 48 hours temperature has been hypothermic 94-95F. this has resolved although with hypotension transferred to ICU closer monitoring. Current Visit: Yes Status: Acute Code(s): A41.9 - SEPSIS, UNSPECIFIED ORGANISM; N39.0 - URINARY TRACT INFECTION, SITE NOT SPECIFIED SNOMED Code(s): 024396680 (4) Fluid overload Narrative/Plan: - Patient's echocardiogram was normal. - This is improving, nephrology following, - Swelling is still significant in LE and Pedal edema upper extremities appears improved - Significant third spacing and intravascular dehydration (5) Hyponatremia: - Improving, Sodium is 130 today. (6) Increased Bili - Monitor (7) Protein Calorie Malnutrition: Severe - Albumin is 2, has not improved much with increased meals and protein supps will add appetite stimulator - Component of depression versus failure to thrive (8) Thrombocytopenia: - Secondary to malignancy and recent chemotherapy - Monitor closely and transfuse whrn platlets less then 10, or if s/s bleeding. - Plt count 13 today (9) Failure to Thrive/Component Depression: - Chronic Illness myopathy - Performance status is still not optimal for treatment number two, her improvement has been very slow. - Psychiatry consultation to assist in choice of medication for depression and/ or stimulant. Low dose ritalin 2.5mg po daily increasing to 5mg (although need to be given after eating and monitor eating) is resonable, as well as the addition of an SNRI and/or Psychtrophic category such as Zyprexa can help. - Referral to psych in assistance for medication choices is appropriate. (10) Low Mild 94.7F: improved - Repeat Blood Cultures and monitor coags. - Medications versus inaccurate reading versus underlying infection - Prelim Gram Positive BC, Vanco and Temp has improved. Plan: - DISPO on hold until improves, currently still monitored in ICU - Continue encourage PO intake - Monitor for infections and Bleeding. - Await final Blood cultures and continue vanco - Blood Cultures recurrent for COag negative staph, Defer to Dr. Man who is following. - Continue CBC daily Physician Attest I have completed the full history and physical and agree with above dictation, dictated as a scribe.
[2018-09-29 02:03] LABS: INR 1.2 (<1.2); Partial Thromboplastin Time 27.8 sec (22.0-30.0); Prothrombin Time 12.8 sec (9.0-12.0)
[2018-09-29 02:23] LABS: Anisocytosis Slight; HCT 23.3 % (34.0-46.0); HGB 7.6 gm/dL (11.4-16.0); MCH 31.2 pg (25.0-35.0); MCHC 32.5 g/dL (31.0-37.0); Macrocytosis Slight; Mean Platelet Volume 10.1; RBC 2.43 m/uL (3.80-5.40); RDW 19.3 % (11.5-15.5)
--- NOTE | 2018-09-29 02:42 | PN ---
PROGRESS NOTE DATE OF SERVICE: 09/28/2018 REASON FOR FOLLOWUP: Sepsis and gram-positive bacteremia. INTERVAL HISTORY: The patient's overall temperature has improved. She is currently not anymore hypothermic with a temperature of 97.8. The patient however is hypertensive requiring pressor support. The patient was more awake and alert today and breathing comfortably. Denies any chest pain or cough. No nausea, vomiting. No abdominal pain and no diarrhea. PHYSICAL EXAMINATION: Blood pressure 139/59 with a pulse of 108, temperature 97.8 she is 96% on 2 L nasal cannula. GENERAL DESCRIPTION: An elderly female up in the bed in no distress. RESPIRATORY SYSTEM: Unlabored breathing, clear to auscultation anteriorly. HEART: S1, S2. Regular rate and rhythm. ABDOMEN: Soft, no tenderness. EXTREMITIES: 2+ edema of the feet. LABS: Hemoglobin 6.1, ( ) 0.5 with a BUN of 43, creatinine 0.81. The blood cultures drawn, one study still showing coagulase negative Staph. DIAGNOSTIC IMPRESSION AND PLAN: Patient with sepsis, source is likely PICC line, it was inserted on 19 of September for chemo with persistently positive blood cultures coming back with coagulase negative Staph. The patient would benefit from removal of this line after another IV is secured as the patient is currently hard stick per the nursing staff. The patient is currently covered with vancomycin and Zosyn, to continue for now while awaiting for the condition to stabilize. Continue supportive care. MMODL / IJN: [id number] /
[2018-09-29 02:43] LABS: WBC 1.1 k/uL (3.8-10.6)
[2018-09-29 05:34] LABS: Anisocytosis Slight; HCT 23.2 % (34.0-46.0); HGB 7.6 gm/dL (11.4-16.0); MCH 31.3 pg (25.0-35.0); MCHC 32.7 g/dL (31.0-37.0); MCV 95.8 fL (80.0-100.0); Macrocytosis Slight; Mean Platelet Volume 10.3; RBC 2.42 m/uL (3.80-5.40); RDW 19.5 % (11.5-15.5)
[2018-09-29 05:40] LABS: Platelet Count 38 k/uL (150-450); WBC 1.2 k/uL (3.8-10.6)
[2018-09-29 05:51] LABS: ALT 51 U/L (9-52); AST 24 U/L (14-36); Albumin 1.9 g/dL (3.5-5.0); Alkaline Phosphatase 317 U/L (38-126); Anion Gap 3 mmol/L; Blood Urea Nitrogen 31 mg/dL (7-17); Calcium 7.5 mg/dL (8.4-10.2); Carbon Dioxide 30 mmol/L (22-30); Chloride 99 mmol/L (98-107); Glucose 64 mg/dL (74-99); Magnesium 1.9 mg/dL (1.6-2.3); Phosphorus 3.3 mg/dL (2.5-4.5); Potassium 2.9 mmol/L (3.5-5.1); Sodium 132 mmol/L (137-145); Total Bilirubin 1.2 mg/dL (0.2-1.3); Total Protein 5.2 g/dL (6.3-8.2)
[2018-09-29] MEDS: PIPERACILLIN-TAZOBACTAM 3.375 GM in SODIUM CHLORIDE 0.9% 100 ML IVPB SCH ×3 (06:57→21:45)
--- NOTE | 2018-09-29 07:24 | P.PN ---
Subjective Progress Note Date: 09/29/18 Principal diagnosis: Hodgkin lymphoma This is a pleasant 78-year-old female patient with a past medical history significant for diabetes as well as hypertension who presented to the hospital a few weeks ago with progressive weakness as well as a vague abdominal discomfort as well as progressive weight loss. The patient was found to be cloud cytopenic. She also was found to lymphadenopathy and she underwent lymph node biopsy which revealed Hodgkin lymphoma. The patient was admitted to the hospital and she was started on chemotherapy. She did have a long hospital stay were initially she was admitted to the intensive care unit and she was transferred out of the intensive care unit and she was brought to the ICU yesterday because of hypotension and tachycardia. We requested to see the patient because of the low blood pressure. The patient initially received IV fluid but she did not respond well to IV fluid and because of that she was brought to the intensive care unit and she was started on vasopressors with norepinephrine. Currently she has been maintaining systolic blood pressure in the 80s and 90s. The patient continues to be pancytopenic with a hemoglobin of around 6 and currently she is in process of receiving 2 units of packed RBC. Beside that she underwent panculture and the culture came back positive and she is possibly also septic which could be contributing to her low blood pressure as well. On physical examination she is quite hypertensive area the patient herself does not recall any history of coronary artery disease but she does have hypertension and dyslipidemia. No coronary artery disease, congestive heart failure, or any cardiac arrhythmia in the past. When she first presented to the hospital she underwent an echocardiogram and that revealed normal LV function with mild MR and mild TR. I requested to repeat the echocardiogram to see if there is any drop in the ejection fraction and assess also for any pericardial effusion which could be contributing to her low blood pressure. The patient herself denies any symptoms of chest pain or chest discomfort but she is a bit short of breath this morning. She is not dizzy or lightheaded. On follow-up with the patient today, 09/29/2018, the patient received 2 L of packed RBC yesterday. Her hemoglobin has improved. Her WBC as well as platelet are better as well. She continues to be on norepinephrine but we are coming down with the dose. But she looks very edematous with severe upper and lower extremities edema. She is currently on Lasix by mouth at 40 mg daily. The repeated echo continues to show normal left ventricular systolic function. Objective - Vital Signs Vital signs: Vital Signs Temp 97.0 F L 09/29/18 04:00 Pulse 81 09/29/18 06:45 Resp 13 09/29/18 06:45 BP 114/56 09/29/18 06:45 Pulse Ox 94 L 09/29/18 06:45 Intake & Output 09/28/18 09/29/18 09/29/18 18:59 06:59 18:59 Intake Total 1757.25 1718.208 21.801 Output Total 797 930 Balance 960.25 788.208 21.801 Weight 112.2 kg Intake: IV 1030 1526 Piperacillin-Tazobactam 3 150 125 .375 gm In Sodium Chloride 0.9% 100 ml @ 25 mls/hr IVPB Q8H [facility] Rx#: [id number] Sodium Chloride 0.9% 1, 880 900 000 ml @ 20 mls/hr IV . Q24H [facility] Rx#:[id number] Vancomycin 1,750 mg In 501 Sodium Chloride 0.9% 500 ml 500 ml @ 167 mls/hr IVPB Q16H [facility] Rx#: [id number] Intake, IV Titration 27.25 192.208 21.801 Amount Norepinephrine 16 mg In 27.25 192.208 21.801 Sodium Chloride 0.9% 250 ml @ Titrate IV .Q0M [facility] Rx#:[id number] Oral 700 Output: Urine 795 930 Stool 2 Other: Voiding Method Indwelling Catheter Indwelling Catheter - Constitutional General appearance: Present: no acute distress - Respiratory Respiratory: bilateral: diminished - Cardiovascular Rhythm: regular Heart sounds: normal: S1, S2 - Labs CBC & Chem 7: 09/29/18 05:00 09/29/18 05:00 Labs: Abnormal Lab Results - Last 24 Hours (Table) 09/28/18 09/28/18 09/28/18 Range/Units 11:33 16:27 21:05 WBC (3.8-10.6) k/uL RBC (3.80-5.40) m/uL Hgb (11.4-16.0) gm/dL Hct (34.0-46.0) % RDW (11.5-15.5) % Plt Count (150-450) k/uL PT (9.0-12.0) sec INR (<1.2) Sodium (137-145) mmol/L Potassium (3.5-5.1) mmol/L BUN (7-17) mg/dL Glucose (74-99) mg/dL POC Glucose (mg/dL) 298 H 252 H 272 H (75-99) mg/dL Calcium (8.4-10.2) mg/dL Alkaline Phosphatase (38-126) U/L Total Protein (6.3-8.2) g/dL Albumin (3.5-5.0) g/dL 09/29/18 09/29/18 09/29/18 Range/Units 01:00 01:00 05:00 WBC 1.1 L* 1.2 L* (3.8-10.6) k/uL RBC 2.43 L 2.42 L (3.80-5.40) m/uL Hgb 7.6 L 7.6 L (11.4-16.0) gm/dL Hct 23.3 L 23.2 L (34.0-46.0) % RDW 19.3 H 19.5 H (11.5-15.5) % Plt Count 42 L D 38 L (150-450) k/uL PT 12.8 H (9.0-12.0) sec INR 1.2 H (<1.2) Sodium (137-145) mmol/L Potassium (3.5-5.1) mmol/L BUN (7-17) mg/dL Glucose (74-99) mg/dL POC Glucose (mg/dL) (75-99) mg/dL Calcium (8.4-10.2) mg/dL Alkaline Phosphatase (38-126) U/L Total Protein (6.3-8.2) g/dL Albumin (3.5-5.0) g/dL 09/29/18 Range/Units 05:00 WBC (3.8-10.6) k/uL RBC (3.80-5.40) m/uL Hgb (11.4-16.0) gm/dL Hct (34.0-46.0) % RDW (11.5-15.5) % Plt Count (150-450) k/uL PT (9.0-12.0) sec INR (<1.2) Sodium 132 L (137-145) mmol/L Potassium 2.9 L (3.5-5.1) mmol/L BUN 31 H (7-17) mg/dL Glucose 64 L (74-99) mg/dL POC Glucose (mg/dL) (75-99) mg/dL Calcium 7.5 L (8.4-10.2) mg/dL Alkaline Phosphatase 317 H (38-126) U/L Total Protein 5.2 L (6.3-8.2) g/dL Albumin 1.9 L (3.5-5.0) g/dL Microbiology - Last 24 Hours (Table) 09/27/18 13:08 Blood Culture Gram Stain - Preliminary Blood 09/27/18 12:52 Blood Culture Gram Stain - Preliminary Blood 09/27/18 13:08 Blood Culture - Final Blood 09/26/18 11:53 Blood Culture - Preliminary Blood No Growth after 48 hours 09/26/18 11:41 Blood Culture - Preliminary Blood No Growth after 48 hours 09/27/18 12:52 Blood Culture Gram Stain - Preliminary Blood Blood Culture - Preliminary Coagulase Negative Staph 09/27/18 12:52 Blood Culture - Final Blood Assessment and Plan Assessment: Assessment #1 Hodgkin lymphoma and status post chemotherapy #2 hypertension and tachycardia. #3 pancytopenia #4 multiple comorbid conditions Plan #1 the patient's hemoglobin has improved after blood transfusion #2 she continues to be on vasopressors with a lower dose. She is currently on norepinephrine #3 I did recommend DC the Lasix by mouth and put the patient on Lasix IV at 40 mg daily #4 try to wean her from the norepinephrine #5 the repeated echocardiogram showed normal LV function Thank you for allowing us participate in her care and we'll continue following up with the patient
[2018-09-29] MEDS: NOREPINEPHRINE 16 MG in SODIUM CHLORIDE 0.9% 250 ML IV SCH (07:25)
[2018-09-29] MEDS ORDERED: FUROSEMIDE 10 MG/ML 4 ML VIAL IV SCH (09:00)
[2018-09-29] MEDS: PANTOPRAZOLE 40 MG TABLET PO SCH (09:18)
[2018-09-29] MEDS: SPIRONOLACTONE 25 MG TAB PO SCH (09:18)
[2018-09-29 09:19] LABS: Band Neutrophils % 2 %; Eosinophils # (M) 0.07 k/uL (0-0.7); Lymphocytes # (M) 0.72 k/uL (1.0-4.8); Metamyelocytes # (M) 0.01 k/uL (0); Metamyelocytes % 1 %; Monocytes # (M) 0.12 k/uL (0-1.0); Neutrophils % (M) 18 %
[2018-09-29] MEDS: LEVOTHYROXINE 75 MCG TAB PO SCH (09:19)
[2018-09-29] MEDS: POTASSIUM CHLORIDE 20 MEQ in WATER FOR INJECTION 1 100ML.BAG IVPB SCH ×3 (09:19→14:00)
[2018-09-29] MEDS: MEGESTROL 400 MG/10 ML CUP PO SCH (09:20)
[2018-09-29] MEDS: ALLOPURINOL 300 MG TAB PO SCH (09:20)
[2018-09-29] MEDS: ACYCLOVIR 200 MG CAP PO SCH ×2 (09:20→21:46)
[2018-09-29] MEDS: INSULIN ASPART 100 UNIT/ML 1 ML 10 ML VIAL SQ SCH ×6 (09:21→21:45)
[2018-09-29 09:24] LABS: Blast Cells # (M) 0.04 k/uL (0); Nucleated Red Blood Cells 0 /100 WBC (0-0); Total Cells Counted 100
[2018-09-29] MEDS: FILGRASTIM-SNDZ 480 MCG/0.8 ML SYRINGE SQ SCH (09:24)
[2018-09-29 09:25] LABS: Poikilocytosis (M) Present
[2018-09-29 09:36] LABS: Neutrophils % (M) 21 %
[2018-09-29 09:37] LABS: Band Neutrophils % 5 %; Basophils # (M) 0.01 k/uL (0-0.2); Eosinophils # (M) 0.06 k/uL (0-0.7); Lymphocytes # (M) 0.63 k/uL (1.0-4.8); Monocytes # (M) 0.08 k/uL (0-1.0)
[2018-09-29 09:39] LABS: Blast Cells # (M) 0.04 k/uL (0); Nucleated Red Blood Cells 0 /100 WBC (0-0); Total Cells Counted 100
[2018-09-29 09:41] LABS: Large Platelets Present
[2018-09-29 09:42] LABS: Poikilocytosis (M) Present
[2018-09-29 09:43] LABS: Platelet Count 42 k/uL (150-450)
--- NOTE | 2018-09-29 09:54 | P.PN ---
Subjective Progress Note Date: 09/29/18 Principal diagnosis: Hodgkin's lymphoma, pancytopenia, septic shock 78-year-old obese female patient with known history of hypertension diabetes mellitus who presented to the hospital because of ongoing progressive weakness, vague abdominal discomfort and pain, weight loss and constitutions symptoms. The patient was found to be anemic. The patient was found to have some lymphadenopathy and the patient undergone a lymph node biopsy in [place] that was sampled from the neck area and the results were nondiagnostic and the patient was discharged home. The patient came back to [place] and a CAT scan of the chest and abdomen and pelvis was done during this current admission and the CAT scan showed a mild to moderate bilateral hilar lymphadenopathy, adenopathy in the superior anterior and middle mediastinum and he was also subcarinal and right paraesophageal lymphadenopathy. The largest lymph node was a 5 x 2.8 cm lymph node in the right supraclavicular area. There was also lymphadenopathy in the left clavicular area, there was also several lymph nodes in the abdomen and pelvis extending in the peripancreatic and shira hepatis and portacaval and periaortic positions. All the things raises the suspicion for lymphoma and the patient had a right subclavicular lymph node biopsy that was done by general surgery and the results are still pending for now. The patient however was progressively getting weak and hypoproteinemic and hypovolemic and she has developed increased edema in the upper and lower extremity and anasarca. Yesterday she became hypotensive and she got transferred to the intensive care unit. Overnight she required IV fluids which was in the form of normal state rate of 100 mL an hour. She received 2 doses of 25 g of albumin. She was briefly placed on pressors and norepinephrine infusion was was discontinued this morning. No significant cough or sputum production. No fever or chills. She has had a klebsiella urine checked infection back in April 2018 and the repeat UA was negative. Currently she is on oral Lasix. She is also on Aldactone pH was given empiric antibiotic coverage with a combination of Rocephin and vancomycin. Metoprolol was placed on hold. Lisinopril was laced also on hold. She has loose liquidy bowel movements. No significant diarrhea. No altered mentation. No cough or sputum production. No open wounds or sores or skin rash. She is quite weak in all 4 extremities mainly in lower extremity is bilaterally. On 09/22/2018 the patient is essentially the same. She is post systemic chemotherapy with a combination of dacarbazine and doxorubicin. The patient is being treated for Hodgkin's lymphoma. Very much debilitated. Very much weak. Oral intake remains minimal. Protein is low. She has third spacing and the patient is not responding to diuretics. Sodium level is on the decline is currently down to 123. She is in a negative fluid balance of 600 mL despite being on diuretics. As such she has not responded to diuretics effectively. No hypotension. Mental status is fluctuating. This morning she was making more sense and she was able to communicate. Yet at times she has been found to be confused. No cough. No sputum production. No headaches. She is moving all 4 extremities that she is suffering from profound weakness in all 4 extremities. She is on a combination of Zaroxolyn and Lasix and Aldactone and despite that she has been able to diabetes effectively. No other significant events overnight. Antibiotics have been discontinued. She is afebrile. She has a PICC line in left upper extremity. On 09/23/2018, patient remains in the ICU, continues to have significant fluid retention, anasarca, profound edema in lower extremities, but the patient is not in any form of respiratory distress. Patient continues to third space in spite of diuretics, she has excellent urine output, patient is hemodynamically stable, mental status is fluctuating. She is being followed by many consultants regarding her multiple medical problems including her newly diagnosed Hodgkin's lymphoma. After evaluating the patient today, and after reviewing all clinical history, reviewing all the labs, chest x-ray, I felt the patient could be transferred out to a medical oncology floor. Patient was reevaluated today on 09/28/2018, she was transferred back to the intensive care unit last night, and the patient apparently developed an episode of hypotension, hypothermia, patient is pancytopenic, she has been receiving chemotherapy for Hodgkin's lymphoma. Fluids were given initially, and she received about 2 L of fluid boluses, blood pressure did not improve much, hence she was started on norepinephrine. Presently at 15 mcg/m. Patient was also given antibiotics empirically, for sepsis and septic shock. She is on multiple antibiotics as listed below. Patient continues to have marginal blood pressure , but the norepinephrine is being titrated accordingly. The patient herself is not complaining, she denies any cough wheezing or shortness of breath, denies any chest pain, she is actually on room air, and her O2 saturation is in the high 90s. Patient was reevaluated today on 09/29/2018, multiple blood cultures continued to show coagulase-negative staph, hence it is almost certain that this is related to a catheter related sepsis/PICC line most likely. Hence the PICC line would have to be removed, and we'll try to establish another access. Patient is quite edematous and swollen, and a peripheral access could not be established, hence I will give the patient 3 units of platelets today, and I will try to establish a central line access in this patient for now. Multiple blood cultures from different dates including the and the most recent cultures are still showing coagulase-negative staph, hence this is not a contamination this is actually at [place] PICC line infection. Patient is still on vancomycin, and she is being followed by infectious disease, we'll try to discontinue the central line today, and I don't establish another access either peripheral or central however if central is to be considered, the patient needs to be given more platelets today. Hemodynamically, the patient is doing better , and her blood pressure is holding but she still on 2 mcg/m of norepinephrine. Her labs are improving, WBC count is up to 1.2 hemoglobin is 7.6, platelets are 38,000. Potassium is low being corrected as per protocol. No chest x-ray was done today, patient remains on room air, and she is saturating up in the 90s on room air. Denies any shortness of breath, denies any pain, no nausea, no vomiting, no dysuria and no frequency no urgency. But again clearly the patient is quite bacteremic and it is highly suspected to be secondary to central line/catheter related sepsis Objective - Vital Signs Vital signs: Vital Signs Temp 97.0 F L 09/29/18 04:00 Pulse 83 09/29/18 07:30 Resp 17 09/29/18 07:30 BP 112/55 09/29/18 07:30 Pulse Ox 97 09/29/18 07:30 Intake & Output 09/28/18 09/29/18 09/29/18 18:59 06:59 18:59 Intake Total 1757.25 1718.208 21.801 Output Total 797 930 Balance 960.25 788.208 21.801 Weight 112.2 kg Intake: IV 1030 1526 Piperacillin-Tazobactam 3 150 125 .375 gm In Sodium Chloride 0.9% 100 ml @ 25 mls/hr IVPB Q8H [facility] Rx#: [id number] Sodium Chloride 0.9% 1, 880 900 000 ml @ 20 mls/hr IV . Q24H [facility] Rx#:[id number] Vancomycin 1,750 mg In 501 Sodium Chloride 0.9% 500 ml 500 ml @ 167 mls/hr IVPB Q16H [facility] Rx#: [id number] Intake, IV Titration 27.25 192.208 21.801 Amount Norepinephrine 16 mg In 27.25 192.208 21.801 Sodium Chloride 0.9% 250 ml @ Titrate IV .Q0M [facility] Rx#:[id number] Oral 700 Output: Urine 795 930 Stool 2 Other: Voiding Method Indwelling Catheter Indwelling Catheter - Exam Physical Exam: Revealed a 78-year-old female, obese, in no distress. On room air. Head: Atraumatic, normocephalic. HEENT:[Neck is supple.] [No neck masses.] [No thyromegaly.] [No JVD.] Right supraclavicular surgical incision completely healed. Chest: [Diminished breath sound bilaterally, no crackles or rhonchi or wheezes.] Cardiac Exam: [Normal S1 and S2, no S3 gallop, no murmur.] Abdomen: [Obese Soft, nontender, no megaly, no rebound, no guarding, normal bowel sounds. Suspect ascites.] Extremities: 3 + bipedal edema, no clubbing, no cyanosis. Neurological Exam: [No focal neurologic deficit. Alert oriented 3. Musculoskeletal: Generalized weakness, strength equal bilaterally lymphatics: No enlarged lymph nodes in the right supraclavicular area and bilateral axillary areas. Right supraclavicular surgical site is clean and dry. Skin: No rashes. - Labs CBC & Chem 7: 09/29/18 05:00 09/29/18 05:00 Labs: Abnormal Lab Results - Last 24 Hours (Table) 09/28/18 09/28/18 09/28/18 Range/Units 06:20 11:33 16:27 WBC (3.8-10.6) k/uL RBC (3.80-5.40) m/uL Hgb (11.4-16.0) gm/dL Hct (34.0-46.0) % RDW (11.5-15.5) % Plt Count (150-450) k/uL Blast Cells % % Neutrophils # (Manual) (1.3-7.7) k/uL Lymphocytes # (Manual) (1.0-4.8) k/uL Metamyelocytes # (Man) (0) k/uL Blast Cells # (Man) (0) k/uL PT (9.0-12.0) sec INR (<1.2) Sodium (137-145) mmol/L Potassium (3.5-5.1) mmol/L BUN (7-17) mg/dL Glucose (74-99) mg/dL POC Glucose (mg/dL) 298 H 252 H (75-99) mg/dL Calcium (8.4-10.2) mg/dL Alkaline Phosphatase (38-126) U/L Total Protein (6.3-8.2) g/dL Albumin (3.5-5.0) g/dL Crossmatch See Detail 09/28/18 09/29/18 09/29/18 Range/Units 21:05 01:00 01:00 WBC 1.1 L* (3.8-10.6) k/uL RBC 2.43 L (3.80-5.40) m/uL Hgb 7.6 L (11.4-16.0) gm/dL Hct 23.3 L (34.0-46.0) % RDW 19.3 H (11.5-15.5) % Plt Count 42 L D (150-450) k/uL Blast Cells % 4 H* % Neutrophils # (Manual) 0.20 L* (1.3-7.7) k/uL Lymphocytes # (Manual) 0.63 L (1.0-4.8) k/uL Metamyelocytes # (Man) (0) k/uL Blast Cells # (Man) 0.04 H (0) k/uL PT 12.8 H (9.0-12.0) sec INR 1.2 H (<1.2) Sodium (137-145) mmol/L Potassium (3.5-5.1) mmol/L BUN (7-17) mg/dL Glucose (74-99) mg/dL POC Glucose (mg/dL) 272 H (75-99) mg/dL Calcium (8.4-10.2) mg/dL Alkaline Phosphatase (38-126) U/L Total Protein (6.3-8.2) g/dL Albumin (3.5-5.0) g/dL Crossmatch 09/29/18 09/29/18 Range/Units 05:00 05:00 WBC 1.2 L* (3.8-10.6) k/uL RBC 2.42 L (3.80-5.40) m/uL Hgb 7.6 L (11.4-16.0) gm/dL Hct 23.2 L (34.0-46.0) % RDW 19.5 H (11.5-15.5) % Plt Count 38 L (150-450) k/uL Blast Cells % 3 H* % Neutrophils # (Manual) 0.20 L* (1.3-7.7) k/uL Lymphocytes # (Manual) 0.72 L (1.0-4.8) k/uL Metamyelocytes # (Man) 0.01 H (0) k/uL Blast Cells # (Man) 0.04 H (0) k/uL PT (9.0-12.0) sec INR (<1.2) Sodium 132 L (137-145) mmol/L Potassium 2.9 L (3.5-5.1) mmol/L BUN 31 H (7-17) mg/dL Glucose 64 L (74-99) mg/dL POC Glucose (mg/dL) (75-99) mg/dL Calcium 7.5 L (8.4-10.2) mg/dL Alkaline Phosphatase 317 H (38-126) U/L Total Protein 5.2 L (6.3-8.2) g/dL Albumin 1.9 L (3.5-5.0) g/dL Crossmatch Microbiology - Last 24 Hours (Table) 09/27/18 12:52 Blood Culture Gram Stain - Final Blood Blood Culture - Final Coagulase Negative Staph 09/27/18 13:08 Blood Culture Gram Stain - Preliminary Blood 09/27/18 12:52 Blood Culture Gram Stain - Preliminary Blood 09/27/18 13:08 Blood Culture - Final Blood 09/26/18 11:53 Blood Culture - Preliminary Blood No Growth after 48 hours 09/26/18 11:41 Blood Culture - Preliminary Blood No Growth after 48 hours 09/27/18 12:52 Blood Culture - Final Blood Assessment and Plan Assessment: Impression: 1 Hodgkin's lymphoma with diffuse lymphadenopathy as noted on the diagnostic workup including CT of the chest mediastinum and abdomen. 2 extensive anasarca and hypoproteinemia some of the swelling in the lower extremities could be lymphedema. 3 electrolytes imbalance mostly hyponatremia felt to hypervolemic hyponatremia. 4 morbid obesity, BMI of 41. 5 type 2 diabetes 6 poor performance status and medical debility secondary to above. 7 acute septic shock secondary to PICC line sepsis and bacteremia. 8 pancytopenia secondary to myeloma suppression from chemotherapy. Being addressed by oncology on the case, patient will need a central line placement today, hence I will give her platelets and follow that by central line placement. Or do the central line well the platelets are transfusing Recommendation: Continue broad-spectrum antibiotics including vancomycin, PICC line must be discontinued, another IV access would have to be established, periphery of peripheral IV access for 24 hours, but if not I would have to establish a central access. Titrate norepinephrine down and possibly discontinue, she is only on 2 g of norepinephrine today. Continue to monitor in the ICU, patient remains quite ill, but improving overall compared to how she felt over the last few days. Time with Patient: Less than 30
--- NOTE | 2018-09-29 09:59 | P.PN ---
Progress Note - Text The patient is a 78-year-old female who is a newly diagnosed Hodgkin's lymphoma and status post chemotherapy. At this time she remains in the intensive care unit and she was moved back to the intensive care unit secondary to hypotension. Patient did have gram-positive cocci in blood cultures were found to be staph aureus coagulase negative. She is presently on antibiotics. Zosyn and vancomycin. Since her admission she is also had marked third spacing of fluid with gross edema. This morning she is alert and generally oriented. No complaints of pain. She does not appear to be any distress. Vital signs show a last temperature of 97 with a pulse of 83 and respirations 17. Blood pressure is 112/55 and she is 97% saturated. Lungs are generally clear anteriorly but diminished at bases. Heart tones were regular. Abdomen nontender. Diffuse edema again noted. No new focal neurological changes noted. Laboratory White count is 1.2 with a hemoglobin 7.6 and a platelet count of 38. Sodium is 132 with a potassium 2.9. BUN 31 with creatinine of 0.68 given a GFR of 84. Blood sugar was 64 this morning. Albumin still low at 1.9. Impressions and plans We'll continue present antibiotics pending further recommendations from infectious disease. Cardiology and pulmonary along with oncology notes were regarded and we'll wait for further recommendations. Hopefully the patient's bone marrow will be recovering through the week.
[2018-09-29 11:54] LABS: Glucose,Whole Blood 181 mg/dL (75-99)
[2018-09-29] MEDS: MAGNESIUM SULFATE-D5W PMX 1 GM in DEXTROSE/WATER 1 100ML.BAG IVPB SCH ×2 (12:14→17:16)
--- NOTE | 2018-09-29 13:36 | XR ---
EXAMINATION TYPE: XR chest 1V portable DATE OF EXAM: 09/29/2018 COMPARISON: Prior chest x-ray 09/28/2018 HISTORY: Status post central line placement TECHNIQUE: Single frontal view of the chest is obtained. FINDINGS: There is been interval placement of a right jugular central venous catheter, distal tip is within the right atrium. No pneumothorax. Exam is expiratory. Interstitium appears prominently. Hear t size is likely stable. IMPRESSION: No evident complication status post central venous catheter placement. Distal tip in the right atrium.
--- NOTE | 2018-09-29 15:21 | P.PN ---
Subjective Progress Note Date: 09/29/18 Principal diagnosis: Lottie Alexander was transferred to the ICU On Sunday night, Her CBC remains same, slow improvement. SHe is Hypokalemic today. No new symptoms. Objective - Vital Signs Vital signs: Vital Signs Temp 96.7 F L 09/29/18 08:30 Pulse 75 09/29/18 11:15 Resp 11 L 09/29/18 11:15 BP 91/49 09/29/18 11:15 Pulse Ox 98 09/29/18 11:15 Intake & Output 09/28/18 09/29/18 09/29/18 18:59 06:59 18:59 Intake Total 1757.25 1718.208 871.801 Output Total 797 930 320 Balance 960.25 788.208 551.801 Weight 112.2 kg Intake: IV 1030 1526 600 Piperacillin-Tazobactam 3 150 125 100 .375 gm In Sodium Chloride 0.9% 100 ml @ 25 mls/hr IVPB Q8H [facility] Rx#: [id number] Sodium Chloride 0.9% 1, 880 900 500 000 ml @ 20 mls/hr IV . Q24H [facility] Rx#:[id number] Vancomycin 1,750 mg In 501 Sodium Chloride 0.9% 500 ml 500 ml @ 167 mls/hr IVPB Q16H [facility] Rx#: [id number] Intake, IV Titration 27.25 192.208 21.801 Amount Norepinephrine 16 mg In 27.25 192.208 21.801 Sodium Chloride 0.9% 250 ml @ Titrate IV .Q0M [facility] Rx#:[id number] Oral 700 250 Output: Urine 795 930 320 Stool 2 Other: Voiding Method Indwelling Catheter Indwelling Catheter Indwelling Catheter - Exam Constitutional General appearance: no acute distress - EENT Eyes: EOMI, PERRLA ENT: hearing grossly normal, normal oropharynx - Neck Neck: no lymphadenopathy Thyroid: bilateral: normal size - Respiratory Respiratory: bilateral: diminished - Cardiovascular Rhythm: regular Heart sounds: normal: S1, S2 - Gastrointestinal General gastrointestinal: normal bowel sounds, soft - Integumentary Integumentary: normal - Neurologic Neurologic: CNII-XII intact - Musculoskeletal Musculoskeletal: generalized weakness, strength equal bilaterally - Psychiatric Psychiatric: A&O x's 3, appropriate affect 2-3+ edema in all 4 extremities Enlarged lymph nodes noted, medial rt supraclavicular area, bilateral axillae (right greater than left) due to patient's obese body habitus, size and extent are somewhat difficult to define exactly - Labs CBC & Chem 7: 09/29/18 05:00 09/29/18 05:00 Labs: Abnormal Lab Results - Last 24 Hours (Table) 09/28/18 09/28/18 09/28/18 Range/Units 06:20 16:27 21:05 WBC (3.8-10.6) k/uL RBC (3.80-5.40) m/uL Hgb (11.4-16.0) gm/dL Hct (34.0-46.0) % RDW (11.5-15.5) % Plt Count (150-450) k/uL Blast Cells % % Neutrophils # (Manual) (1.3-7.7) k/uL Lymphocytes # (Manual) (1.0-4.8) k/uL Metamyelocytes # (Man) (0) k/uL Blast Cells # (Man) (0) k/uL PT (9.0-12.0) sec INR (<1.2) Sodium (137-145) mmol/L Potassium (3.5-5.1) mmol/L BUN (7-17) mg/dL Glucose (74-99) mg/dL POC Glucose (mg/dL) 252 H 272 H (75-99) mg/dL Calcium (8.4-10.2) mg/dL Alkaline Phosphatase (38-126) U/L Total Protein (6.3-8.2) g/dL Albumin (3.5-5.0) g/dL Crossmatch See Detail 09/29/18 09/29/18 09/29/18 Range/Units 01:00 01:00 05:00 WBC 1.1 L* 1.2 L* (3.8-10.6) k/uL RBC 2.43 L 2.42 L (3.80-5.40) m/uL Hgb 7.6 L 7.6 L (11.4-16.0) gm/dL Hct 23.3 L 23.2 L (34.0-46.0) % RDW 19.3 H 19.5 H (11.5-15.5) % Plt Count 42 L D 38 L (150-450) k/uL Blast Cells % 4 H* 3 H* % Neutrophils # (Manual) 0.20 L* 0.20 L* (1.3-7.7) k/uL Lymphocytes # (Manual) 0.63 L 0.72 L (1.0-4.8) k/uL Metamyelocytes # (Man) 0.01 H (0) k/uL Blast Cells # (Man) 0.04 H 0.04 H (0) k/uL PT 12.8 H (9.0-12.0) sec INR 1.2 H (<1.2) Sodium (137-145) mmol/L Potassium (3.5-5.1) mmol/L BUN (7-17) mg/dL Glucose (74-99) mg/dL POC Glucose (mg/dL) (75-99) mg/dL Calcium (8.4-10.2) mg/dL Alkaline Phosphatase (38-126) U/L Total Protein (6.3-8.2) g/dL Albumin (3.5-5.0) g/dL Crossmatch 09/29/18 09/29/18 Range/Units 05:00 11:42 WBC (3.8-10.6) k/uL RBC (3.80-5.40) m/uL Hgb (11.4-16.0) gm/dL Hct (34.0-46.0) % RDW (11.5-15.5) % Plt Count (150-450) k/uL Blast Cells % % Neutrophils # (Manual) (1.3-7.7) k/uL Lymphocytes # (Manual) (1.0-4.8) k/uL Metamyelocytes # (Man) (0) k/uL Blast Cells # (Man) (0) k/uL PT (9.0-12.0) sec INR (<1.2) Sodium 132 L (137-145) mmol/L Potassium 2.9 L (3.5-5.1) mmol/L BUN 31 H (7-17) mg/dL Glucose 64 L (74-99) mg/dL POC Glucose (mg/dL) 181 H (75-99) mg/dL Calcium 7.5 L (8.4-10.2) mg/dL Alkaline Phosphatase 317 H (38-126) U/L Total Protein 5.2 L (6.3-8.2) g/dL Albumin 1.9 L (3.5-5.0) g/dL Crossmatch Microbiology - Last 24 Hours (Table) 09/26/18 11:53 Blood Culture - Preliminary Blood No Growth after 72 hours 09/26/18 11:41 Blood Culture - Preliminary Blood No Growth after 72 hours 09/27/18 13:08 Blood Culture Gram Stain - Preliminary Blood Blood Culture - Preliminary Coagulase Negative Staph 09/27/18 12:52 Blood Culture Gram Stain - Preliminary Blood Blood Culture - Preliminary Coagulase Negative Staph 09/27/18 12:52 Blood Culture Gram Stain - Final Blood Blood Culture - Final Coagulase Negative Staph 09/27/18 13:08 Blood Culture - Final Blood Assessment and Plan Plan: (1) Hodgkins Lymphoma Confirmed - Lymphadenopathy Narrative/Plan: - Status Post First Cycle of AVD (No Bleomycin) - Typically an every 2 week treatment cycle although would prefer improvement in overall performamce status - On hold until performance status improves Current Visit: Yes Status: Acute Code(s): R59.1 - GENERALIZED ENLARGED LYMPH NODES SNOMED Code(s): 55508954 (2) Anemia Narrative/Plan: - This is normochromic normocytic, with rapidly some progression since last summer. - No Intervention needed today, Continue to monitor hemoglobin and transfuse if less than 7 Current Visit: Yes Status: Acute Code(s): D64.9 - ANEMIA, UNSPECIFIED SNOMED Code(s): 562032718 (3) Sepsis secondary to UTI Narrative/Plan: - Improved after antibiotics, although the past 48 hours temperature has been hypothermic 94-95F. this has resolved although with hypotension transferred to ICU closer monitoring. Current Visit: Yes Status: Acute Code(s): A41.9 - SEPSIS, UNSPECIFIED ORGANISM; N39.0 - URINARY TRACT INFECTION, SITE NOT SPECIFIED SNOMED Code(s): 829301706 (4) Fluid overload Narrative/Plan: - Patient's echocardiogram was normal. - This is improving, nephrology following, - Swelling is still significant in LE and Pedal edema upper extremities appears improved - Significant third spacing and intravascular dehydration (5) Hyponatremia: - Improving, Sodium is 130 today. (6) Increased Bili - Monitor (7) Protein Calorie Malnutrition: Severe - Albumin is 2, has not improved much with increased meals and protein supps will add appetite stimulator - Component of depression versus failure to thrive (8) Thrombocytopenia: - Secondary to malignancy and recent chemotherapy - Monitor closely and transfuse whrn platlets less then 10, or if s/s bleeding. - Plt count 13 today (9) Failure to Thrive/Component Depression: - Chronic Illness myopathy - Performance status is still not optimal for treatment number two, her improvement has been very slow. - Psychiatry consultation to assist in choice of medication for depression and/ or stimulant. Low dose ritalin 2.5mg po daily increasing to 5mg (although need to be given after eating and monitor eating) is resonable, as well as the addition of an SNRI and/or Psychtrophic category such as Zyprexa can help. - Referral to psych in assistance for medication choices is appropriate. (10) Low Mild 94.7F: improved - Repeat Blood Cultures and monitor coags. - Medications versus inaccurate reading versus underlying infection - Prelim Gram Positive BC, Vanco and Temp has improved. Plan: - DISPO on hold until improves, currently still monitored in ICU - Continue encourage PO intake - Monitor for infections and Bleeding. - Await final Blood cultures and continue vanco - Blood Cultures recurrent for Coag negative staph, Defer to Dr. Man who is following. Continue on Vancomycin. - Obtain Stool Studies - Continue CBC daily
[2018-09-29 17:12] LABS: Glucose,Whole Blood 234 mg/dL (75-99)
[2018-09-29] MEDS: VANCOMYCIN 1,750 MG in SODIUM CHLORIDE 0.9% 500 ML 500 ML IVPB SCH (17:33)
--- NOTE | 2018-09-29 18:04 | OP ---
OPERATIVE REPORT OPERATION: Placement of a right internal jugular triple-lumen catheter. PREOPERATIVE DIAGNOSIS: Acute septic shock, and catheter related sepsis. The patient had a PICC line, which needs to be removed, and no peripheral IV access could be established. POSTOPERATIVE DIAGNOSIS: Acute septic shock, and catheter related sepsis. The patient had a PICC line, which needs to be removed, and no peripheral IV access could be established. ANESTHESIA USED: 2 mL of 1% lidocaine. PROCEDURE: Patient was placed in a Trendelenburg position, the area below the right sternocleidomastoid muscle was prepared in a sterile fashion and drapes were applied. The area was locally anesthetized with lidocaine. Then, the right internal jugular vein was easily cannulated, and a guidewire was placed. The area around the guidewire was dilated. Then, using a triple-lumen catheter was inserted over the guidewire, and the guidewire was removed. Good blood flow was noted in the 3 different ports of the catheter. The line was secured using 3.0 silk sutures. The chest x-ray postoperatively showed adequate placement and no evidence of any complications. MMODL / IJN: [id number] /
[2018-09-29] MEDS: POTASSIUM CHLORIDE 10 MEQ in WATER FOR INJECTION 1 100ML.BAG IVPB SCH ×2 (20:01→21:45)
[2018-09-29] MEDS: SODIUM CHLORIDE 0.9% 1,000 ML IV SCH (20:02)
[2018-09-29 21:40] LABS: Glucose,Whole Blood 160 mg/dL (75-99)
[2018-09-29] MEDS: INSULIN DETEMIR 100 UNIT/ML 10 ML VIAL SQ SCH (21:46)
--- NOTE | 2018-09-29 23:22 | PN ---
PROGRESS NOTE DATE OF SERVICE: 09/29/2018. REASON FOR FOLLOWUP: Sepsis and bacteremia secondary to possible infection. INTERVAL HISTORY: The patient is currently afebrile. She is breathing comfortably. Denies having any chest pain or shortness of breath. Occasional cough. No abdominal pain. The patient PICC line was discontinued and the patient did get a right IJ catheter has been sent, waiting for report. Denies nausea, vomiting or diarrhea. PHYSICAL EXAMINATION: Blood pressure is 91/55, pulse of 107, temperature 97.9. She is 93% on room air. General description is an elderly female, lying in bed in no distress. Respiratory system: Unlabored breathing with decreased breath sounds in the bases. No wheeze. Heart S1, S2. Regular rate and rhythm. ABDOMEN: Soft, no tenderness. Extremities 2+ edema of feet. LABS: Hemoglobin 7.3, white count 1.2 with a BUN of 31, creatinine 0.68. DIAGNOSTIC IMPRESSION AND PLAN: Patient with a positive blood cultures, coag negative Staph, concern for possible PICC line infection that has been discontinued, catheter culture currently pending. The patient is on vancomycin to continue for now while waiting for the clinical condition to stabilize. If not Gram negative, Zosyn will be discontinued. The patient will be monitored closely. Continue supportive care. MMODL / IJN: [id number] /
[2018-09-30] MEDS: PIPERACILLIN-TAZOBACTAM 3.375 GM in SODIUM CHLORIDE 0.9% 100 ML IVPB SCH ×3 (04:20→22:31)
[2018-09-30] MEDS: ACETAMINOPHEN TAB 325 MG TAB PO PRN ×2 (04:20→21:32)
[2018-09-30] MEDS: SODIUM CHLORIDE 0.9% 1,000 ML IV SCH ×2 (04:52→16:20)
[2018-09-30 05:01] LABS: Anisocytosis Slight; HCT 22.1 % (34.0-46.0); HGB 7.3 gm/dL (11.4-16.0); MCH 32.1 pg (25.0-35.0); MCHC 33.2 g/dL (31.0-37.0); MCV 96.6 fL (80.0-100.0); Macrocytosis Slight; Mean Platelet Volume 10.8; RBC 2.28 m/uL (3.80-5.40); RDW 19.6 % (11.5-15.5)
[2018-09-30 05:04] LABS: Platelet Count 28 k/uL (150-450); WBC 1.5 k/uL (3.8-10.6)
[2018-09-30 05:16] LABS: ALT 49 U/L (9-52); AST 26 U/L (14-36); Albumin 1.8 g/dL (3.5-5.0); Alkaline Phosphatase 284 U/L (38-126); Anion Gap 4 mmol/L; Blood Urea Nitrogen 21 mg/dL (7-17); Calcium 7.7 mg/dL (8.4-10.2); Carbon Dioxide 27 mmol/L (22-30); Chloride 102 mmol/L (98-107); Glucose 65 mg/dL (74-99); Phosphorus 2.3 mg/dL (2.5-4.5); Potassium 3.7 mmol/L (3.5-5.1); Sodium 133 mmol/L (137-145); Total Bilirubin 0.9 mg/dL (0.2-1.3); Total Protein 5.1 g/dL (6.3-8.2)
[2018-09-30] MEDS ORDERED: Phosphorus Replacement Protoco 1 EACH MISC MISCELLANE PRN (05:23)
[2018-09-30] MEDS ORDERED: POTASSIUM PHOSPHATE 10 MMOL in SODIUM CHLORIDE 0.9% 100 ML IV ONE (06:00)
[2018-09-30] MEDS: LEVOTHYROXINE 75 MCG TAB PO SCH (06:23)
[2018-09-30 07:12] LABS: Glucose,Whole Blood 57 mg/dL (75-99)
--- NOTE | 2018-09-30 07:18 | P.PN ---
Subjective Progress Note Date: 09/30/18 Principal diagnosis: Hodgkin lymphoma This is a pleasant 78-year-old female patient with a past medical history significant for diabetes as well as hypertension who presented to the hospital a few weeks ago with progressive weakness as well as a vague abdominal discomfort as well as progressive weight loss. The patient was found to be cloud cytopenic. She also was found to lymphadenopathy and she underwent lymph node biopsy which revealed Hodgkin lymphoma. The patient was admitted to the hospital and she was started on chemotherapy. She did have a long hospital stay were initially she was admitted to the intensive care unit and she was transferred out of the intensive care unit and she was brought to the ICU yesterday because of hypotension and tachycardia. We requested to see the patient because of the low blood pressure. The patient initially received IV fluid but she did not respond well to IV fluid and because of that she was brought to the intensive care unit and she was started on vasopressors with norepinephrine. Currently she has been maintaining systolic blood pressure in the 80s and 90s. The patient continues to be pancytopenic with a hemoglobin of around 6 and currently she is in process of receiving 2 units of packed RBC. Beside that she underwent panculture and the culture came back positive and she is possibly also septic which could be contributing to her low blood pressure as well. On physical examination she is quite hypertensive area the patient herself does not recall any history of coronary artery disease but she does have hypertension and dyslipidemia. No coronary artery disease, congestive heart failure, or any cardiac arrhythmia in the past. When she first presented to the hospital she underwent an echocardiogram and that revealed normal LV function with mild MR and mild TR. I requested to repeat the echocardiogram to see if there is any drop in the ejection fraction and assess also for any pericardial effusion which could be contributing to her low blood pressure. The patient herself denies any symptoms of chest pain or chest discomfort but she is a bit short of breath this morning. She is not dizzy or lightheaded. The echo showed normal LV function without any significant valvular abnormalities On follow-up with the patient, 09/30/2018, the patient seems to be slightly better clinically. She is off norepinephrine. Her hemoglobin is above 7. She still have a lot of edema in the upper and lower extremities. She is currently on Lasix 40 mg IV daily and I'm going to increase to 40 mg IV twice a day. The blood pressure is marginally low and we will monitor the blood pressure once we increase the dose of Lasix IV. Objective - Vital Signs Vital signs: Vital Signs Temp 97.6 F 09/30/18 04:00 Pulse 94 09/30/18 07:00 Resp 20 09/30/18 07:00 BP 99/53 09/30/18 07:00 Pulse Ox 95 09/30/18 07:00 Intake & Output 09/29/18 09/30/18 09/30/18 18:59 06:59 18:59 Intake Total 1778.708 5075 Output Total 920 702 Balance 768.418 6682 Weight 118.4 kg Intake: IV 1475 1525 Piperacillin-Tazobactam 3 125 225 .375 gm In Sodium Chloride 0.9% 100 ml @ 25 mls/hr IVPB Q8H [facility] Rx#: [id number] Potassium Phosphate 10 50 mmol In Sodium Chloride 0 .9% 100 ml @ 50 mls/hr IV ONCE ONE Rx#:[id number] Sodium Chloride 0.9% 1, 1100 1000 000 ml @ 100 mls/hr IV . Q10H [facility] Rx#:[id number] Vancomycin 1,750 mg In 250 250 Sodium Chloride 0.9% 500 ml 500 ml @ 167 mls/hr IVPB Q16H [facility] Rx#: [id number] Intake, IV Titration 21.801 200 Amount Norepinephrine 16 mg In 21.801 Sodium Chloride 0.9% 250 ml @ Titrate IV .Q0M [facility] Rx#:[id number] Potassium Chloride 10 meq 200 In Water For Injection 1 100ml.bag @ 100 mls/hr IVPB Q1H [facility] Rx#: [id number] Oral 250 480 Output: Urine 920 702 Other: Voiding Method Indwelling Catheter Indwelling Catheter # Bowel Movements 1 - Constitutional General appearance: Present: no acute distress - Respiratory Respiratory: bilateral: diminished - Cardiovascular Rhythm: regular - Labs CBC & Chem 7: 09/30/18 04:40 09/30/18 04:40 Labs: Abnormal Lab Results - Last 24 Hours (Table) 09/28/18 09/29/18 09/29/18 Range/Units 06:20 01:00 05:00 WBC (3.8-10.6) k/uL RBC (3.80-5.40) m/uL Hgb (11.4-16.0) gm/dL Hct (34.0-46.0) % RDW (11.5-15.5) % Plt Count 42 L D (150-450) k/uL Blast Cells % 4 H* 3 H* % Neutrophils # (Manual) 0.20 L* 0.20 L* (1.3-7.7) k/uL Lymphocytes # (Manual) 0.63 L 0.72 L (1.0-4.8) k/uL Metamyelocytes # (Man) 0.01 H (0) k/uL Blast Cells # (Man) 0.04 H 0.04 H (0) k/uL Sodium (137-145) mmol/L BUN (7-17) mg/dL Glucose (74-99) mg/dL POC Glucose (mg/dL) (75-99) mg/dL Calcium (8.4-10.2) mg/dL Phosphorus (2.5-4.5) mg/dL Alkaline Phosphatase (38-126) U/L Total Protein (6.3-8.2) g/dL Albumin (3.5-5.0) g/dL Crossmatch See Detail 09/29/18 09/29/18 09/29/18 Range/Units 11:42 17:00 21:29 WBC (3.8-10.6) k/uL RBC (3.80-5.40) m/uL Hgb (11.4-16.0) gm/dL Hct (34.0-46.0) % RDW (11.5-15.5) % Plt Count (150-450) k/uL Blast Cells % % Neutrophils # (Manual) (1.3-7.7) k/uL Lymphocytes # (Manual) (1.0-4.8) k/uL Metamyelocytes # (Man) (0) k/uL Blast Cells # (Man) (0) k/uL Sodium (137-145) mmol/L BUN (7-17) mg/dL Glucose (74-99) mg/dL POC Glucose (mg/dL) 181 H 234 H 160 H (75-99) mg/dL Calcium (8.4-10.2) mg/dL Phosphorus (2.5-4.5) mg/dL Alkaline Phosphatase (38-126) U/L Total Protein (6.3-8.2) g/dL Albumin (3.5-5.0) g/dL Crossmatch 09/30/18 09/30/18 09/30/18 Range/Units 04:40 04:40 07:00 WBC 1.5 L (3.8-10.6) k/uL RBC 2.28 L (3.80-5.40) m/uL Hgb 7.3 L (11.4-16.0) gm/dL Hct 22.1 L (34.0-46.0) % RDW 19.6 H (11.5-15.5) % Plt Count 28 L (150-450) k/uL Blast Cells % % Neutrophils # (Manual) (1.3-7.7) k/uL Lymphocytes # (Manual) (1.0-4.8) k/uL Metamyelocytes # (Man) (0) k/uL Blast Cells # (Man) (0) k/uL Sodium 133 L (137-145) mmol/L BUN 21 H (7-17) mg/dL Glucose 65 L (74-99) mg/dL POC Glucose (mg/dL) 57 L (75-99) mg/dL Calcium 7.7 L (8.4-10.2) mg/dL Phosphorus 2.3 L (2.5-4.5) mg/dL Alkaline Phosphatase 284 H (38-126) U/L Total Protein 5.1 L (6.3-8.2) g/dL Albumin 1.8 L (3.5-5.0) g/dL Crossmatch Microbiology - Last 24 Hours (Table) 09/29/18 13:55 Catheter Tip Culture - Preliminary Picc Line 09/27/18 12:40 Catheter Tip Culture - Preliminary Catheter Tip Coagulase Negative Staph 09/26/18 11:53 Blood Culture - Preliminary Blood No Growth after 72 hours 09/26/18 11:41 Blood Culture - Preliminary Blood No Growth after 72 hours 09/27/18 13:08 Blood Culture Gram Stain - Preliminary Blood Blood Culture - Preliminary Coagulase Negative Staph 09/27/18 12:52 Blood Culture Gram Stain - Preliminary Blood Blood Culture - Preliminary Coagulase Negative Staph 09/27/18 12:52 Blood Culture Gram Stain - Final Blood Blood Culture - Final Coagulase Negative Staph 09/27/18 13:08 Blood Culture - Final Blood Assessment and Plan Assessment: Assessment #1 Hodgkin lymphoma and status post chemotherapy #2 hypertension and tachycardia. #3 pancytopenia #4 multiple comorbid conditions Plan #1 the patient's hemoglobin has improved after blood transfusion #2 increase the dose of Lasix to 40 mg IV twice a day #3 continue following up with the patient Thank you for allowing us participate in her care and we'll continue following up with the patient
[2018-09-30] MEDS: INSULIN ASPART 100 UNIT/ML 1 ML 10 ML VIAL SQ SCH ×7 (07:20→21:28)
[2018-09-30 07:26] LABS: Glucose,Whole Blood 65 mg/dL (75-99)
--- NOTE | 2018-09-30 07:54 | P.PN ---
Progress Note - Text The patient is a 78-year-old female who on this admission has been newly diagnosed with Hodgkin's lymphoma and is status post chemotherapy. Today she remains in the intensive care unit as she was moved back because of hypotension. Patient does have positive blood cultures and catheter tip cultures for coagulase-negative staph. She remains on vancomycin. She generally appears somewhat fatigued but easily arousable. She seems to be generally oriented. In no acute distress at this time. Vital signs show a temperature of 97.6 with a pulse of 94 and respirations 20. Blood pressure 99/53 and she is 85% saturated on room air. Lung sounds are clear although diminished. Heart tones were regular. Abdomen nontender. She still has mild edema of both upper and lower extremities. No focal neurological changes. Laboratory White count is still low at 1.5 with a hemoglobin at 7.3 and a platelet count of 28. Sodium is 137 and potassium is improved up to 3.7. CO2 content is 27 BUN 21 with a creatinine of 0.6 giving her a GFR of 87. Blood sugar has been in the 60s this morning. Albumin low at 1.8. Vancomycin trough at 25 when 5. Impressions and plans Cardiology, infectious disease, oncology and pulmonary notes were regarded. Lasix has been increased to 40 mg twice a day. She remains on vancomycin and Zosyn at this time. She does have underlying pancytopenia secondary to chemotherapy. Prognosis still guarded.
[2018-09-30] MEDS: PANTOPRAZOLE 40 MG TABLET PO SCH (08:33)
[2018-09-30] MEDS: FUROSEMIDE 10 MG/ML 4 ML VIAL IV SCH ×2 (08:34→21:28)
[2018-09-30] MEDS: ALLOPURINOL 300 MG TAB PO SCH (08:34)
[2018-09-30] MEDS: SPIRONOLACTONE 25 MG TAB PO SCH (08:34)
[2018-09-30] MEDS: ACYCLOVIR 200 MG CAP PO SCH ×2 (08:34→21:28)
[2018-09-30] MEDS: MEGESTROL 400 MG/10 ML CUP PO SCH (08:34)
[2018-09-30 08:37] LABS: Neutrophils % (M) 8 %
[2018-09-30 08:38] LABS: Band Neutrophils % 1 %; Eosinophils # (M) 0.17 k/uL (0-0.7); Lymphocytes # (M) 1.02 k/uL (1.0-4.8); Monocytes # (M) 0.12 k/uL (0-1.0)
[2018-09-30 08:39] LABS: Blast Cells # (M) 0.06 k/uL (0); Nucleated Red Blood Cells 0 /100 WBC (0-0); Total Cells Counted 100
[2018-09-30 08:40] LABS: Large Platelets Present
[2018-09-30] MEDS: FILGRASTIM-SNDZ 480 MCG/0.8 ML SYRINGE SQ SCH (08:42)
[2018-09-30 08:47] LABS: Glucose,Whole Blood 76 mg/dL (75-99)
[2018-09-30 08:47] LABS: Glucose,Whole Blood 68 mg/dL (75-99)
[2018-09-30] MEDS ORDERED: VANCOMYCIN TROUGH DUE 1 EACH MISC MISCELLANE ONE (09:00)
[2018-09-30 09:10] LABS: Glucose,Whole Blood 98 mg/dL (75-99)
--- NOTE | 2018-09-30 09:48 | P.PN ---
Subjective Progress Note Date: 09/30/18 Principal diagnosis: Hodgkin's lymphoma, pancytopenia, septic shock. 78-year-old obese female patient with known history of hypertension diabetes mellitus who presented to the hospital because of ongoing progressive weakness, vague abdominal discomfort and pain, weight loss and constitutions symptoms. The patient was found to be anemic. The patient was found to have some lymphadenopathy and the patient undergone a lymph node biopsy in [place] that was sampled from the neck area and the results were nondiagnostic and the patient was discharged home. The patient came back to [place] and a CAT scan of the chest and abdomen and pelvis was done during this current admission and the CAT scan showed a mild to moderate bilateral hilar lymphadenopathy, adenopathy in the superior anterior and middle mediastinum and he was also subcarinal and right paraesophageal lymphadenopathy. The largest lymph node was a 5 x 2.8 cm lymph node in the right supraclavicular area. There was also lymphadenopathy in the left clavicular area, there was also several lymph nodes in the abdomen and pelvis extending in the peripancreatic and shira hepatis and portacaval and periaortic positions. All the things raises the suspicion for lymphoma and the patient had a right subclavicular lymph node biopsy that was done by general surgery and the results are still pending for now. The patient however was progressively getting weak and hypoproteinemic and hypovolemic and she has developed increased edema in the upper and lower extremity and anasarca. Yesterday she became hypotensive and she got transferred to the intensive care unit. Overnight she required IV fluids which was in the form of normal state rate of 100 mL an hour. She received 2 doses of 25 g of albumin. She was briefly placed on pressors and norepinephrine infusion was was discontinued this morning. No significant cough or sputum production. No fever or chills. She has had a klebsiella urine checked infection back in April 2018 and the repeat UA was negative. Currently she is on oral Lasix. She is also on Aldactone pH was given empiric antibiotic coverage with a combination of Rocephin and vancomycin. Metoprolol was placed on hold. Lisinopril was laced also on hold. She has loose liquidy bowel movements. No significant diarrhea. No altered mentation. No cough or sputum production. No open wounds or sores or skin rash. She is quite weak in all 4 extremities mainly in lower extremity is bilaterally. On 09/22/2018 the patient is essentially the same. She is post systemic chemotherapy with a combination of dacarbazine and doxorubicin. The patient is being treated for Hodgkin's lymphoma. Very much debilitated. Very much weak. Oral intake remains minimal. Protein is low. She has third spacing and the patient is not responding to diuretics. Sodium level is on the decline is currently down to 123. She is in a negative fluid balance of 600 mL despite being on diuretics. As such she has not responded to diuretics effectively. No hypotension. Mental status is fluctuating. This morning she was making more sense and she was able to communicate. Yet at times she has been found to be confused. No cough. No sputum production. No headaches. She is moving all 4 extremities that she is suffering from profound weakness in all 4 extremities. She is on a combination of Zaroxolyn and Lasix and Aldactone and despite that she has been able to diabetes effectively. No other significant events overnight. Antibiotics have been discontinued. She is afebrile. She has a PICC line in left upper extremity. On 09/23/2018, patient remains in the ICU, continues to have significant fluid retention, anasarca, profound edema in lower extremities, but the patient is not in any form of respiratory distress. Patient continues to third space in spite of diuretics, she has excellent urine output, patient is hemodynamically stable, mental status is fluctuating. She is being followed by many consultants regarding her multiple medical problems including her newly diagnosed Hodgkin's lymphoma. After evaluating the patient today, and after reviewing all clinical history, reviewing all the labs, chest x-ray, I felt the patient could be transferred out to a medical oncology floor. Patient was reevaluated today on 09/28/2018, she was transferred back to the intensive care unit last night, and the patient apparently developed an episode of hypotension, hypothermia, patient is pancytopenic, she has been receiving chemotherapy for Hodgkin's lymphoma. Fluids were given initially, and she received about 2 L of fluid boluses, blood pressure did not improve much, hence she was started on norepinephrine. Presently at 15 mcg/m. Patient was also given antibiotics empirically, for sepsis and septic shock. She is on multiple antibiotics as listed below. Patient continues to have marginal blood pressure , but the norepinephrine is being titrated accordingly. The patient herself is not complaining, she denies any cough wheezing or shortness of breath, denies any chest pain, she is actually on room air, and her O2 saturation is in the high 90s. Patient was reevaluated today on 09/29/2018, multiple blood cultures continued to show coagulase-negative staph, hence it is almost certain that this is related to a catheter related sepsis/PICC line most likely. Hence the PICC line would have to be removed, and we'll try to establish another access. Patient is quite edematous and swollen, and a peripheral access could not be established, hence I will give the patient 3 units of platelets today, and I will try to establish a central line access in this patient for now. Multiple blood cultures from different dates including the and the most recent cultures are still showing coagulase-negative staph, hence this is not a contamination this is actually at Michelle PICC line infection. Patient is still on vancomycin, and she is being followed by infectious disease, we'll try to discontinue the central line today, and I don't establish another access either peripheral or central however if central is to be considered, the patient needs to be given more platelets today. Hemodynamically, the patient is doing better , and her blood pressure is holding but she still on 2 mcg/m of norepinephrine. Her labs are improving, WBC count is up to 1.2 hemoglobin is 7.6, platelets are 38,000. Potassium is low being corrected as per protocol. No chest x-ray was done today, patient remains on room air, and she is saturating up in the 90s on room air. Denies any shortness of breath, denies any pain, no nausea, no vomiting, no dysuria and no frequency no urgency. But again clearly the patient is quite bacteremic and it is highly suspected to be secondary to central line/catheter related sepsis On 09/30/2018 patient seen in follow-up in the intensive care unit, she is awake and alert, in no acute distress, she is currently on room air, and her pulse ox is 94-97%, hemodynamically patient is stable, she's been off the levo drip for 24 hours. no fever or chills, patient was found to be bacteremic, with coagulase negative staph, catheter tip culture is pending. IV fluids include 0.9 normal saline at a rate of 100 ML per hour. Today's labs have been reviewed, and white blood cell count is 1.5, hemoglobin is 7.3, sodium is 133, potassium is 3.7, chloride is 102, CO2 is 27, BUN was 21 creatinine was 0.60, albumin was 1.8 on today's labs. Patient is status post transfusion with 2 units of packed red blood cells. Patient is on antibiotic coverage including vancomycin, Zosyn, Zovirax. Patient is receiving Zarxio. She remains on IV Lasix, patient has been in positive fluid balance last several days. Patient has a total of 18.5 kg weight gain over torso for hospitalization. Denies any dyspnea, denies any chest pain, patient's appetite remains poor. Patient has generalized edema, bilateral lower extremities, upper extremities, abdomen. Objective - Vital Signs Vital signs: Vital Signs Temp 97.6 F 09/30/18 04:00 Pulse 94 09/30/18 07:00 Resp 20 09/30/18 07:00 BP 99/53 09/30/18 07:00 Pulse Ox 95 09/30/18 07:00 Intake & Output 09/29/18 09/30/18 09/30/18 18:59 06:59 18:59 Intake Total 9248.533 4296 295 Output Total 920 702 17 Balance 358.186 5080 278 Weight 118.4 kg Intake: IV 1475 1525 175 Piperacillin-Tazobactam 3 125 225 25 .375 gm In Sodium Chloride 0.9% 100 ml @ 25 mls/hr IVPB Q8H [facility] Rx#: [id number] Potassium Phosphate 10 50 50 mmol In Sodium Chloride 0 .9% 100 ml @ 50 mls/hr IV ONCE ONE Rx#:[id number] Sodium Chloride 0.9% 1, 1100 1000 100 000 ml @ 100 mls/hr IV . Q10H [facility] Rx#:[id number] Vancomycin 1,750 mg In 250 250 Sodium Chloride 0.9% 500 ml 500 ml @ 167 mls/hr IVPB Q16H [facility] Rx#: [id number] Intake, IV Titration 21.801 200 Amount Norepinephrine 16 mg In 21.801 Sodium Chloride 0.9% 250 ml @ Titrate IV .Q0M [facility] Rx#:[id number] Potassium Chloride 10 meq 200 In Water For Injection 1 100ml.bag @ 100 mls/hr IVPB Q1H [facility] Rx#: [id number] Oral 250 480 120 Output: Urine 920 702 17 Other: Voiding Method Indwelling Catheter Indwelling Catheter # Bowel Movements 1 - Exam GENERAL EXAM: Alert, pleasant, 78-year-old obese white female,on room air comfortable in no apparent distress. HEAD: Normocephalic/atraumatic. EYES: Normal reaction of pupils, equal size. Conjunctiva pink, sclera white. NOSE: Clear with pink turbinates. THROAT: No erythema or exudates. NECK: No masses, no JVD, no thyroid enlargement, no adenopathy. CHEST: No chest wall deformity. Symmetrical expansion. LUNGS: Equal air entry with with some minimal crackles at the right lower base CVS: Regular rate and rhythm, normal S1 and S2, no gallops, no murmurs, no rubs ABDOMEN: Soft, nontender. No hepatosplenomegaly, normal bowel sounds, no guarding or rigidity. EXTREMITIES: No clubbing, generalized edema and upper and lower extremities, no cyanosis, 2+ pulses and upper and lower extremities. MUSCULOSKELETAL: Muscle strength and tone normal. SPINE: No scoliosis or deformity SKIN: No rashes CENTRAL NERVOUS SYSTEM: Alert and oriented -3. No focal deficits, tone is normal in all 4 extremities. PSYCHIATRIC: Alert and oriented -3. Appropriate affect. Intact judgment and insight. - Labs CBC & Chem 7: 09/30/18 04:40 09/30/18 04:40 Labs: Abnormal Lab Results - Last 24 Hours (Table) 09/29/18 09/29/18 09/29/18 Range/Units 01:00 07:04 11:42 WBC (3.8-10.6) k/uL RBC (3.80-5.40) m/uL Hgb (11.4-16.0) gm/dL Hct (34.0-46.0) % RDW (11.5-15.5) % Plt Count 42 L D (150-450) k/uL Blast Cells % 4 H* % Neutrophils # (Manual) 0.20 L* (1.3-7.7) k/uL Lymphocytes # (Manual) 0.63 L (1.0-4.8) k/uL Blast Cells # (Man) 0.04 H (0) k/uL Sodium (137-145) mmol/L BUN (7-17) mg/dL Glucose (74-99) mg/dL POC Glucose (mg/dL) 68 L 181 H (75-99) mg/dL Calcium (8.4-10.2) mg/dL Phosphorus (2.5-4.5) mg/dL Alkaline Phosphatase (38-126) U/L Total Protein (6.3-8.2) g/dL Albumin (3.5-5.0) g/dL 09/29/18 09/29/18 09/30/18 Range/Units 17:00 21:29 04:40 WBC (3.8-10.6) k/uL RBC (3.80-5.40) m/uL Hgb (11.4-16.0) gm/dL Hct (34.0-46.0) % RDW (11.5-15.5) % Plt Count (150-450) k/uL Blast Cells % % Neutrophils # (Manual) (1.3-7.7) k/uL Lymphocytes # (Manual) (1.0-4.8) k/uL Blast Cells # (Man) (0) k/uL Sodium 133 L (137-145) mmol/L BUN 21 H (7-17) mg/dL Glucose 65 L (74-99) mg/dL POC Glucose (mg/dL) 234 H 160 H (75-99) mg/dL Calcium 7.7 L (8.4-10.2) mg/dL Phosphorus 2.3 L (2.5-4.5) mg/dL Alkaline Phosphatase 284 H (38-126) U/L Total Protein 5.1 L (6.3-8.2) g/dL Albumin 1.8 L (3.5-5.0) g/dL 09/30/18 09/30/18 09/30/18 Range/Units 04:40 07:00 07:15 WBC 1.5 L (3.8-10.6) k/uL RBC 2.28 L (3.80-5.40) m/uL Hgb 7.3 L (11.4-16.0) gm/dL Hct 22.1 L (34.0-46.0) % RDW 19.6 H (11.5-15.5) % Plt Count 28 L (150-450) k/uL Blast Cells % 4 H* % Neutrophils # (Manual) 0.10 L* (1.3-7.7) k/uL Lymphocytes # (Manual) (1.0-4.8) k/uL Blast Cells # (Man) 0.06 H (0) k/uL Sodium (137-145) mmol/L BUN (7-17) mg/dL Glucose (74-99) mg/dL POC Glucose (mg/dL) 57 L 65 L (75-99) mg/dL Calcium (8.4-10.2) mg/dL Phosphorus (2.5-4.5) mg/dL Alkaline Phosphatase (38-126) U/L Total Protein (6.3-8.2) g/dL Albumin (3.5-5.0) g/dL Microbiology - Last 24 Hours (Table) 09/29/18 13:55 Catheter Tip Culture - Preliminary Picc Line 09/27/18 12:40 Catheter Tip Culture - Preliminary Catheter Tip Coagulase Negative Staph 09/26/18 11:53 Blood Culture - Preliminary Blood No Growth after 72 hours 09/26/18 11:41 Blood Culture - Preliminary Blood No Growth after 72 hours 09/27/18 13:08 Blood Culture Gram Stain - Preliminary Blood Blood Culture - Preliminary Coagulase Negative Staph 09/27/18 12:52 Blood Culture Gram Stain - Preliminary Blood Blood Culture - Preliminary Coagulase Negative Staph 09/27/18 12:52 Blood Culture Gram Stain - Final Blood Blood Culture - Final Coagulase Negative Staph 09/27/18 13:08 Blood Culture - Final Blood Assessment and Plan Plan: 1 Hodgkin's lymphoma with diffuse lymphadenopathy as noted on the diagnostic workup including CT of the chest mediastinum and abdomen. 2 extensive anasarca and hypoproteinemia some of the swelling in the lower extremities could be lymphedema. 3 electrolytes imbalance mostly hyponatremia felt to hypervolemic hyponatremia. 4 morbid obesity, BMI of 41. 5 type 2 diabetes 6 poor performance status and medical debility secondary to above. 7 acute septic shock secondary to PICC line sepsis and bacteremia. 8 pancytopenia secondary to myeloma suppression from chemotherapy. Being addressed by oncology on the case, patient will need a central line placement today, hence I will give her platelets and follow that by central line placement. Or do the central line well the platelets are transfusing Plan: Continue current antibiotic coverage, the source of sepsis is suspected to be related to PICC line, and pancytopenia is slightly improved. Denies any difficulty breathing, no chest pain. She does have severe generalized weakness. Appetite remains poor. Otherwise patient is relatively stable, and can be considered for discharge out of the ICU to oncology floor. Continue to follow I performed a history & physical examination of the patient and discussed their management with my nurse practitioner, Nori Doshi. I reviewed the nurse practitioner's note and agree with the documented findings and plan of care. Lung sounds are positive right lower lobe crackles. The findings and the impression was discussed with the patient. I attest to the documentation by the nurse practitioner. Time with Patient: Less than 30
[2018-09-30] MEDS: VANCOMYCIN 1,750 MG in SODIUM CHLORIDE 0.9% 500 ML 500 ML IVPB SCH ×2 (10:22→16:51)
[2018-09-30 11:30] VITALS: BMI 43.4
[2018-09-30 12:01] LABS: Glucose,Whole Blood 167 mg/dL (75-99)
[2018-09-30 15:02] LABS: Glucose,Whole Blood 160 mg/dL (75-99)
--- NOTE | 2018-09-30 15:41 | P.PN ---
Subjective Progress Note Date: 09/30/18 Principal diagnosis: Hodgkin's Disease Pt seen in f/u, she is tired, states she didn't sleep well last night, denies fever, oral irritation, chest pain, dizziness, FAZAL, nausea, vomiting, dysuria or pain from forbes insertion, not sure of her last BM, her legs are very swollen , she has generalized weakness, not ambulating. Objective - Vital Signs Vital signs: Vital Signs Temp 97.6 F 09/30/18 15:00 Pulse 97 09/30/18 15:00 Resp 19 09/30/18 15:00 BP 103/52 09/30/18 15:00 Pulse Ox 97 09/30/18 15:00 Intake & Output 09/29/18 09/30/18 09/30/18 18:59 06:59 18:59 Intake Total 3014.173 0252 1371 Output Total 342 045 5408 Balance 390.396 9879 -967 Weight 118.4 kg 118.4 kg Intake: IV 1475 1525 750 Piperacillin-Tazobactam 3 125 225 50 .375 gm In Sodium Chloride 0.9% 100 ml @ 25 mls/hr IVPB Q8H [facility] Rx#: [id number] Potassium Phosphate 10 50 50 mmol In Sodium Chloride 0 .9% 100 ml @ 50 mls/hr IV ONCE ONE Rx#:[id number] Sodium Chloride 0.9% 1, 1100 1000 650 000 ml @ 100 mls/hr IV . Q10H [facility] Rx#:[id number] Vancomycin 1,750 mg In 250 250 Sodium Chloride 0.9% 500 ml 500 ml @ 167 mls/hr IVPB Q16H [facility] Rx#: [id number] Intake, IV Titration 21.801 200 501 Amount Norepinephrine 16 mg In 21.801 Sodium Chloride 0.9% 250 ml @ Titrate IV .Q0M [facility] Rx#:[id number] Potassium Chloride 10 meq 200 In Water For Injection 1 100ml.bag @ 100 mls/hr IVPB Q1H [facility] Rx#: [id number] Vancomycin 1,750 mg In 501 Sodium Chloride 0.9% 500 ml 500 ml @ 167 mls/hr IVPB Q16H [facility] Rx#: [id number] Oral 250 480 120 Output: Urine 449 462 6126 Stool 1 Other: Voiding Method Indwelling Catheter Indwelling Catheter Indwelling Catheter # Bowel Movements 1 - Constitutional General appearance: Present: cooperative, morbidly obese, no acute distress - EENT Eyes: Present: anicteric sclerae, EOMI ENT: Present: normal oropharynx - Respiratory Respiratory: bilateral: CTA (weak inspiratory effort) - Cardiovascular Rhythm: regular Heart sounds: normal: S1, S2 - Peripheral edema leg Peripheral Edema: bilateral: 2+ foot Peripheral Edema: bilateral: 4+ - Gastrointestinal General gastrointestinal: Present: distended, normal bowel sounds, soft. Absent : absent bowel sounds, decreased bowel sounds, hepatomegaly, hyperactive bowel sounds, organomegaly, rigid, scaphoid, splenomegaly, tenderness, umbilical hernia, ventral hernia - Integumentary Integumentary: Present: pale - Musculoskeletal Musculoskeletal: Present: generalized weakness - Psychiatric Psychiatric Comment(s): flat affect Psychiatric: Present: A&O x's 3, intact judgment & insight - Labs CBC & Chem 7: 09/30/18 04:40 09/30/18 04:40 Labs: Abnormal Lab Results - Last 24 Hours (Table) 09/29/18 09/29/18 09/29/18 Range/Units 07:04 17:00 21:29 WBC (3.8-10.6) k/uL RBC (3.80-5.40) m/uL Hgb (11.4-16.0) gm/dL Hct (34.0-46.0) % RDW (11.5-15.5) % Plt Count (150-450) k/uL Blast Cells % % Neutrophils # (Manual) (1.3-7.7) k/uL Blast Cells # (Man) (0) k/uL Sodium (137-145) mmol/L BUN (7-17) mg/dL Glucose (74-99) mg/dL POC Glucose (mg/dL) 68 L 234 H 160 H (75-99) mg/dL Calcium (8.4-10.2) mg/dL Phosphorus (2.5-4.5) mg/dL Alkaline Phosphatase (38-126) U/L Total Protein (6.3-8.2) g/dL Albumin (3.5-5.0) g/dL 09/30/18 09/30/18 09/30/18 Range/Units 04:40 04:40 07:00 WBC 1.5 L (3.8-10.6) k/uL RBC 2.28 L (3.80-5.40) m/uL Hgb 7.3 L (11.4-16.0) gm/dL Hct 22.1 L (34.0-46.0) % RDW 19.6 H (11.5-15.5) % Plt Count 28 L (150-450) k/uL Blast Cells % 4 H* % Neutrophils # (Manual) 0.10 L* (1.3-7.7) k/uL Blast Cells # (Man) 0.06 H (0) k/uL Sodium 133 L (137-145) mmol/L BUN 21 H (7-17) mg/dL Glucose 65 L (74-99) mg/dL POC Glucose (mg/dL) 57 L (75-99) mg/dL Calcium 7.7 L (8.4-10.2) mg/dL Phosphorus 2.3 L (2.5-4.5) mg/dL Alkaline Phosphatase 284 H (38-126) U/L Total Protein 5.1 L (6.3-8.2) g/dL Albumin 1.8 L (3.5-5.0) g/dL 09/30/18 09/30/18 09/30/18 Range/Units 07:15 11:49 14:50 WBC (3.8-10.6) k/uL RBC (3.80-5.40) m/uL Hgb (11.4-16.0) gm/dL Hct (34.0-46.0) % RDW (11.5-15.5) % Plt Count (150-450) k/uL Blast Cells % % Neutrophils # (Manual) (1.3-7.7) k/uL Blast Cells # (Man) (0) k/uL Sodium (137-145) mmol/L BUN (7-17) mg/dL Glucose (74-99) mg/dL POC Glucose (mg/dL) 65 L 167 H 160 H (75-99) mg/dL Calcium (8.4-10.2) mg/dL Phosphorus (2.5-4.5) mg/dL Alkaline Phosphatase (38-126) U/L Total Protein (6.3-8.2) g/dL Albumin (3.5-5.0) g/dL Microbiology - Last 24 Hours (Table) 09/26/18 11:53 Blood Culture - Preliminary Blood No Growth after 96 hours 09/26/18 11:41 Blood Culture - Preliminary Blood No Growth after 96 hours 09/26/18 16:08 Blood Culture Gram Stain - Final Blood Blood Culture - Final Staphylococcus epidermidis 09/27/18 13:08 Blood Culture Gram Stain - Final Blood Blood Culture - Final Staphylococcus epidermidis 09/27/18 12:52 Blood Culture Gram Stain - Final Blood Blood Culture - Final Staphylococcus epidermidis 09/29/18 13:55 Catheter Tip Culture - Preliminary Picc Line 09/27/18 12:40 Catheter Tip Culture - Preliminary Catheter Tip Coagulase Negative Staph Assessment and Plan (1) Hodgkin lymphoma Narrative/Plan: Pt is s/p 1st cycle of AVD. Pt and family aware that treatment was given in hopes of relieving disease burden as well as symptoms. HD is curable but only if treatment can be tolerated. Pt baseline PS was poor before treatment. She seems to be recovering slowly post chemo, counts are stable, renal function stable, she was sitting up to eat when seen. She is being treated for bactremia , low BP but off pressors, no recent fever. We will continue to follow pt with you. Her treatment will be on hold until her current condition is resolved. Current Visit: Yes Status: Acute Priority: High Code(s): C81.90 - HODGKIN LYMPHOMA, UNSPECIFIED, UNSPECIFIED SITE SNOMED Code(s): 676819934 (2) Pancytopenia Narrative/Plan: Cont GCSF for low WBC/ANC. Pt is on axb therapy, antiviral treatment Hgb stable, conservative transfusions for Hgb< 7 unless symptomatic Thrombocytopenia-no asa, NSAIDs, anticoagulation, use SCDs for DVT prophylaxis. Current Visit: Yes Status: Acute Priority: Medium Code(s): D61.818 - OTHER PANCYTOPENIA SNOMED Code(s): 315084199 (3) Septic shock Narrative/Plan: Critical Care team following, pt improving Current Visit: Yes Status: Acute Priority: High Code(s): A41.9 - SEPSIS, UNSPECIFIED ORGANISM; R65.21 - SEVERE SEPSIS WITH SEPTIC SHOCK SNOMED Code(s) : 81034985 (4) Anasarca Narrative/Plan: Multifactorial. Cont careful monitoring of fluid status continues Current Visit: Yes Status: Acute Priority: High Code(s): R60.1 - GENERALIZED EDEMA SNOMED Code(s): 710709542
[2018-09-30 17:05] LABS: Glucose,Whole Blood 160 mg/dL (75-99)
[2018-09-30 19:57] LABS: Glucose,Whole Blood 166 mg/dL (75-99)
--- NOTE | 2018-09-30 20:05 | PN ---
PROGRESS NOTE DATE OF SERVICE: 09/30/2018 REASON FOR FOLLOWUP: Staph epi bacteremia secondary to infection. INTERVAL HISTORY: The patient is currently afebrile. She is breathing comfortably, hemodynamically stable. Denies having any chest pain or shortness of breath or cough. No abdominal pain. No diarrhea. PHYSICAL EXAMINATION: Blood pressure is 103/52 with a pulse of 97, temperature 97.6. She is 97% on room air. General description is an elderly female lying in bed in no distress. RESPIRATORY SYSTEM: Unlabored breathing. Clear to auscultation anteriorly. HEART: S1, S2. Regular rate and rhythm. ABDOMEN: Soft. No tenderness. LABS: Hemoglobin 7.3, white count 1.5, BUN of 21, creatinine 0.60. DIAGNOSTIC IMPRESSION AND PLAN: Patient with Staphylococcus epidermidis bacteremia; could be related to more likely midline, as the midline catheter tip was positive. The PICC line catheter tip is currently pending. She will continue vancomycin while watching her kidney function closely. Vancomycin dose was slightly cut back to keep the trough around 15. If no gram negative source, it will be discontinued. Continue to monitor her clinical course closely. MMODL / IJN: [id number] /
[2018-09-30] MEDS: INSULIN DETEMIR 100 UNIT/ML 10 ML VIAL SQ SCH (21:28)
[2018-10-01] MEDS: LEVOTHYROXINE 75 MCG TAB PO SCH (05:14)
[2018-10-01] MEDS: VANCOMYCIN 1,500 MG in SODIUM CHLORIDE 0.9% 250 ML IVPB SCH ×2 (05:14→21:31)
[2018-10-01] MEDS: PIPERACILLIN-TAZOBACTAM 3.375 GM in SODIUM CHLORIDE 0.9% 100 ML IVPB SCH ×3 (05:14→20:13)
[2018-10-01] MEDS: SODIUM CHLORIDE 0.9% 1,000 ML IV SCH ×2 (06:17→12:39)
[2018-10-01 07:05] LABS: Glucose,Whole Blood 49 mg/dL (75-99)
[2018-10-01 07:26] LABS: Glucose,Whole Blood 58 mg/dL (75-99)
[2018-10-01] MEDS: INSULIN ASPART 100 UNIT/ML 1 ML 10 ML VIAL SQ SCH ×7 (07:31→20:01)
[2018-10-01 07:44] LABS: Glucose,Whole Blood 73 mg/dL (75-99)
[2018-10-01] MEDS: ACYCLOVIR 200 MG CAP PO SCH ×2 (08:06→20:13)
[2018-10-01] MEDS: FUROSEMIDE 10 MG/ML 4 ML VIAL IV SCH ×2 (08:06→20:13)
[2018-10-01] MEDS: ALLOPURINOL 300 MG TAB PO SCH (08:06)
[2018-10-01] MEDS: MEGESTROL 400 MG/10 ML CUP PO SCH (08:06)
[2018-10-01] MEDS: SPIRONOLACTONE 25 MG TAB PO SCH (08:06)
[2018-10-01] MEDS: PANTOPRAZOLE 40 MG TABLET PO SCH (08:06)
--- NOTE | 2018-10-01 08:09 | P.PN ---
Progress Note - Text The patient is a 78-year-old female who has a newly diagnosed Hodgkin's lymphoma with diffuse lymphadenopathy. She is post chemotherapy and has been moved to the oncology floor here at [facility]. She had been having some problems with hypotension along with positive blood cultures with coagulase-negative staph. She presently remains on vancomycin and Zosyn. She is generally alert and oriented this morning. In no acute distress. She denies any pain. Vital signs show a temperature 98.1 with a pulse of 105 and respirations 16. Blood pressure 109/53 and she is 98% saturated on room air. Lung and heart examination is clear and regular. Abdomen is nontender. Patient still has grade 2-3 diffuse edema of both upper and lower extremities although there appears to be decrease in the upper extremity edema No focal neurological changes. Laboratory Did show her blood sugar this morning down the 49. His up to 73 and she is going to have breakfast this morning. CBC is pending. Impressions and plans on Newly diagnosed Hodgkin's lymphoma diffuse. Positive sepsis with hypotension secondary to coagulase-negative staph aureus. Awaiting results of her CBC from today. Reports from infectious disease, oncology and pulmonary medicine and cardiology regarded. Hopefully with improvement in her clinical status can possibly be transferred to extended care facility/rehab later this week
[2018-10-01 08:27] LABS: Anisocytosis Slight; HCT 23.8 % (34.0-46.0); HGB 7.6 gm/dL (11.4-16.0); MCH 30.8 pg (25.0-35.0); MCHC 31.9 g/dL (31.0-37.0); MCV 96.5 fL (80.0-100.0); Macrocytosis Slight; Mean Platelet Volume 11.6; RBC 2.47 m/uL (3.80-5.40); RDW 19.1 % (11.5-15.5); WBC 3.2 k/uL (3.8-10.6)
[2018-10-01 08:33] LABS: Platelet Count 35 k/uL (150-450)
[2018-10-01 08:49] LABS: ALT 37 U/L (9-52); AST 21 U/L (14-36); Albumin 1.8 g/dL (3.5-5.0); Alkaline Phosphatase 246 U/L (38-126); Anion Gap 4 mmol/L; Blood Urea Nitrogen 15 mg/dL (7-17); Calcium 7.6 mg/dL (8.4-10.2); Carbon Dioxide 26 mmol/L (22-30); Chloride 105 mmol/L (98-107); Glucose 56 mg/dL (74-99); Phosphorus 2.5 mg/dL (2.5-4.5); Potassium 3.6 mmol/L (3.5-5.1); Sodium 135 mmol/L (137-145); Total Bilirubin 0.8 mg/dL (0.2-1.3); Total Protein 5.1 g/dL (6.3-8.2)
[2018-10-01] MEDS: FILGRASTIM-SNDZ 480 MCG/0.8 ML SYRINGE SQ SCH (10:21)
[2018-10-01] MEDS: ACETAMINOPHEN TAB 325 MG TAB PO PRN (10:44)
[2018-10-01 11:08] LABS: Band Neutrophils % 2 %; Eosinophils # (M) 0.06 k/uL (0-0.7); Lymphocytes # (M) 1.22 k/uL (1.0-4.8); Monocytes # (M) 0.45 k/uL (0-1.0); Neutrophils % (M) 42 %; Nucleated Red Blood Cells 0 /100 WBC (0-0); Total Cells Counted 200
[2018-10-01 11:09] LABS: Target Cells Present
[2018-10-01 11:54] LABS: Glucose,Whole Blood 170 mg/dL (75-99)
--- NOTE | 2018-10-01 13:22 | P.PN ---
Subjective This is a pleasant 78-year-old female past medical history significant for diabetes mellitus, hypertension and Hodgkin's lymphoma status post chemotherapy. She presented to the hospital for symptoms of progressive weakness. She has been in the ICU was transferred to the medical floor yesterday. She is seen and examined sitting up in the chair very sleepy and frequent falling back asleep during our conversation. She does however denies significant shortness of breath, no chest pain, dizziness or palpitations. She continues to have significant bilateral lower extremity edema. Currently maintained on Lasix 40 mg IV twice a day. Blood pressure 110/56 heart rate 99 afebrile maintaining oxygen saturation on room air. Laboratory data reviewed, hemoglobin 7.6, platelets 35, sodium 135, potassium 3.6, creatinine 0.58. Echo obtained earlier in this admission reveals preserved LV systolic function with EF greater than 70%mid aortic stenosis with mean gradient 12 mmHg. GENERAL: Well-appearing, well-nourished and in no acute distress. Obese. NECK: Supple without JVD or thyromegaly. LUNGS: Breath sounds clear to auscultation bilaterally. Respiration equal and unlabored. No wheezes, rales or rhonchi. Diminished bilaterally. HEART: Regular rate and rhythm with faint systolic murmur at the base, no rubs or gallops. S1 and S2 heard. EXTREMITIES: Normal range of motion, significant 3+ pitting bilateral lower extremity edema. No clubbing or cyanosis. Peripheral pulses intact. ASSESSMENT Hodgkins lymphoma Sepsis with hyptension requiring norepinephrine infusion, resolved Hypertension and tachycardia Pancytopenia Lymphadenopathy Positive blood cultures with coagulase negative staph Aortic stenosis, mild. PLAN Continue current medical regimen. Prognosis is guarded. Repeat BMP in the morning. Nurse Practitioner note has been reviewed, I agree with a documented findings and plan of care. Patient was seen and examined. Objective - Vital Signs Vital signs: Vital Signs Temp 98 F 10/01/18 11:57 Pulse 99 10/01/18 11:57 Resp 16 10/01/18 11:57 BP 110/56 10/01/18 11:57 Pulse Ox 97 10/01/18 11:57 Intake & Output 09/30/18 10/01/18 10/01/18 18:59 06:59 18:59 Intake Total 2091 590 Output Total 2340 Balance -249 590 Weight 118.4 kg Intake: IV 750 Piperacillin-Tazobactam 3 50 .375 gm In Sodium Chloride 0.9% 100 ml @ 25 mls/hr IVPB Q8H [facility] Rx#: [id number] Potassium Phosphate 10 50 mmol In Sodium Chloride 0 .9% 100 ml @ 50 mls/hr IV ONCE ONE Rx#:[id number] Sodium Chloride 0.9% 1, 650 000 ml @ 100 mls/hr IV . Q10H [facility] Rx#:[id number] Intake, IV Titration 501 Amount Vancomycin 1,750 mg In 501 Sodium Chloride 0.9% 500 ml 500 ml @ 167 mls/hr IVPB Q16H [facility] Rx#: [id number] Oral 840 590 Output: Urine 2337 Stool 3 Other: Voiding Method Indwelling Catheter Indwelling Catheter # Voids 2 1 # Bowel Movements 1 3 1 - Labs CBC & Chem 7: 10/01/18 07:20 10/01/18 07:20 Labs: Abnormal Lab Results - Last 24 Hours (Table) 09/30/18 09/30/18 09/30/18 Range/Units 14:50 17:03 19:55 WBC (3.8-10.6) k/uL RBC (3.80-5.40) m/uL Hgb (11.4-16.0) gm/dL Hct (34.0-46.0) % RDW (11.5-15.5) % Plt Count (150-450) k/uL Blast Cells % % Blast Cells # (Man) (0) k/uL Sodium (137-145) mmol/L Glucose (74-99) mg/dL POC Glucose (mg/dL) 160 H 160 H 166 H (75-99) mg/dL Calcium (8.4-10.2) mg/dL Alkaline Phosphatase (38-126) U/L Total Protein (6.3-8.2) g/dL Albumin (3.5-5.0) g/dL 10/01/18 10/01/18 10/01/18 Range/Units 06:59 07:20 07:20 WBC 3.2 L (3.8-10.6) k/uL RBC 2.47 L (3.80-5.40) m/uL Hgb 7.6 L (11.4-16.0) gm/dL Hct 23.8 L (34.0-46.0) % RDW 19.1 H (11.5-15.5) % Plt Count 35 L (150-450) k/uL Blast Cells % 3 H* % Blast Cells # (Man) 0.10 H (0) k/uL Sodium 135 L (137-145) mmol/L Glucose 56 L (74-99) mg/dL POC Glucose (mg/dL) 49 L (75-99) mg/dL Calcium 7.6 L (8.4-10.2) mg/dL Alkaline Phosphatase 246 H (38-126) U/L Total Protein 5.1 L (6.3-8.2) g/dL Albumin 1.8 L (3.5-5.0) g/dL 10/01/18 10/01/18 10/01/18 Range/Units 07:20 07:42 11:52 WBC (3.8-10.6) k/uL RBC (3.80-5.40) m/uL Hgb (11.4-16.0) gm/dL Hct (34.0-46.0) % RDW (11.5-15.5) % Plt Count (150-450) k/uL Blast Cells % % Blast Cells # (Man) (0) k/uL Sodium (137-145) mmol/L Glucose (74-99) mg/dL POC Glucose (mg/dL) 58 L 73 L 170 H (75-99) mg/dL Calcium (8.4-10.2) mg/dL Alkaline Phosphatase (38-126) U/L Total Protein (6.3-8.2) g/dL Albumin (3.5-5.0) g/dL Microbiology - Last 24 Hours (Table) 09/27/18 13:08 Blood Culture Gram Stain - Final Blood Blood Culture - Final Staphylococcus epidermidis 09/27/18 12:52 Blood Culture Gram Stain - Final Blood Blood Culture - Final Staphylococcus epidermidis 09/29/18 13:55 Catheter Tip Culture - Preliminary Picc Line 09/27/18 12:40 Catheter Tip Culture - Final Catheter Tip Staphylococcus epidermidis 09/26/18 11:53 Blood Culture - Preliminary Blood No Growth after 96 hours 09/26/18 11:41 Blood Culture - Preliminary Blood No Growth after 96 hours 09/26/18 16:08 Blood Culture Gram Stain - Final Blood Blood Culture - Final Staphylococcus epidermidis
--- NOTE | 2018-10-01 15:06 | P.PN ---
Subjective Progress Note Date: 10/01/18 Principal diagnosis: Hodgkin's lymphoma, pancytopenia, septic shock. 78-year-old obese female patient with known history of hypertension diabetes mellitus who presented to the hospital because of ongoing progressive weakness, vague abdominal discomfort and pain, weight loss and constitutions symptoms. The patient was found to be anemic. The patient was found to have some lymphadenopathy and the patient undergone a lymph node biopsy in [place] that was sampled from the neck area and the results were nondiagnostic and the patient was discharged home. The patient came back to [place] and a CAT scan of the chest and abdomen and pelvis was done during this current admission and the CAT scan showed a mild to moderate bilateral hilar lymphadenopathy, adenopathy in the superior anterior and middle mediastinum and he was also subcarinal and right paraesophageal lymphadenopathy. The largest lymph node was a 5 x 2.8 cm lymph node in the right supraclavicular area. There was also lymphadenopathy in the left clavicular area, there was also several lymph nodes in the abdomen and pelvis extending in the peripancreatic and shira hepatis and portacaval and periaortic positions. All the things raises the suspicion for lymphoma and the patient had a right subclavicular lymph node biopsy that was done by general surgery and the results are still pending for now. The patient however was progressively getting weak and hypoproteinemic and hypovolemic and she has developed increased edema in the upper and lower extremity and anasarca. Yesterday she became hypotensive and she got transferred to the intensive care unit. Overnight she required IV fluids which was in the form of normal state rate of 100 mL an hour. She received 2 doses of 25 g of albumin. She was briefly placed on pressors and norepinephrine infusion was was discontinued this morning. No significant cough or sputum production. No fever or chills. She has had a klebsiella urine checked infection back in April 2018 and the repeat UA was negative. Currently she is on oral Lasix. She is also on Aldactone pH was given empiric antibiotic coverage with a combination of Rocephin and vancomycin. Metoprolol was placed on hold. Lisinopril was laced also on hold. She has loose liquidy bowel movements. No significant diarrhea. No altered mentation. No cough or sputum production. No open wounds or sores or skin rash. She is quite weak in all 4 extremities mainly in lower extremity is bilaterally. On 09/22/2018 the patient is essentially the same. She is post systemic chemotherapy with a combination of dacarbazine and doxorubicin. The patient is being treated for Hodgkin's lymphoma. Very much debilitated. Very much weak. Oral intake remains minimal. Protein is low. She has third spacing and the patient is not responding to diuretics. Sodium level is on the decline is currently down to 123. She is in a negative fluid balance of 600 mL despite being on diuretics. As such she has not responded to diuretics effectively. No hypotension. Mental status is fluctuating. This morning she was making more sense and she was able to communicate. Yet at times she has been found to be confused. No cough. No sputum production. No headaches. She is moving all 4 extremities that she is suffering from profound weakness in all 4 extremities. She is on a combination of Zaroxolyn and Lasix and Aldactone and despite that she has been able to diabetes effectively. No other significant events overnight. Antibiotics have been discontinued. She is afebrile. She has a PICC line in left upper extremity. On 09/23/2018, patient remains in the ICU, continues to have significant fluid retention, anasarca, profound edema in lower extremities, but the patient is not in any form of respiratory distress. Patient continues to third space in spite of diuretics, she has excellent urine output, patient is hemodynamically stable, mental status is fluctuating. She is being followed by many consultants regarding her multiple medical problems including her newly diagnosed Hodgkin's lymphoma. After evaluating the patient today, and after reviewing all clinical history, reviewing all the labs, chest x-ray, I felt the patient could be transferred out to a medical oncology floor. Patient was reevaluated today on 09/28/2018, she was transferred back to the intensive care unit last night, and the patient apparently developed an episode of hypotension, hypothermia, patient is pancytopenic, she has been receiving chemotherapy for Hodgkin's lymphoma. Fluids were given initially, and she received about 2 L of fluid boluses, blood pressure did not improve much, hence she was started on norepinephrine. Presently at 15 mcg/m. Patient was also given antibiotics empirically, for sepsis and septic shock. She is on multiple antibiotics as listed below. Patient continues to have marginal blood pressure , but the norepinephrine is being titrated accordingly. The patient herself is not complaining, she denies any cough wheezing or shortness of breath, denies any chest pain, she is actually on room air, and her O2 saturation is in the high 90s. Patient was reevaluated today on 09/29/2018, multiple blood cultures continued to show coagulase-negative staph, hence it is almost certain that this is related to a catheter related sepsis/PICC line most likely. Hence the PICC line would have to be removed, and we'll try to establish another access. Patient is quite edematous and swollen, and a peripheral access could not be established, hence I will give the patient 3 units of platelets today, and I will try to establish a central line access in this patient for now. Multiple blood cultures from different dates including the and the most recent cultures are still showing coagulase-negative staph, hence this is not a contamination this is actually at Michelle PICC line infection. Patient is still on vancomycin, and she is being followed by infectious disease, we'll try to discontinue the central line today, and I don't establish another access either peripheral or central however if central is to be considered, the patient needs to be given more platelets today. Hemodynamically, the patient is doing better , and her blood pressure is holding but she still on 2 mcg/m of norepinephrine. Her labs are improving, WBC count is up to 1.2 hemoglobin is 7.6, platelets are 38,000. Potassium is low being corrected as per protocol. No chest x-ray was done today, patient remains on room air, and she is saturating up in the 90s on room air. Denies any shortness of breath, denies any pain, no nausea, no vomiting, no dysuria and no frequency no urgency. But again clearly the patient is quite bacteremic and it is highly suspected to be secondary to central line/catheter related sepsis On 09/30/2018 patient seen in follow-up in the intensive care unit, she is awake and alert, in no acute distress, she is currently on room air, and her pulse ox is 94-97%, hemodynamically patient is stable, she's been off the levo drip for 24 hours. no fever or chills, patient was found to be bacteremic, with coagulase negative staph, catheter tip culture is pending. IV fluids include 0.9 normal saline at a rate of 100 ML per hour. Today's labs have been reviewed, and white blood cell count is 1.5, hemoglobin is 7.3, sodium is 133, potassium is 3.7, chloride is 102, CO2 is 27, BUN was 21 creatinine was 0.60, albumin was 1.8 on today's labs. Patient is status post transfusion with 2 units of packed red blood cells. Patient is on antibiotic coverage including vancomycin, Zosyn, Zovirax. Patient is receiving Zarxio. She remains on IV Lasix, patient has been in positive fluid balance last several days. Patient has a total of 18.5 kg weight gain over torso for hospitalization. Denies any dyspnea, denies any chest pain, patient's appetite remains poor. Patient has generalized edema, bilateral lower extremities, upper extremities, abdomen. On 10/01/2018 patient seen in follow-up on medical surgical floor. She is resting comfortably in bed, in no acute distress, appears to be a bit stronger and more interactive today. Room air pulse ox is 97%, fever or chills, hemodynamically stable. Patient had numerous blood cultures positive for Staphylococcus epidermidis, and the source was suspected to be related to a PICC line insertion, PICC line has been discontinued, and the catheter tip culture is still pending. Pneumatic coverage in the form of Zosyn and vancomycin. Patient remains on IV diuretics, 40 mg IV twice daily, she remains in positive fluid balance. Still has generalized edema and upper and lower extremities and trunk. He denies any significant shortness of breath, chest pain, dizziness or palpitations. It is labs have been reviewed, white blood cell count is up to 3.2, hemoglobin is 7.6, sodium is 135, the rest of electrolytes and renal profile were within normal limits. Objective - Vital Signs Vital signs: Vital Signs Temp 98 F 10/01/18 11:57 Pulse 99 10/01/18 11:57 Resp 16 10/01/18 11:57 BP 110/56 10/01/18 11:57 Pulse Ox 97 10/01/18 11:57 Intake & Output 09/30/18 10/01/18 10/01/18 18:59 06:59 18:59 Intake Total 2091 590 160 Output Total 2340 Balance -249 590 160 Weight 118.4 kg Intake: IV 750 160 Piperacillin-Tazobactam 3 50 .375 gm In Sodium Chloride 0.9% 100 ml @ 25 mls/hr IVPB Q8H [facility] Rx#: [id number] Potassium Phosphate 10 50 mmol In Sodium Chloride 0 .9% 100 ml @ 50 mls/hr IV ONCE ONE Rx#:[id number] Sodium Chloride 0.9% 1, 650 160 000 ml @ 100 mls/hr IV . Q10H [facility] Rx#:[id number] Intake, IV Titration 501 Amount Vancomycin 1,750 mg In 501 Sodium Chloride 0.9% 500 ml 500 ml @ 167 mls/hr IVPB Q16H [facility] Rx#: [id number] Oral 840 590 Output: Urine 2337 Stool 3 Other: Voiding Method Indwelling Catheter Indwelling Catheter # Voids 2 1 # Bowel Movements 1 3 1 - Exam GENERAL EXAM: Alert, pleasant, 78-year-old obese white female,on room air comfortable in no apparent distress. HEAD: Normocephalic/atraumatic. EYES: Normal reaction of pupils, equal size. Conjunctiva pink, sclera white. NOSE: Clear with pink turbinates. THROAT: No erythema or exudates. NECK: No masses, no JVD, no thyroid enlargement, no adenopathy. CHEST: No chest wall deformity. Symmetrical expansion. LUNGS: Equal air entry with with some minimal crackles at the right lower base CVS: Regular rate and rhythm, normal S1 and S2, no gallops, no murmurs, no rubs ABDOMEN: Soft, nontender. No hepatosplenomegaly, normal bowel sounds, no guarding or rigidity. EXTREMITIES: No clubbing, generalized edema and upper and lower extremities, no cyanosis, 2+ pulses and upper and lower extremities. MUSCULOSKELETAL: Muscle strength and tone normal. SPINE: No scoliosis or deformity SKIN: No rashes CENTRAL NERVOUS SYSTEM: Alert and oriented -3. No focal deficits, tone is normal in all 4 extremities. PSYCHIATRIC: Alert and oriented -3. Appropriate affect. Intact judgment and insight. - Labs CBC & Chem 7: 10/01/18 07:20 10/01/18 07:20 Labs: Abnormal Lab Results - Last 24 Hours (Table) 09/30/18 09/30/18 09/30/18 Range/Units 14:50 17:03 19:55 WBC (3.8-10.6) k/uL RBC (3.80-5.40) m/uL Hgb (11.4-16.0) gm/dL Hct (34.0-46.0) % RDW (11.5-15.5) % Plt Count (150-450) k/uL Blast Cells % % Blast Cells # (Man) (0) k/uL Sodium (137-145) mmol/L Glucose (74-99) mg/dL POC Glucose (mg/dL) 160 H 160 H 166 H (75-99) mg/dL Calcium (8.4-10.2) mg/dL Alkaline Phosphatase (38-126) U/L Total Protein (6.3-8.2) g/dL Albumin (3.5-5.0) g/dL 10/01/18 10/01/18 10/01/18 Range/Units 06:59 07:20 07:20 WBC 3.2 L (3.8-10.6) k/uL RBC 2.47 L (3.80-5.40) m/uL Hgb 7.6 L (11.4-16.0) gm/dL Hct 23.8 L (34.0-46.0) % RDW 19.1 H (11.5-15.5) % Plt Count 35 L (150-450) k/uL Blast Cells % 3 H* % Blast Cells # (Man) 0.10 H (0) k/uL Sodium 135 L (137-145) mmol/L Glucose 56 L (74-99) mg/dL POC Glucose (mg/dL) 49 L (75-99) mg/dL Calcium 7.6 L (8.4-10.2) mg/dL Alkaline Phosphatase 246 H (38-126) U/L Total Protein 5.1 L (6.3-8.2) g/dL Albumin 1.8 L (3.5-5.0) g/dL 10/01/18 10/01/18 10/01/18 Range/Units 07:20 07:42 11:52 WBC (3.8-10.6) k/uL RBC (3.80-5.40) m/uL Hgb (11.4-16.0) gm/dL Hct (34.0-46.0) % RDW (11.5-15.5) % Plt Count (150-450) k/uL Blast Cells % % Blast Cells # (Man) (0) k/uL Sodium (137-145) mmol/L Glucose (74-99) mg/dL POC Glucose (mg/dL) 58 L 73 L 170 H (75-99) mg/dL Calcium (8.4-10.2) mg/dL Alkaline Phosphatase (38-126) U/L Total Protein (6.3-8.2) g/dL Albumin (3.5-5.0) g/dL Microbiology - Last 24 Hours (Table) 09/26/18 11:53 Blood Culture - Preliminary Blood No Growth after 120 hours 09/26/18 11:41 Blood Culture - Preliminary Blood No Growth after 120 hours 09/27/18 13:08 Blood Culture Gram Stain - Final Blood Blood Culture - Final Staphylococcus epidermidis 09/27/18 12:52 Blood Culture Gram Stain - Final Blood Blood Culture - Final Staphylococcus epidermidis 09/29/18 13:55 Catheter Tip Culture - Preliminary Picc Line 09/27/18 12:40 Catheter Tip Culture - Final Catheter Tip Staphylococcus epidermidis 09/26/18 16:08 Blood Culture Gram Stain - Final Blood Blood Culture - Final Staphylococcus epidermidis Assessment and Plan Plan: 1 Hodgkin's lymphoma with diffuse lymphadenopathy as noted on the diagnostic workup including CT of the chest mediastinum and abdomen. 2 extensive anasarca and hypoproteinemia some of the swelling in the lower extremities could be lymphedema. 3 electrolytes imbalance mostly hyponatremia felt to hypervolemic hyponatremia. 4 morbid obesity, BMI of 41. 5 type 2 diabetes 6 poor performance status and medical debility secondary to above. 7 acute septic shock secondary to PICC line sepsis and bacteremia. 8 pancytopenia secondary to myeloma suppression from chemotherapy. Being addressed by oncology on the case, patient will need a central line placement today, hence I will give her platelets and follow that by central line placement. Or do the central line well the platelets are transfusing Plan: Continue with antibiotic coverage per ID service recommendations, continue IV diuretics, no fever or chills, patient is a bit stronger, and a bit more upbeat on today's exam, no worsening shortness of breath or chest pain. From pulmonary perspective she stable, we will sign off, and follow on as-needed basis. I performed a history & physical examination of the patient and discussed their management with my nurse practitioner, Nori Doshi. I reviewed the nurse practitioner's note and agree with the documented findings and plan of care. Lung sounds are positive right lower lobe crackles. The findings and the impression was discussed with the patient. I attest to the documentation by the nurse practitioner. Time with Patient: Less than 30
[2018-10-01 17:34] LABS: Glucose,Whole Blood 107 mg/dL (75-99)
--- NOTE | 2018-10-01 18:58 | P.PN ---
Subjective Progress Note Date: 10/01/18 Principal diagnosis: Hodgkin's Disease, status post first chemotherapy Patient seen today in follow-up. She continues to be lethargic, drifts off to sleep during our conversation, has a flat affect. When asked if she wants to continue treatment patient stated she thought she was doing treatment. Patient denies fever, nausea, chest pain, abdominal pain, she states that she has not walked since admission. She is eating, denies bleeding or pain. Objective - Vital Signs Vital signs: Vital Signs Temp 98 F 10/01/18 11:57 Pulse 99 10/01/18 11:57 Resp 16 10/01/18 11:57 BP 110/56 10/01/18 11:57 Pulse Ox 97 10/01/18 11:57 Intake & Output 09/30/18 10/01/18 10/01/18 18:59 06:59 18:59 Intake Total 2091 590 160 Output Total 2340 Balance -249 590 160 Weight 118.4 kg Intake: IV 750 160 Piperacillin-Tazobactam 3 50 .375 gm In Sodium Chloride 0.9% 100 ml @ 25 mls/hr IVPB Q8H [facility] Rx#: [id number] Potassium Phosphate 10 50 mmol In Sodium Chloride 0 .9% 100 ml @ 50 mls/hr IV ONCE ONE Rx#:[id number] Sodium Chloride 0.9% 1, 650 160 000 ml @ 100 mls/hr IV . Q10H [facility] Rx#:[id number] Intake, IV Titration 501 Amount Vancomycin 1,750 mg In 501 Sodium Chloride 0.9% 500 ml 500 ml @ 167 mls/hr IVPB Q16H [facility] Rx#: [id number] Oral 840 590 Output: Urine 2337 Stool 3 Other: Voiding Method Indwelling Catheter Indwelling Catheter # Voids 2 1 # Bowel Movements 1 3 1 - Constitutional General appearance: Present: cooperative, morbidly obese, no acute distress - EENT Eyes: Present: anicteric sclerae, EOMI ENT: Present: hearing grossly normal - Respiratory Respiratory: bilateral: CTA - Cardiovascular Rhythm: regular Heart sounds: normal: S1, S2 Abnormal Heart Sounds: Absent: systolic murmur, diastolic murmur, rub, S3 Gallop , S4 Gallop, click, other - Peripheral edema leg Peripheral Edema: bilateral: 1+ foot Peripheral Edema: bilateral: 3+ - Gastrointestinal General gastrointestinal: Present: normal bowel sounds - Integumentary Integumentary: Present: pale - Musculoskeletal Musculoskeletal: Present: generalized weakness - Psychiatric Psychiatric Comment(s): lethargic, drifts off to sleep during conversation,oriented to self and place, flat affect - Labs CBC & Chem 7: 10/01/18 07:20 10/01/18 07:20 Labs: Abnormal Lab Results - Last 24 Hours (Table) 09/30/18 10/01/18 10/01/18 Range/Units 19:55 06:59 07:20 WBC (3.8-10.6) k/uL RBC (3.80-5.40) m/uL Hgb (11.4-16.0) gm/dL Hct (34.0-46.0) % RDW (11.5-15.5) % Plt Count (150-450) k/uL Blast Cells % % Blast Cells # (Man) (0) k/uL Sodium 135 L (137-145) mmol/L Glucose 56 L (74-99) mg/dL POC Glucose (mg/dL) 166 H 49 L (75-99) mg/dL Calcium 7.6 L (8.4-10.2) mg/dL Alkaline Phosphatase 246 H (38-126) U/L Total Protein 5.1 L (6.3-8.2) g/dL Albumin 1.8 L (3.5-5.0) g/dL 10/01/18 10/01/18 10/01/18 Range/Units 07:20 07:20 07:42 WBC 3.2 L (3.8-10.6) k/uL RBC 2.47 L (3.80-5.40) m/uL Hgb 7.6 L (11.4-16.0) gm/dL Hct 23.8 L (34.0-46.0) % RDW 19.1 H (11.5-15.5) % Plt Count 35 L (150-450) k/uL Blast Cells % 3 H* % Blast Cells # (Man) 0.10 H (0) k/uL Sodium (137-145) mmol/L Glucose (74-99) mg/dL POC Glucose (mg/dL) 58 L 73 L (75-99) mg/dL Calcium (8.4-10.2) mg/dL Alkaline Phosphatase (38-126) U/L Total Protein (6.3-8.2) g/dL Albumin (3.5-5.0) g/dL 10/01/18 10/01/18 Range/Units 11:52 17:23 WBC (3.8-10.6) k/uL RBC (3.80-5.40) m/uL Hgb (11.4-16.0) gm/dL Hct (34.0-46.0) % RDW (11.5-15.5) % Plt Count (150-450) k/uL Blast Cells % % Blast Cells # (Man) (0) k/uL Sodium (137-145) mmol/L Glucose (74-99) mg/dL POC Glucose (mg/dL) 170 H 107 H (75-99) mg/dL Calcium (8.4-10.2) mg/dL Alkaline Phosphatase (38-126) U/L Total Protein (6.3-8.2) g/dL Albumin (3.5-5.0) g/dL Microbiology - Last 24 Hours (Table) 09/29/18 13:55 Catheter Tip Culture - Final Picc Line 09/26/18 11:53 Blood Culture - Preliminary Blood No Growth after 120 hours 09/26/18 11:41 Blood Culture - Preliminary Blood No Growth after 120 hours 09/27/18 13:08 Blood Culture Gram Stain - Final Blood Blood Culture - Final Staphylococcus epidermidis 09/27/18 12:52 Blood Culture Gram Stain - Final Blood Blood Culture - Final Staphylococcus epidermidis 09/27/18 12:40 Catheter Tip Culture - Final Catheter Tip Staphylococcus epidermidis Assessment and Plan (1) Hodgkin lymphoma Narrative/Plan: Pt is s/p 1st cycle of AVD. Pt and family aware that treatment was given in hopes of relieving disease burden as well as symptoms. HD is curable but only if treatment can be tolerated. Pt baseline PS was poor before treatment. She seems to be recovering slowly post chemo, counts are stable, renal function stable, she was sitting up to eat when seen. She is being treated for bactremia , low BP but off pressors, no recent fever. We will continue to follow pt with you. Her treatment will be on hold until her current condition is resolved. Current Visit: Yes Status: Acute Priority: High Code(s): C81.90 - HODGKIN LYMPHOMA, UNSPECIFIED, UNSPECIFIED SITE SNOMED Code(s): 840141362 (2) Pancytopenia Narrative/Plan: CBC today very slightly improved, stability noted Cont GCSF for low WBC/ANC. Pt is on axb therapy, antiviral treatment Hgb stable, conservative transfusions for Hgb< 7 unless symptomatic Thrombocytopenia-no asa, NSAIDs, anticoagulation, use SCDs for DVT prophylaxis. Current Visit: Yes Status: Acute Priority: Medium Code(s): D61.818 - OTHER PANCYTOPENIA SNOMED Code(s): 068358392 (3) Septic shock Narrative/Plan: Critical Care team following, pt improving Current Visit: Yes Status: Acute Priority: High Code(s): A41.9 - SEPSIS, UNSPECIFIED ORGANISM; R65.21 - SEVERE SEPSIS WITH SEPTIC SHOCK SNOMED Code(s) : 50045099 (4) Anasarca Narrative/Plan: Multifactorial. Cont careful monitoring of fluid status continues, subcutaneous tissues of the arms and legs seem to be less endematous today Current Visit: Yes Status: Acute Priority: High Code(s): R60.1 - GENERALIZED EDEMA SNOMED Code(s): 690688017
[2018-10-01 19:52] LABS: Glucose,Whole Blood 109 mg/dL (75-99)
[2018-10-01] MEDS: INSULIN DETEMIR 100 UNIT/ML 10 ML VIAL SQ SCH (20:01)
--- NOTE | 2018-10-01 23:00 | PN ---
PROGRESS NOTE DATE OF SERVICE: 10/01/2018. REASON FOR FOLLOWUP: Staph epi bacteremia secondary to midline infection. INTERVAL HISTORY: The patient is currently afebrile. She is breathing comfortably. Denies having any chest pain or shortness of breath. Occasional cough. No abdominal pain. No diarrhea. PHYSICAL EXAMINATION: Blood pressure is 101/66, pulse of 109, temperature 98.1, she is 100% on room air. GENERAL DESCRIPTION: An elderly female up in the chair in no distress. RESPIRATORY SYSTEM: Unlabored breathing. Clear to auscultation anteriorly. HEART: S1, S2. Regular rate and rhythm. ABDOMEN: Soft, no tenderness. LABS: BUN of 15, creatinine . Hemoglobin 7.6, white count 3.2. Blood cultures showing Staph epidermidis. PICC line catheter tip was negative. DIAGNOSTIC IMPRESSION AND PLAN: Patient with a wound Staph epi bacteremia, source likely PICC line that has been discontinued. She will need at least another 10 days of IV vancomycin. Discussed with Oncology. Patient will need a PICC line or we can just do it through midline. Once outpatient antibiotic arranged, she will be able to go home from ID standpoint. Continue supportive care. MMODL / IJN: [id number] /
[2018-10-02] MEDS: SODIUM CHLORIDE 0.9% 1,000 ML IV SCH ×3 (02:14→19:25)
[2018-10-02] MEDS: PIPERACILLIN-TAZOBACTAM 3.375 GM in SODIUM CHLORIDE 0.9% 100 ML IVPB SCH ×2 (05:14→12:25)
[2018-10-02] MEDS: LEVOTHYROXINE 75 MCG TAB PO SCH (05:15)
[2018-10-02] MEDS: ACETAMINOPHEN TAB 325 MG TAB PO PRN ×3 (05:15→23:58)
[2018-10-02 07:00] LABS: Glucose,Whole Blood 132 mg/dL (75-99)
[2018-10-02 07:54] LABS: Anisocytosis Slight; HCT 24.1 % (34.0-46.0); HGB 7.7 gm/dL (11.4-16.0); MCH 31.2 pg (25.0-35.0); MCHC 32.1 g/dL (31.0-37.0); MCV 97.1 fL (80.0-100.0); Macrocytosis Slight; Mean Platelet Volume 10.9; RBC 2.48 m/uL (3.80-5.40); RDW 18.8 % (11.5-15.5); WBC 8.1 k/uL (3.8-10.6)
[2018-10-02 08:05] LABS: Platelet Count 61 k/uL (150-450)
[2018-10-02] MEDS: INSULIN ASPART 100 UNIT/ML 1 ML 10 ML VIAL SQ SCH ×7 (08:11→21:52)
[2018-10-02] MEDS: MEGESTROL 400 MG/10 ML CUP PO SCH (08:12)
[2018-10-02] MEDS: ACYCLOVIR 200 MG CAP PO SCH ×2 (08:12→21:52)
[2018-10-02] MEDS: PANTOPRAZOLE 40 MG TABLET PO SCH (08:12)
[2018-10-02] MEDS: FUROSEMIDE 10 MG/ML 4 ML VIAL IV SCH ×2 (08:12→21:52)
[2018-10-02] MEDS: ALLOPURINOL 300 MG TAB PO SCH (08:12)
[2018-10-02] MEDS: SPIRONOLACTONE 25 MG TAB PO SCH (08:12)
[2018-10-02 08:16] LABS: ALT 38 U/L (9-52); AST 21 U/L (14-36); Albumin 1.8 g/dL (3.5-5.0); Alkaline Phosphatase 224 U/L (38-126); Anion Gap 3 mmol/L; Blood Urea Nitrogen 13 mg/dL (7-17); Calcium 7.8 mg/dL (8.4-10.2); Carbon Dioxide 25 mmol/L (22-30); Chloride 105 mmol/L (98-107); Glucose 126 mg/dL (74-99); Phosphorus 2.8 mg/dL (2.5-4.5); Potassium 3.8 mmol/L (3.5-5.1); Sodium 133 mmol/L (137-145); Total Bilirubin 0.7 mg/dL (0.2-1.3)
--- NOTE | 2018-10-02 08:21 | P.PN ---
Progress Note - Text The patient is a 78-year-old female with a newly diagnosed Hodgkin's lymphoma with diffuse lymphadenopathy and is status post chemotherapy 1. Patient has been in the intensive care unit twice during this hospitalization with low blood pressures. She has recently been found to have coagulase-negative staph epidermidis sepsis likely secondary to catheter. She is on vancomycin. This morning she is eating breakfast. She is generally alert. Denies any shortness of breath. Nausea or vomiting. No chest pain. Vital signs show temperature 97.8. Her pulse is been 110-114. Respirations 20. Blood pressure 95/60 and she is 99% saturated on room air. Lung and heart examination is clear. Regular. Abdomen is nontender. Extremities 2 continued to show grade 3 edema. Diffuse. No focal neurological deficits. She is alert and oriented. She is talking about discharge. Laboratory White count is up to 8.1 with a hemoglobin 7.7. Sodium is 133 with a potassium 3.8. Blood sugar 126. Albumin still very low at 1.8. Impression and plans 1. Newly diagnosed Hodgkin's lymphoma status post chemotherapy and pancytopenia which is improving. She is still very weak in general. Third spacing a lot of fluid. IVs have been cut down to 20 mL an hour. Apparently will have to improve clinically before further chemotherapy. Oncology notes regarded. 2. Sepsis secondary to colitis negative staph epidermidis. On vancomycin. Will require another 10 day course per infectious disease. Once again at this time we will decrease her IVs 20 mL an hour. Discussed with nursing staff. Arrangements to be made for outpatient antibiotics upon transfer to rehab facility. Family has requested and passed [facility]. Possible transfer over the next 24-48 hours if patient remains clinically stable. Explained to patient need for rehab placement and not to return home at this time. Overall prognosis still guarded.
[2018-10-02 08:38] LABS: Band Neutrophils % 7 %; Basophils # (M) 0.08 k/uL (0-0.2); Lymphocytes # (M) 1.13 k/uL (1.0-4.8); Metamyelocytes # (M) 0.08 k/uL (0); Metamyelocytes % 1 %; Monocytes # (M) 1.22 k/uL (0-1.0); Neutrophils % (M) 63 %; Nucleated Red Blood Cells 0 /100 WBC (0-0); Total Cells Counted 200
--- NOTE | 2018-10-02 10:48 | P.PN ---
Subjective This is a pleasant 78-year-old female past medical history significant for diabetes mellitus, hypertension and Hodgkin's lymphoma status post chemotherapy. She presented to the hospital for symptoms of progressive weakness. She has been in the ICU was transferred to the medical floor 2 [facility]. She is seen and examined sitting up in the bed eating breakfast. She is much more alert and conversational today. She continued to deny chest pain, shortness of breath, dizziness or palpitations. She is maintained on lasix 40 mg IV BID for bilateral lower extremity lymphedema. Blood pressure 95/60 heart rate 114 afebrile and maintaining oxygen saturation on room air. Laboratory data reviewed, hgb 7.7, plt 61, sodium 133, potassium 3.8, creatinine 0.63. GENERAL: Well-appearing, well-nourished and in no acute distress. Obese. NECK: Supple without JVD or thyromegaly. LUNGS: Breath sounds clear to auscultation bilaterally. Respiration equal and unlabored. No wheezes, rales or rhonchi. Diminished bilaterally. HEART: Regular rate and rhythm with faint systolic murmur at the base, no rubs or gallops. S1 and S2 heard. EXTREMITIES: Normal range of motion, significant 3+ pitting bilateral lower extremity edema. No clubbing or cyanosis. Peripheral pulses intact. ASSESSMENT Hodgkins lymphoma Sepsis with hyptension requiring norepinephrine infusion, resolved Hypertension and tachycardia Pancytopenia Lymphadenopathy Positive blood cultures with coagulase negative staph Aortic stenosis, mild. PLAN Continue current medical regimen. Prognosis is guarded. We will continue to follow as needed, please feel free to call with further questions or concerns. Nurse Practitioner note has been reviewed, I agree with a documented findings and plan of care. Patient was seen and examined. Objective - Vital Signs Vital signs: Vital Signs Temp 97.8 F 10/02/18 05:00 Pulse 114 H 10/02/18 05:00 Resp 20 10/02/18 05:00 BP 95/60 10/02/18 05:00 Pulse Ox 99 10/02/18 05:00 Intake & Output 10/01/18 10/02/18 10/02/18 18:59 06:59 18:59 Intake Total 160 Output Total 950 Balance 160 -950 Intake: IV 160 Sodium Chloride 0.9% 1, 160 000 ml @ 20 mls/hr IV . Q24H [facility] Rx#:[id number] Output: Urine 950 Other: Voiding Method Indwelling Catheter Bedpan Diaper # Voids 1 3 2 # Bowel Movements 1 1 1 - Labs CBC & Chem 7: 10/02/18 07:23 10/02/18 07:23 Labs: Abnormal Lab Results - Last 24 Hours (Table) 10/01/18 10/01/18 10/01/18 Range/Units 07:20 11:52 17:23 RBC (3.80-5.40) m/uL Hgb (11.4-16.0) gm/dL Hct (34.0-46.0) % RDW (11.5-15.5) % Plt Count 35 L (150-450) k/uL Blast Cells % 3 H* % Monocytes # (Manual) (0-1.0) k/uL Metamyelocytes # (Man) (0) k/uL Blast Cells # (Man) 0.10 H (0) k/uL Sodium (137-145) mmol/L Glucose (74-99) mg/dL POC Glucose (mg/dL) 170 H 107 H (75-99) mg/dL Calcium (8.4-10.2) mg/dL Alkaline Phosphatase (38-126) U/L Total Protein (6.3-8.2) g/dL Albumin (3.5-5.0) g/dL 10/01/18 10/02/18 10/02/18 Range/Units 19:51 06:58 07:23 RBC (3.80-5.40) m/uL Hgb (11.4-16.0) gm/dL Hct (34.0-46.0) % RDW (11.5-15.5) % Plt Count (150-450) k/uL Blast Cells % % Monocytes # (Manual) (0-1.0) k/uL Metamyelocytes # (Man) (0) k/uL Blast Cells # (Man) (0) k/uL Sodium 133 L (137-145) mmol/L Glucose 126 H (74-99) mg/dL POC Glucose (mg/dL) 109 H 132 H (75-99) mg/dL Calcium 7.8 L (8.4-10.2) mg/dL Alkaline Phosphatase 224 H (38-126) U/L Total Protein 5.0 L (6.3-8.2) g/dL Albumin 1.8 L (3.5-5.0) g/dL 10/02/18 Range/Units 07:23 RBC 2.48 L (3.80-5.40) m/uL Hgb 7.7 L (11.4-16.0) gm/dL Hct 24.1 L (34.0-46.0) % RDW 18.8 H (11.5-15.5) % Plt Count 61 L D (150-450) k/uL Blast Cells % % Monocytes # (Manual) 1.22 H (0-1.0) k/uL Metamyelocytes # (Man) 0.08 H (0) k/uL Blast Cells # (Man) (0) k/uL Sodium (137-145) mmol/L Glucose (74-99) mg/dL POC Glucose (mg/dL) (75-99) mg/dL Calcium (8.4-10.2) mg/dL Alkaline Phosphatase (38-126) U/L Total Protein (6.3-8.2) g/dL Albumin (3.5-5.0) g/dL Microbiology - Last 24 Hours (Table) 09/29/18 13:55 Catheter Tip Culture - Final Picc Line 09/26/18 11:53 Blood Culture - Preliminary Blood No Growth after 120 hours 09/26/18 11:41 Blood Culture - Preliminary Blood No Growth after 120 hours 09/27/18 13:08 Blood Culture Gram Stain - Final Blood Blood Culture - Final Staphylococcus epidermidis 09/27/18 12:52 Blood Culture Gram Stain - Final Blood Blood Culture - Final Staphylococcus epidermidis
[2018-10-02 11:12] LABS: Glucose,Whole Blood 139 mg/dL (75-99)
[2018-10-02] MEDS: FILGRASTIM-SNDZ 480 MCG/0.8 ML SYRINGE SQ SCH (12:25)
[2018-10-02] MEDS: VANCOMYCIN 1,500 MG in SODIUM CHLORIDE 0.9% 250 ML IVPB SCH (15:36)
--- NOTE | 2018-10-02 16:40 | PN ---
PROGRESS NOTE DATE OF SERVICE: 10/02/2018 REASON FOR FOLLOWUP: Staph epi bacteremia secondary to midline infection. INTERVAL HISTORY: The patient is currently afebrile. She is breathing comfortably. Patient denies having any chest pain or shortness of breath or cough. No abdominal pain or any diarrhea. PHYSICAL EXAMINATION: Blood pressure 97/52 with pulse of 103, temperature 98. She is 94% on room air. General description is an elderly female up in the chair in no distress. RESPIRATORY SYSTEM: Unlabored breathing with decreased breath sounds at the base. No wheeze. HEART: S1, S2. Regular rate and rhythm. ABDOMEN: Soft. No tenderness. LABS: Hemoglobin 7.7, white count of 8.1. BUN of 13, creatinine 0.63. DIAGNOSTIC IMPRESSION AND PLAN: Patient with Staphylococcus epidermidis bacteremia, for which the patient will continue on vancomycin, Pharmacy to dose, for which a PICC line will be placed today, for 10 days with close outpatient followup. Will discontinue the Zosyn. Continue with supportive care. MMODL / IJN: [id number] /
[2018-10-02 17:16] LABS: Glucose,Whole Blood 111 mg/dL (75-99)
--- NOTE | 2018-10-02 18:35 | P.PN ---
Subjective Progress Note Date: 10/02/18 Principal diagnosis: Hodgkin's Disease, status post first chemotherapy Pt seen in f/u, much more alert and interactive today, is at bedside. Pt appetite is decent, no nausea, she is SOB with exertion-not new, no changes in bowel or bladder, no pain Objective - Vital Signs Vital signs: Vital Signs Temp 98 F 10/02/18 12:30 Pulse 106 H 10/02/18 12:30 Resp 16 10/02/18 12:30 BP 97/52 10/02/18 12:30 Pulse Ox 94 L 10/02/18 12:30 Intake & Output 10/01/18 10/02/18 10/02/18 18:59 06:59 18:59 Intake Total 160 Output Total 950 Balance 160 -950 Intake: IV 160 Sodium Chloride 0.9% 1, 160 000 ml @ 20 mls/hr IV . Q24H [facility] Rx#:[id number] Output: Urine 950 Other: Voiding Method Indwelling Catheter Bedpan Diaper # Voids 1 3 2 # Bowel Movements 1 1 1 - Constitutional General appearance: Present: cooperative, morbidly obese, no acute distress - EENT Eyes: Present: anicteric sclerae, EOMI ENT: Present: hearing grossly normal, normal oropharynx - Respiratory Respiratory: bilateral: CTA - Cardiovascular Heart sounds: normal: S1, S2 - Peripheral edema foot Peripheral Edema: bilateral: 3+ (improved) - Gastrointestinal General gastrointestinal: Present: soft - Integumentary Integumentary: Present: pale - Musculoskeletal Musculoskeletal: Present: generalized weakness - Psychiatric Psychiatric: Present: A&O x's 3, intact judgment & insight - Labs CBC & Chem 7: 10/02/18 07:23 10/02/18 07:23 Labs: Abnormal Lab Results - Last 24 Hours (Table) 10/01/18 10/02/18 10/02/18 Range/Units 19:51 06:58 07:23 RBC (3.80-5.40) m/uL Hgb (11.4-16.0) gm/dL Hct (34.0-46.0) % RDW (11.5-15.5) % Plt Count (150-450) k/uL Monocytes # (Manual) (0-1.0) k/uL Metamyelocytes # (Man) (0) k/uL Sodium 133 L (137-145) mmol/L Glucose 126 H (74-99) mg/dL POC Glucose (mg/dL) 109 H 132 H (75-99) mg/dL Calcium 7.8 L (8.4-10.2) mg/dL Alkaline Phosphatase 224 H (38-126) U/L Total Protein 5.0 L (6.3-8.2) g/dL Albumin 1.8 L (3.5-5.0) g/dL 10/02/18 10/02/18 10/02/18 Range/Units 07:23 11:10 17:15 RBC 2.48 L (3.80-5.40) m/uL Hgb 7.7 L (11.4-16.0) gm/dL Hct 24.1 L (34.0-46.0) % RDW 18.8 H (11.5-15.5) % Plt Count 61 L D (150-450) k/uL Monocytes # (Manual) 1.22 H (0-1.0) k/uL Metamyelocytes # (Man) 0.08 H (0) k/uL Sodium (137-145) mmol/L Glucose (74-99) mg/dL POC Glucose (mg/dL) 139 H 111 H (75-99) mg/dL Calcium (8.4-10.2) mg/dL Alkaline Phosphatase (38-126) U/L Total Protein (6.3-8.2) g/dL Albumin (3.5-5.0) g/dL Microbiology - Last 24 Hours (Table) 09/26/18 11:53 Blood Culture - Final Blood No Growth after 144 hours 09/26/18 11:41 Blood Culture - Final Blood No Growth after 144 hours 09/29/18 13:55 Catheter Tip Culture - Final Picc Line Assessment and Plan (1) Hodgkin lymphoma Narrative/Plan: Pt is s/p 1st cycle of AVD. Treatment will held until released from rehabilitation Current Visit: Yes Status: Acute Priority: High Code(s): C81.90 - HODGKIN LYMPHOMA, UNSPECIFIED, UNSPECIFIED SITE SNOMED Code(s): 115162363 (2) Pancytopenia Narrative/Plan: Slightly improved numbers again today. Chemo induced hematological toxicites recovering. Will DC GCSF tomorrow. No transfusions for anemia, thrombocytopenia Current Visit: Yes Status: Acute Priority: Medium Code(s): D61.818 - OTHER PANCYTOPENIA SNOMED Code(s): 376028543 (3) Septic shock Narrative/Plan: Recovering Current Visit: Yes Status: Acute Priority: High Code(s): A41.9 - SEPSIS, UNSPECIFIED ORGANISM; R65.21 - SEVERE SEPSIS WITH SEPTIC SHOCK SNOMED Code(s) : 55930281 (4) Anasarca Narrative/Plan: Improving Current Visit: Yes Status: Acute Priority: High Code(s): R60.1 - GENERALIZED EDEMA SNOMED Code(s): 217681056
[2018-10-02 21:02] LABS: Glucose,Whole Blood 169 mg/dL (75-99)
[2018-10-02] MEDS: INSULIN DETEMIR 100 UNIT/ML 10 ML VIAL SQ SCH (21:53)
--- NOTE | 2018-10-02 21:58 | DS ---
DISCHARGE SUMMARY This patient is scheduled to be discharged tomorrow, October 04, 2018. Mrs. Zamarripa is a 78-year-old female who had recently returned from [place]. She was starting to winter in [place]. There she was admitted to a hospital with weakness, found to have lymphadenopathy and had a needle biopsy which was nondiagnostic. She became very weak and presented to [facility] Emergency Room. There she had a mildly elevated white count of 11.6 and a hemoglobin low at 9.5. Lactic acid level was initially elevated at 4.8 and she did have some pyuria that was present. She also had an elevated BNP of 1690. The patient was admitted and IV antibiotics along with fluids were given. A subsequent CT scan revealed diffuse adenopathy in the chest and abdomen. Surgery, Dr. Stanton, was consulted, who performed removal of a right supraclavicular lymph node which was positive for Hodgkin's lymphoma. The patient did have problems with hypotension on 2 occasions during her hospital stay that required ICU care. Subsequent cultures initially did not show any organism. On the second time she did grow out coagulase-negative Staph epidermidis which was felt to be related to a catheter, plus patient also received chemotherapy and had decreased white count, platelets and worsening anemia which required transfusion therapy directed by Dr. Mora from Oncology. She was placed on IV vancomycin for her subsequent gram-positive sepsis. She had followup CT scans and MRI scans which have not showed any evidence of major CVA or brain metastases. She has had marked problems with third spacing of fluids and gross anasarca with grade 2-3 edema of the arms and legs. She has been seen by Physical Therapy and requires assistance for almost any type of activity. At this time anticipation for discharge to extended-care facility rehab. DISCHARGE MEDICATIONS: To include: 1. Acetaminophen 650 mg q.6 hours p.r.n. for pain. 2. Zovirax 400 mg twice a day. 3. Allopurinol 300 mg daily. 4. Furosemide 40 mg orally twice a day. 5. Her levothyroxine will be increased to 50 mcg daily. 6. Levemir insulin 10 units at bedtime. 7. NovoLog 4 units before breakfast, 6 units before lunch and 6 units before supper. 8. Megace 800 mg daily. 9. Protonix 400 mg before breakfast. 10.Potassium chloride 10 mEq daily. 11.Spironolactone 25 mg daily. 12.She is to be on vancomycin daily with Pharmacy to dose. 13. Lopressor 12.5 mg daily Diet to be as tolerated. Activities as per physical and occupational therapies. FINAL DISCHARGE DIAGNOSES: 1. Newly diagnosed Hodgkin's lymphoma, diffuse, status post initial chemotherapy. 2. Septic shock associated with gram-positive coagulase-negative Staphylococcus which were identified as Staphylococcus epidermidis and she is on vancomycin. 3. Patient had pancytopenia associated with chemotherapy. 4. Anemia associated with malignancy and chemotherapy. 5. Diabetes, type 2, with hyper- and hypoglycemia. 6. Hypertension by history. 7. Diastolic congestive heart failure, as she has an ejection fracture on echo greater than 70%. 8. Severe malnutrition with low albumin. 9. History of electrolyte imbalance with hyponatremia. 10. Hypothyroidism on replacement therapy. Overall, patient's prognosis is guarded. She is to have followup with Dr. Mora from Oncology. She also should have final recommendations for length of treatment on her vancomycin per Infectious Disease. Plans are hopefully for further recovery and increasing strength so that she may be a candidate for further treatment of her underlying Hodgkin's lymphoma. MMODL / IJN: [id number] / MTDD
[2018-10-03] MEDS: LEVOTHYROXINE 75 MCG TAB PO SCH (06:05)
[2018-10-03 07:08] LABS: Glucose,Whole Blood 69 mg/dL (75-99)
[2018-10-03] MEDS: INSULIN ASPART 100 UNIT/ML 1 ML 10 ML VIAL SQ SCH ×7 (07:27→20:28)
--- NOTE | 2018-10-03 07:32 | P.PN ---
Progress Note - Text The patient is a 78-year-old female who is newly diagnosed Hodgkin lymphoma status post chemotherapy with associated pancytopenia secondary to malignancy and therapy. Patient is also being treated for gram-positive staph epidermidis sepsis for which she is on vancomycin. She does have a history of diabetes and hypertension and hypothyroidism. Anticipation is for discharge to extended care facility/rehab today if arrangements can be settled. Patient this morning is alert and oriented. Denies any chest pain or shortness of breath. She is aware of possibility of going to rehab today. Vital signs show temperature 97.6 with a pulse of 101 and respirations 18. Blood pressure 102/63 and she is 97% saturated. Lung and heart exam was clear. She is alert without no neurological symptoms. Labs are pending Impressions and plans Patient is to have a PICC line placed and continue with vancomycin as ordered by infectious disease. If okay with oncology plans are to transfer to extended care facility. Patient will need further follow-up with oncology. Please refer to discharge summary was dictated yesterday evening for further discharge meds, orders and diagnoses.
[2018-10-03 07:37] LABS: Glucose,Whole Blood 85 mg/dL (75-99)
[2018-10-03] MEDS: PANTOPRAZOLE 40 MG TABLET PO SCH (08:01)
[2018-10-03] MEDS: ACYCLOVIR 200 MG CAP PO SCH ×2 (08:01→20:28)
[2018-10-03] MEDS: SPIRONOLACTONE 25 MG TAB PO SCH (08:01)
[2018-10-03] MEDS: ALLOPURINOL 300 MG TAB PO SCH (08:01)
[2018-10-03] MEDS: FUROSEMIDE 10 MG/ML 4 ML VIAL IV SCH ×2 (08:01→20:28)
[2018-10-03] MEDS: MEGESTROL 400 MG/10 ML CUP PO SCH (08:02)
[2018-10-03] MEDS ORDERED: VANCOMYCIN TROUGH DUE 1 EACH MISC MISCELLANE ONE (09:00)
[2018-10-03 09:42] LABS: Anisocytosis Slight; HCT 29.5 % (34.0-46.0); HGB 9.1 gm/dL (11.4-16.0); Hypochromasia Slight; MCH 31.1 pg (25.0-35.0); MCHC 30.8 g/dL (31.0-37.0); MCV 101.1 fL (80.0-100.0); Macrocytosis Moderate; Mean Platelet Volume 10.9; RBC 2.92 m/uL (3.80-5.40); RDW 19.3 % (11.5-15.5); WBC 17.3 k/uL (3.8-10.6)
[2018-10-03 09:48] LABS: Platelet Count 125 k/uL (150-450)
[2018-10-03] MEDS: FILGRASTIM-SNDZ 480 MCG/0.8 ML SYRINGE SQ SCH (10:21)
[2018-10-03 10:46] LABS: Band Neutrophils % 3 %; Eosinophils # (M) 0.17 k/uL (0-0.7); Lymphocytes # (M) 1.38 k/uL (1.0-4.8); Metamyelocytes # (M) 0.17 k/uL (0); Metamyelocytes % 1 %; Monocytes # (M) 1.21 k/uL (0-1.0); Neutrophils % (M) 81 %; Nucleated Red Blood Cells 0 /100 WBC (0-0); Total Cells Counted 200
[2018-10-03 11:30] LABS: Glucose,Whole Blood 164 mg/dL (75-99)
--- NOTE | 2018-10-03 16:53 | PN ---
PROGRESS NOTE DATE OF SERVICE: 10/03/2018 REASON FOR FOLLOWUP: Staph epi bacteremia secondary to midline infection. INTERVAL HISTORY: The patient is afebrile. She is breathing comfortably. Denies having any chest pain. No shortness of breath or cough. No abdominal pain or any diarrhea. PHYSICAL EXAMINATION: Blood pressure 110/60 with a pulse of 90, temperature 97.6. She is 98% on room air. General description is an elderly female up in the chair in no distress. RESPIRATORY SYSTEM: Unlabored breathing. Clear to auscultation anteriorly. HEART: S1, S2. Regular rate and rhythm. ABDOMEN: Soft. No tenderness. LABS: White count of 17.3. Vancomycin trough 27. Blood cultures obtained yesterday have been negative so far. DIAGNOSTIC IMPRESSION AND PLAN: Patient with Staphylococcus epidermidis bacteremia secondary to midline that has been already discontinued. She did have follow-up cultures on 09/29/2018 with the catheter tip of those negative. The midline was already removed on 09/27/2018. Blood culture done from yesterday has been negative as well. She is cleared to go for a mid PICC line placement today to continue with her IV vancomycin therapy. The dose should be adjusted down to keep the trough around 15 and watch her kidney function closely. Continue with supportive care. MMODL / IJN: [id number] /
[2018-10-03 17:15] LABS: Glucose,Whole Blood 163 mg/dL (75-99)
--- NOTE | 2018-10-03 18:52 | P.PN ---
Subjective Progress Note Date: 10/03/18 Principal diagnosis: Hodgkin's Disease, status post first chemotherapy Patient seen today in follow-up. She is sitting in a chair, eating her lunch. She denies fevers, nausea, difficulty in breathing, abdominal pain, diarrhea, constipation or bleeding. Patient does have shortness of breath on exertion, she is very weak. Objective - Vital Signs Vital signs: Vital Signs Temp 97.6 F 10/03/18 12:41 Pulse 92 10/03/18 12:41 Resp 16 10/03/18 12:41 BP 110/60 10/03/18 12:41 Pulse Ox 98 10/03/18 12:41 Intake & Output 10/02/18 10/03/18 10/03/18 18:59 06:59 18:59 Intake Total 400 310 Balance 400 310 Intake: IV 160 Sodium Chloride 0.9% 1, 160 000 ml @ 20 mls/hr IV . Q24H MADELIN Rx#:[id number] Oral 240 Blood Product 310 Rc As-3 Unit 310 [id number] Other: Voiding Method Bedpan Diaper Diaper Diaper Incontinent Incontinent # Voids 2 4 4 # Bowel Movements 1 1 2 - Constitutional General appearance: Present: cooperative, morbidly obese, no acute distress - EENT Eyes: Present: anicteric sclerae, EOMI ENT: Present: hearing grossly normal - Respiratory Respiratory: bilateral: CTA (weak inspiratory effort) - Cardiovascular Rhythm: regular Heart sounds: normal: S1, S2 Abnormal Heart Sounds: Present: systolic murmur - Peripheral edema leg Peripheral Edema: bilateral: 2+ - Gastrointestinal General gastrointestinal: Present: normal bowel sounds, soft - Integumentary Integumentary: Present: pale - Neurologic Neurologic: Present: CNII-XII intact - Musculoskeletal Musculoskeletal: Present: generalized weakness - Psychiatric Psychiatric Comment(s): flat affect Psychiatric: Present: A&O x's 3 - Labs CBC & Chem 7: 10/03/18 08:58 10/02/18 07:23 Labs: Abnormal Lab Results - Last 24 Hours (Table) 09/28/18 10/02/18 10/03/18 Range/Units 06:20 21:01 07:01 WBC (3.8-10.6) k/uL RBC (3.80-5.40) m/uL Hgb (11.4-16.0) gm/dL Hct (34.0-46.0) % MCV (80.0-100.0) fL MCHC (31.0-37.0) g/dL RDW (11.5-15.5) % Plt Count (150-450) k/uL Neutrophils # (Manual) (1.3-7.7) k/uL Monocytes # (Manual) (0-1.0) k/uL Metamyelocytes # (Man) (0) k/uL POC Glucose (mg/dL) 169 H 69 L (75-99) mg/dL Crossmatch See Detail 10/03/18 10/03/18 10/03/18 Range/Units 08:58 11:29 17:14 WBC 17.3 H (3.8-10.6) k/uL RBC 2.92 L (3.80-5.40) m/uL Hgb 9.1 L (11.4-16.0) gm/dL Hct 29.5 L (34.0-46.0) % MCV 101.1 H (80.0-100.0) fL MCHC 30.8 L (31.0-37.0) g/dL RDW 19.3 H (11.5-15.5) % Plt Count 125 L D (150-450) k/uL Neutrophils # (Manual) 14.50 H (1.3-7.7) k/uL Monocytes # (Manual) 1.21 H (0-1.0) k/uL Metamyelocytes # (Man) 0.17 H (0) k/uL POC Glucose (mg/dL) 164 H 163 H (75-99) mg/dL Crossmatch Microbiology - Last 24 Hours (Table) 10/02/18 16:00 Blood Culture - Preliminary Blood No Growth after 24 hours 09/26/18 11:53 Blood Culture - Final Blood No Growth after 144 hours 09/26/18 11:41 Blood Culture - Final Blood No Growth after 144 hours Assessment and Plan (1) Hodgkin lymphoma Narrative/Plan: Pt is s/p 1st cycle of AVD. Treatment will held until released from rehabilitation Follow-up scheduled with Dr. Mora Current Visit: Yes Status: Acute Priority: High Code(s): C81.90 - HODGKIN LYMPHOMA, UNSPECIFIED, UNSPECIFIED SITE SNOMED Code(s): 103349035 (2) Pancytopenia Narrative/Plan: Patient's white blood cell count recovered quickly with G-CSF, this has been discontinued. Patient's hemoglobin initially required transfusion but, counts are now improving on their own. Platelet count improved substantially. Patient will likely require a dose adjustment to hematologically tolerate treatment, as she was due for her next cycle today, which will be delayed until she is seen by Dr. Mora Current Visit: Yes Status: Acute Priority: Medium Code(s): D61.818 - OTHER PANCYTOPENIA SNOMED Code(s): 980432882 (3) Septic shock Current Visit: Yes Status: Resolved Priority: High Code(s): A41.9 - SEPSIS , UNSPECIFIED ORGANISM; R65.21 - SEVERE SEPSIS WITH SEPTIC SHOCK SNOMED Code(s ): 87707577 (4) Anasarca Narrative/Plan: improving Current Visit: Yes Status: Acute Priority: High Code(s): R60.1 - GENERALIZED EDEMA SNOMED Code(s): 881299440
[2018-10-03] MEDS: SODIUM CHLORIDE 0.9% 1,000 ML IV SCH (19:20)
[2018-10-03] MEDS: INSULIN DETEMIR 100 UNIT/ML 10 ML VIAL SQ SCH (20:28)
[2018-10-03 20:43] LABS: Glucose,Whole Blood 113 mg/dL (75-99)
[2018-10-03] MEDS ORDERED: VANCOMYCIN 1,500 MG in SODIUM CHLORIDE 0.9% 250 ML IVPB SCH (21:00)
[2018-10-04] MEDS: LEVOTHYROXINE 75 MCG TAB PO SCH (05:34)
[2018-10-04 06:54] LABS: Glucose,Whole Blood 77 mg/dL (75-99)
[2018-10-04] MEDS: INSULIN ASPART 100 UNIT/ML 1 ML 10 ML VIAL SQ SCH ×4 (07:33→12:31)
--- NOTE | 2018-10-04 07:49 | P.PN ---
Progress Note - Text The patient is a 78-year-old female with a newly diagnosed Hodgkin's lymphoma that is diffuse. She is status post chemotherapy with associated to pancytopenia. She also has had gram-positive staph epidermidis sepsis for which she is on vancomycin and there is a history of hypertension and hypothyroidism and diabetes. Patient is aroused easily this morning. She denies any unusual pain. No shortness of breath or chest pain. No nausea or vomiting. Vital signs show a temperature of 97.5 with a pulse of 113, regular. Respirations 17. Blood pressure 106/59 and she is 95% saturated on room air. Lung and heart exam is clear and regular but slightly tachycardic. Abdomen is nontender. She still remains to have 2-3+ edema diffusely in both upper and lower extremities. She is alert and oriented without focal deficits. Blood sugar was 113 and 77 this morning. Impressions and plans As discussed with patient and nursing staff this morning. Patient to have PICC line placed today. Anticipating discharge to extended care facility/rehab today if all needs are met and bed available. We did add small dose of Lopressor 12.5 mg daily as she is slightly tachycardic. Please add to discharge medications. She will need her IV vancomycin continued as per infectious disease at the correction. Please refer to previously dictated discharge summary for orders and meds. Prognosis still overall guarded.
[2018-10-04] MEDS: PANTOPRAZOLE 40 MG TABLET PO SCH (08:37)
[2018-10-04] MEDS: ALLOPURINOL 300 MG TAB PO SCH (08:37)
[2018-10-04] MEDS: FUROSEMIDE 10 MG/ML 4 ML VIAL IV SCH (08:37)
[2018-10-04] MEDS: ACYCLOVIR 200 MG CAP PO SCH (08:37)
[2018-10-04] MEDS: MEGESTROL 400 MG/10 ML CUP PO SCH (08:38)
[2018-10-04] MEDS: SPIRONOLACTONE 25 MG TAB PO SCH (08:38)
[2018-10-04] MEDS ORDERED: METOPROLOL TARTRATE 12.5 MG TAB PO SCH (09:00)
[2018-10-04 10:19] LABS: Anion Gap 4 mmol/L; Blood Urea Nitrogen 12 mg/dL (7-17); Calcium 7.7 mg/dL (8.4-10.2); Carbon Dioxide 26 mmol/L (22-30); Chloride 102 mmol/L (98-107); Glucose 108 mg/dL (74-99); Potassium 3.6 mmol/L (3.5-5.1); Sodium 132 mmol/L (137-145)
[2018-10-04] MEDS ORDERED: LIDOCAINE 1% INJ 10MG/ML (20 ML MDV) SQ ONE (11:07)
[2018-10-04 11:44] LABS: Glucose,Whole Blood 176 mg/dL (75-99)
--- NOTE | 2018-10-04 11:59 | IR ---
EXAMINATION TYPE: IR cvc insert >=5 years DATE OF EXAM: 10/04/2018 COMPARISON: NONE CLINICAL HISTORY: Lymphoma Needs long-term intravenous access for chemotherapy. PROCEDURE: After informed consent, the skin overlying the left brachial vein was localized with ultrasound and n oted to be compressible and patent. An ultrasound image was obtained and submitted on the patient's chart. The overlying skin was prepped and draped and Lidocaine was used for local anesthesia. A ski n geraldo was made with a scalpel. Access was gained to the vein under ultrasound guidance with a 21 ga uge needle and a 0.018 inch wire was advanced. Access site was dilated with Peel-Away sheath and cat heter tailored to the appropriate length and advanced such that the distal tip is at the cavoatrial j unction. Spot image was obtained verifying placement. Catheter was fixed to the skin and a sterile dressing was placed following hemostasis. Catheter was aspirated and flushed with saline. Patient w as discharged in stable condition without complication. Maximal barrier technique is utilized. Ultra sound image is documented on the chart. Ultrasound used with sterile technique. Fluoro time and fluoroscopic images submitted to document procedure: 0.2 minutes fluoroscopy time, 13 intraoperative C-arm images document the procedure. IMPRESSION: STATUS POST ULTRASOUND AND FLUOROSCOPIC GUIDED PICC LINE PLACEMENT, READY FOR USE. THIS PROCEDURE WAS PERFORMED BY THE UNDERSIGNED.
[2018-10-04 12:22] VITALS: BP 92/54; PULSE 100; RESP 18; TEMP 97.6
--- NOTE | 2018-10-04 16:03 | PN ---
PROGRESS NOTE DATE OF SERVICE: 10/04/2018 REASON FOR FOLLOWUP: Staph epi bacteremia secondary to midline infection. INTERVAL HISTORY: The patient is afebrile. The patient did get her PICC line today. Right IJ has been discontinued. She is breathing comfortably. No chest pain or cough. No abdominal pain and any diarrhea reported. PHYSICAL EXAMINATION: Blood pressure 92/64 with a pulse of 100, temperature 97.6. She is 97% on room air. General description is an elderly female lying in bed in no distress. RESPIRATORY SYSTEM: Unlabored breathing. Clear to auscultation anteriorly. HEART: S1, S2. Regular rate and rhythm. ABDOMEN: Soft. No tenderness. LABS: BUN of 12, creatinine 0.67. Blood culture from 10/02 has been negative. Catheter tip 09/29 negative. DIAGNOSTIC IMPRESSION AND PLAN: Patient with Staphylococcus epidermidis bacteremia secondary to the midline that has been already discontinued. Follow-up blood culture has been negative. She will continue on vancomycin, Pharmacy to dose, target of 15, for another 7-10 days to finish a course of therapy with close outpatient followup. Continue supportive care. MMBILLIEL / HAON: [id number] /
--- NOTE | 2018-10-04 17:02 | P.PN ---
Subjective Progress Note Date: 10/04/18 Principal diagnosis: Lymphadenopathy No acute complaints, still very weak and fatigued. Awaiting CBC today Objective - Vital Signs Vital signs: Vital Signs Temp 97.6 F 10/04/18 11:43 Pulse 100 10/04/18 11:43 Resp 18 10/04/18 11:43 BP 92/54 10/04/18 11:43 Pulse Ox 97 10/04/18 11:43 Intake & Output 10/03/18 10/04/18 10/04/18 18:59 06:59 18:59 Intake Total 310 950 Balance 310 950 Intake: IV 240 Sodium Chloride 0.9% 1, 240 000 ml @ 20 mls/hr IV . Q24H MADELIN Rx#:[id number] Intake, IV Titration 250 Amount Vancomycin 1,500 mg In 250 Sodium Chloride 0.9% 250 ml @ 125 mls/hr IVPB Q24H MADELIN Rx#:[id number] Oral 460 Blood Product 310 Rc As-3 Unit 310 [id number] Other: Voiding Method Diaper Diaper Diaper Incontinent Incontinent Incontinent # Voids 4 6 # Bowel Movements 2 1 - Exam Constitutional General appearance: no acute distress - EENT Eyes: EOMI, PERRLA ENT: hearing grossly normal, normal oropharynx - Neck Neck: no lymphadenopathy Thyroid: bilateral: normal size - Respiratory Respiratory: bilateral: diminished - Cardiovascular Rhythm: regular Heart sounds: normal: S1, S2 - Gastrointestinal General gastrointestinal: normal bowel sounds, soft - Integumentary Integumentary: normal - Neurologic Neurologic: CNII-XII intact - Musculoskeletal Musculoskeletal: generalized weakness, strength equal bilaterally - Psychiatric Psychiatric: A&O x's 3, appropriate affect 2-3+ edema in all 4 extremities Enlarged lymph nodes noted, medial rt supraclavicular area, bilateral axillae (right greater than left) due to patient's obese body habitus, size and extent are somewhat difficult to define exactly - Labs CBC & Chem 7: 10/03/18 08:58 10/04/18 09:10 Labs: Abnormal Lab Results - Last 24 Hours (Table) 10/03/18 10/03/18 10/04/18 Range/Units 17:14 20:16 09:10 Sodium 132 L (137-145) mmol/L Glucose 108 H (74-99) mg/dL POC Glucose (mg/dL) 163 H 113 H (75-99) mg/dL Calcium 7.7 L (8.4-10.2) mg/dL 10/04/18 Range/Units 11:43 Sodium (137-145) mmol/L Glucose (74-99) mg/dL POC Glucose (mg/dL) 176 H (75-99) mg/dL Calcium (8.4-10.2) mg/dL Microbiology - Last 24 Hours (Table) 10/02/18 16:00 Blood Culture - Preliminary Blood No Growth after 24 hours Assessment and Plan Plan: (1) Hodgkins Lymphoma Confirmed - Lymphadenopathy - Status Post First Cycle of AVD (No Bleomycin) - Typically an every 2 week treatment cycle although would prefer improvement in overall performamce status - On hold until performance status improves (2) Anemia - This is normochromic normocytic, with rapidly some progression since last summer. - No Intervention needed today, Continue to monitor hemoglobin and transfuse if less than 7 (3) Sepsis secondary to UTI - Improved (4) Fluid overload - Patient's echocardiogram was normal. - This is improving, nephrology following, - Swelling is still significant in LE and Pedal edema upper extremities appears improved - Significant third spacing and intravascular dehydration (5) Hyponatremia: - Improving, Sodium is 132 today. (6) Increased Bili - Improved (7) Protein Calorie Malnutrition: Severe - Albumin is still low, has not improved much with increased meals and protein supps will add appetite stimulator - Component of depression versus failure to thrive (8) Thrombocytopenia: - Secondary to malignancy and recent chemotherapy - Monitor closely and transfuse whrn platlets less then 10, or if s/s bleeding. (9) Failure to Thrive/Component Depression: - Chronic Illness myopathy - Performance status is still not optimal for treatment number two, her improvement has been very slow. Plan: - DISPO to [facility]CF with Rehab, Chemo to remain on hold until overall performance improves. Rekha Perla NP
== END 2018-10-04 17:35 | DRG 853 ==
LOC: EC 12:22 → 3SCARD 17:16 → OBSVTOIN 09-10 14:32 → 2SICU 09-16 23:10 → 3NMEDONC 09-23 11:39 → 3SCARD 09-27 22:26 → 2SICU 09-28 00:09 → 3NMEDONC 09-30 15:40
PROVIDERS: ADMIT Internal Medicine; ATTEND Internal Medicine
PROC: 07B10ZX Excision of Right Neck Lymphatic, Open Approach, Diagnostic (ICD-10-PCS; principal; 2018-09-12 15:55)
PROC: 02HV33Z Insertion of Infusion Device into Superior Vena Cava, Percutaneous Approach (ICD-10-PCS; 2018-09-19)
PROC: 02HV33Z Insertion of Infusion Device into Superior Vena Cava, Percutaneous Approach (ICD-10-PCS; 2018-10-04)
DX: A41.1 Sepsis due to other specified staphylococcus (principal); D61.810 Antineoplastic chemotherapy induced pancytopenia; T80.211A Bloodstream infection due to central venous catheter, initial encounter; R65.21 Severe sepsis with septic shock; I50.33 Acute on chronic diastolic (congestive) heart failure; E43 Unspecified severe protein-calorie malnutrition; N39.0 Urinary tract infection, site not specified; Z68.41 Body mass index [BMI] 40.0-44.9, adult; C81.18 Nodular sclerosis Hodgkin lymphoma, lymph nodes of multiple sites; I82.621 Acute embolism and thrombosis of deep veins of right upper extremity; E87.1 Hypo-osmolality and hyponatremia; E87.2 Acidosis; I43 Cardiomyopathy in diseases classified elsewhere; I11.0 Hypertensive heart disease with heart failure; E77.8 Other disorders of glycoprotein metabolism; E78.5 Hyperlipidemia, unspecified; E86.1 Hypovolemia; E87.6 Hypokalemia; H91.90 Unspecified hearing loss, unspecified ear; I35.0 Nonrheumatic aortic (valve) stenosis; D63.0 Anemia in neoplastic disease; E03.9 Hypothyroidism, unspecified; E11.40 Type 2 diabetes mellitus with diabetic neuropathy, unspecified; E66.01 Morbid (severe) obesity due to excess calories; Z96.653 Presence of artificial knee joint, bilateral; K29.70 Gastritis, unspecified, without bleeding; T45.1X5A Adverse effect of antineoplastic and immunosuppressive drugs, initial encounter; Z87.891 Personal history of nicotine dependence; Z83.3 Family history of diabetes mellitus; Z82.49 Family history of ischemic heart disease and other diseases of the circulatory system; Z79.4 Long term (current) use of insulin; Z79.899 Other long term (current) drug therapy; Z88.6 Allergy status to analgesic agent; Y84.8 Other medical procedures as the cause of abnormal reaction of the patient, or of later complication, without mention of misadventure at the time of the procedure
CPT/HCPCS: 36410; 36415; 36573; 70450; 70553; 71045; 71046; 71260; 73502; 74177; 76937; 80048; 80053; 80202; 81001; 81003; 82533; 82550; 82553; 82607; 82728; 82747; 83036; 83540; 83550; 83605; 83615; 83735; 83880; 83883; 84100; 84132; 84165; 84439; 84443; 84481; 84484; 84550; 85025; 85045; 85384; 85610; 85730; 86038; 86334; 86431; 86850; 86870; 86880; 86900; 86901; 86920; 87040; 87070; 87077; 87086; 87186; 87324; 88307; 88341; 88342; 93005; 93306; 93970; 96361; 96365; 99285

== ENCOUNTER → 2018-12-14 | Outpatient (CLI) | payer MEDICARE ==
--- NOTE | 2018-12-16 18:47 | PE ---
EXAMINATION TYPE: PET CT fusion skull to thigh DATE OF EXAM: 12/14/2018 COMPARISON: CT chest abdomen and pelvis September 10, 2018 HISTORY: Lymphoma of the chest progress study completed chemotherapy December 05, 2018 TECHNIQUE: Following the intravenous administration of 14.639 mCi of F-18 FDG, whole body images are performed from the skull base to the midthigh. Images are reviewed on the computer in the coronal, axial, and sagittal planes. Reconstructed rotating images are created on independent workstation and reviewed on the computer. A noncontrast CT is performed in conjunction with the PET scan. SCAN: Subsequent Scan FINDINGS: MEDIASTINUM MEAN SUV: 1.39 LIVER MEAN SUV: 2.52 SKULL BASE AND NECK: There is abnormal hypermetabolic uptake corresponding to solid soft tissue supe rficial left parotid gland, Measuring roughly 3.3 x 1.5 cm, max SUV is 4.89 at this level. No suspicious hypermetabolic masses or adenopathy otherwise are seen CHEST, MEDIASTINUM, AND HILAR REGION: There is marked interval improvement in right axillary adenopat hy medially deep to right pectoralis muscle, largest lymph node measures 3.6 x 2.1 cm current study, decrease in size from 5.3 x 2.7 cm prior study and is ametabolic on current exam. There is marked interval improvement in thoracic lymph nodes throughout the mediastinum and bilateral hilar region without hypermetabolic greater than 1 cm lymph nodes seen on current study. ABDOMEN AND PELVIS: No areas of hypermetabolic adenopathy are identified. OSSEOUS STRUCTURES: No areas of abnormal hypermetabolic uptake. OTHER CT: New reticulation and groundglass opacity could reflect posttreatment changes as is seen johnathon aterally most prominent in the upper lungs. There is fairly severe coronary artery calcification which is noted marked underlying coronary artery disease. Enlarged right left pulmonary arteries are seen, CT findings consistent with underlying pul monary artery hypertension. Calcification level mitral valve is noted. There are few calcified nodule s or granulomas throughout the right lung appreciated. Cholecystectomy clips are seen. Liver and spleen are not enlarged. No suspicious groin adenopathy is present. There is mild to moderate calcified plaque of aorta extending into branch vessels. There is multilevel spurring in the thoracolumbar spine appreciated. IMPRESSION: Positive treatment response with marked interval improvement in thoracic adenopathy, no h ypermetabolic thoracic lymph nodes are currently seen. There is however hypermetabolic superficial le ft parotid mass could reflect active adenopathy or primary parotid neoplasm. Consider ultrasound-guid ed FNA to further evaluate.
== END | disposition home or self-care (01) ==
LOC: RADPETMAIN 13:31
PROVIDERS: ATTEND Internal Medicine Hematology & Oncology
DX: C81.78 Other Hodgkin lymphoma, lymph nodes of multiple sites (principal)
CPT/HCPCS: 78815; A9552

== ENCOUNTER 2019-02-13 10:50 | Day surgery (SDC) | payer MEDICARE ==
[2019-02-11 11:22] VITALS: BMI 31.8
[~2019-02-13 10:50] MED LIST: LACTATED RINGERS 1,000 ML IV SCH; LIDOCAINE 1% 20 ML VIAL (10MG/ML) FOR IV START INTRADERMA PRN; Pre Op ABX Message 1 EACH MISC MISCELLANE ONE
[2019-02-13 11:15] VITALS: RESP 16; TEMP 97.8
[2019-02-13 11:20] LABS: Glucose,Whole Blood 164 mg/dL (75-99)
[2019-02-13] MEDS ORDERED: PROPOFOL 10 MG/ML 20 ML VIAL IV ONE (12:07)
[2019-02-13] MEDS ORDERED: fentaNYL (PF) 50 MCG/ML 2 ML AMP ONE (12:07)
[2019-02-13] MEDS ORDERED: ePHEDrine SULFATE/0.9% NACL/PF 50 MG/5 ML SYRINGE IV ONE (12:07)
--- NOTE | 2019-02-13 12:32 | P.PCN ---
Date of Procedure: 02/13/19 Preoperative Diagnosis: Pancytopenia, Hodgkin's lymphoma Postoperative Diagnosis: Same Procedure(s) Performed: Bone marrow aspiration and biopsy Anesthesia: MAC Surgeon: Vamshi Mora Hydrotel Operator #1: Stated None Pathology: other Condition: stable Disposition: floor Indications for Procedure: Hodgkin's disease on chemo. Prolonged pancytopenia despite stopping chemo. Concern for other bone marrow pathology such as MDS Operative Findings: Adequate samples Description of Procedure: The procedure was explained in detail to the patient in the office. She presented to the outpatient endoscopy suite where IV access and informed consent were obtained. She was then placed in the right lateral decubitus position. The area over both posterior iliac crests was cleaned and prepped with chlorhexidine and sterile draping. IV sedation was then initiated. Local anesthesia was administered to the left posterior iliac crest, with lidocaine. A Jamshidi needle was then inserted and bone marrow aspirate and biopsy obtained. On withdrawal of the needle hemostasis was easily achieved. Blood loss was minimal and recovery from sedation was satisfactory. She appeared to have tolerated the procedure well without any obvious immediate complications.
[2019-02-13 12:48] VITALS: BP 143/87; PULSE 86
[2019-02-13 12:57] LABS: Anisocytosis Slight; HCT 35.6 % (34.0-46.0); HGB 11.6 gm/dL (11.4-16.0); MCH 31.3 pg (25.0-35.0); MCHC 32.5 g/dL (31.0-37.0); MCV 96.4 fL (80.0-100.0); Macrocytosis Slight; Mean Platelet Volume 8.5; Platelet Count 350 k/uL (150-450); RBC 3.69 m/uL (3.80-5.40); RDW 17.2 % (11.5-15.5); WBC 3.1 k/uL (3.8-10.6)
[2019-02-13 13:26] LABS: Lymphocytes # (M) 1.36 k/uL (1.0-4.8); Monocytes # (M) 0.81 k/uL (0-1.0); Neutrophils # (M) 0.93 k/uL (1.3-7.7); Neutrophils % (M) 30 %; Nucleated Red Blood Cells 0 /100 WBC (0-0); Total Cells Counted 100
[2019-02-13 13:27] LABS: Poikilocytosis (M) Present
== END 2019-02-13 13:02 | disposition home or self-care (01) ==
LOC: OR 10:50
PROVIDERS: ATTEND Internal Medicine Hematology & Oncology
DX: R71.8 Other abnormality of red blood cells (principal); D70.8 Other neutropenia; M80.08XA Age-related osteoporosis with current pathological fracture, vertebra(e), initial encounter for fracture; I10 Essential (primary) hypertension; I42.9 Cardiomyopathy, unspecified; E11.9 Type 2 diabetes mellitus without complications; Z96.653 Presence of artificial knee joint, bilateral; Z80.1 Family history of malignant neoplasm of trachea, bronchus and lung; Z80.3 Family history of malignant neoplasm of breast; Z80.9 Family history of malignant neoplasm, unspecified; Z83.2 Family history of diseases of the blood and blood-forming organs and certain disorders involving the immune mechanism; Z87.891 Personal history of nicotine dependence; Z79.4 Long term (current) use of insulin; Z79.899 Other long term (current) drug therapy; Z88.6 Allergy status to analgesic agent
CPT/HCPCS: 85025; 38222; J3010; J2704

== ENCOUNTER → 2019-05-20 | Outpatient (CLI) | payer MEDICARE ==
[2019-05-20 14:03] LABS: African American GFR (CKD) >90 (>60 ml/min/1.73 sqM); Blood Urea Nitrogen 10 mg/dL (7-17)
--- NOTE | 2019-05-21 05:03 | CT ---
EXAMINATION TYPE: CT ChestAbdPelvis w con DATE OF EXAM: 05/20/2019 COMPARISON: 12/14/2018 and 09/10/2018 HISTORY: 78-year-old female Hodgkins lymphoma. TECHNIQUE: Contiguous axial scanning of the chest, abdomen, and pelvis performed with IV Contrast, pa tient injected with 100 mL of Isovue M300. Delayed images through the kidneys were obtained. Coronal/ sagittal reconstructions performed. CT DLP: 1550.6 mGycm Automated exposure control for dose reduction was used. FINDINGS: CHEST: Heart borderline enlarged. Mitral annular calcifications and extensive coronary vessel calcifications . No pericardial effusion. Aorta normal caliber with mild atherosclerotic changes and conventional arch vessel branching anatomy . Enlarged caliber to the main right and left pulmonary arteries measuring up to 2.8 cm suggesting unde rlying pulmonary arterial hypertension. Stable 8 mm right paratracheal lymph node. No recurrent mediastinal lymphadenopathy. An enlarged 3.0 x 1.5 cm right subpectoral lymph node is smaller as compared to 3.6 x 2.1 cm, previou sly on the patient's 12/14/2018 PET scan where the area was noted to be nonmetabolic. Likely treated d isease. There are small bilateral pleural effusions with underlying mild emphysema and scattered septal lines and patchy subpleural opacities, overall improved from prior exam. ABDOMEN: Small hiatal hernia. No focal liver lesion. Cholecystectomy clips. Mild thickening of the left adrenal gland without discr ete nodularity. Subcentimeter cortical cyst posterior right kidney unchanged. Left kidney, spleen, at rophic pancreas show no gross abnormality. Small diverticulum of the third portion of the duodenum projecting into the pancreatic head region. No dilated small bowel, free fluid, or free air. High riding cecum. Scattered mild stool. No pericolo xiang inflammatory change. Generalized anasarca change with dependent soft tissue edema. Scattered moderate prostatic calcifications abdominal aorta without aneurysm. No mesenteric or retroperitoneal lymphadenopathy. PELVIS: Moderate circumferential bladder wall thickening. Uterus anteverted. Neither ovary well seen, probabl y small, postmenopausal. Prominent dependent presacral edema. No recurrent pelvic lymphadenopathy. Bones: Osteitis pubis. Mild degenerative change at the hips. Osteopenia. Multilevel degenerative changes lum bar spine.-Within the mid to lower thoracic spine. Superior endplate fracture L3 is unchanged from and vertebral body fracture with mild retropulsion of L2 is also unchanged. Mild superior end plate deformities of L1 and L4 are unchanged from January 20, 2019. Mild superior endplate deformity of L 5 may be new but there is no surrounding soft tissue edema. IMPRESSION: 1. CONTINUED DECREASING SIZE OF THE ENLARGED RIGHT SIDED SUBPECTORAL LYMPH NODE AT 3.0 X 1.5 CM VERSU S 3.6 X 2.1 CM, PREVIOUSLY, NOTED TO BE AMETABOLIC ON PRIOR PET SCAN. LIKELY CORRESPONDING TO TREATED DISEASE. 2. OTHERWISE, NO NEW LYMPHADENOPATHY TO SUGGEST DISEASE RECURRENCE. 3. DIFFUSE ANASARCA CHANGE WITH PULMONARY ARTERIAL HYPERTENSION, SMALL PLEURAL EFFUSIONS, AND PRESACR AL EDEMA. CORRELATE FOR FLUID OVERLOAD STATE. 4. SEPTAL LINES AND PATCHY INTERSTITIAL CHANGES AND GROUNDGLASS IN THE LUNGS. PNEUMONITIS OR MILD INT ERSTITIAL PULMONARY EDEMA ARE THE DIFFERENTIAL. OVERALL FINDINGS SHOW SOME IMPROVEMENT FROM 12/14/2018 . 5. MULTIPLE LUMBAR SPINE VERTEBRAL COMPRESSION DEFORMITIES. FRACTURES AT L2 AND L3 APPEAR NEW FROM 09/10/2018 BUT WERE PRESENT ON 12/14/2018. SUPERIOR ENDPLATE DEFORMITIES OF L1 AND L4 WERE PRESENT BACK ON 09/10/2018 AND ARE CHRONIC. MILD SUPERIOR ENDPLATE DEFORMITY OF L5 NOT SEEN PREVIOUSLY AND MAY BE SUBA CUTE GIVEN THE LACK OF SURROUNDING SOFT TISSUE SWELLING.
== END | disposition home or self-care (01) ==
LOC: RADCTMAIN 13:23
PROVIDERS: ATTEND Internal Medicine Hematology & Oncology
DX: I27.21 Secondary pulmonary arterial hypertension (principal); J18.2 Hypostatic pneumonia, unspecified organism; J90 Pleural effusion, not elsewhere classified; R60.9 Edema, unspecified; C81.98 Hodgkin lymphoma, unspecified, lymph nodes of multiple sites; Z88.6 Allergy status to analgesic agent
CPT/HCPCS: 82565; 84520; 71260; 74177; 36415; Q9967 ×2

== ENCOUNTER → 2019-08-13 | Outpatient (CLI) | payer MEDICARE ==
[2019-08-13 09:30] LABS: African American GFR (CKD) >90 (>60 ml/min/1.73 sqM); Blood Urea Nitrogen 15 mg/dL (7-17); Non-African American GFR(CKD) 84 (>60 ml/min/1.73 sqM)
--- NOTE | 2019-08-13 11:09 | CT ---
EXAMINATION TYPE: CT ChestAbdPelvis w con DATE OF EXAM: 08/13/2019 COMPARISON: 05/20/2019 HISTORY: Follow up to lymphoma CT DLP: 1469.2 mGycm CONTRAST: CT scan of the chest, abdomen and pelvis is performed with Oral Contrast and with IV Contrast, patien t injected with 100 mL of Isovue 300. CT Chest: LUNGS: The lungs are clear and free of infiltrate or atelectasis. No pulmonary nodule or mass is det ected. Small right-sided pleural effusion identified unchanged from prior study. Resolution of previo usly noted left-sided pleural effusion. Scattered subpleural fibrosis redemonstrated. No evidence for focal consolidation at this time. MEDIASTINUM: Thoracic aorta is of normal caliber. The heart is enlarged. No evidence for mediastin al mass . HILAR STRUCTURES: No evidence for mass. OTHER: Right subpectoral lymph node measures 2.5 x 1.5 cm versus 3.0 x 1.5 cm previously. As ago esop hageal adenopathy measuring 1.9 cm versus 1.8 cm previously. Right hilar lymph node measures 1 cm tigist marshal 1 cm previously. Subcentimeter para-aortic lymph nodes noted. CONTRAST CT ABDOMEN AND PELVIS FINDINGS: LIVER/GB: No calcified gallstones. No space occupying hepatic lesion. Biliary tree is of normal ca liber. PANCREAS: No inflammation. No distinct mass. SPLEEN: No splenic enlargement. No lesion seen. ADRENALS: No nodule. No thickening. KIDNEYS/BLADDER: No hydronephrosis. No nephrolithiasis. No distinct renal mass. Poor distention of the urinary bladder resulting in wall thickening. BOWEL: Normal appendix. Normal bowel caliber. No inflammation. GENITAL ORGANS: Presacral edema persists although is improved relative to prior examination. Uterine atrophy and calcifications seen. LYMPH NODES: No greater than 1cm abdominal or pelvic lymph nodes are appreciated. AORTA: No significant abnormality. OSSEOUS STRUCTURES: Multiple compression fractures are redemonstrated greatest at L2 and L3. OTHER: No significant additional abnormality is seen. IMPRESSION: 1. Stable adenopathy within the right subpectoral region and as ago esophageal and right hilar region s. No new adenopathy present. 2. Improving but persistence of presacral edema. 3. Redemonstrated are multiple compression fractures greatest at L2 and L3. Severe degenerative disc disease with central stenosis identified at L4-5. 4. Subpleural fibrosis. Resolution left pleural effusion. Stable right pleural effusion.
== END | disposition home or self-care (01) ==
LOC: RADCTMAIN 08:39
PROVIDERS: ATTEND Internal Medicine Hematology & Oncology
DX: R59.0 Localized enlarged lymph nodes (principal); J84.10 Pulmonary fibrosis, unspecified; J90 Pleural effusion, not elsewhere classified; C81.98 Hodgkin lymphoma, unspecified, lymph nodes of multiple sites; Z79.82 Long term (current) use of aspirin
CPT/HCPCS: 82565; 84520; 71260; 74177; 36415; Q9967 ×2

== ENCOUNTER → 2019-11-10 | Outpatient (CLI) | payer MEDICARE ==
--- NOTE | 2019-11-11 08:32 | CT ---
EXAMINATION TYPE: CT ChestAbdPelvis w con DATE OF EXAM: 11/10/2019 COMPARISON: 08/13/2019 HISTORY: f/u lymphoma CT DLP: 1418 mGycm. Automated Exposure Control for Dose Reduction was Utilized. CONTRAST: CT scan of the thorax, abdomen and pelvis is performed with IV Contrast, patient injected with 80cc m L of Isovue 300. FINDINGS: LUNGS: Peripheral reticular opacities indicative of fibrosis. Calcified benign right upper lobe hemat vivi on image 26. Stable 6 mm right middle lobe pulmonary nodule on series 4 image 20. Mild background centrilobular emphysema. Biapical pleural parenchymal scarring. Resolved pleural effusions. Medial r ight basilar atelectasis. MEDIASTINUM: Slight decrease in size of the subcarinal lymph node measuring 1.7 cm as opposed to 1.9 cm and overall stable size of the 1.1 cm right hilar lymph node. The heart is enlarged. Severe three- vessel coronary artery calcifications. Subpectoral lymph node has decreased in size previously measur ing 2.5 x 1.5 cm and now measuring 1.8 x 1.3 cm. No pericardial effusion is seen. OTHER: Qdfei-dj-tzdecedu hiatal hernia. LIVER/GB: There is a lobulated contour the liver, correlate for underlying hepatocellular disease. No suspicious hepatic lesions seen. Gallbladder surgically absent. PANCREAS: Pancreatic parenchymal atrophy throughout. SPLEEN: No splenomegaly. ADRENALS: No nodularity or thickening. KIDNEYS: There is a 1.1 cm posterior cortical right renal cyst. No hydronephrosis of either kidney. K idneys otherwise enhance and excrete symmetrically. BOWEL: Splenic fracture diverticulum is seen without pericolonic fat stranding. Numerous other scatte red descending colonic and sigmoid colonic diverticula are seen. LYMPH NODES: No greater than 1cm abdominal or pelvic lymph nodes are appreciated. OSSEOUS STRUCTURES: There is diffuse osseous demineralization. There is redemonstration of multiple c ompression deformities again greatest at L2 and L3. Bridging anterior osteophytes are seen of the tho racic spine. Severe degenerative disc disease of the lumbar spine. OTHER: Mild degree anasarca. Extensive atherosclerosis is seen in the abdominal aorta and its branche s with renal ostial stenosis. Similar presacral edema. IMPRESSION: 1. Slight decrease in size of one of the mediastinal lymph nodes and a subpectoral lymph node. The ri ght hilar lymph node is stable. No new adenopathy in the chest, abdomen or pelvis. 2. Mild anasarca and presacral edema. Resolved pleural effusions. 3. Small moderate hiatal hernia. 4. Mild subpleural fibrosis and stable right middle lobe 6 mm low suspicion pulmonary nodule. 5. Multiple compression deformities, osseous demineralization and severe degenerative disc disease ar e redemonstrated.
== END | disposition home or self-care (01) ==
LOC: RADCTMAIN 14:44
PROVIDERS: ATTEND Internal Medicine Hematology & Oncology
DX: C81.98 Hodgkin lymphoma, unspecified, lymph nodes of multiple sites (principal); K44.9 Diaphragmatic hernia without obstruction or gangrene; J84.10 Pulmonary fibrosis, unspecified; R60.1 Generalized edema; Z88.6 Allergy status to analgesic agent
CPT/HCPCS: 82565; 84520; 71260; 74177; 36415; Q9967

== ENCOUNTER → 2020-02-25 | Outpatient (CLI) | payer MEDICARE ==
--- NOTE | 2020-02-26 13:41 | BD ---
EXAMINATION TYPE: Axial Bone Density DATE OF EXAM: 02/25/2020 COMPARISON: NONE CLINICAL HISTORY: Height: 63 Weight: 187.0 FRAX RISK QUESTIONS: Alcohol (3 or more units per day): no Family History (Parent hip fracture): no Glucocorticoids (More than 3mos): no (Ex: prednisone, prednisolone, methylprednisolone, dexamethasone, and hydrocortisone). History of Fracture in Adulthood: yes Secondary Osteoporosis: 1. Type 1 Diabetes: no 2. Hyperthyroidism: no 3. Menopause before 45: yes 4. Malnutrition: no 5. Chronic liver disease: no Rheumatoid Arthritis: no Current Tobacco Use: no RISK FACTORS HISTORY OF: Spine Fracture: yes When: Family History of Osteoporosis: no Active: no Diet low in dairy products/other sources of calcium: yes Postmenopausal woman: age 39 Lost more than 2 inches in height since high school: yes Frequent falls: yes Poor Health: yes MEDICATIONS: vit d, bp meds diabetic meds, pain meds Thyroid Medications: synthroid How Long: just started Additional History: EXAM MEASUREMENTS: Bone mineral densitometry was performed using the [employer] System. Bone mineral density about the R hip (g/cm2): 0.762 Bone mineral density about the L hip (g/cm2): 0.720 T Score values are as follows: -----R Neck: -2.0 -----L Neck: -2.3 -----R Total: -2.5 -----L Total: -1.7 Bone mineral density : baseline Bone mineral density about the L Wrist (g/cm2): 0.384 T Score values are as follows: -----Dist. R+U: -4.2 -----Prox. R+U: -4.3 -----Radius total: -4.8 Bone mineral density : baseline IMPRESSION: Osteoporosis (T Score less than -2.5). There is increased fracture risk and therapy is usually indicated based on age. Re-Screen 1-2 years. NOTE: T-SCORE=SD OF THE YOUNG ADULT MEAN.
== END | disposition home or self-care (01) ==
LOC: RADBDWWP 09:20
PROVIDERS: ATTEND Internal Medicine Hematology & Oncology
DX: C81.98 Hodgkin lymphoma, unspecified, lymph nodes of multiple sites (principal); M81.0 Age-related osteoporosis without current pathological fracture; Z88.6 Allergy status to analgesic agent
CPT/HCPCS: 77080

== ENCOUNTER → 2020-03-05 | Outpatient (CLI) | payer MEDICARE ==
--- NOTE | 2020-03-05 14:48 | CT ---
EXAMINATION TYPE: CT ChestAbdPelvis w con DATE OF EXAM: 03/05/2020 COMPARISON: 11/10/2019 and 08/13/2019 HISTORY: 79-year-old female C81.98, Hodgkin's lymphoma. Back pain. TECHNIQUE: Contiguous axial scanning of the chest, abdomen, and pelvis performed with IV Contrast, pa tient injected with 100 mL of Isovue M300. Delayed images through the kidneys were obtained. Coronal/ sagittal reconstructions performed. CT DLP: 1384.5 mGycm Automated exposure control for dose reduction was used. FINDINGS: CHEST: Mildly enlarged without pericardial effusion. LAD and circumflex artery calcifications are present. Aorta normal caliber with scattered mild apical scarring calcifications with conventional arch vessel branching anatomy. Large caliber to the main right and left pulmonary arteries measuring up to 3.0 cm suggesting underly ing pulmonary arterial hypertension. Scattered mediastinal lymphadenopathy measuring up to 1.2 cm right paratracheal, 1.7 cm subcarinal, a nd 1.3 cm right hilar relatively stable. Stable 2.0 x 1.2 similar right subpectoral lymph node. There may be minimal 1 or 2 mm increase in size at the right hilum. No axillary lymphadenopathy. 7 mm right middle lobe pulmonary nodule is unchanged as are reticular interstitial densities and some patchy groundglass in the periphery of the lungs. No consolidation or pleural effusion. ABDOMEN: Moderate size hiatal hernia. No focal liver lesion or biliary ductal dilatation. Cholecystectomy clip s are present. 2.4 cm diverticulum of the second portion of the duodenum projecting into the pancreatic head region. Bilateral extrarenal pelves redemonstrated. Stable 8 mm cortical cyst posterior right kidney. Spleen and atrophic pancreas show no gross abnormal. Moderate atherosclerotic calcifications throughout the abdominal aorta without aneurysm. No dilated s mall bowel, free fluid, or free air. Scattered mild stool burden. Left-sided clonic diverticulosis wi th redundant sigmoid colon. No pericolonic inflammatory change. Mild generalized anasarca change within the dependent midline edema in the subcutaneous adipose No mesenteric or retroperitoneal lymphadenopathy seen PELVIS: Mild circumferential bladder wall thickening. Uterus anteverted. Ovaries are small and postmenopausal . Presacral edema. No abnormal fluid collection in the pelvis or pelvic lymphadenopathy. BONES: Osteopenia. Degenerative changes at the hips. Hypertrophic facet arthropathy throughout the lumbar sp ine. L2 vertebral compression collapse and large superior endplate Schmorl's node at L3 unchanged fro m 08/13/2019. Mild retropulsion into the ventral spinal canal causing mild spinal canal stenosis at L 2. DISH within the mid and lower thoracic spine. IMPRESSION: 1. SCATTERED NONENLARGED, BORDERLINE, AND A FEW MILDLY ENLARGED THORACIC LYMPH NODES MEASURING UP TO 2.0 X 1.2 CM RIGHT SUBPECTORAL, 1.2 CM RIGHT PARATRACHEAL, 1.7 CM SUBCARINAL, AND 1.3 CM RIGHT HILAR; RELATIVELY UNCHANGED FROM PRIOR. THERE MAY BE SLIGHT 1 TO 2 MM SIZE INCREASE OF THE RIGHT HILAR NODE BUT THIS COULD BE REACTIVE. 2. NO FRANKLY ENLARGING LYMPHADENOPATHY TO SUGGEST DEFINITE PROGRESSION. 3. STABLE INTERSTITIAL PARENCHYMAL CHANGES IN THE LUNGS, POSSIBLE FIBROSIS, INTERSTITIAL PNEUMONITIS, OR SEQUELA OF PRIOR INFECTIOUS/INFLAMMATION. 7 MM RIGHT MIDDLE LOBE PULMONARY NODULE ALSO UNCHANGED. 4. CARDIOMEGALY, PULMONARY ARTERIAL HYPERTENSION, AND MILD GENERALIZED ANASARCA 5. MODERATE-SIZED HIATAL HERNIA AND LEFT-SIDED COLONIC DIVERTICULOSIS. CHRONIC L2 VERTEBRAL COMPRESSI ON DEFORMITY.
== END | disposition home or self-care (01) ==
LOC: RADCTMAIN 12:21
PROVIDERS: ATTEND Internal Medicine Hematology & Oncology
DX: R59.0 Localized enlarged lymph nodes (principal); I27.21 Secondary pulmonary arterial hypertension; R60.1 Generalized edema; K44.9 Diaphragmatic hernia without obstruction or gangrene; K57.30 Diverticulosis of large intestine without perforation or abscess without bleeding; C81.98 Hodgkin lymphoma, unspecified, lymph nodes of multiple sites; Z88.6 Allergy status to analgesic agent
CPT/HCPCS: 82565; 84520; 71260; 74177; 36415; Q9967 ×2

== ENCOUNTER → 2020-03-25 | Outpatient (CLI) | payer MEDICARE ==
[~2020-03-25] MED LIST changes: +DENOSUMAB 60 MG/ML 1 ML SYRINGE SQ NR; -LACTATED RINGERS 1,000 ML IV SCH; -LIDOCAINE 1% 20 ML VIAL (10MG/ML) FOR IV START INTRADERMA PRN; -Pre Op ABX Message 1 EACH MISC MISCELLANE ONE
[2020-03-25 13:52] VITALS: BP 125/77; PULSE 89; RESP 16; TEMP 97.7
== END | disposition home or self-care (01) ==
LOC: PROCWHC3 13:32
PROVIDERS: ATTEND Internal Medicine
DX: M81.0 Age-related osteoporosis without current pathological fracture (principal)
CPT/HCPCS: 96372; J0897

== ENCOUNTER → 2020-06-09 | Outpatient (CLI) | payer MEDICARE ==
--- NOTE | 2020-06-09 15:03 | CT ---
EXAMINATION TYPE: CT ChestAbdPelvis w con DATE OF EXAM: 06/09/2020 COMPARISON: Prior CT 03/05/2020 HISTORY: f/u lymphoma, C 80.98 CT DLP: 1721.4 mGycm Automated exposure control for dose reduction was used. CONTRAST: CT scan of the chest, abdomen and pelvis is performed with Oral Contrast and with IV Contrast, patien t injected with 80cc mL of Isovue 370. FINDINGS: There are changes of anasarca. LUNGS: There are bilateral pleural effusions developed in the interval with associated atelectasis. I nterstitial changes are again noted within the lungs. Calcified granuloma present in the right upper lobe. The tracheobronchial tree is patent. MEDIASTINUM: There are no greater than 1 cm hilar or mediastinal lymph nodes. There are dense john ry artery calcifications. No pericardial effusion is seen. There is mitral annular calcification. AORTA: No significant abnormality is seen. OTHER: No additional significant abnormality is seen. LIVER/GB: Patient is post cholecystectomy. Liver shows a somewhat lobular appearance and is small. Co ntrast does reflux into the hepatic veins again as on prior exam. PANCREAS: No significant abnormality is seen. SPLEEN: No significant abnormality is seen. ADRENALS: No significant abnormality is seen. KIDNEYS: Contrast material in the renal collecting systems may be residual from prior exam. REPRODUCTIVE ORGANS: No gross abnormality seen. BOWEL: Narrowed segment of sigmoid colon, axial image #85, sagittal image 62 could be due to lack of distention, difficult to exclude a mucosal lesion, correlate for any history of bowel surveillance. FREE AIR: No Free Air visible. ASCITES: None seen. RETROPERITONEAL ADENOPATHY: No retroperitoneal adenopathy is seen. LYMPH NODES: No greater than 1 cm abdominal or pelvic lymph nodes are appreciated. URINARY BLADDER: No significant abnormality is seen. PELVIC ADENOPATHY: None visualized. OSSEOUS STRUCTURES: Compression deformity noted at multiple lumbar levels show a similar appearance. There are facet arthropathy changes, spinal stenosis IMPRESSION: Interval development of bilateral pleural effusions. Anasarca. Consider bowel surveillanc e if this has not been performed.
== END | disposition home or self-care (01) ==
LOC: RADCTMAIN 12:18
PROVIDERS: ATTEND Internal Medicine Hematology & Oncology
DX: J90 Pleural effusion, not elsewhere classified (principal); R60.1 Generalized edema; C81.98 Hodgkin lymphoma, unspecified, lymph nodes of multiple sites; Z88.6 Allergy status to analgesic agent
CPT/HCPCS: 82565; 84520; 71260; 74177; 36415; Q9967

== ENCOUNTER → 2020-06-17 | Outpatient (CLI) | payer MEDICARE ==
[2020-06-17 14:42] LABS: HCT 47.5 % (34.0-46.0); HGB 15.7 gm/dL (11.4-16.0); Hypochromasia Slight; MCH 34.7 pg (25.0-35.0); MCV 105.2 fL (80.0-100.0); Macrocytosis Moderate; Mean Platelet Volume 9.3; Platelet Count 102 k/uL (150-450); RBC 4.52 m/uL (3.80-5.40); RDW 14.1 % (11.5-15.5); WBC 4.1 k/uL (3.8-10.6)
== END | disposition home or self-care (01) ==
LOC: LABPAT 12:17
PROVIDERS: ATTEND Internal Medicine
DX: Z01.818 Encounter for other preprocedural examination (principal); I25.10 Atherosclerotic heart disease of native coronary artery without angina pectoris
CPT/HCPCS: 80051; 82565; 84520; 85027

== ENCOUNTER 2020-06-21 06:51 | Observation (INO) | payer MEDICARE ==
[2020-06-17 15:17] VITALS: BMI 36.6
[~2020-06-21 06:51] MED LIST changes: +ALPRAZolam 0.25 MG TAB PO PRN; +ALPRAZolam 0.5 MG TAB PO PRN; -DENOSUMAB 60 MG/ML 1 ML SYRINGE SQ NR; +NITROGLYCERIN SL TABS 0.4 MG TAB SUBLINGUAL PRN; +SODIUM CHLORIDE 0.9% 1,000 ML in EMPTY BAG 1 BAG IV ONE
[2020-06-21] MEDS ORDERED: ATORVASTATIN 80 MG TAB PO ONE (07:00)
[2020-06-21] MEDS ORDERED: SODIUM CHLORIDE 0.9% 1,000 ML IV ONE (07:10)
[2020-06-21 07:37] LABS: Glucose,Whole Blood 147 mg/dL (75-99)
[2020-06-21 07:49] LABS: Calcium 8.4 mg/dL (8.4-10.2); Potassium 4.1 mmol/L (3.5-5.1)
[2020-06-21] MEDS ORDERED: ONDANSETRON 4 MG/2 ML VIAL IVP STA (08:02)
[2020-06-21] MEDS ORDERED: VERAPAMIL 2.5 MG/ML 2 ML AMP ONE (09:30)
[2020-06-21] MEDS ORDERED: LIDOCAINE 1% INJ 10MG/ML (20 ML MDV) ONE (09:30)
[2020-06-21] MEDS ORDERED: fentaNYL (PF) 50 MCG/ML 2 ML AMP ONE (09:30)
[2020-06-21] MEDS ORDERED: fentaNYL (PF) 50 MCG/ML 2 ML AMP IV ONE (09:39)
[2020-06-21] MEDS ORDERED: LIDOCAINE 1% INJ 10MG/ML (20 ML MDV) SQ ONE (09:39)
[2020-06-21] MEDS ORDERED: MIDAZOLAM 2 MG/2 ML VIAL IV ONE (09:39)
[2020-06-21] MEDS ORDERED: TICAGRELOR 90 MG TAB ONE (09:44)
[2020-06-21] MEDS ORDERED: CLOPIDOGREL 75 MG TAB ONE (09:44)
[2020-06-21] MEDS ORDERED: TICAGRELOR 90 MG TAB PO ONE (09:48)
[2020-06-21] MEDS ORDERED: HEPARIN SODIUM 1,000 UN/ML (10ML VL) ONE (09:48)
[2020-06-21] MEDS ORDERED: HEPARIN SODIUM 1,000 UN/ML (10ML VL) IV ONE (09:52)
[2020-06-21] MEDS ORDERED: IOPAMIDOL-370 125ML BTL INJ ONE (10:46)
[2020-06-21] MEDS ORDERED: IOPAMIDOL-370 100ML BTL INJ ONE (10:54)
[2020-06-21] MEDS ORDERED: NITROGLYCERIN SL TABS 0.4 MG TAB SUBLINGUAL PRN (11:15)
[2020-06-21] MEDS ORDERED: ATROPINE SULFATE 0.1 MG/ML 10ML SYRINGE IV PRN (11:15)
[2020-06-21] MEDS ORDERED: ZOLPIDEM 5 MG TAB PO PRN (11:15)
[2020-06-21] MEDS ORDERED: RX INFO: IV CONTRAST WAS GIVEN 1 EACH MISC MISCELLANE PRN (11:15)
[2020-06-21] MEDS ORDERED: MAG HYDROX/AL HYDROX/SIMETH 30 ML CUP PO PRN (11:15)
--- NOTE | 2020-06-21 11:15 | P.PRCINT ---
Percutaneous Coronary Int. - Percutaneous Coronary Intervention Percutaneous Coronary Intervention: PROCEDURES PERFORMED: Selective left coronary angiography, CSI rotational atherectomy, successful PCI of mid LAD with a 2.5 x 33 mm Xience BOBBY, mid to distal LAD with a 2.0 x 30 mm [place] BOBBY. INDICATION: Severe aortic stenosis, obstructive coronary artery disease, diastolic heart failure HISTORY: Patient is a pleasant 80-year-old female with history of severe aortic stenosis, hypertension, hyperlipidemia, diastolic heart failure. She was admitted to [facility] approximately one month ago with heart failure symptoms and was found to have severe symptomatic aortic stenosis. She had a diagnostic heart catheterization performed which upon review does have diffuse disease, heavily calcified with a mid LAD 80% stenosis. She was discussed in structural meeting for evaluation for TAVR as she was deemed high risk and therefore was recommended to have PCI to her LAD. PROCEDURE: After the risks, benefits and alternatives of the above mentioned procedure explained in detail with the patient, informed consent was obtained. 2% lidocaine was used to anesthetize the left radial artery. A 6-[place] sheath was placed in the left radial artery using modified Seldinger technique. 6000 units of heparin was given with an ACT over 250. A 6Fr CLS 3.5 guide catheter was used to engage the left main. A 0.014 Viper wire was advanced into the distal vessel without difficulty. CSI rotational atherectomy was performed to the LAD. The lesion was predilated sequentially with a 1.5 mm and then 2.5 mm noncompliant balloon. Next, a 2.5 x 33 mm Xience BOBBY was deployed. There was an additional mid to distal lesion and therefore this was dilated with a 2.0 x 12 mm balloon. There was a more proximal dissection to where balloon angioplasty was performed and therefore a 2.0 x 30 mm [place] BOBBY was deployed. The mid to distal stent was then post dilated with a 3.0 NC balloon. Preintervention there was a 80% diffuse stenosis and TOYA 3 flow and post intervention there was 0% residual stenosis and TOYA 3 flow without evidence of dissection. There was a more proximal LAD 50% stenosis which was felt best treated medically. The wire was removed and final angiograms were taken. The left radial sheath was removed and a TR band was placed with hemostasis achieved. The patient tolerated the procedure well. Patient was transported back to the post catheterization holding area in stable condition. Conscious Sedation: Patient was monitored under the direct supervision of vision of myself for conscious sedation using Versed and fentanyl for a total duration of 79 minutes HEMODYNAMICS: Aorta: 112/65 SELECTIVE CORONARY ARTERIOGRAPHY: LEFT MAIN: The left main is a large caliber vessel which bifurcates into the LAD and circumflex. There is distal left main 30% stenosis. LEFT ANTERIOR DESCENDING CORONARY ARTERY: LAD is a large caliber vessel which wraps around to the apex. There is a proximal 40-50% LAD stenosis followed by a long 50-80% stenosis. There is an additional mid to distal focal 80% stenosis. Diagonal 1 is very small caliber with mid 40% stenosis. Diagonal to his moderate caliber with mid 40% stenosis. LEFT CIRCUMFLEX CORONARY ARTERY: Left circumflex is a moderate to large caliber vessel. OM1 bifurcates and has a proximal 40-50% stenosis. OM 2 is moderate to large caliber without significant stenosis. RIGHT CORONARY ARTERY: Not imaged, see diagnostic report FINAL IMPRESSION: 1. Coronary artery disease as described above including mid and mid to distal LAD tandem 80% stenosis. 2. Severe symptomatic aortic stenosis. 3. Aspirin allergy 4. CKD PLAN: 1. Aggressive risk factor modification per most recent ACC/AHA guidelines. 2. Continue Brillinta only given her aspirin allergy. Follow-up with Dr. Aaron Merritt for definitive treatment of TAVR. 3. Monitor overnight given brittle heart failure, CKD receiving IVF
[2020-06-21] MEDS ORDERED: SODIUM CHLORIDE 0.9% 1,000 ML IV SCH (11:30)
[2020-06-21] MEDS: BUMETANIDE 0.25 MG/ML 10 ML VIAL IV SCH ×2 (12:18→21:45)
[2020-06-21] MEDS ORDERED: IPRATROPIUM-ALBUTEROL 3 ML NEB INHALATION PRN (12:20)
[2020-06-21] MEDS ORDERED: IPRATROPIUM-ALBUTEROL 3 ML NEB INHALATION STA (12:20)
[2020-06-21] MEDS: GABAPENTIN 100 MG CAP PO SCH ×2 (17:11→21:46)
[2020-06-21 17:31] LABS: Glucose,Whole Blood 135 mg/dL (75-99)
[2020-06-21] MEDS: INSULIN ASPART (NovoLOG) 100 UNIT/ML VIAL SQ SCH ×2 (17:41→21:46)
[2020-06-21 21:24] LABS: Glucose,Whole Blood 160 mg/dL (75-99)
[2020-06-21] MEDS: TICAGRELOR 90 MG TAB PO SCH (21:46)
[2020-06-22 06:37] LABS: Glucose,Whole Blood 91 mg/dL (75-99)
[2020-06-22] MEDS: INSULIN ASPART (NovoLOG) 100 UNIT/ML VIAL SQ SCH ×4 (06:40→20:16)
[2020-06-22] MEDS: LEVOTHYROXINE 25 MCG TAB PO SCH (06:45)
[2020-06-22 08:33] LABS: Albumin 3.2 g/dL (3.5-5.0); Calcium 7.8 mg/dL (8.4-10.2); Phosphorus 3.5 mg/dL (2.5-4.5)
[2020-06-22 08:38] LABS: Potassium 4.6 mmol/L (3.5-5.1)
[2020-06-22 08:46] LABS: Basophils % (A) 1 %; Eosinophils # (A) 0.1 k/uL (0-0.7); Eosinophils % (A) 2 %; HCT 47.2 % (34.0-46.0); HGB 14.4 gm/dL (11.4-16.0); Hypochromasia Slight; Lymphocytes # (A) 1.4 k/uL (1.0-4.8); Lymphocytes % (A) 28 %; MCH 32.8 pg (25.0-35.0); MCHC 30.6 g/dL (31.0-37.0); MCV 107.3 fL (80.0-100.0); Macrocytosis Moderate; Mean Platelet Volume 10.1; Monocytes # (A) 0.7 k/uL (0-1.0); Monocytes % (A) 14 %; Neutrophils # (A) 2.6 k/uL (1.3-7.7); Neutrophils % (A) 53 %; RDW 14.4 % (11.5-15.5); WBC 4.8 k/uL (3.8-10.6)
[2020-06-22] MEDS: GABAPENTIN 100 MG CAP PO SCH ×3 (09:28→20:16)
[2020-06-22] MEDS: METOPROLOL TARTRATE 25 MG TAB PO SCH (09:28)
[2020-06-22] MEDS: TICAGRELOR 90 MG TAB PO SCH ×2 (09:28→20:16)
[2020-06-22] MEDS: BUMETANIDE 0.25 MG/ML 10 ML VIAL IV SCH ×2 (09:29→20:16)
--- NOTE | 2020-06-22 10:34 | XR ---
EXAMINATION TYPE: XR chest 2V DATE OF EXAM: 06/22/2020 COMPARISON: 09/29/2018, CT 06/09/2020 HISTORY: 80 year-old female shortness of breath TECHNIQUE: Frontal and lateral views FINDINGS: Heart mildly enlarged. Diffuse interstitial opacities. Ronit B lines. Small bilateral pleural effusi ons with adjacent opacity. IMPRESSION: CHF with interstitial pulmonary edema. Small pleural effusions with adjacent atelectasis and or conso lidation. Findings may be slightly worsened from the CT of 06/09/2020.
[2020-06-22 11:26] LABS: Glucose,Whole Blood 127 mg/dL (75-99)
[2020-06-22 12:19] LABS: Large Platelets Present; Platelet Count 71 k/uL (150-450)
--- NOTE | 2020-06-22 12:47 | P.PN ---
Subjective Progress Note Date: 06/22/20 HISTORY OF PRESENTING ILLNESS Patient is a pleasant 80-year-old female with history of severe symptomatic aortic stenosis, hypertension, hyperlipidemia, diastolic heart failure and coronary artery disease who presented for elective PCI of her mid LAD yesterday. She has been worked up for her aortic stenosis with recommendations for TAVR and had a diagnostic heart catheterization approximately 3 weeks ago which showed obstructive disease of the mid LAD. She had successful PCI performed yesterday through the left radial approach and denies any issue with hematochezia or melena. Unfortunately as an outpatient she has been in heart failure with prior attempts at increasing her diuretics however still has significant lower extremity edema and severe shortness breath with minimal activity. Due to these concerns, patient was held overnight to receive hydration after the catheterization and IV diuretics. She admits to mild increase in her dyspnea however still very short of breath with simple a ctivities such as repositioning in bed. She did have good urine output overnight. PHYSICAL EXAMINATION Blood pressure 11/74 heart rate 76 afebrile and maintaining oxygen saturation on 2 L nasal cannula. CONSTITUTIONAL: No apparent distress. Mild conversational dyspnea HEENT: Head is normocephalic. Pupils are equal, round. Sclerae anicteric. Mucous membranes of the mouth are moist. + JVD. No carotid bruit. CHEST EXAMINATION: bilateral crackles to the mid chest HEART EXAMINATION: Regular rate and rhythm. S1, S2 heard. +Harsh 4-6 systolic murmur, no gallops or rub. ABDOMEN: Soft, nontender. Positive bowel sounds. EXTREMITIES: 2+ peripheral pulses, 2+ lower extremity edema and no calf tende rness. NEUROLOGIC EXAMINATION: Patient is awake, alert and oriented x3. ASSESSMENT 1. Acute on chronic diastolic heart failure, present on admission, refractory to outpatient treatment 2. Coronary artery disease status post successful PCI of her mid to distal LAD 3. Severe symptomatic aortic stenosis, undergoing outpt workup for TAVR 4. Chronic kidney disease 5. Essential hypertension 6. Hyperlipidemia 7. Aspirin allergy 8. Thrombocytopenia PLAN Continue with Brilinta for her recent PCI. She is allergic to aspirin and we will continue with only Brilinta. Patient has been tried on outpatient therapy for her heart failure however has had increase in lower extremity edema and incr easing dyspnea on exertion. Patient clearly is volume overloaded and we will continue with IV diuresis issues failed outpatient therapy. Monitor kidney function and electrolytes. Check Chest x-ray. Thrombocytopenia, monitor daily CBC and platelets. Objective - Vital Signs Vital signs: Vital Signs Temp 97.4 F L 06/22/20 08:41 Pulse 76 06/22/20 08:41 Resp 16 06/22/20 08:41 BP 111/74 06/22/20 08:41 Pulse Ox 98 06/22/20 08:41 Intake & Output 06/21/20 06/22/20 06/22/20 18:59 06:59 18:59 Intake Total 200 Output Total 1050 1850 400 Balance -850 -1850 -400 Weight 93.894 kg Intake: IV 200 Output: Urine 1050 1850 400 Other: Voiding Method Bedpan Bedpan Bedside Commode # Voids 2 2 - Labs CBC & Chem 7: 06/22/20 07:43 06/22/20 07:43 Labs: Abnormal Lab Results - Last 24 Hours (Table) 06/21/20 06/21/20 06/22/20 Range/Units 17:29 21:23 07:43 Hct (34.0-46.0) % MCV (80.0-100.0) fL MCHC (31.0-37.0) g/dL Plt Count (150-450) k/uL Sodium 136 L (137-145) mmol/L Glucose 100 H (74-99) mg/dL POC Glucose (mg/dL) 135 H 160 H (75-99) mg/dL Calcium 7.8 L (8.4-10.2) mg/dL Albumin 3.2 L (3.5-5.0) g/dL 06/22/20 06/22/20 Range/Units 07:43 11:25 Hct 47.2 H (34.0-46.0) % MCV 107.3 H (80.0-100.0) fL MCHC 30.6 L (31.0-37.0) g/dL Plt Count 71 L (150-450) k/uL Sodium (137-145) mmol/L Glucose (74-99) mg/dL POC Glucose (mg/dL) 127 H (75-99) mg/dL Calcium (8.4-10.2) mg/dL Albumin (3.5-5.0) g/dL
[2020-06-22 16:57] LABS: Glucose,Whole Blood 142 mg/dL (75-99)
[2020-06-22 20:05] LABS: Glucose,Whole Blood 198 mg/dL (75-99)
[2020-06-23 04:50] VITALS: RESP 18
[2020-06-23 06:36] LABS: Glucose,Whole Blood 113 mg/dL (75-99)
[2020-06-23] MEDS: LEVOTHYROXINE 25 MCG TAB PO SCH (06:40)
[2020-06-23] MEDS: INSULIN ASPART (NovoLOG) 100 UNIT/ML VIAL SQ SCH ×2 (06:40→13:10)
[2020-06-23] MEDS: TICAGRELOR 90 MG TAB PO SCH (08:55)
[2020-06-23] MEDS: METOPROLOL TARTRATE 25 MG TAB PO SCH (08:55)
[2020-06-23] MEDS: GABAPENTIN 100 MG CAP PO SCH (08:55)
[2020-06-23] MEDS: BUMETANIDE 0.25 MG/ML 10 ML VIAL IV SCH (08:56)
[2020-06-23 09:09] VITALS: BP 108/69; PULSE 77; TEMP 97.6
[2020-06-23 10:37] LABS: Basophils % (A) 1 %; Eosinophils # (A) 0.1 k/uL (0-0.7); Eosinophils % (A) 2 %; HGB 13.7 gm/dL (11.4-16.0); Hypochromasia Slight; Lymphocytes # (A) 1.2 k/uL (1.0-4.8); Lymphocytes % (A) 29 %; MCH 32.6 pg (25.0-35.0); MCHC 31.1 g/dL (31.0-37.0); MCV 104.8 fL (80.0-100.0); Macrocytosis Moderate; Mean Platelet Volume 9.4; Monocytes # (A) 0.5 k/uL (0-1.0); Monocytes % (A) 12 %; Neutrophils # (A) 2.2 k/uL (1.3-7.7); Neutrophils % (A) 56 %; RDW 14.6 % (11.5-15.5)
[2020-06-23 10:38] LABS: Platelet Count 85 k/uL (150-450)
[2020-06-23 10:53] LABS: Calcium 7.6 mg/dL (8.4-10.2); Potassium 3.7 mmol/L (3.5-5.1)
[2020-06-23 12:59] LABS: Glucose,Whole Blood 174 mg/dL (75-99)
--- NOTE | 2020-06-23 14:09 | P.DS ---
Providers Date of admission: 06/22/20 15:05 Expected date of discharge: 06/23/20 Attending physician: Adan Brewster DO Consults: 06/21/20 11:15 Consult Physician Routine Consulting Provider: [facility] Consult Reason/Comments: Post Interventional patient Do you want consulting provider notified?: Already Contacted Primary care physician: [facility] Course: 80-year-old female who underwent cardiac cath on 06/21/[address] Brewster with PCI of the mid LAD and also mid to distal LAD. Patient was admitted post cardiac cath for IV fluid hydration and also IV diuretics. Patient's respiratory status has improved since receiving IV Bumex. She denies shortness of breath. Vital signs are stable. She was deemed stable for discharge home today per Dr. Brewster. Patient unable to tolerate aspirin. Patient to continue with [place] to only at this time. Patient also prescribed Bumex 2 mg by mouth twice a day at the time of discharge. She is to follow up on an outpatient basis with Dr. Brewster and also Dr. Merritt for possible TAVR. Please see EMR for further hospital course details Discharge Diagnosis 1. Acute on chronic diastolic heart failure, present on admission, refractory to outpatient treatment 2. Coronary artery disease status post successful PCI of her mid to distal LAD 3. Severe symptomatic aortic stenosis, undergoing outpt workup for TAVR 4. Chronic kidney disease 5. Essential hypertension 6. Hyperlipidemia 7. Aspirin allergy 8. Thrombocytopenia Nurse practitioner note has been reviewed by physician. Signing provider agrees with the documented findings, assessment, and plan of care. Plan - Discharge Summary Discharge Rx Participant: No New Discharge Prescriptions: New Ticagrelor [Brilinta] 90 mg PO BID #60 tab Bumetanide [BUMEX] 2 mg PO BID #60 tab Discontinued Furosemide [Lasix] 40 mg PO DAILY PRN PRN Reason: Shortness Of Breath Or Wheezing No Action Insulin Aspart [NovoLOG Flexpen] 8 units SQ AC-LUNCH Gabapentin [Neurontin] 100 mg PO TID Cholecalciferol (Vitamin D3) [Vitamin D3] 125 mcg PO Q7D Insulin Aspart [Insulin Aspart Flexpen] 4 unit SQ AC-BRKFST Insulin Aspart [Insulin Aspart Flexpen] 8 unit SQ AC-SUPPER Potassium Chloride [Klor-Con 20] 20 meq PO DAILY Metoprolol Tartrate [Lopressor] 25 mg PO QAM Levothyroxine Sodium [Synthroid] 25 mcg PO DAILY traMADol HCL [Ultram] 50 mg PO DAILY Discharge Medication List Insulin Aspart [NovoLOG Flexpen] 8 units SQ AC-LUNCH 09/09/18 [History] Cholecalciferol (Vitamin D3) [Vitamin D3] 125 mcg PO Q7D 06/17/20 [History] Gabapentin [Neurontin] 100 mg PO TID 06/17/20 [History] Insulin Aspart [Insulin Aspart Flexpen] 4 unit SQ AC-BRKFST 06/17/20 [History] Insulin Aspart [Insulin Aspart Flexpen] 8 unit SQ AC-SUPPER 06/17/20 [History] Levothyroxine Sodium [Synthroid] 25 mcg PO DAILY 06/17/20 [History] Metoprolol Tartrate [Lopressor] 25 mg PO QAM 06/17/20 [History] Potassium Chloride [Klor-Con 20] 20 meq PO DAILY 06/17/20 [History] traMADol HCL [Ultram] 50 mg PO DAILY 06/17/20 [History] Bumetanide [BUMEX] 2 mg PO BID #60 tab 06/23/20 [Rx] Ticagrelor [Brilinta] 90 mg PO BID #60 tab 06/23/20 [Rx] Follow up Appointment(s)/Referral(s): Adan Brewster DO [STAFF PHYSICIAN] - 06/29/20 3:15 pm Patient Instructions/Handouts: Left Heart Catheterization (DC), Procedural Sedation (ED)
== END 2020-06-23 14:18 | disposition home or self-care (01) ==
LOC: CATHCVL 06:51 → 3NCARDOBS 13:03 → CATHCVL 06-22 15:05 → 3NCARDOBS 06-22 15:05
PROVIDERS: ADMIT Internal Medicine; ATTEND Internal Medicine
DX: I25.10 Atherosclerotic heart disease of native coronary artery without angina pectoris (principal); I50.33 Acute on chronic diastolic (congestive) heart failure; I35.0 Nonrheumatic aortic (valve) stenosis; I13.0 Hypertensive heart and chronic kidney disease with heart failure and stage 1 through stage 4 chronic kidney disease, or unspecified chronic kidney disease; N18.9 Chronic kidney disease, unspecified; E78.5 Hyperlipidemia, unspecified; D69.6 Thrombocytopenia, unspecified; Z88.6 Allergy status to analgesic agent; Z79.4 Long term (current) use of insulin; Z79.899 Other long term (current) drug therapy; Z79.890 Hormone replacement therapy; Z79.891 Long term (current) use of opiate analgesic
CPT/HCPCS: 93005; 94640 ×2; 85347; 80048 ×2; 80069; 85025 ×2; 71046; C9602; G0378 ×2; C1769 ×3; C1887; C1725 ×3; C1724; C1874 ×2; J2250; J2405; J2001; J3010; J1644; Q9967 ×2

== ENCOUNTER → 2020-10-07 | Outpatient (CLI) | payer MEDICARE ==
--- NOTE | 2020-10-07 14:38 | CT ---
EXAMINATION TYPE: CT ChestAbdPelvis w con DATE OF EXAM: 10/07/2020 COMPARISON: Most recent CT June 09, 2020 and older studies. PET/CT December 14, 2018 HISTORY: lymphoma follow up CT DLP: 1799 mGycm. Automated Exposure Control for Dose Reduction was Utilized. CONTRAST: CT scan of the thorax, abdomen and pelvis is performed with oral and with IV Contrast, patient inject ed with 100 mL of Isovue 300. FINDINGS: LUNGS: Moderate underlying emphysematous change with moderate scattered scarring greater on the right lung versus left lung redemonstrated. No pleural effusion or pneumothorax seen currently. New 6 x 3 mm posterior right upper lobe nodule or nodular consolidation axial image 19. Monitoring is advised. MEDIASTINUM: There are persistent prominent but subcentimeter mediastinal lymph nodes in the AP windo w along with the paratracheal regions. There is 2.0 x 1.6 cm subcarinal lymph node axial image 27 unc hanged from most recent CTs. Persistent prominent right and left pulmonary arteries suggesting underl alessio pulmonary hypertension No cardiomegaly or pericardial effusion is seen. Coronary artery calcifi cation redemonstrated. Stent graft in the aortic root redemonstrated. LIVER/GB: Lobulated contour to liver consistent with underlying cirrhosis redemonstrated. Cholecystec li clips are redemonstrated.. PANCREAS: Moderate generalized fat replaced atrophy redemonstrated. SPLEEN: No significant abnormality is seen. ADRENALS: No significant abnormality is seen. KIDNEYS: Symmetric cortical medullary uptake and excretion without hydronephrosis seen bilaterally. BOWEL: Oral contrast reaches level of cecum. No suspicious small or large bowel dilatation. Diverticu la the left and sigmoid colon. Small slight hiatal hernia redemonstrated. GENITAL ORGANS: Anteverted uterus. LYMPH NODES: No greater than 1cm abdominal or pelvic lymph nodes are appreciated. OSSEOUS STRUCTURES: Osseous structures demineralized. Multiple compression type fracture deformities including severe compression fracture L2 level redemonstrated. OTHER: No significant additional abnormality is seen. IMPRESSION: No new adenopathy identified to suggest active lymphoma recurrence. Interval resolution of pleural effusions and soft tissue anasarca.
== END | disposition home or self-care (01) ==
LOC: RADCTMAIN 12:25
PROVIDERS: ATTEND Internal Medicine Hematology & Oncology
DX: C81.98 Hodgkin lymphoma, unspecified, lymph nodes of multiple sites (principal); Z88.6 Allergy status to analgesic agent
CPT/HCPCS: 82565; 84520; 71260; 74177; 36415; Q9967

== ENCOUNTER → 2021-02-03 | Outpatient (CLI) | payer MEDICARE ==
--- NOTE | 2021-02-03 21:45 | CT ---
EXAMINATION TYPE: CT ChestAbdPelvis w con DATE OF EXAM: 02/03/2021 INDICATION: Lymphoma follow up COMPARISON: 10/07/2020 CT DLP: 1197.2 mGycm CONTRAST: Performed with Oral Contrast and with IV Contrast, patient injected with 100 mL of Isovue 300. TECHNIQUE: Axial images at 5 mm thick sections. Reconstructed images in the coronal plane. Delayed images through the kidneys. FINDINGS: CT CHEST: Portion of the thyroid visualized is normal. There is a 0.6 cm nodule within the right middle lobe. Series 4 image 33. This appears stable. Puncta te peripheral nodules within the right middle lobe. Series 4 image 29 No enlarged mediastinal or hilar adenopathy is evident. The ascending aorta diameter at the level of the main pulmonary artery is 2.9 cm. The main pulmonary artery diameter at the bifurcation is 3.2 cm. There is a small hiatal hernia present. CT ABDOMEN: Liver: Normal Spleen: Normal Pancreas: Normal Adrenal glands: There is mild thickening of the left adrenal gland measuring 1.6 cm. This was present previously. Gallbladder: Surgically absent Kidneys: No masses are evident. No hydronephrosis is present. Renal pelves are noted No cysts are pr esent. Delayed images were obtained through the kidneys, which remain unremarkable. Aorta: Vascular calcification is within the aorta. Inferior vena cava: Normal. CT PELVIS: Loops of bowel within the abdomen and pelvis are normal. Multiple scattered diverticuli are present t hroughout the colon. Oral contrast extends to the descending colon. There are loops of bowel which ar e incompletely distended or lack oral contrast limiting their evaluation. Appendix: Not identified. No dilated tubular structures or inflammatory changes are evident. Urinary bladder: Normal. Genitourinary structures: Uterus size appears normal. Small amount of air near the cervix could be wi thin the cervical canal. Ovaries not identified. Osseous structures: No suspicious lytic or sclerotic lesions. Facet degenerative changes are present. Degenerative changes lumbar spine compression deformities are noted within the upper lumbar spine. T his is stable. Lymphadenopathy: No suspicious axillary or mediastinal adenopathy is evident. No suspicious hilar jayme nopathy is evident. No suspicious abdominal adenopathy evident. Obturator canal and inguinal regions are without suspicious adenopathy. IMPRESSIONS: 1. No suspicious change to suggest recurrent or metastatic lymphoma.
== END | disposition home or self-care (01) ==
LOC: RADCTMAIN 10:16
PROVIDERS: ATTEND Internal Medicine Hematology & Oncology
DX: Z03.89 Encounter for observation for other suspected diseases and conditions ruled out (principal); C81.98 Hodgkin lymphoma, unspecified, lymph nodes of multiple sites
CPT/HCPCS: 82565; 84520; 71260; 74177; 36415; Q9967

== ENCOUNTER → 2021-06-03 | Outpatient (CLI) | payer MEDICARE ==
--- NOTE | 2021-06-06 08:29 | CT ---
EXAMINATION TYPE: CT ChestAbdPelvis w con DATE OF EXAM: 06/06/2021 COMPARISON: Most recent CT February 03, 2021 and older studies HISTORY: follow up lymphoma CT DLP: 1314.9 mGycm. Automated Exposure Control for Dose Reduction was Utilized. CONTRAST: CT scan of the thorax, abdomen and pelvis is performed with oral and with IV Contrast, patient inject ed with 100 mL of Isovue 300. FINDINGS: LUNGS: Mild underlying emphysematous change with more moderate scattered scarring greater in the reinier phery and in the right lung versus left lung redemonstrated. No pleural effusion or pneumothorax seen currently. No new or enlarging greater than 5 mm nodules. Stable 3 to 4 mm calcified nodule or granu may peripheral right mid lung axial image 28. MEDIASTINUM: There are persistent prominent but subcentimeter mediastinal lymph nodes in the AP windo w along with the paratracheal regions. There is stable prominence to 0.3 x 1.0 cm subcarinal lymph no de on image 28. No enlarging adenopathy is seen. Persistent prominent right and left pulmonary arteri es suggesting underlying pulmonary artery hypertension. Mild cardiomegaly redemonstrated. No pericard ial effusion is seen. Severe Coronary artery calcification redemonstrated. Stent graft in the aortic root redemonstrated. LIVER/GB: Lobulated contour to liver consistent with underlying cirrhosis redemonstrated. Cholecystec li clips are redemonstrated. PANCREAS: [id number]-[id number] generalized fat replaced atrophy redemonstrated. SPLEEN: No significant abnormality is seen. ADRENALS: No significant abnormality is seen. KIDNEYS: Symmetric cortical medullary uptake and excretion without hydronephrosis seen bilaterally. U rinary bladder within normal limits. BOWEL: Oral contrast reaches level of distal transverse colon. No suspicious small or large bowel dil atation. Diverticula the left and sigmoid colon. Redundant sigmoid colon. No CT evidence for acute di verticulitis. Stable small size hiatal hernia redemonstrated. Mild distal colonic fecal prominence. GENITAL ORGANS: Anteverted uterus. Adjacent scattered pelvic phleboliths. LYMPH NODES: No new greater than 1cm abdominal or pelvic lymph nodes are appreciated. OSSEOUS STRUCTURES: Osseous structures remain demineralized. Several compression type fracture deform ities including severe chronic compression fracture L2 level redemonstrated. OTHER: Moderate peripheral plaque in the aorta extends into branch vessels. Moderate focal dependent edema over the posterior sacrum is redemonstrated. IMPRESSION: No new adenopathy identified to suggest active lymphoma recurrence.
== END | disposition home or self-care (01) ==
LOC: RADCTMAIN 11:56
PROVIDERS: ATTEND Internal Medicine Hematology & Oncology
DX: Z03.89 Encounter for observation for other suspected diseases and conditions ruled out (principal); C81.98 Hodgkin lymphoma, unspecified, lymph nodes of multiple sites
CPT/HCPCS: 82565; 84520; 71260; 74177; 36415; Q9967

== ENCOUNTER → 2022-01-02 | Outpatient (CLI) | payer MEDICARE ==
--- NOTE | 2022-01-02 16:54 | CT ---
EXAMINATION TYPE: CT ChestAbdPelvis w con DATE OF EXAM: 01/02/2022 COMPARISON: CT 06/03/2021 HISTORY: obs for mets. hx of lymphoma CT DLP: 1429 mGycm Automated exposure control for dose reduction was used. CONTRAST: CT scan of the chest, abdomen and pelvis is performed with Oral Contrast and with IV Contrast, patien t injected with 80 mL of Isovue 300. FINDINGS: LUNGS: The lungs show interstitial changes. Calcified granuloma again noted There is no pleural effu waqas or pneumothorax seen. The tracheobronchial tree is patent. MEDIASTINUM: Stable appearance, subcarinal location is stable. No pericardial effusion is seen. TA VR procedure changes are noted, there are coronary artery calcifications. There is a hiatal hernia wi th partial intrathoracic stomach AORTA: No significant abnormality is seen. OTHER: No additional significant abnormality is seen. LIVER/GB: No significant change is appreciated, nodular appearance of the liver is again seen, patien t is post cholecystectomy. PANCREAS: No significant abnormality is seen. SPLEEN: No significant abnormality is seen. ADRENALS: No significant abnormality is seen. KIDNEYS: No significant abnormality is seen. REPRODUCTIVE ORGANS: No gross abnormality seen. BOWEL: No significant abnormality is seen, duodenal diverticulum present at the head of the pancreas as on prior. FREE AIR: No Free Air visible. ASCITES: None seen. RETROPERITONEAL ADENOPATHY: No retroperitoneal adenopathy is seen. LYMPH NODES: No greater than 1 cm abdominal or pelvic lymph nodes are appreciated. URINARY BLADDER: No significant abnormality is seen. PELVIC ADENOPATHY: None visualized. OSSEOUS STRUCTURES: Multiple compression deformities are again noted within the lumbar spine, L4 com pression fracture has progressed loss of height centrally of approximately 50%. Sclerotic appearance of the fourth and fifth ribs on the right may be due to fractures, correlate for tenderness laterally IMPRESSION: No new adenopathy. Correlate for possible rib fractures on the right, there is been progr ession of osteoporotic compression deformity as described and lumbar spine additional findings above
== END | disposition home or self-care (01) ==
LOC: RADCTMAIN 13:33
PROVIDERS: ATTEND Internal Medicine Hematology & Oncology
DX: Z03.89 Encounter for observation for other suspected diseases and conditions ruled out (principal); C81.98 Hodgkin lymphoma, unspecified, lymph nodes of multiple sites
CPT/HCPCS: 82565; 84520; 71260; 74177; 36415; Q9967

== ENCOUNTER → 2022-03-02 | Outpatient (CLI) | payer MEDICARE ==
[~2022-03-02] MED LIST changes: -ALPRAZolam 0.25 MG TAB PO PRN; -ALPRAZolam 0.5 MG TAB PO PRN; +DENOSUMAB 60 MG/ML 1 ML SYRINGE SQ NR; -NITROGLYCERIN SL TABS 0.4 MG TAB SUBLINGUAL PRN; -SODIUM CHLORIDE 0.9% 1,000 ML in EMPTY BAG 1 BAG IV ONE
[2022-03-02 12:11] VITALS: BP 119/69; PULSE 70; RESP 15; TEMP 97.8
== END | disposition home or self-care (01) ==
LOC: PROCWHC3 11:54
PROVIDERS: ATTEND Internal Medicine
DX: M81.0 Age-related osteoporosis without current pathological fracture (principal)
CPT/HCPCS: 96372; J0897

== ENCOUNTER → 2022-07-13 | Outpatient (CLI) | payer MEDICARE ==
--- NOTE | 2022-07-13 12:26 | CT ---
EXAMINATION TYPE: CT ChestAbdPelvis w con CT DLP: 1637 mGycm, Automated exposure control for dose reduction was used. DATE OF EXAM: 07/13/2022 12:14 PM COMPARISON: CT chest and pelvis 01/02/2022. CLINICAL INDICATION:Female, 82 years old with history of C81.89 lymphoma; PHH, HX lymphoma follow up Technique: Multiple axial images of the chest, abdomen, and pelvis were obtained following the intrav enous administration of 70 cc Isovue-300. Oral contrast administered. Two-dimensional coronal and sag ittal reconstructions were obtained. Findings: CHEST: LUNGS/ PLEURA: Redemonstration of interstitial changes. Calcified granuloma again noted. No focal con solidation, pneumothorax, pleural effusion. Mild centrilobular emphysematous changes. No new or enlar ging pulmonary nodules. AIRWAY: Patent and unremarkable.. HEART: Size within normal limits. No pericardial effusion. Favor procedure changes are noted. Coronar y artery calcifications.. MEDIASTINUM: Stable less than 1 cm mediastinal lymph nodes. No enlarging adenopathy. VASCULATURE: No aortic aneurysm. Sclerotic calcification of the aorta. Persistent prominent right an d left pulmonary arteries suggesting underlying pulmonary arterial hypertension. MUSCULOSKELETAL: No acute osseous abnormalities. Similar sclerotic appearance to the fourth and fifth ribs on the right may be due to remote fractures. SOFT TISSUES/LYMPH NODES: Unremarkable. LOWER NECK: No significant findings. ABDOMEN: ABDOMEN LIVER: Nodular appearance to the liver again seen. No significant change. No suspicious focal lesion. GALLBLADDER AND BILE DUCTS: Postcholecystectomy. No biliary duct dilatation. PANCREAS: Fatty infiltration. SPLEEN: Unremarkable. ADRENAL GLANDS: Unremarkable. KIDNEYS AND URETERS: No evidence of hydronephrosis or renal calculus. The kidneys enhancement without suspicious focal lesion. Bilateral prominent extra renal pelvises. PELVIS BLADDER: Unremarkable REPRODUCTIVE: Unremarkable. ABDOMEN & PELVIS STOMACH AND BOWEL: Moderate sized lateral hernia. Duodenal diverticulum is present at the head of the pancreas similar to prior. Distal colonic diverticulosis without evidence for acute diverticulitis. No focal wall thickening. No evidence of bowel obstruction. PERITONEUM: No evidence of pneumoperitoneum or free fluid. VASCULATURE: Moderate atherosclerotic calcifications are present throughout the abdominal aorta and i ts branches. No abdominal aortic aneurysm. MUSCULOSKELETAL: No aggressive osseous lesion. Multiple compression deformities are again noted withi n the lumbar spine. No significant change from prior exam. LYMPH NODES: No gross evidence for lymphadenopathy. SOFT TISSUE/ABDOMINAL WALL: Unremarkable IMPRESSION: No new adenopathy identified to suggest active lymphoma recurrence.
== END | disposition home or self-care (01) ==
LOC: RADCTMAIN 10:00
PROVIDERS: ATTEND Internal Medicine Hematology & Oncology
DX: C81.18 Nodular sclerosis Hodgkin lymphoma, lymph nodes of multiple sites (principal)
CPT/HCPCS: 82565; 84520; 71260; 74177; 36415; Q9967

== ENCOUNTER → 2022-09-05 | Outpatient (CLI) | payer MEDICARE ==
[~2022-09-05] MED LIST changes: -DENOSUMAB 60 MG/ML 1 ML SYRINGE SQ NR; +DENOSUMAB 60 MG/ML 1 ML SYRINGE SQ ONE
[2022-09-05 09:58] VITALS: BP 158/92; PULSE 96; RESP 16; TEMP 98.3
== END ==
LOC: PROCWHC3 09:43
PROVIDERS: ATTEND Internal Medicine
DX: M81.0 Age-related osteoporosis without current pathological fracture (principal); Z88.6 Allergy status to analgesic agent
CPT/HCPCS: 96372; J0897

== ENCOUNTER → 2023-01-11 | Outpatient (CLI) | payer MEDICARE ==
--- NOTE | 2023-01-11 14:38 | CT ---
EXAMINATION TYPE: CT ChestAbdPelvis w con DATE OF EXAM: 01/11/2023 COMPARISON: Prior CT July 13, 2022 and older studies HISTORY: Hodgkin LYMPHOMA, FOLLOW UP CT DLP: 1450 mGycm. Automated Exposure Control for Dose Reduction was Utilized. CONTRAST: CT scan of the thorax, abdomen and pelvis is performed with oral and with IV Contrast, patient inject ed with 100 mL of Isovue 300. FINDINGS: LUNGS: Mild to moderate underlying emphysematous change with mild to moderate scattered scarring grea ter in the periphery and in the right lung versus left lung is redemonstrated. No pleural effusion or pneumothorax seen currently. No new or enlarging greater than 5 mm noncalcified nodules. Stable 3 to 4 mm calcified nodule or granuloma peripheral right mid lung axial image 30. MEDIASTINUM: There are persistent prominent but subcentimeter mediastinal lymph nodes in the AP windo w along with the paratracheal regions. There is stable prominence subcarinal lymph node on axial imag e 26. No enlarging greater than 1 cm adenopathy is seen. Persistent prominent right and left pulmonar y arteries. Mild cardiomegaly redemonstrated. No pericardial effusion is seen. Severe Coronary arter y calcification redemonstrated. Stent graft in the aortic root redemonstrated. LIVER/GB: Lobulated contour to liver consistent with underlying cirrhosis redemonstrated. Cholecystec li clips are redemonstrated. No new ascites. PANCREAS: Moderate generalized fat replaced atrophy redemonstrated. SPLEEN: No significant abnormality is seen. ADRENALS: No significant abnormality is seen. KIDNEYS: Symmetric cortical medullary uptake and excretion without hydronephrosis seen bilaterally. C ortical thinning bilaterally redemonstrated. Subcentimeter simple cyst posterior right kidney series 7 image 28 redemonstrated. Urinary bladder within normal limits. BOWEL: Oral contrast reaches level of distal transverse colon. No suspicious small or large bowel dil atation. Diverticula the left and sigmoid colon. Redundant sigmoid colon. No CT evidence for acute di verticulitis. Stable small size hiatal hernia redemonstrated. Mild distal colonic fecal prominence. GENITAL ORGANS: Anteverted uterus. Symmetric normal-appearing ovaries. LYMPH NODES: No new greater than 1cm abdominal or pelvic lymph nodes are appreciated. OSSEOUS STRUCTURES: Osseous structures remain demineralized. Several compression type fracture deform ities including severe chronic compression fracture L2 level redemonstrated. Moderate to severe chron ic compression fracture at L4 level is redemonstrated. Multilevel spondylolisthesis in the lumbar spi ne again seen. OTHER: Moderate peripheral plaque in the aorta extends into branch vessels. IMPRESSION: No new adenopathy identified to suggest active lymphoma recurrence.
== END | disposition home or self-care (01) ==
LOC: RADCTMAIN 11:49
PROVIDERS: ATTEND Internal Medicine Hematology & Oncology
DX: C81.98 Hodgkin lymphoma, unspecified, lymph nodes of multiple sites (principal); S32.040A Wedge compression fracture of fourth lumbar vertebra, initial encounter for closed fracture; K21.9 Gastro-esophageal reflux disease without esophagitis; R13.10 Dysphagia, unspecified
CPT/HCPCS: 82565; 84520; 71260; 74177; 36415; Q9967

== ENCOUNTER → 2023-03-08 | Outpatient (CLI) | payer MEDICARE ==
[~2023-03-08] MED LIST changes: +DENOSUMAB 60 MG/ML 1 ML SYRINGE SQ NR; -DENOSUMAB 60 MG/ML 1 ML SYRINGE SQ ONE
[2023-03-08 09:42] VITALS: BP 141/63; PULSE 82; RESP 16; TEMP 97.8
== END ==
LOC: PROCWHC3 09:08
PROVIDERS: ATTEND Internal Medicine
DX: M81.0 Age-related osteoporosis without current pathological fracture (principal)
CPT/HCPCS: 96372; J0897

== ENCOUNTER → 2023-07-12 | Outpatient (CLI) | payer MEDICARE ==
[2023-07-12 10:01] LABS: African American GFR (CKD) 60 (>60 ml/min/1.73 sqM); Blood Urea Nitrogen 28 mg/dL (7-17); Non-African American GFR(CKD) 52 (>60 ml/min/1.73 sqM)
--- NOTE | 2023-07-13 08:23 | CT ---
EXAMINATION TYPE: CT ChestAbdPelvis w con DATE OF EXAM: 07/12/2023 INDICATION: f/u lymphoma COMPARISON: 01/11/2023 CT DLP: 1652 mGycm CONTRAST: Performed with Oral Contrast and with IV Contrast, patient injected with 80 mL of Isovue 300. TECHNIQUE: Axial images at 5 mm thick sections. Reconstructed images in the coronal plane. Delayed images through the kidneys. FINDINGS: CT CHEST: Portion of the thyroid visualized is normal. No suspicious lung nodules or focal infiltrates are present. There is some peripheral increased lung markings suggestive for underlying mild pulmonary fibrosis. There is a 0.7 cm long area of increased density within the anterior right upper lobe. Series 4 image 36. The ascending aorta diameter at the level of the main pulmonary artery is 3.1 cm. The main pulmonary artery diameter at the bifurcation is 2.9 cm. No enlarged mediastinal or hilar lymph nodes are evident. No suspicious axillary lymph nodes evident. No retrocrural adenopathy evident. There is a moderate size hiatal hernia present. CT ABDOMEN: Liver: Normal Spleen: Normal Pancreas: Normal Adrenal glands: The adrenal glands are normal. Gallbladder: Normal Kidneys: No masses are evident. No hydronephrosis is present. No cysts are present. Delayed images were obtained through the kidneys, which remain unremarkable. Aorta: Vascular calcification is within the aorta. Inferior vena cava: Normal. CT PELVIS: Loops of bowel within the abdomen and pelvis are normal. There are loops of bowel which are incom pletely distended or lack oral contrast limiting their evaluation. Appendix: Normal as visualized. Urinary bladder: Normal. Genitourinary structures: Uterus and adnexa appear normal Osseous structures: No suspicious lytic or sclerotic lesions. Facet degenerative changes are within t he lumbar spine. Lymphadenopathy: No periaortic or retrocaval adenopathy evident. No mesenteric adenopathy. 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 No suspicious inguinal adenopathy. IMPRESSION: 1. No suspicious enlarged lymphadenopathy. 2. Small density within the right upper lung field. Follow-up CT chest exam 6 months.
== END | disposition home or self-care (01) ==
LOC: RADCTMAIN 09:19
PROVIDERS: ATTEND Internal Medicine Hematology & Oncology
DX: C81.98 Hodgkin lymphoma, unspecified, lymph nodes of multiple sites (principal); K21.9 Gastro-esophageal reflux disease without esophagitis; R13.10 Dysphagia, unspecified; S32.040A Wedge compression fracture of fourth lumbar vertebra, initial encounter for closed fracture; J98.4 Other disorders of lung
CPT/HCPCS: 82565; 84520; 71260; 74177; 36415; Q9967

== ENCOUNTER → 2023-09-11 | Outpatient (CLI) | payer MEDICARE ==
[2023-09-11 14:42] VITALS: BP 147/72; PULSE 69; RESP 16; TEMP 97.7
== END ==
LOC: PROCWHC3 14:15
PROVIDERS: ATTEND Internal Medicine
DX: M81.0 Age-related osteoporosis without current pathological fracture (principal)
CPT/HCPCS: 96372; J0897

== ENCOUNTER → 2024-01-10 | Outpatient (CLI) | payer MEDICARE ==
[2024-01-10 12:45] LABS: African American GFR (CKD) 65 (>60 ml/min/1.73 sqM); Blood Urea Nitrogen 15 mg/dL (7-17); Non-African American GFR(CKD) 56 (>60 ml/min/1.73 sqM)
--- NOTE | 2024-01-10 15:16 | CT ---
EXAMINATION TYPE: CT ChestAbdPelvis w con DATE OF EXAM: 01/10/2024 COMPARISON: 07/12/2023 HISTORY: Lymphoma CT DLP: 1691 mGycm Automated exposure control for dose reduction was used. CONTRAST: CT scan of the chest, abdomen and pelvis is performed with Oral Contrast and with IV Contrast, patien t injected with 80ml mL of Isovue 300. FINDINGS: CT chest: There are mild emphysematous changes. There is mild scattered reticular densities in the subpleural p arenchymal lung There is no suspicious lung mass or nodule. There is no abnormal airspace/consolidative density. There is no pleural effusion, pleural thickening or pneumothorax. The great vessels the chest are normal and there is no mediastinal, hilar or axillary adenopathy. The re is a prosthetic aortic valve. No focal osseous lesions are seen. CT abdomen and pelvis: There is a moderate hiatal hernia. There are surgical absence of the gallbladder. The liver is small in size and the contour of the liver is lobulated consistent with cirrhosis. There is atrophy of the pancreas. There is no splenomegaly. No adrenal masses are seen. The kidneys are mildly atrophic but is there is no solid renal mass. There is no retroperitoneal gordy opathy or hemorrhage in the caliber of the abdominal aorta is normal. The bowel loops are normal in caliber and no dilatation or obstruction. There is no free intraperitoneal air or fluid. There is no pelvic mass, abscess or adenopathy. The osseous structures and soft tissues are unremarkable IMPRESSION: 1. No evidence of recurrent lymphoma. 2. Mild emphysematous changes. 3. cirrhotic liver 4. Mild renal atrophy and pancreatic atrophy. 5. Moderate hiatal hernia
== END | disposition home or self-care (01) ==
LOC: RADCTMAIN 12:00
PROVIDERS: ATTEND Internal Medicine Hematology & Oncology
DX: C81.98 Hodgkin lymphoma, unspecified, lymph nodes of multiple sites (principal); K21.9 Gastro-esophageal reflux disease without esophagitis; R13.10 Dysphagia, unspecified; S32.040A Wedge compression fracture of fourth lumbar vertebra, initial encounter for closed fracture; G89.3 Neoplasm related pain (acute) (chronic); K74.60 Unspecified cirrhosis of liver; K44.9 Diaphragmatic hernia without obstruction or gangrene; N26.1 Atrophy of kidney (terminal); K86.89 Other specified diseases of pancreas
CPT/HCPCS: 82565; 84520; 71260; 74177; 36415; Q9967